=== PATIENT | male | born 1980 | race Caucasian/White ===

== ENCOUNTER 2019-04-30 11:10 | Inpatient (IN) ==
[2019-04-30] MEDS ORDERED: SODIUM CHLORIDE 0.9% 1000ML 2,000 ML IV ONE (11:41)
[2019-04-30 11:50] LABS: Basophils # (auto) 0.02 K/uL (0-0.2); Basophils % (auto) 0.2 %; Eosinophils # (auto) 0.89 K/uL (0-0.5); Eosinophils % (auto) 8.5 %; Hematocrit (blood only) 41.2 % (42-52); Hemoglobin 13.5 g/dL (14.0-18.0); Lymphocytes # (auto) 1.17 K/uL (1.2-3.4); Lymphocytes % (auto) 11.2 %; Mean Corpuscular Hemoglobin 25.4 pg (25-34); Mean Corpuscular Hgb Conc 32.8 g/dL (32-36); Mean Corpuscular Volume 77.6 fL (80-100); Mean Platelet Volume 9.4 fL (7.4-10.4); Monocytes # (auto) 0.81 K/uL (0.11-0.59); Monocytes % (auto) 7.8 %; Neutrophils # (auto) 7.43 K/uL (1.4-6.5); Neutrophils % (auto) 71.3 %; Platelet Count 256 K/uL (130-400); RDW Coefficient of Variation 13.6 % (11.5-14.5); RDW Standard Deviation 38.5 fL (36.4-46.3); Red Blood Count 5.31 M/uL (4.7-6.1); White Blood Count 10.42 K/uL (4.8-10.8)
--- NOTE | 2019-04-30 11:59 | XRay Report ---
XR chest 1V portable HISTORY: 38 years-old Male Chest Pain acute atypical chest pain COMPARISON: None available TECHNIQUE: Portable AP view of the chest FINDINGS: Cardiac silhouette is upper limits of normal in size. Mild right hemidiaphragmatic elevation with min imal patchy basilar opacities. Blunting of the costophrenic angles. No pneumothorax or overt pulmonar y edema. Ill-defined nodular 2.9 x 2.2 cm right suprahilar nodular lesion. There is no pneumothorax. Bones appear grossly intact. IMPRESSION: 1. Indeterminate 2.3 x 2.9 cm right suprahilar nodular opacity may reflect focal airspace disease megan michelle pulmonary nodule. Correlation with follow-up chest CT recommended to further evaluate. 2. Moderate hemidiaphragm elevation with bibasilar opacities suggestive of atelectasis or pneumonitis . 3. Probable trace pleural effusions. The above report was generated using voice recognition software. It may contain grammatical, syntax o r spelling errors. Electronically signed by: Kailash Kumari M.D. 04/30/2019 11:58 AM
[2019-04-30 12:00] LABS: Appearance Urine Clear (Clear); Bilirubin Urine Negative (Negative); Blood Urine Negative (Negative); Color Urine Yellow; Glucose Urine UA Negative (Negative); Ketones Urine Negative (Negative); Leukocyte Esterase Urine Negative (Negative); Nitrite Urine Negative (Negative); Protein Urine Negative (Negative); Specific Gravity Urine 1.013 (1.000-1.030); Urobilinogen Urine Negative (Negative); pH Urine 6.5 (4.5-7.5)
[2019-04-30 12:08] LABS: Alanine Aminotransferase 44 U/L (12-78); Albumin Level 3.4 gm/dl (3.4-5.0); Aspartate Aminotransferase 27 U/L (15-37); BUN Creatinine Ratio 13.4 (10-20); Bilirubin Direct 0.3 mg/dl (0-0.2); Blood Urea Nitrogen 14 mg/dl (7-18); Calcium 9.5 mg/dl (8.5-10.1); Carbon Dioxide 28 mmol/L (21-32); Chloride 95 mmol/L (98-107); Creatinine Clr Calc Pharmacy 118.5 ml/min; Est GFR (African American) 100.1; Est GFR (Non-African American) 86.4; Glucose 83 mg/dl (70-99); Lipase 82 U/L (73-393); Potassium 4.1 mmol/L (3.5-5.1); Sodium 130 mmol/L (136-145); Uric Acid 6.6 mg/dl (2.6-7.2)
[2019-04-30 12:17] LABS: Albumin Globulin Ratio 0.6 (0.9-2); Alkaline Phosphatase 250 U/L (45-117); Bilirubin,Total 0.6 mg/dl (0.2-1); Globulin 5.5 gm/dl (2.5-4.0); Phosphorus 3.7 mg/dl (2.5-4.9); Total Protein 8.9 gm/dl (6.4-8.2); Troponin I < 0.015 ng/ml (0-0.045)
[2019-04-30] MEDS ORDERED: IOVERSOL 100ml IV PRN (12:56)
--- NOTE | 2019-04-30 13:28 | CT Scan Report ---
CT abd pelvis IV con only CLINICAL HISTORY: lower abdominal pain COMPARISON STUDY: None. TECHNIQUE: The patient was scanned in a dynamic helical fashion during intravenous administration of 94 cc of Optiray 320. A dose lowering technique was utilized adhering to the principles of ALARA. CT DOSE: 1084.55 mGycm FINDINGS: Lower chest: There are equivocal lower lobe pulmonary artery filling defects. CT angiography the ches t is recommended in follow-up to evaluate for pulmonary embolism. There are small bilateral pleural e ffusions right greater than left. There are dependent airspace opacities, likely atelectatic. There a re enlarged lymph nodes at the level of the right cardiophrenic angle. There is a 24 mm left lower lo be interfissural nodule. There is a 15 mm right lower lobe pleural nodule. Pleural metastasis are michelle pected. Liver: There is a 13 cm left lobe hepatic mass with overlying capsular irregularity. There is thicken ing of the anterior diaphragm. Gallbladder: Unremarkable. Spleen: The spleen is mildly enlarged measuring 13.7 cm. Pancreas: Unremarkable. Adrenal glands: There is a 19 mm left adrenal nodule. Kidneys: There is symmetric renal cortical enhancement. The kidneys are normal in size without hydron ephrosis. Bowel: There are no transition zones to indicate bowel obstruction. There is no evidence of acute div erticulitis. There is no evidence of acute appendicitis. Peritoneum: There is no free air. There is trace free pelvic fluid. There is a 17 mm right perirectal soft tissue nodule consistent with a is no implant. There is ar 24 mm central mesenteric mass consis tent with a tumor implant. There are pericapsular hepatic nodules consistent with tumor implants. Vasculature: The abdominal aorta is normal in course and caliber. Adenopathy: There is an enlarged 39 mm seven hepatis lymph node. Pelvic viscera: The bladder, and pelvic viscera are unremarkable. Skeletal structures: No destructive osseous lesions are seen. IMPRESSION: 1. 13 cm left lobe hepatic mass with suspected transcapsular and transdiaphragmatic extension. There are suspected bilateral pleural masses with associated pleural effusions. There is pathologic adenopa thy including a 39 mm seven hepatis lymph node. 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 2. 19 mm left adrenal nodule 3. Possible pulmonary artery filling defects. A dedicated CT angiogram of the chest is recommended to confirm or exclude the presence of pulmonary embolism 4. No evidence of bowel obstruction. No evidence of free air Electronically signed by: Gregory Miramontes M.D. 04/30/2019 1:26 PM
[2019-04-30] MEDS ORDERED: OPTIRAY 320 125ml IV PRN (14:18)
--- NOTE | 2019-04-30 14:45 | CT Scan Report ---
CT ANGIOGRAPHY OF THE CHEST, PULMONARY EMBOLUS PROTOCOL CLINICAL HISTORY: Pulmonary emboli. COMPARISON STUDY: Chest radiograph and CT of the abdomen and pelvis performed earlier today. TECHNIQUE: Following IV administration of 120 mL of Optiray-320, helical axial images of the chest we re obtained utilizing the pulmonary embolus protocol. Maximal intensity projections and sagittal and coronal reformats were viewed on an independent 3D workstation. IV contrast was administered withou t complication. Automated exposure control was utilized for the study. A dose lowering technique wa s utilized adhering to the principles of ALARA. CT DOSE: 576.96 mGycm FINDINGS: Note is made of extensive pulmonary emboli, including emboli within the distal right pulmo nary artery extending into the lobar and segmental branches of the lobe within the right lung. There are several segmental left-sided pulmonary emboli as well. There is no CT evidence for right heart st rain. Size of the heart is at the upper limits of normal. There are small bilateral pleural effusions . The right pleural effusion is partially loculated. A 2.5 cm subpleural opacity within the superior segment of the right lower lobe on axial image 179 of 278 favors a pulmonary infarct. There are are i nnumerable small pulmonary and pleural nodules. These measure up to 8 mm in size. Central airways are patent. There is no pneumothorax. No suspicious osseous lesions are noted. A large left hepatic lobe mass is better depicted on the abdominal CT which was performed earlier today. Nodularity along the diaphragm as well as costophrenic angle is noted. There are several enlarged subcarinal lymph nodes. Prominent AP window lymph nodes are also noted. IMPRESSION: 1. Extensive right-sided pulmonary emboli, including emboli within the distal right pulmonary artery. Multiple segmental left pulmonary emboli. No CT evidence for right heart strain. Suspected 2.5 cm ri ght lower lobe pulmonary infarct. 2. Small bilateral pleural effusions. These are likely malignant. Innumerable small pulmonary and ple ural nodules suggestive of metastatic disease. 3. Left hepatic lobe mass, better depicted on CT performed earlier today. This favors a primary liver tumor. Adjacent nodularity reflects tumor extending along the diaphragm. 4. Enlarged thoracic lymph nodes suggestive of kya spread of disease. Electronically signed by: Pepito Lyn M.D. 04/30/2019 2:44 PM
[2019-04-30] MEDS ORDERED: HEPARIN SOD (PORCINE) 1000 UNIT/ML 10 ML VIAL ONE (15:27)
[2019-04-30] MEDS: HEPARIN SODIUM/DEXTROSE 25,000 UNITS/500 ML BAG IV SCH (15:33)
--- NOTE | 2019-04-30 15:54 | Emergency Department Note ---
Entered by Tanmay Yo acting as a scribe for Lex James MD History of Present Illness General Chief complaint: Abdominal Pain Stated complaint: ABDOMINAL PAIN, FATIGUE, SHORTNESS OF BREATH Time Seen by Provider: 04/30/19 11:25 Source: patient Mode of arrival: ambulatory Limitations: no limitations History of Present Illness Onset (ago): week(s) 2 Pain Consistency: + constant and + intermittent Maximum Pain Intensity: 1 Quality: + constant Associated symptoms: + denies other symptoms ( fever, cough, congestion, constipation, dysuria) The patient is a 38 year old male who presents to the Emergency Room with complaints of constant dull right lower abdominal that started two weeks prior to arrival. The patient states that he has intermittent nausea, decreased appetite, and light headedness. The patient reports that the abdominal pain started over the last several days. The patient denies any fever, cough, congestion, constipation, or dysuria. He patient reports that he has a history of gout that has affected his kidneys The patient notes that he has tried to cut back on the use of alcohol and consumption of red meat. 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 The patient reports that he smokes marijuana daily, but denies the use of any other drugs. Home Medications Home Medications Medication Instructions Recorded Confirmed Type No Known Home Medications 04/30/19 04/30/19 History Allergies Allergy/AdvReac Type Severity Reaction Status Date / Time No Known Allergies Allergy Unverified 04/30/19 12:44 Past Med/Surg History Medical History Abdominal pain Family History Other No significant active problems Social History Preferred Language: Micronesian Communication Ability: Effective Beliefs That Will Affect Care: None Current Living Situation: Other Current Living Situation Comment: lives with friend Other Information That Helps Us Care for You: No Feels Safe at Home: Yes Safety Concerns: Feels Safe At This Time Smoking Status: Current every day smoker Tobacco Type: cigarettes ; Cigarettes Per Day: 20 ; Tobacco Cessation Education Requested by Patient: No Hx Alcohol Use: No Hx Substance Use: No Review of Systems See HPI for pertinent positives & negatives. and A total of 10 systems reviewed and were otherwise negative Physical Exam Vital Signs Vital Signs - 24 hr 04/30/19 11:17 04/30/19 11:59 04/30/19 12:00 Temperature 36.5 C Temperature Source Oral Sepsis Recent Fever Within 48 Hours No Sepsis Action Taken by Nursing No Action Required Pulse Rate 96 H 96 H 83 Pulse Rate from SpO2 Sensor 82 Pulse Rhythm Regular Respiratory Rate 16 16 18 Blood Pressure 178/103 H 136/97 Blood Pressure Mean 128 110 Pulse Oximetry 96 96 99 Oxygen Delivery Method Room Air Room Air Room Air 04/30/19 12:30 04/30/19 13:30 04/30/19 15:39 Temperature Temperature Source Sepsis Recent Fever Within 48 Hours Sepsis Action Taken by Nursing Pulse Rate 81 81 98 H Pulse Rate from SpO2 Sensor 81 84 101 H Pulse Rhythm Respiratory Rate 30 H 23 27 H Blood Pressure 164/98 H 156/104 H 155/108 H Blood Pressure Mean 120 121 123 Pulse Oximetry 100 95 97 Oxygen Delivery Method Room Air Room Air 04/30/19 16:00 Temperature Temperature Source Sepsis Recent Fever Within 48 Hours Sepsis Action Taken by Nursing Pulse Rate 106 H Pulse Rate from SpO2 Sensor 106 H Pulse Rhythm Respiratory Rate 24 Blood Pressure 184/115 H Blood Pressure Mean 138 Pulse Oximetry 99 Oxygen Delivery Method GENERAL: Awake, alert, well-appearing, in no distress HENT: NC/AT, Oropharynx with dry mucous membranes and otherwise unremarkable. EYES: Normal conjunctiva. Sclera non-icteric. EOMI. No nystamgus. PEARRL. NECK: Supple. No nuchal rigidity. FROM. No JVD. RESPIRATORY: CTAB. CARDIAC: Regular rate, normal rhythm. Extremities warm and well perfused. Pulses equal. ABDOMEN: Soft, non-distended. Generalized abdominal discomfort without discrete tenderness to palpation. No rebound or guarding. No masses. RECTAL: Deferred. MUSCULOSKELETAL: Chest examination reveals no tenderness. The back is symmetrical on inspection without obvious abnormality. There is no CVA tenderness to palpation. No joint edema. LOWER EXTREMITIES: Calves are equal size bilaterally and non-tender. No edema. No discoloration. NEURO: Normal sensorium. No sensory or motor deficits noted. SKIN: No rash or jaundice noted. Course 1150: The patient was evaluated in room C07. A complete history and physical exam was performed. 1413. I dicussed the atient case with Malhatra, [facility] Hospitalist. The patient verbally expressed understanding and agreement of the treatment plan. The pa tient will be evaluated for further treatment. Administered Medications Hydralazine HCl (Hydralazine Hcl) 10 mg IV Q6H PRN PRN Reason: SBP > 180 or DBP > 100 Stop: 05/30/19 18:34 Last Admin: 04/30/19 20:50 Dose: 10 mg Documented by: [id number] Heparin Sodium/Dextrose (Heparin Sodium/Dextrose) 25,000 units in 500 mls @ 0.02 mls/hr IV .Q24H ERUM; Protocol Stop: 05/30/19 15:14 Last Titration: 04/30/19 19:15 Dose: 1,650 units/hr, 33 mls/hr Documented by: [id number] Cosigned by: [id number] Admin: 04/30/19 15:33 Dose: 1,650 units/hr, 33 mls/hr Documented by: [id number] Cosigned by: [id number] Lactated Ringer's (Lr) 1,000 mls @ 125 mls/hr IV .Q8H ERUM Stop: 05/30/19 18:34 Last Admin: 04/30/19 18:53 Dose: 125 mls/hr Documented by: [id number] Discontinued Medications Heparin Sodium (Porcine) (Heparin Iv Bolus) Confirm Administered Dose 10,000 units .ROUTE .STK-MED ONE Stop: 04/30/19 15:28 Last Admin: 04/30/19 15:33 Dose: 7,000 units Documented by: [id number] Cosigned by: [id number] Heparin Sodium/Dextrose () 1 ea IV NOW STA; Protocol Stop: 04/30/19 15:12 Last Admin: 04/30/19 15:33 Dose: Not Given Documented by: [id number] Sodium Chloride (Nss 1000ml) 2,000 mls @ 999 mls/hr IV .Q2H1M ONE Stop: 04/30/19 13:41 Last Infusion: 04/30/19 14:03 Dose: 0 mls/hr Documented by: [id number] Admin: 04/30/19 12:00 Dose: 999 mls/hr Documented by: [id number] Ioversol (Optiray 320 100ml) 94 ml IV ONCE PRN PRN Reason: Interaction Checking Stop: 05/04/19 12:55 Last Admin: 04/30/19 12:57 Dose: 94 ml Documented by: [id number] Ioversol (Optiray 320 125ml) 120 ml IV ONCE PRN PRN Reason: Interaction Checking Stop: 05/04/19 14:17 Last Admin: 04/30/19 14:19 Dose: 120 ml Documented by: [id number] Medical Decision Making Differential Diagnosis Differential diagnosis: Etiologies such as biliary colic, cholecystitis, hepatitis, pancreatitis, cardiac disease, pancreatitis, gastritis, peptic ulcer disease, appendicitis, cystitis, diverticulitis, mesenteric ischemia, inflammatory bowel disease, ileus, bowel obstruction, testicular torsion, aortic pathology, shingles, as well as others were considered. Medical Records Attestation: I reviewed the patient's medical records. Home Medications Current Medication List: was personally reviewed by me Laboratory Data Attestation: I reviewed the patient's lab results. Result diagrams: 04/30/19 11:38 04/30/19 11:38 Lab Results 04/30/19 04/30/19 04/30/19 Range/Units 11:38 11:38 11:38 WBC 10.42 (4.8-10.8) K/uL RBC 5.31 (4.7-6.1) M/uL Hgb 13.5 L (14.0-18.0) g/dL Hct 41.2 L (42-52) % MCV 77.6 L (80-100) fL MCH 25.4 (25-34) pg MCHC 32.8 (32-36) g/dL RDW Std Deviation 38.5 (36.4-46.3) fL RDW Coeff of Jaclyn 13.6 (11.5-14.5) % Plt Count 256 (130-400) K/uL MPV 9.4 (7.4-10.4) fL Immature Gran % (Auto) 1.0 % Neut % (Auto) 71.3 % Lymph % (Auto) 11.2 % [place] % (Auto) 7.8 % Eos % (Auto) 8.5 % Baso % (Auto) 0.2 % Immature Gran # (Auto) 0.10 H (0.00-0.02) K/uL Neut # (Auto) 7.43 H (1.4-6.5) K/uL Lymph # (Auto) 1.17 L (1.2-3.4) K/uL [place] # (Auto) 0.81 H (0.11-0.59) K/uL Eos # (Auto) 0.89 H (0-0.5) K/uL Baso # (Auto) 0.02 (0-0.2) K/uL APTT (21.0-31.0) Seconds PTT Ratio Sodium 130 L (136-145) mmol/L Potassium 4.1 (3.5-5.1) mmol/L Chloride 95 L (98-107) mmol/L Carbon Dioxide 28 (21-32) mmol/L Anion Gap 7.0 (3-11) BUN 14 (7-18) mg/dl Creatinine 1.07 (0.6-1.4) mg/dl Est Cr Clr Drug Dosing 118.5 ml/min Est GFR ( Amer) 100.1 Est GFR (Non-Af Amer) 86.4 BUN/Creatinine Ratio 13.4 (10-20) Glucose 83 (70-99) mg/dl Uric Acid 6.6 (2.6-7.2) mg/dl Calcium 9.5 (8.5-10.1) mg/dl Phosphorus 3.7 (2.5-4.9) mg/dl Magnesium 2.0 (1.8-2.4) mg/dl Total Bilirubin 0.6 (0.2-1) mg/dl Direct Bilirubin 0.3 H (0-0.2) mg/dl AST 27 (15-37) U/L ALT 44 (12-78) U/L Alkaline Phosphatase 250 H (45-117) U/L Troponin I < 0.015 (0-0.045) ng/ml Total Protein 8.9 H (6.4-8.2) gm/dl Albumin 3.4 (3.4-5.0) gm/dl Globulin 5.5 H (2.5-4.0) gm/dl Albumin/Globulin Ratio 0.6 L (0.9-2) Lipase 82 (73-393) U/L TSH 2.610 (0.300-4.500) uIu/ml Urine Color Yellow Urine Appearance Clear (Clear) Urine pH 6.5 (4.5-7.5) Ur Specific [place] 1.013 (1.000-1.030) Urine Protein Negative (Negative) Urine Glucose (UA) Negative (Negative) Urine Ketones Negative (Negative) Urine Blood Negative (Negative) Urine Nitrite Negative (Negative) Urine Bilirubin Negative (Negative) Urine Urobilinogen Negative (Negative) Ur Leukocyte Esterase Negative (Negative) Ethyl Alcohol mg/dL (0-3) mg/dl 04/30/19 04/30/19 Range/Units 11:38 12:02 WBC (4.8-10.8) K/uL RBC (4.7-6.1) M/uL Hgb (14.0-18.0) g/dL Hct (42-52) % MCV (80-100) fL MCH (25-34) pg MCHC (32-36) g/dL RDW Std Deviation (36.4-46.3) fL RDW Coeff of Jaclyn (11.5-14.5) % Plt Count (130-400) K/uL MPV (7.4-10.4) fL Immature Gran % (Auto) % Neut % (Auto) % Lymph % (Auto) % [place] % (Auto) % Eos % (Auto) % Baso % (Auto) % Immature Gran # (Auto) (0.00-0.02) K/uL Neut # (Auto) (1.4-6.5) K/uL Lymph # (Auto) (1.2-3.4) K/uL [place] # (Auto) (0.11-0.59) K/uL Eos # (Auto) (0-0.5) K/uL Baso # (Auto) (0-0.2) K/uL APTT 29.9 (21.0-31.0) Seconds PTT Ratio 1.1 Sodium (136-145) mmol/L Potassium (3.5-5.1) mmol/L Chloride (98-107) mmol/L Carbon Dioxide (21-32) mmol/L Anion Gap (3-11) BUN (7-18) mg/dl Creatinine (0.6-1.4) mg/dl Est Cr Clr Drug Dosing ml/min Est GFR ( Amer) Est GFR (Non-Af Amer) BUN/Creatinine Ratio (10-20) Glucose (70-99) mg/dl Uric Acid (2.6-7.2) mg/dl Calcium (8.5-10.1) mg/dl Phosphorus (2.5-4.9) mg/dl Magnesium (1.8-2.4) mg/dl Total Bilirubin (0.2-1) mg/dl Direct Bilirubin (0-0.2) mg/dl AST (15-37) U/L ALT (12-78) U/L Alkaline Phosphatase (45-117) U/L Troponin I (0-0.045) ng/ml Total Protein (6.4-8.2) gm/dl Albumin (3.4-5.0) gm/dl Globulin (2.5-4.0) gm/dl Albumin/Globulin Ratio (0.9-2) Lipase (73-393) U/L TSH (0.300-4.500) uIu/ml Urine Color Urine Appearance (Clear) Urine pH (4.5-7.5) Ur Specific [place] (1.000-1.030) Urine Protein (Negative) Urine Glucose (UA) (Negative) Urine Ketones (Negative) Urine Blood (Negative) Urine Nitrite (Negative) Urine Bilirubin (Negative) Urine Urobilinogen (Negative) Ur Leukocyte Esterase (Negative) Ethyl Alcohol mg/dL < 3.0 (0-3) mg/dl Imaging Data Radiologist's Impression: Radiology results as stated below per my review and the radiologist's interpretation: XR chest 1V portable HISTORY: 38 years-old Male Chest Pain acute atypical chest pain COMPARISON: None available TECHNIQUE: Portable AP view of the chest FINDINGS: Cardiac silhouette is upper limits of normal in size. Mild right hemidiaphragmatic elevation with minimal patchy basilar opacities. Blunting of the costophrenic angles. No pneumothorax or overt pulmonary edema. Ill-defined nodular 2.9 x 2.2 cm right suprahilar nodular lesion. There is no pneumothorax. Bones appear grossly intact. IMPRESSION: 1. Indeterminate 2.3 x 2.9 cm right suprahilar nodular opacity may reflect focal airspace disease versus pulmonary nodule. Correlation with follow-up chest CT recommended to further evaluate. 2. Moderate hemidiaphragm elevation with bibasilar opacities suggestive of atelectasis or pneumonitis. 3. Probable trace pleural effusions. The above report was generated using voice recognition software. It may contain grammatical, syntax or spelling errors. Electronically signed by: Kailash Kumari M.D. 04/30/2019 11:[address] abd pelvis IV con only CLINICAL HISTORY: lower abdominal pain COMPARISON STUDY: None. TECHNIQUE: The patient was scanned in a dynamic helical fashion during intravenous administration of 94 cc of Optiray 320. A dose lowering technique was utilized adhering to the principles of ALARA. CT DOSE: 1084.55 mGycm FINDINGS: Lower chest: There are equivocal lower lobe pulmonary artery filling defects. CT angiography the chest is recommended in follow-up to evaluate for pulmonary embolism. There are small bilateral pleural effusions right greater than left. There are dependent airspace opacities, likely atelectatic. There are enlarged lymph nodes at the level of the right cardiophrenic angle. There is a 24 mm left lower lobe interfissural nodule. There is a 15 mm right lower lobe pleural nodule. Pleural metastasis are suspected. Liver: There is a 13 cm left lobe hepatic mass with overlying capsular irr egularity. There is thickening of the anterior diaphragm. Gallbladder: Unremarkable. Spleen: The spleen is mildly enlarged measuring 13.7 cm. Pancreas: Unremarkable. Adrenal glands: There is a 19 mm left adrenal nodule. Kidneys: There is symmetric renal cortical enhancement. The kidneys are normal in size without hydronephrosis. Bowel: There are no transition zones to indicate bowel obstruction. There is no evidence of acute diverticulitis. There is no evidence of acute appendicitis. Peritoneum: There is no free air. There is trace free pelvic fluid. There is a 17 mm right perirectal soft tissue nodule consistent with a is no implant. There is ar 24 mm central mesenteric mass consistent with a tumor implant. There are pericapsular hepatic nodules consistent with tumor implants. Vasculature: The abdominal aorta is normal in course and caliber. Adenopathy: There is an enlarged 39 mm seven hepatis lymph node. Pelvic viscera: The bladder, and pelvic viscera are unremarkable. Skeletal structures: No destructive osseous lesions are seen. IMPRESSION: 1. 13 cm left lobe hepatic mass with suspected transcapsular and transdiaphragmatic extension. There are suspected bilateral pleural masses with associated pleural effusions. There is pathologic adenopathy including a 39 mm seven hepatis lymph node. 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 2. 19 mm left adrenal nodule 3. Possible pulmonary artery filling defects. A dedicated CT angiogram of the chest is recommended to confirm or exclude the presence of pulmonary embolism 4. No evidence of bowel obstruction. No evidence of free air Electronically signed by: Gregory Miramontes M.D. 04/30/2019 1:26 PM ECG Data Indication: abdominal pain Blood Pressure Blood Pressure Findings: Elevated blood pressure Blood Pressure Disposition: did not require urgent referral MDM Narrative The patient is a patient is a pleasant 38 y/o gentleman previously [facility] who presents to the emergency department for evaluation of constant lower abdominal pain/discomfort with persistent nausea and decreased appetitite for the past 2 weeks with the development of intermittent dizziness and sob over the past several days per HPI. On arrival the patient is in NAD, AF with HR in the 90s and otherwise VSS. The patient appears clinically dry. He is neurologically intact without focal deficits. He has generalized abdominal discomfort without discrete ttp. EKG without evidence of acute ischemia. CXR with nodule, basilar opacities and pleural effusion further characterized on CT. WBC and platelets wnl. H/H 13.5/41.2 without prior values for comparison. Chemistry without acidosis. Sodium 130. Alk phos 250 without prior value for comparison. Otherwise, LFTs and electrolytes unremarkable. Troponin negative. CT of the abd/pelvis performed given the patient's prolonged and now worsening sx and demonstrated extensive findings that are suspicious for metastatic disease including at 13 cm left lobe hepatic mass with suspected transcapsular and transdiaphragmatic extension. A 24mm central mesenteric mass, and a 17mm right perirectal mass. Possible filling defects seen on CT of abdomen led to CTA of the chest that demonstrates extensive right-sided pulmonary emboli, including distal right pulmonary artery. Multiple segmental left pulmonary emboli. Also seen is suspected 2.5 cm right lower lobe pulmonary infarct. No CT evidence of right heart strain. Likely malignant pleural effusions and pulmonary and pleural nodules. Enlarged thoracic lymph nodes suggestive of kya spread of disease. Upon review of initial CT of the abdomen I did sit down with the patient in his room with his friend at the bedside and reviewed the CT results. He again denied and medical history. He reports feeling as though "something was wrong" over the past 5 years but had unremarkable blood work per his underdstanding when he did have a doctor several years ago. I did review the plan for admission as well as for CT of his chest for further clarify pulmonary findings. CT chest results were discussed with the patient by the admitting team. Case was discussed with Dr. Banuelos, [facility] hospitalist, Dr. Frandy Quinones, [place] admitting resident who will evaluate the patient for admission. We agree to initiate treatment with Heparin at this time in the likelihood he will require procedure for biopsy/diagnosis. Impression & Plan Pulmonary emboli, Embolism, pulmonary with infarction, Liver mass, left lobe, Pleural effusion, bilateral, Metastatic disease Critical Care Time Critical Care Time: Yes Total Critical Care Time: 75 I have personally spent greater than 75 minutes of critical care time in the direct management of this patient. This includes bedside care, interpretation of diagnostic studies, and testing, discussion with consultants, patient, and family members, and other required patient management activities. This 75 minutes is in excess of all separately billable procedures. Discharge Plan Visit Data *Final* Discharge Date/Time: 04/30/19 17:56 Chief Complaint: Abdominal Pain Stated Complaint: ABDOMINAL PAIN, FATIGUE, SHORTNESS OF BREATH ED Provider: Lex James Discharge Problem: Pulmonary emboli, Embolism, pulmonary with infarction, Liver mass, left lobe, Pleural effusion, bilateral, Metastatic disease Patient Disposition: Admitted As Inpatient Discharge Instructions Interventions: ED Discharge Assessment Last Done: 04/30/19 17:56 Discharge Problem: Pulmonary emboli Qualifiers: Pulmonary embolism type: unspecified Chronicity: acute Acute cor pulmonale presence: without acute cor pulmonale Qualified Code(s): I26.99 - Other pulmonary embolism without acute cor pulmonale The scribe's documentation has been prepared under my direction and personally reviewed by me in its entirety. I confirm that the note above accurately reflects all work, treatment, procedures, and medical decision making performed by me.
[2019-04-30 16:01] LABS: Partial Thromboplastin Ratio 1.1; Partial Thromboplastin Time 29.9 Seconds (21.0-31.0)
--- NOTE | 2019-04-30 16:43 | History & Physical Report ---
Date of Service April 30, 2019 Assessment & Plan (1) Abdominal pain: 38-year-old male with history of hypertension and gout presents with 2 weeks of lower abdominal pain, and shortness of breath with minimal exertion. Abdominal Pain: Concern for metastatic rectal cancer vs. hepatic cancer CT abdomen: 13 cm left lobe hepatic mass with suspected transcapsular and transdiaphragmatic extension. Bilateral pleural masses with associated pleural effusions. Pathologic adenopathy including a 39 mm seven hepatis lymph node. Peritoneal metastasis including a 24 mm central mesenteric mass, and 17 mm right perirectal mass. 19 mm left adrenal nodule. CTA chest: Extensive right-sided pulmonary emboli, including emboli within the distal right pulmonary artery. Multiple segmental left pulmonary emboli. No CT evidence of right heart strain. Suspected 2.5 cm right lower lobe pulmonary infarct. Small bilateral pleural effusions.Likely malignant. Innumerable small pulmonary and pleural nodules suggestive of metastatic disease. Enlarged thoracic lymph nodes suggestive of kya spread of disease.Associated with abdomen Hemoglobin 13.5 Direct bili 0.3 and alk phos 250 otherwise LFT within normal limits; lipase normal Tylenol as needed for pain and Zofran as needed for nausea GI and oncology consulted Pulmonary embolism No concern for hypotension. CTA chest: Extensive right-sided pulmonary emboli, including emboli within the distal right pulmonary artery. Multiple segmental left pulmonary emboli. No CT evidence of right heart strain. Suspected 2.5 cm right lower lobe pulmonary infarct Started on heparin drip Monitor on telemetry Hyponatremia likely secondary to dehydration given poor p.o. intake Sodium 130 Received 2 L normal saline On LR 125 cc/h Hypertension Patient was previously on lisinopril and amlodipine Hydralazine as needed History of gout Was previously being treated with allopurinol Uric acid normal FEN/GI: Regular diet - Would need a bowel prep prior to any procedure, so will wait until seen by GI DVT prophylaxis: Heparin drip Code: Full Disposition: PCU telemetry (2) Pulmonary embolism: (3) Pulmonary nodules: (4) Hepatic lesion: (5) HTN (hypertension): (6) Gout: History of Present Illness Chief Complaint: Abdominal pain, decreased appetitie, sob Primary Care Provider: NO PCP 38-year-old male with history of hypertension and gout presents with 2 weeks of lower abdominal pain, and shortness of breath with minimal exertion. Reports shortness of breath with minimal exertion when working around the house or at work and even when talking sometimes. Associated with fatigue, decreased appetite, nausea, dry heaves, lightheadedness, fever, chills, sweats, palpitations occasionally, coughsomewhat productive at times. Patient reports history of blood in the toilet and on wiping for the past 2 years on and off which was previously associated with hemorrhoids. Abdominal pain worse when sitting or lying down, mild. Denies any hematemesis, chest pain, vomiting, diarrhea, constipation, dysuria. Patient has not had regular follow-up with physician for the past 2 years due to insurance issues. Denies any personal or family history of bleeding disorders. Past medical history of hypertension previously treated with lisinopril and amlodipine but not on any medication right now, gout previously treated with allopurinol Family history of cancer, breast and maternal great aunt, uncle unknown, grandmother paternal throat cancersmoker Allergies Allergy/AdvReac Type Severity Reaction Status Date / Time No Known Allergies Allergy Unverified 04/30/19 12:44 Home Medications Home Medications Medication Instructions Recorded Confirmed Type No Known Home Medications 04/30/19 04/30/19 History Past Med/Surg History Medical History Abdominal pain Family History Other No significant active problems Social History Preferred Language: Nigerien Communication Ability: Effective Beliefs That Will Affect Care: None Current Living Situation: Other Current Living Situation Comment: lives with friend Other Information That Helps Us Care for You: No Feels Safe at Home: Yes Safety Concerns: Feels Safe At This Time Smoking Status: Current every day smoker Tobacco Type: cigarettes ; Cigarettes Per Day: 20 ; Tobacco Cessation Education Requested by Patient: No Hx Alcohol Use: No Hx Substance Use: No Review of Systems Review of Systems: As per HPI Physical Exam Physical Exam: General: In NAD Neuro: A&O x 4 Pulm: CTAB, diminished but equal breath sounds bilaterally CV: RRR, no m/r/g, cap refill 3 secs Abdomen:+BS, diffuse mild TTP in all quadrants, non-distended, no palpable masses LE: trace bilateral LE edema, mild bilateral calf TTP Results & Data Vital Signs (Past 12 Hours) Vital Signs Temp Pulse Resp BP Pulse Ox 04/30/19 13:30 81 23 156/104 H 95 04/30/19 12:30 81 30 H 164/98 H 100 04/30/19 12:00 83 18 136/97 99 04/30/19 11:59 96 H 16 96 04/30/19 11:17 36.5 C 96 H 16 178/103 H 96 Laboratory Results Abnormal lab results 04/30/19 04/30/19 Range/Units 11:38 11:38 Hgb 13.5 L (14.0-18.0) g/dL Hct 41.2 L (42-52) % MCV 77.6 L (80-100) fL Immature Gran # (Auto) 0.10 H (0.00-0.02) K/uL Neut # (Auto) 7.43 H (1.4-6.5) K/uL Lymph # (Auto) 1.17 L (1.2-3.4) K/uL Mower # (Auto) 0.81 H (0.11-0.59) K/uL Eos # (Auto) 0.89 H (0-0.5) K/uL Sodium 130 L (136-145) mmol/L Chloride 95 L (98-107) mmol/L Direct Bilirubin 0.3 H (0-0.2) mg/dl Alkaline Phosphatase 250 H (45-117) U/L Total Protein 8.9 H (6.4-8.2) gm/dl Globulin 5.5 H (2.5-4.0) gm/dl Albumin/Globulin Ratio 0.6 L (0.9-2) Diagnostic Findings CT ANGIOGRAPHY OF THE CHEST, PULMONARY EMBOLUS PROTOCOL CLINICAL HISTORY: Pulmonary emboli. COMPARISON STUDY: Chest radiograph and CT of the abdomen and pelvis performed earlier today. TECHNIQUE: Following IV administration of 120 mL of Optiray-320, helical axial images of the chest were obtained utilizing the pulmonary embolus protocol. Maximal intensity projections and sagittal and coronal reformats were viewed on an independent 3D workstation. IV contrast was administered without complication. Automated exposure control was utilized for the study. A dose lowering technique was utilized adhering to the principles of ALARA. CT DOSE: 576.96 mGycm FINDINGS: Note is made of extensive pulmonary emboli, including emboli within the distal right pulmonary artery extending into the lobar and segmental branches of the lobe within the right lung. There are several segmental left- sided pulmonary emboli as well. There is no CT evidence for right heart strain. Size of the heart is at the upper limits of normal. There are small bilateral pleural effusions. The right pleural effusion is partially loculated. A 2.5 cm subpleural opacity within the superior segment of the right lower lobe on axial image 179 of 278 favors a pulmonary infarct. There are are innumerable small pulmonary and pleural nodules. These measure up to 8 mm in size. Central airways are patent. There is no pneumothorax. No suspicious osseous lesions are noted. A large left hepatic lobe mass is better depicted on the abdominal CT which was performed earlier today. Nodularity along the diaphragm as well as costophrenic angle is noted. There are several enlarged subcarinal lymph nodes. Prominent AP window lymph nodes are also noted. IMPRESSION: 1. Extensive right-sided pulmonary emboli, including emboli within the distal right pulmonary artery. Multiple segmental left pulmonary emboli. No CT evidence for right heart strain. Suspected 2.5 cm right lower lobe pulmonary infarct. 2. Small bilateral pleural effusions. These are likely malignant. Innumerable small pulmonary and pleural nodules suggestive of metastatic disease. 3. Left hepatic lobe mass, better depicted on CT performed earlier today. This favors a primary liver tumor. Adjacent nodularity reflects tumor extending along the diaphragm. 4. Enlarged thoracic lymph nodes suggestive of kya spread of disease. CT abd pelvis IV con only CLINICAL HISTORY: lower abdominal pain COMPARISON STUDY: None. TECHNIQUE: The patient was scanned in a dynamic helical fashion during intra venous administration of 94 cc of Optiray 320. A dose lowering technique was utilized adhering to the principles of ALARA. CT DOSE: 1084.55 mGycm FINDINGS: Lower chest: There are equivocal lower lobe pulmonary artery filling defects. CT angiography the chest is recommended in follow-up to evaluate for pulmonary embolism. There are small bilateral pleural effusions right greater than left. There are dependent airspace opacities, likely atelectatic. There are enlarged lymph nodes at the level of the right cardiophrenic angle. There is a 24 mm left lower lobe interfissural nodule. There is a 15 mm right lower lobe pleural nodule. Pleural metastasis are suspected. Liver: There is a 13 cm left lobe hepatic mass with overlying capsular irregularity. There is thickening of the anterior diaphragm. Gallbladder: Unremarkable. Spleen: The spleen is mildly enlarged measuring 13.7 cm. Pancreas: Unremarkable. Adrenal glands: There is a 19 mm left adrenal nodule. Kidneys: There is symmetric renal cortical enhancement. The kidneys are normal in size without hydronephrosis. Bowel: There are no transition zones to indicate bowel obstruction. There is no evidence of acute diverticulitis. There is no evidence of acute appendicitis. Peritoneum: There is no free air. There is trace free pelvic fluid. There is a 17 mm right perirectal soft tissue nodule consistent with a is no implant. There is ar 24 mm central mesenteric mass consistent with a tumor implant. There are pericapsular hepatic nodules consistent with tumor implants. Vasculature: The abdominal aorta is normal in course and caliber. Adenopathy: There is an enlarged 39 mm seven hepatis lymph node. Pelvic viscera: The bladder, and pelvic viscera are unremarkable. Skeletal structures: No destructive osseous lesions are seen. IMPRESSION: 1. 13 cm left lobe hepatic mass with suspected transcapsular and transdiaphragmatic extension. There are suspected bilateral pleural masses with associated pleural effusions. There is pathologic adenopathy including a 39 mm seevn hepatis lymph node. 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 2. 19 mm left adrenal nodule 3. Possible pulmonary artery filling defects. A dedicated CT angiogram of the chest is recommended to confirm or exclude the presence of pulmonary embolism 4. No evidence of bowel obstruction. No evidence of free air Medications Administered Current Inpatient Medications Heparin Sodium/Dextrose (Heparin Sodium/Dextrose) 25,000 units in 500 mls @ 0.02 mls/hr IV .Q24H ERUM; Protocol Stop: 05/30/19 15:14 Last Admin: 04/30/19 15:33 Dose: 1,650 units/hr, 33 mls/hr Documented by: Ioversol (Optiray 320 100ml) 94 ml IV ONCE PRN PRN Reason: Interaction Checking Stop: 05/04/19 12:55 Last Admin: 04/30/19 12:57 Dose: 94 ml Documented by: Ioversol (Optiray 320 125ml) 120 ml IV ONCE PRN PRN Reason: Interaction Checking Stop: 05/04/19 14:17 Last Admin: 04/30/19 14:19 Dose: 120 ml Documented by: Code Status & VTE Plan Code Status Full Code VTE Prophylaxis Plan VTE Prophylaxis will be ordered: Yes Supervising Physician Co-Signing Physician Notes I supervised Dr. Frandy Quinones on this patient's care. I examined the patient today independently of her. I discussed the plan of care with her with the plan being as written in her note except for any following changes/exceptions: None. 38yo M w/ hx of presumed hemorrhoids who presents with widespread masses, presumed to be cancer. The patient reports a years-long history of hemorrhoids with very mild amounts of BRBPR with most BMs. Usually only a few drops, but sometimes enough to soak through toilet paper. For the last 3 weeks, he has been having increasing shortness of breath, fatigue, some tunnel vision, and lower abdominal pain. Came to the ED and was found to have a large mass in his liver along with many other masses. CT a/p caught a number of small PEs, and he was sent for CTA which shows a large, predominantly right-sided PE. - Starting anticoagulation with heparin gtt given the mild GI bleeding - GI & oncology consults - Trend hgb PG Care Time/CCT Total # of Minutes Spent Total Time Spent with Patient: Total time spent is greater than 50% in coordination of care (as documented) at patient's floor/unit and/or counseling patient: Resident Activity Tracking Resident Involvement: Resident Care Provided Care Provided: Adult Hospital Medicine
[2019-04-30] MEDS ORDERED: POLYETHYLENE (MIRALAX) 17 GM PACK PO PRN (18:35)
[2019-04-30] MEDS ORDERED: HydrALAZINE HCL 20 MG/ML VIAL IV PRN (18:35)
[2019-04-30] MEDS: LACTATED RINGER'S 1,000 ML IV SCH (18:53)
[2019-04-30 21:57] LABS: Partial Thromboplastin Ratio 1.3; Partial Thromboplastin Time 34.8 Seconds (21.0-31.0)
[2019-04-30] MEDS ORDERED: HEPARIN IV BOLUS 7,000 UNITS in SYRINGE 0 ML IV ONE (21:59)
[2019-04-30] MEDS ORDERED: DiphenhydrAMINE HCL 50 MG/ML VIAL IV ONE (22:25)
[2019-04-30] MEDS: ACETAMINOPHEN SOL 650 MG/20.3 ML UDC PO PRN (22:50)
[2019-05-01] MEDS ORDERED: OXYMETAZOLINE 0.05% 30 ML BTL NAE PRN (00:18)
[2019-05-01] MEDS: LACTATED RINGER'S 1,000 ML IV SCH (03:15)
[2019-05-01 04:50] LABS: Basophils # (auto) 0.02 K/uL (0-0.2); Basophils % (auto) 0.2 %; Eosinophils # (auto) 0.97 K/uL (0-0.5); Hematocrit (blood only) 33.8 % (42-52); Immature Granulocytes # (auto) 0.07 K/uL (0.00-0.02); Immature Granulocytes % (auto) 0.7 %; Lymphocytes % (auto) 17.5 %; Mean Corpuscular Hemoglobin 24.9 pg (25-34); Mean Corpuscular Hgb Conc 32.5 g/dL (32-36); Mean Corpuscular Volume 76.6 fL (80-100); Mean Platelet Volume 9.2 fL (7.4-10.4); Monocytes # (auto) 0.71 K/uL (0.11-0.59); Monocytes % (auto) 7.3 %; Neutrophils # (auto) 6.24 K/uL (1.4-6.5); Neutrophils % (auto) 64.3 %; Platelet Count 248 K/uL (130-400); RDW Coefficient of Variation 13.6 % (11.5-14.5); RDW Standard Deviation 38.4 fL (36.4-46.3); Red Blood Count 4.41 M/uL (4.7-6.1); White Blood Count 9.71 K/uL (4.8-10.8)
[2019-05-01] MEDS: HEPARIN SODIUM/DEXTROSE 25,000 UNITS/500 ML BAG IV SCH ×2 (05:08→17:27)
[2019-05-01 05:10] LABS: Partial Thromboplastin Ratio 2.2
[2019-05-01 05:25] LABS: Partial Thromboplastin Time 60.8 Seconds (21.0-31.0)
--- NOTE | 2019-05-01 11:46 | Ultrasound Report ---
US venous doppler LE BI HISTORY: Pain. Edema. Concern for DVT COMPARISON STUDY: None. FINDINGS: Findings of acute deep venous embolus is bilaterally. Right leg shows evidence for thrombus within the femoral vein distally, popliteal vein, posterior tib ial as well as peroneal vein. The left leg demonstrates partial nonocclusive thrombus within the left popliteal vein. All remaining left sided venous structures are unremarkable. IMPRESSION: Bilateral acute deep venous thrombosis. The above report was generated using voice recognition software. It may contain grammatical, syntax or spelling errors. Electronically signed by: Francisco Martinez M.D. 05/01/2019 11:45 AM
[2019-05-01] MEDS: LORazepam 1 MG TAB PO PRN ×2 (12:18→22:39)
--- NOTE | 2019-05-01 13:31 | Hospitalist Progress Note ---
Date of Service May 01, 2019 Assessment & Plan (1) Cancer of unknown origin: CT a/p shows 13cm left lobe hepatic mass. Innumerable other nodules and lymphadenopathy. He has been having low-level rectal bleeding for "years" that was chalked up to hemorrhoids. - Discussed with oncology & GI - Plan for colonoscopy and liver biopsy on Friday. - Anesthesiology consult as GI has concern about hemodynamic stability during colonoscopy - Monitoring for any GI bleeding - Re-consult oncology with path results (2) Pulmonary embolism: CTA chest on 04/30 showed "extensive right-sided pulmonary emboli, including emboli within the distal right pulmonary artery. Multiple segmental left pulmonary emboli. No CT evidence of right heart strain. Suspected 2.5 cm right lower lobe pulmonary infarct." Also with bilateral DVTs on ultrasound on 05/01. - Heparin gtt - Monitoring for any cardiovascular compromise - None at present. - Hemoglobin lower, but stable enough to continue heparin gtt (3) Hyponatremia: Na 130 on admission. Likely secondary to dehydration given poor p.o. intake vs. SIADH from pulmonary involvement. - Received 2 L normal saline - Will get urine sodium, osms. (4) HTN (hypertension): Patient was previously on lisinopril and amlodipine. - On 05/01, BP is stable at 140/100. - Hydralazine PRN (5) Gout: Was previously being treated with allopurinol. Uric acid normal. - Monitor Subjective Feels stable today. Still with shortness of breath. Some mild abdominal pain. No tunnel vision. Physical Exam Constitutional: WD/WN, vitals as above Eyes: EOM intact bilaterally; no conjunctival abnormality ENMT: external ear and nose normal, oropharynx normal Neck: trachea midline, no thyromegaly normal visual inspection Respiratory: normal respiratory effort, lungs clear to auscultation no respiratory distress Cardiovascular: RRR, no murmur, no edema Gastrointestinal (Abdomen): Inspection/Auscultation: abdomen normal to inspection; abdomen not distended Musculoskeletal: no cyanosis or clubbing, extremities motor strength 5/5 Skin: no rashes, warm and dry Neurologic: moves all extremities and awake Psychiatric: Orientation: alert, oriented to person and cooperative Results & Data Vital Signs (Past 12 Hours) Vital Signs Temp Pulse Pulse Resp BP Pulse Ox 05/01/19 11:02 37.1 C 87 16 141/99 H 96 05/01/19 10:00 69 05/01/19 07:27 36.9 C 82 18 152/105 H 98 05/01/19 03:41 37.1 C 78 18 146/96 H 94 PG Care Time/CCT Total # of Minutes Spent Total Time Spent with Patient: Total time spent is greater than 50% in coordination of care (as documented) at patient's floor/unit and/or counseling patient:
[2019-05-01 14:24] LABS: BUN Creatinine Ratio 11.3 (10-20); Calcium 8.5 mg/dl (8.5-10.1); Creatinine Clr Calc Pharmacy 133.7 ml/min; Est GFR (African American) 115.6; Est GFR (Non-African American) 99.7; Potassium 4.3 mmol/L (3.5-5.1)
--- NOTE | 2019-05-01 14:45 | Gastrointestinal Consultation ---
Date of Consultation May 01, 2019 Assessment & Plan (1) Cancer of unknown origin: Rectum suggested as source so plan colonsocopy but would also do EGD to rule out UGI source. Timing dependent on pulmonary issue of pulmonary embolism. Discussed with DR Villarreal regarding getting anesthesia consult to help decide on timing. Will place on clear liquid diet in am in case they can be done friday. Procs and risks explained to patient which include but not limted to med reaction, bleeding, perforation, aspiration, and missed lesions rectal bleeding--colo to ruloe out mass microcytic anemia--can be from chronic GI blood loss elevated alk phos--could be from liver lesions pulmonary embolus/DVT---management per hospitalist. History of Present Illness Reason for Consultation: rectal mass, liver mass Requesting Physician: DR Frandy Quinones Attending Physician: Erik Villarreal MD History of Present Illness CC rectal bleeding HPI Pt states bright red blood per rectum on paper and in toilet for a few years. Some dull aching in RLQ recently. Subtle constipation over unknown time frame. Recent shortness of breath, nausea, decreased appetite and lightheadedness. No EGD or colo in the past. This admit noted to have on CTA c/w pulmonary embolus. CT a/p ? mass in rectum, liver mass and lung nodule. Doppler LE c/w DVT. He also has microcytic anemia. LFTS alk phos elevated at 150. Only medical problems HTN. Fhx Noncontributory Allergies Allergy/AdvReac Type Severity Reaction Status Date / Time No Known Allergies Allergy Unverified 04/30/19 12:44 Home Medications Home Medications Medication Instructions Recorded Confirmed Type No Known Home Medications 04/30/19 04/30/19 History Patient History Medical History Abdominal pain Family History Other No significant active problems Social History Preferred Language: Macedonian Communication Ability: Effective Beliefs That Will Affect Care: None Current Living Situation: Other Current Living Situation Comment: lives with friend Other Information That Helps Us Care for You: No Feels Safe at Home: Yes Safety Concerns: Feels Safe At This Time Smoking Status: Current every day smoker Tobacco Type: cigarettes ; Cigarettes Per Day: 20 ; Tobacco Cessation Education Requested by Patient: No Hx Alcohol Use: No Hx Substance Use: No Review of Systems Review of Systems: All systems reviewed & are unremarkable except as noted in HPI & below Physical Exam Constitutional: WD/WN, vitals as above Eyes: PERRL, conjunctivae normal, anicteric sclerae ENMT: external ear and nose normal, oropharynx normal Neck: normal visual inspection and trachea midline Respiratory: normal respiratory effort, lungs clear to auscultation Cardiovascular: RRR, no murmur, no edema Gastrointestinal (Abdomen): normal bowel sounds, soft, nontender, no hepatosplenomegaly Musculoskeletal: no cyanosis or clubbing, extremities motor strength 5/5 Skin: normal turgor Neurologic: PERRL, EOMI, accommodation nl, no face palsy, no dysarthria Psychiatric: A+Ox3, euthymic affect Results & Data Vital Signs (Past 12 Hours) Vital Signs Temp Pulse Pulse Resp BP Pulse Ox 05/01/19 11:02 37.1 C 87 16 141/99 H 96 05/01/19 10:00 69 05/01/19 07:27 36.9 C 82 18 152/105 H 98 05/01/19 03:41 37.1 C 78 18 146/96 H 94
[2019-05-01 17:41] LABS: Hematocrit (blood only) 37.3 % (42-52); Hemoglobin 12.5 g/dL (14.0-18.0)
--- NOTE | 2019-05-01 18:07 | Anesthesiology Consultation ---
Date of Service May 01, 2019 Assessment & Plan Chart Review Chart Review: Acceptable Risk for Surgery and Patient NOT seen in Pre Admission Testing For patient to have procedure: The prescence of a GI bleed makes this a non elective procedure. I deally Na >1 30. Stable from a cardiac and pulmonary standpoint. Currently, 98% on RA Consults Requested none History Height/Weight Height: 6 ft 2 in Weight: 105.3 kg Allergies Allergy/AdvReac Type Severity Reaction Status Date / Time No Known Allergies Allergy Unverified 04/30/19 12:44 Medications Home Medications Medication Instructions Recorded Confirmed Last Taken No Known Home Medications 04/30/19 04/30/19 Unknown Active Medications Generic Name Dose Route Start Last Admin Trade Name Freq PRN Reason Stop Dose Admin Acetaminophen 650 mg 04/30/19 18:35 04/30/19 22:50 Tylenol PO 05/30/19 18:34 650 mg Q6 PRN Administration Pain Hydralazine HCl 10 mg 04/30/19 18:35 04/30/19 20:50 Hydralazine Hcl IV 05/30/19 18:34 10 mg Q6H PRN Administration SBP > 180 or DBP > 100 Heparin Sodium/Dextrose 25,000 units in 500 mls @ 40 mls/hr 04/30/19 15:15 05/01/19 17:27 Heparin Sodium/Dextrose IV 05/30/19 15:14 2,000 units/hr .[id number] ERUM 40 mls/hr Administration Protocol 2,000 UNITS/HR Lorazepam 1 mg 05/01/19 08:54 05/01/19 12:18 Ativan PO 05/31/19 08:53 1 mg BID PRN Administration Anxiety/Agitation Past Medical History Problems will not import. Cancer of unknown origin, Hyponatremia (Na 130), Pulmonay Embolism with lung infarction, Liver mass, Metastatic disease, Gout, HTN, Pleural effusion Past Family History Family History Other No significant active problems Social History Smoking Status: Current every day smoker tobacco type: cigarettes Smoking cigarettes per day: 20 Hx Alcohol Use: No Hx Substance Use: No Physical Exam Vital Signs Last Vital Signs Temp 37.1 C 05/01/19 15:41 Pulse 74 05/01/19 16:00 Resp 18 05/01/19 15:41 BP 153/99 H 05/01/19 15:41 Pulse Ox 98 05/01/19 15:41 Testing Laboratory Results 05/01/19 17:31 05/01/19 13:59 APTT 60.8 Seconds (21.0-31.0) H* 05/01/19 04:43 Urine Color Yellow 04/30/19 11:38 Urine Appearance Clear (Clear) 04/30/19 11:38 Urine pH 6.5 (4.5-7.5) 04/30/19 11:38 Ur Specific Dante 1.013 (1.000-1.030) 04/30/19 11:38 Urine Protein Negative (Negative) 04/30/19 11:38 Urine Glucose (UA) Negative (Negative) 04/30/19 11:38 Urine Ketones Negative (Negative) 04/30/19 11:38 Urine Nitrite Negative (Negative) 04/30/19 11:38 Ur Leukocyte Esterase Negative (Negative) 04/30/19 11:38 Electrocardiogram Date: 04/30/19 Findings: + NSR @ (84) Chest X-Ray Date: 04/30/19 1. Indeterminate 2.3 x 2.9 cm right suprahilar nodular opacity may reflect focal airspace disease versus pulmonary nodule. Correlation with follow-up chest CT recommended to further evaluate. 2. Moderate hemidiaphragm elevation with bibasilar opacities suggestive of atelectasis or pneumonitis. 3. Probable trace pleural effusions.
[2019-05-01 18:21] LABS: Partial Thromboplastin Ratio 1.4; Partial Thromboplastin Time 36.7 Seconds (21.0-31.0)
[2019-05-01] MEDS: ACETAMINOPHEN SOL 650 MG/20.3 ML UDC PO PRN (20:53)
[2019-05-02] MEDS: HEPARIN SODIUM/DEXTROSE 25,000 UNITS/500 ML BAG IV SCH ×2 (04:49→16:57)
[2019-05-02] MEDS: ONDANSETRON INJ 2 MG/ML 2 ML VIAL IV PRN ×2 (04:57→20:15)
[2019-05-02] MEDS ORDERED: ACETAMINOPHEN 65 ML IV PRN (05:15)
[2019-05-02] MEDS: MoRPHine SULFATE 2 MG/ML CARP IV PRN ×6 (05:15→23:16)
[2019-05-02 06:11] LABS: Basophils # (auto) 0.02 K/uL (0-0.2); Basophils % (auto) 0.2 %; Eosinophils # (auto) 0.83 K/uL (0-0.5); Eosinophils % (auto) 8.9 %; Hematocrit (blood only) 34.2 % (42-52); Hemoglobin 11.1 g/dL (14.0-18.0); Immature Granulocytes # (auto) 0.05 K/uL (0.00-0.02); Immature Granulocytes % (auto) 0.5 %; Lymphocytes # (auto) 1.28 K/uL (1.2-3.4); Lymphocytes % (auto) 13.7 %; Mean Corpuscular Hemoglobin 24.9 pg (25-34); Mean Corpuscular Hgb Conc 32.5 g/dL (32-36); Mean Corpuscular Volume 76.9 fL (80-100); Monocytes # (auto) 0.58 K/uL (0.11-0.59); Monocytes % (auto) 6.2 %; Neutrophils # (auto) 6.55 K/uL (1.4-6.5); Neutrophils % (auto) 70.5 %; Platelet Count 251 K/uL (130-400); RDW Coefficient of Variation 13.6 % (11.5-14.5); RDW Standard Deviation 38.9 fL (36.4-46.3); Red Blood Count 4.45 M/uL (4.7-6.1); White Blood Count 9.31 K/uL (4.8-10.8)
[2019-05-02 06:36] LABS: INR 1.2 (0.9-1.1); Partial Thromboplastin Ratio 1.6; Partial Thromboplastin Time 44.3 Seconds (21.0-31.0); Prothrombin Time 11.9 Seconds (9.0-12.0)
[2019-05-02] MEDS ORDERED: HEPARIN IV BOLUS 4,000 UNITS in SYRINGE 0 ML IV ONE (06:51)
[2019-05-02 06:52] LABS: Albumin Level 2.6 gm/dl (3.4-5.0); BUN Creatinine Ratio 12.4 (10-20); Calcium 8.6 mg/dl (8.5-10.1); Creatinine Clr Calc Pharmacy 138.5 ml/min; Est GFR (African American) 121.8; Potassium 4.1 mmol/L (3.5-5.1)
[2019-05-02 06:58] LABS: Albumin Globulin Ratio 0.6 (0.9-2); Bilirubin,Total 0.4 mg/dl (0.2-1); Globulin 4.4 gm/dl (2.5-4.0); Phosphorus 3.9 mg/dl (2.5-4.9)
[2019-05-02 08:42] LABS: Ferritin 689.4 ng/ml (8-388)
[2019-05-02] MEDS ORDERED: IRON SUCROSE 100 MG in 0.9 % SODIUM CHLORIDE 100 ML IV SCH (10:30)
[2019-05-02] MEDS: LORazepam 1 MG TAB PO PRN ×2 (12:13→23:16)
[2019-05-02 12:29] LABS: Partial Thromboplastin Ratio 2.6
[2019-05-02 12:31] LABS: Partial Thromboplastin Time 69.8 Seconds (21.0-31.0)
[2019-05-02] MEDS ORDERED: POLYETHYLENE GLYCOL 3350 238 GM BTL PO SCH (14:30)
--- NOTE | 2019-05-02 15:27 | Hospitalist Progress Note ---
Date of Service May 02, 2019 Assessment & Plan (1) Cancer of unknown origin: CT a/p shows 13cm left lobe hepatic mass. Innumerable other nodules and lymphadenopathy. He has been having low-level rectal bleeding for "years" that was chalked up to hemorrhoids. - Anesthesiology consult as GI has concern about hemodynamic stability during colonoscopy - No concerns; cleared for procedures - Monitoring for any GI bleeding - Re-consult oncology with path results - Discussed with oncology & GI - Plan for colonoscopy and liver biopsy on Friday. EGD/colo likely in the afternoon per GI today. Radiology doesn't have their procedure list available, so I am not sure when the liver biopsy would happen, but push to have it done king in the morning to make room for the EGD/colo. (2) Pulmonary embolism: CTA chest on 04/30 showed "extensive right-sided pulmonary emboli, including emboli within the distal right pulmonary artery. Multiple segmental left pulmonary emboli. No CT evidence of right heart strain. Suspected 2.5 cm right lower lobe pulmonary infarct." Also with bilateral DVTs on ultrasound on 05/01. - Monitoring for any cardiovascular compromise - None at present. - Hemoglobin lower on 05/02, but stable enough to continue heparin gtt - Holding heparin gtt at 05/03 2am for possible 8am procedure. (3) Microcytic anemia: Anemia with hgb down to 11.1 with MCV of 77. Iron labs indicate chronic disease with elevated ferritin. - Given 1 dose of IV iron on 05/02. - Monitor (4) Hyponatremia: Na 130 on admission. Likely secondary to dehydration given poor p.o. intake vs. SIADH from pulmonary involvement. - Received 2 L normal saline - Will get urine sodium, osms. (5) HTN (hypertension): Patient was previously on lisinopril and amlodipine. - Holding HTN meds - Hydralazine PRN - On 05/02, BP is stable at 150/95. (6) Gout: Was previously being treated with allopurinol. Uric acid normal. - Holding allopurinol - Monitor Subjective Feeling well today. Had a BM that had just a few drops of blood on it. Normal for him. Having some abdominal pain and nausea which is improved by the pain medication and Zofran. Reports no fevers/chills, chest pain, shortness of breath, or vomiting. Physical Exam Constitutional: WD/WN, vitals as above Eyes: EOM intact bilaterally; no conjunctival abnormality ENMT: external ear and nose normal, oropharynx normal Neck: trachea midline, no thyromegaly normal visual inspection Respiratory: normal respiratory effort, lungs clear to auscultation no respiratory distress Cardiovascular: RRR, no murmur, no edema Gastrointestinal (Abdomen): Inspection/Auscultation: abdomen normal to inspection; abdomen not distended Musculoskeletal: no cyanosis or clubbing, extremities motor strength 5/5 Skin: no rashes, warm and dry Neurologic: moves all extremities and awake Psychiatric: Orientation: alert, oriented to person and cooperative Results & Data Vital Signs (Past 12 Hours) Vital Signs Temp Pulse Resp BP Pulse Ox 05/02/19 12:16 37.1 C 85 16 153/95 H 97 05/02/19 07:15 37.3 C 72 18 149/95 H 96 PG Care Time/CCT Total # of Minutes Spent Total Time Spent with Patient: Total time spent is greater than 50% in coord ination of care (as documented) at patient's floor/unit and/or counseling patient:
--- NOTE | 2019-05-02 16:31 | Gastroenterology Progress Note ---
Date of Service May 02, 2019 Assessment & Plan (1) Cancer of unknown origin: Rectum suggested as source so plan colonsocopy but would also do EGD to rule out UGI source. Per anesthesia note oxygenation stable so ok to proceed. Plan EGD/colo tomorrow afternoon to be done by DR Corral. rectal bleeding--colo to ruloe out mass microcytic anemia--can be from chronic GI blood loss elevated alk phos--could be from liver lesions pulmonary embolus/DVT---management per hospitalist. I am going off service tomorrow at [address] Corral is assuming GI care then. Subjective cc abd pain HPI Pt on clears today. Complaining of some lower abd pain 5/10. No stools today. Review of Systems Respiratory: + dyspnea mild on exertion Cardiovascular: no chest pain Physical Exam Constitutional: WD/WN, vitals as above Respiratory: normal respiratory effort, lungs clear to auscultation Cardiovascular: RRR, no murmur, no edema Gastrointestinal (Abdomen): normal bowel sounds, soft, nontender, no hepatosplenomegaly Psychiatric: A+Ox3, euthymic affect Results & Data Vital Signs (Past 12 Hours) Vital Signs Temp Pulse Resp BP Pulse Ox 05/02/19 15:50 36.8 C 86 18 146/91 H 94 05/02/19 12:16 37.1 C 85 16 153/95 H 97 05/02/19 07:15 37.3 C 72 18 149/95 H 96
[2019-05-02 19:27] LABS: Partial Thromboplastin Ratio 1.9
[2019-05-02 19:32] LABS: Partial Thromboplastin Time 51.6 Seconds (21.0-31.0)
[2019-05-03] MEDS: MoRPHine SULFATE 2 MG/ML CARP IV PRN ×6 (02:20→22:31)
[2019-05-03] MEDS: ONDANSETRON INJ 2 MG/ML 2 ML VIAL IV PRN ×3 (02:20→18:10)
[2019-05-03 06:19] LABS: Hematocrit (blood only) 35.1 % (42-52); Hemoglobin 11.4 g/dL (14.0-18.0); Mean Corpuscular Hemoglobin 25.1 pg (25-34); Mean Corpuscular Hgb Conc 32.5 g/dL (32-36); Mean Corpuscular Volume 77.1 fL (80-100); Mean Platelet Volume 9.2 fL (7.4-10.4); Platelet Count 285 K/uL (130-400); RDW Coefficient of Variation 13.7 % (11.5-14.5); RDW Standard Deviation 38.5 fL (36.4-46.3); Red Blood Count 4.55 M/uL (4.7-6.1)
[2019-05-03 07:00] LABS: BUN Creatinine Ratio 8.4 (10-20); Calcium 8.6 mg/dl (8.5-10.1); Creatinine Clr Calc Pharmacy 124.8 ml/min; Est GFR (African American) 107.3; Est GFR (Non-African American) 92.6; Potassium 4.3 mmol/L (3.5-5.1)
--- NOTE | 2019-05-03 10:20 | Ultrasound Report ---
ULTRASOUND GUIDED FINE-NEEDLE ASPIRATION AND CORE BIOPSY OF PERIHEPATIC NODULE CLINICAL HISTORY: liver mass COMPARISON STUDY: CT of the abdomen and pelvis April 30, 2019. PROCEDURE: Sonography of the upper abdomen demonstrated several perihepatic/peritoneal nodules locate d anterior to the liver. The liver mass shown on CT was visualized but difficult to delineate by sono graphy. The perihepatic nodules were targeted for biopsy. The procedure, risks and benefits were disc ussed with the patient including the risk of bleeding, infection and injury to adjacent structures. T he patient agreed to the procedure and informed written consent was obtained. The procedure was perfo rmed by Dr. Lyn following a timeout. Skin was prepped and draped in sterile fashion and local a nesthesia was achieved with 1% lidocaine. Under direct ultrasound guidance, 2 22-gauge fine-needle as pirations were performed utilizing Ernesto needles. A third sample was obtained utilizing a 20-gauge Ernesto needle. The samples were of questionable adequacy. Therefore, an 18-gauge 2 cm core sample was then obtained. IMPRESSION: Successful ultrasound guided 18-gauge core biopsy and fine needle aspiration of a perihe patic/peritoneal nodule. Electronically signed by: Pepito Lyn M.D. 05/03/2019 10:18 AM
[2019-05-03] MEDS ORDERED: MoRPHine SULFATE 4 MG/ML 1 ML CARP\\VIAL ONE (13:12)
--- NOTE | 2019-05-03 13:38 | Medical Student H&P ---
Date of Service May 03, 2019 Assessment & Plan Treatment Plan (1) Liver Mass CT shows 13 cm left lobe hepatic mass with many additional nodules and lymphadenopathy. Patient endorses bright red stool per rectum for 'years' but has recently begun passing dark red clots per rectum as well. Monitor for GI bleeding Patient underwent core biopsy of nodules adjacent to liver this morning. EGD/colonoscopy is scheduled for this afternoon, 05/03. Consult heme/onc pending results. (2) Pulmonary embolism: CTA chest on 04/30 showed "extensive right-sided pulmonary emboli, including emboli within the distal right pulmonary artery. Multiple segmental left pulmonary emboli. No CT evidence of right heart strain. Suspected 2.5 cm right lower lobe pulmonary infarct." Also with bilateral DVTs on ultrasound on 05/01. Monitoring for any CV compromise. Hemoglobin remains low but stable. Continue heparin gtt. Resume heparin following EGD/colonoscopy this afternoon. (3) Microcytic anemia: Patient received IV iron yesterday, 05/02. Hgb up to 11.4 from 11.1 yesterday with MCV of 77. Iron labs indicate chronic disease with elevated ferritin. Continue to monitor Hgb/Hct (4) Hyponatremia: Na 130 on admission. Likely secondary to dehydration given poor p.o. intake vs. SIADH from pulmonary involvement. Order urine sodium, osms. (5) HTN (hypertension): Patient was previously on lisinopril and amlodipine. Continue holding HTN meds; give Hydralazine as needed On 05/03, BP continues to be stable at 135/85. History of Present Illness Chief Complaint: Right lower quadrant pain Primary Care Provider: NO PCP Mr. Quesada is a 38-year-old male with a history of hypertension and gout. He came to the ED on Friday after approximately 2 weeks of lower right quadrant pain upon sitting and laying down. He has has general malaise and pain for 'years.' He states he came to the ED because he was getting 'winded' with walking even short distances and describes this as shortness of breath as well as a narrowing of his visual field. He also has had bright red blood per rectum approximately 3 times per week for the last 2-3 years which was believed to be hemorrhoids. While he describes this as generally some red blood on the toilet paper or in the bowl after passing stool, he noticed in the past 3-4 weeks that there were d ark red clots in the toilet up to the size of a quarter. He endorses chills, nights sweats, insomnia, and fatigue. He does not endorse nausea, vomiting, fevers, or loss of weight. He takes 'at least' 800 mg of ibuprofen or 600 mg of naproxen every day to help with these symptoms as well as 400 mg of Advil PM before bed approximately 4 times per week. Abdominal CT in the ED revealed a 13 cm left lobe hepatic mass, bilateral pleural masses with associated pleural effusions, pathologic adenopathy including a 39 mm seven hepatis lymph node, peritoneal metastasis including a 24 mm central mesenteric mass, and 17 mm right perirectal mass, and 19 mm left adrenal nodule. The CTA chest showed extensive right-sided pulmonary emboli and multiple segmental left pulmonary emboli.Suspected 2.5 cm right lower lobe pulmonary infarct. Small bilateral pleural effusions and innumerable small pulmonary and pleural nodules as well as enlarged thoracic lymph nodes. He was evaluated by GI yesterday, 05/02, who determined that he was stable enough to undergo a colonoscopy today to check for the source of blood per rectum. He underwent a U/S-guided biopsy of nodules surrounding the liver in the peritoneum this morning, 05/03. The patient continues to endorse lower right quadrant pain today. He states he has not passed any bright red stool this morning. He states that he is very anxious to obtain the results of the testing but feels 'validated' that something has been found that explains his symptoms. He is currently remains NPO awaiting colonoscopy later today, 05/03, but states that he is hungry. 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 Other Information That Helps Us Care for You: No Feels Safe at Home: Yes Safety Concerns: Feels Safe At This Time Smoking Status: Current every day smoker Tobacco Type: cigarettes ; Cigarettes Per Day: 20 ; Tobacco Cessation Education Requested by Patient: No Hx Alcohol Use: Yes Hx Substance Use: Yes Do you think of yourself as: lesbian/todd/homosexual Sexual Activity: has been sexually active, but not for at least 12 months Review of Systems + chills, + sweats, + body aches, + fatigue, + malaise and + insomnia; no fever, no anorexia and no weight loss + tunnel vision no problem reported + dyspnea on exertion + abdominal pain and + blood in stools + body aches Physical Exam Physical Exam: General Appearance: Patient is in no acute distress. He is largely resting comfortably but does grimace and reposition due to right lower quadrant pain. Cardiac: Regular rate and rhythm. No rubs, murmurs, or gallops. Pulmonary: Crackles heard in the left lung base. Lymphatic: Cervical lymphadenopathy appreciated on the right. Neurologic: Alert and oriented x 3. No focal neurologic deficits appreciated. Results & Data Vital Signs (Past 12 Hours) Vital Signs Temp Pulse Resp BP Pulse Ox 05/03/19 11:34 83 135/85 05/03/19 10:59 83 130/86 05/03/19 10:37 84 137/88 05/03/19 10:05 87 148/89 H 05/03/19 07:34 36.9 C 81 18 135/84 92 05/03/19 04:45 36.9 C 91 H 18 147/81 H 98 Laboratory Results Hgb 11.4 Hct 35.1 MCV 77.1 APTT 51.6 Code Status & VTE Plan VTE Prophylaxis Plan VTE Prophylaxis will be ordered: Yes
--- NOTE | 2019-05-03 15:44 | History & Physical Report ---
Date of Service May 03, 2019 History of Present Illness Chief Complaint: rectal bleeding Primary Care Provider: NO PCP For EGD and colonoscopy Allergies Allergy/AdvReac Type Severity Reaction Status Date / Time No Known Allergies Allergy Unverified 04/30/19 12:44 Home Medications Home Medications Medication Instructions Recorded Confirmed Type No Known Home Medications 04/30/19 04/30/19 History Past Med/Surg History Family History Other No significant active problems Social History Preferred Language: Armenian Communication Ability: Effective Beliefs That Will Affect Care: None marital status: Single Current Living Situation: Other Current Living Situation Comment: lives with friends current occupational status: employed current occupation: [employer] Other Information That Helps Us Care for You: No Feels Safe at Home: Yes Safety Concerns: Feels Safe At This Time Smoking Status: Current every day smoker Tobacco Type: cigarettes ; Cigarettes Per Day: 20 ; Tobacco Cessation Education Requested by Patient: No Hx Alcohol Use: Yes Hx Substance Use: Yes Do you think of yourself as: lesbian/todd/homosexual Sexual Activity: has been sexually active, but not for at least 12 months Physical Exam Constitutional: well developed and well nourished Respiratory: normal respiratory effort Cardiovascular: Rate/Rhythm: regular rate and regular rhythm Gastrointestinal (Abdomen): Percussion/Palpation: + abdomen tender Results & Data Vital Signs (Past 12 Hours) Vital Signs Temp Pulse Resp BP BP Pulse Ox 05/03/19 14:52 37.8 C H 96 H 16 157/100 H 93 05/03/19 14:38 36.9 C 103 H 18 128/89 93 05/03/19 11:34 83 135/85 05/03/19 10:59 83 130/86 05/03/19 10:37 84 137/88 05/03/19 10:05 87 148/89 H 05/03/19 07:34 36.9 C 81 18 135/84 92 05/03/19 04:45 36.9 C 91 H 18 147/81 H 98 Code Status & VTE Plan VTE Prophylaxis Plan VTE Prophylaxis will be ordered: Yes
[2019-05-03] MEDS ORDERED: SODIUM CHLORIDE 0.9% 1000ML 1,000 ML IV SCH (15:45)
[2019-05-03] MEDS ORDERED: fentaNYL citrate 100 MCG/2 ML VIAL ONE (15:49)
[2019-05-03] MEDS ORDERED: PROPOFOL IV EMULSION 10 MG/ML 20 ML VIAL IV ONE (16:26)
[2019-05-03] MEDS ORDERED: LIDOCAINE HCL 2% 2 ML VIAL/AMP(20MG/ML) INFIL ONE (16:26)
--- NOTE | 2019-05-03 16:27 | GI REPORT ---
Patient Name: Tuan Quesada Procedure Date: 05/03/2019 3:40 PM Date of : 1980 Admit Type: Inpatient Age: 38 Gender: Male Attending MD: Godwin Croral MD Procedure: Upper GI endoscopy Providers: Godwin Corral MD Referring MD: Brynn Black Md Indications: Abnormal CT of the GI tract Medicines: Fentanyl 100 micrograms IV, Propofol total dose 510 mg IV, Lidocaine 100 mg IV Complications: No immediate complications. Estimated Blood Loss: Estimated blood loss: none. Procedure: Pre-Anesthesia Assessment: - Prior to the procedure, a History and Physical was performed, and patient medications, allergies and sensitivities were reviewed. The patient's tolerance of previous anesthesia was reviewed. - The risks and benefits of the procedure and the sedation options and risks were discussed with the patient. All questions were answered and informed consent was obtained. After obtaining informed consent, the endoscope was passed under direct vision. Throughout the procedure, the patient's blood pressure, pulse, and oxygen saturations were monitored continuously. The Endoscope was introduced through the mouth, and advanced to the second part of duodenum. The upper GI endoscopy was accomplished without difficulty. The patient tolerated the procedure well. Findings: The Z-line was regular and was found 40 cm from the incisors. The examined esophagus was normal. The entire examined stomach was normal. The examined duodenum was normal. Impression: - Z-line regular, 40 cm from the incisors. - Normal esophagus. - Normal stomach. - Normal examined duodenum. - No specimens collected. Recommendation: - Return patient to hospital august for ongoing care. Godwin Corral M.D. Godwin Corral MD 05/03/2019 4:27:00 PM This report has been signed electronically. Note Initiated On: 05/03/2019 3:40 PM Number of Addenda: 0 I attest to the content of the Intraoperative Record and orders documented therein, exceptions below {[id number]}
--- NOTE | 2019-05-03 16:33 | GI REPORT ---
Patient Name: Tuan Quesada Procedure Date: 05/03/2019 3:39 PM Date of : 1980 Admit Type: Inpatient Age: 38 Gender: Male Attending MD: Godwin Corral MD Procedure: Colonoscopy Providers: Godwin Corral MD Referring MD: Brynn Black Md Indications: Abnormal CT of the GI tract Medicines: Fentanyl 100 micrograms IV, Propofol total dose 510 mg IV, Lidocaine 80 mg IV Complications: No immediate complications. Estimated Blood Loss: Estimated blood loss: none. Procedure: Pre-Anesthesia Assessment: - Prior to the procedure, a History and Physical was performed, and patient medications, allergies and sensitivities were reviewed. The patient's tolerance of previous anesthesia was reviewed. - The risks and benefits of the procedure and the sedation options and risks were discussed with the patient. All questions were answered and informed consent was obtained. After I obtained informed consent, the scope was passed under direct vision. Throughout the procedure, the patient's blood pressure, pulse, and oxygen saturations were monitored continuously. The Colonoscope was introduced through the anus and advanced to the cecum, identified by appendiceal orifice and ileocecal valve. The colonoscopy was technically difficult and complex due to poor bowel prep with stool present. The patient tolerated the procedure well. The quality of the bowel preparation was poor. Findings: Non-bleeding internal hemorrhoids were found during endoscopy. The hemorrhoids were mild. No tumor seen. Impression: - Preparation of the colon was poor. - Non-bleeding internal hemorrhoids. - No specimens collected. Recommendation: - Return patient to hospital august for ongoing care. Godwin Corral M.D. Godwin Corral MD 05/03/2019 4:33:17 PM This report has been signed electronically. Note Initiated On: 05/03/2019 3:39 PM Number of Addenda: 0 I attest to the content of the Intraoperative Record and orders documented therein, exceptions below {[id number]}
--- NOTE | 2019-05-03 16:35 | Hospitalist Progress Note ---
Date of Service May 03, 2019 Assessment & Plan (1) Liver mass, left lobe: CT a/p shows 13cm left lobe hepatic mass. Innumerable other nodules and lymphadenopathy in lungs, peritoneal nodules, adrenal, pleural effusions, thoracic and perirectal MARIPOSA. He has been having low-level rectal bleeding for several years--> colonoscopy without tumor, and with hemorrhoids S/p core biopsy of a peritoneal nodule on 05/03 Await path results Oncology consulted Hopeful to have some prelim path results in the next day or so Likely liver mass is a met but could be a primary -will check Hep C given h/o multi-substance abuse (2) Pulmonary embolism: CTA chest on 04/30 showed "extensive right-sided pulmonary emboli, including emboli within the distal right pulmonary artery. Multiple segmental left pulmonary emboli. No CT evidence of right heart strain. Suspected 2.5 cm right lower lobe pulmonary infarct." Also with bilateral DVTs on ultrasound on 05/01. - Monitoring for any cardiovascular compromise - None at present. -continnue heparin gtt--> nursing home AC depends on if has malignancy or not--> if so, then best options would be Lovenox or Xarelto -check ECHO to look for right heart strain -follow CBC, PTT (3) Microcytic anemia: Anemia with hgb down to 11 with MCV of 77. Iron labs indicate chronic disease but also could be mixed with Fe deficiency given microcytosis and known chronic blood loss from hemorrhoids - with elevated ferritin which could be from acute phase reactant/inflammation - Given 1 dose of IV iron on 05/02, will give another dose 05/03 - Monitor CBC (4) Hyponatremia: Na 130 on admission. Likely secondary to dehydration given poor p.o. intake vs. SIADH from pulmonary involvement. - Received 2 L normal saline and improved to 134 No urine studies were done and no need to do currently as is improved (5) HTN (hypertension): Patient was previously on lisinopril and amlodipine, but lopez snot seen a doctor in 2 years BPs elevated could be secondary to pain - Hydralazine PRN (6) Gout: Was previously being treated with allopurinol. Uric acid normal. - Holding allopurinol - Monitor (7) Acute DVT (deep venous thrombosis): as above (8) Pleural effusion, bilateral: likely malignant effusions but could be secondary to PEs, pulm infarction? -not hypoxic -follow clinically (9) Pulmonary nodules: as above, awaiting path but may need Pulm eval (10) Adrenal nodule: seen on CT on left adrenal gland, 1.9 cm could be a met (11) Rectal bleeding: secondary to hemorrhoids EGD and colonoscopy otherwise normal (12) DVT prophylaxis: Heprain gtt as above Dispo-remain hospitalized for pain control, await path results, treating with heparin gtt Subjective Having abd pain still all across his mid abdomen and on the right side. Increased dose of morphine does seem to help. He also c/o joint pains all over for years. The rectal bleeding has also been going off/on fo ryears. Denies CP or SOB except with walking Had biopsy today of a peritoneal nodule and then EGD/Colonoscopy I discussed his case with Radiology and with GI Review of Systems Review of Systems: All systems reviewed & are unremarkable except as noted in HPI & below Physical Exam Constitutional: WD/WN, vitals as above Eyes: PERRL, conjunctivae normal, anicteric sclerae ENMT: external ear and nose normal, oropharynx normal Neck: trachea midline, no thyromegaly Respiratory: normal respiratory effort, lungs clear to auscultation Cardiovascular: RRR, no murmur, no edema Gastrointestinal (Abdomen): Inspection/Auscultation: abdomen normal to inspection Percussion/Palpation: + abdomen tender (across mid abdomen and RUQ witout guarding or rebound) and abdomen soft; no guarding, abdomen not rigid and no hernia Rectal Exam: + hemorrhoids (visualized on colonoscopy for which I was present) Musculoskeletal: Extremities: extremities normal to inspection; no cyanosis and no clubbing Skin: no rashes, warm and dry Neurologic: moves all extremities and awake; no focal motor deficits Psychiatric: A+Ox3, euthymic affect Results & Data Vital Signs (Past 12 Hours) Vital Signs Temp Pulse Resp BP BP Pulse Ox 05/03/19 14:52 37.8 C H 96 H 16 157/100 H 93 05/03/19 14:38 36.9 C 103 H 18 128/89 93 05/03/19 11:34 83 135/85 05/03/19 10:59 83 130/86 05/03/19 10:37 84 137/88 05/03/19 10:05 87 148/89 H 05/03/19 07:34 36.9 C 81 18 135/84 92 05/03/19 04:45 36.9 C 91 H 18 147/81 H 98 Laboratory Results Labs reviewed PG Care Time/CCT Total # of Minutes Spent Total Time Spent with Patient: Total time spent is greater than 50% in coordination of care (as documented) at patient's floor/unit and/or counseling patient:
--- NOTE | 2019-05-03 16:40 | Anesthesiology Progress Note ---
Date of Service May 03, 2019 Anesthesia Post Procedure Vital Signs Vital Signs: Temp Pulse Resp BP BP Pulse Ox 05/03/19 16:28 95 H 18 164/105 H 97 05/03/19 14:52 37.8 C H 96 H 16 157/100 H 93 05/03/19 14:38 36.9 C 103 H 18 128/89 93 05/03/19 11:34 83 135/85 05/03/19 10:59 83 130/86 05/03/19 10:37 84 137/88 05/03/19 10:05 87 148/89 H 05/03/19 07:34 36.9 C 81 18 135/84 92 05/03/19 04:45 36.9 C 91 H 18 147/81 H 98 05/02/19 22:45 37.0 C 99 H 20 150/94 H 97 05/02/19 19:32 36.6 C 77 19 179/117 H 97 Pain Intensity Abdomen: Pain Intensity: 4 Transfer of Care Handoff Completed per policy Notes Mental Status: alert / awake / arousable Patient Amnestic to Procedure: Yes Nausea / Vomiting: adequately controlled Pain: adequately controlled Airway Patency, RR, SpO2: stable & adequate BP & HR: stable & adequate Hydration State: stable & adequate Anesthetic Complications: no major complications apparent
[2019-05-03] MEDS ORDERED: IRON SUCROSE 100 MG in 0.9 % SODIUM CHLORIDE 100 ML IV ONE (17:30)
[2019-05-03] MEDS ORDERED: Nursing to Pharmacy Communication ONE (18:32)
--- NOTE | 2019-05-03 18:45 | Progress Note ---
DATE: 05/03/2019 The patient presented to the endoscopy unit today following a peritoneal biopsy for both an EGD and colonoscopy. He has what appeared to be metastatic disease to the liver, lungs, and the peritoneal cavity. There is a possibility it could be of GI origin. He underwent an EGD and colonoscopies. His EGD was totally normal into the second portion of the duodenum. The colonoscopy was performed to the cecum. There was a poor prep; however, small lesions could have been missed, but there was no obvious tumor present throughout the colon. He does have internal hemorrhoids which could be responsible for the rectal bleeding that he was experiencing. There was no evidence of any upper or lower GI malignancy found on either exam. IMPRESSION: The patient's endoscopies were negative for malignant primary. Please contact us for any other GI input as needed.
[2019-05-03] MEDS: LORazepam 1 MG TAB PO PRN (20:16)
[2019-05-03] MEDS: HEPARIN SODIUM/DEXTROSE 25,000 UNITS/500 ML BAG IV SCH (23:17)
[2019-05-04] MEDS: MoRPHine SULFATE 2 MG/ML CARP IV PRN ×5 (04:01→23:09)
[2019-05-04] MEDS: ACETAMINOPHEN SOL 650 MG/20.3 ML UDC PO PRN ×2 (05:03→14:46)
[2019-05-04] MEDS: LORazepam 1 MG TAB PO PRN ×2 (05:04→18:18)
[2019-05-04 05:42] LABS: Basophils # (auto) 0.02 K/uL (0-0.2); Basophils % (auto) 0.2 %; Eosinophils # (auto) 0.94 K/uL (0-0.5); Eosinophils % (auto) 8.9 %; Hematocrit (blood only) 35.2 % (42-52); Hemoglobin 11.3 g/dL (14.0-18.0); Immature Granulocytes % (auto) 0.9 %; Lymphocytes % (auto) 14.2 %; Mean Corpuscular Hemoglobin 24.8 pg (25-34); Mean Corpuscular Hgb Conc 32.1 g/dL (32-36); Mean Corpuscular Volume 77.2 fL (80-100); Mean Platelet Volume 9.6 fL (7.4-10.4); Monocytes # (auto) 0.63 K/uL (0.11-0.59); Neutrophils # (auto) 7.36 K/uL (1.4-6.5); Neutrophils % (auto) 69.8 %; Platelet Count 259 K/uL (130-400); RDW Coefficient of Variation 13.9 % (11.5-14.5); RDW Standard Deviation 39.3 fL (36.4-46.3); Red Blood Count 4.56 M/uL (4.7-6.1); White Blood Count 10.55 K/uL (4.8-10.8)
[2019-05-04 06:10] LABS: Albumin Level 2.7 gm/dl (3.4-5.0); BUN Creatinine Ratio 11.1 (10-20); Bilirubin Direct 0.2 mg/dl (0-0.2); Calcium 8.3 mg/dl (8.5-10.1); Creatinine Clr Calc Pharmacy 124.8 ml/min; Est GFR (African American) 107.3; Est GFR (Non-African American) 92.6; Potassium 3.8 mmol/L (3.5-5.1)
[2019-05-04 06:13] LABS: Bilirubin,Total 0.5 mg/dl (0.2-1)
[2019-05-04 06:17] LABS: Partial Thromboplastin Ratio 1.8
[2019-05-04 06:26] LABS: Partial Thromboplastin Time 48.4 Seconds (21.0-31.0)
[2019-05-04 06:56] LABS: Lyme Ab IgG w/WB Rflx Negative (Negative); Lyme Ab IgM w/WB Rflx Negative (Negative)
[2019-05-04 07:59] LABS: Hepatitis B Surface Antigen Neg (Neg)
[2019-05-04 08:27] LABS: Hepatitis C IgG 13Yrs+Old_Rflx Neg (Neg)
--- NOTE | 2019-05-04 09:09 | Consultation Report ---
DATE OF CONSULTATION: 05/04/2019 REASON FOR CONSULTATION: Metastatic carcinoma, primary unknown (large hepatic met). HISTORY OF PRESENT ILLNESS: Mr. Quesada is a pleasant 38-year-old gentleman from the [place] area admitted to [facility] on 05/03/2019 with generalized weakness and rectal bleeding. This gentleman describes symptoms that emerged about 3 weeks ago where he noticed some migratory abdominal discomfort. On questioning, he identified the epigastrium, but also the bilateral upper quadrants of his abdomen. He reports normal stool and urine excretion. However, he has had intermittent bright red rectal bleeding, he estimates for about 3-4 years. He suffers from gout, but otherwise has an unremarkable past medical history. Imaging done on admission includes CT scan of the abdomen and pelvis as well as CTA of the chest. Abdomen and pelvis was remarkable for a 13 cm left lobe hepatic mass with transcapsular and transdiaphragmatic extension suspected bilateral pleural masses with associated pleural effusions are also seen. Pathologic adenopathy including a 39 mm seven hepatitis lymph node. There is also evidence for peritoneal metastasis including a 24 millimeter central mesenteric mass and a 17 mm right perirectal mass. Lastly, a 19 mm left adrenal nodule was also noted. CTA of the chest confirms extensive right-sided pulmonary emboli. A suspected 2.5 cm right lower lobe pulmonary infarct, small bilateral pleural effusions are likely malignant, innumerable small pulmonary and pleural nodules suggestive of metastatic disease. The patient underwent ultrasound guided liver biopsy yesterday. Informally spoke to Dr. Honeycutt, pathologist, who has yet to complete staining on tissue in question. Clinically, the patient admits to anorexia, but denies any weight loss. He is also a [id number] cigarette smoker. PAST MEDICAL HISTORY: Again, significant for gout. Denies coronary artery disease, COPD or diabetes mellitus. MEDICATIONS ON ADMISSION: None. ALLERGIES: None. 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 He is single. Sexual orientation is homosexuality. He is a pack-year cigarette smoker and drinks as well as various illicit substances. FAMILY HISTORY: Negative for colorectal cancer or hematologic malignancies. REVIEW OF SYSTEMS: As per HPI, most notably for generalized weakness, fatigue, asthenia. Positive for anorexia. GENERAL: Negative for fevers, chills or sweats. SKIN: No rashes or lesions. No history of dermatoses. HEENT: Negative for headaches, lightheadedness or dizziness. No acute visual or hearing deficits. No sinus symptoms, sore throat or dysphagia. LYMPH: No history of lymphoproliferative disease. CARDIAC: No history of coronary artery disease. No current angina or palpitations. PULMONARY: Negative for COPD. No shortness of breath, dyspnea or orthopnea. No cough or hemoptysis. GASTROINTESTINAL: Again, migratory abdominal discomfort, mainly centered in the epigastrium with radiation bilateral upper quadrants. Denies diarrhea or constipation. Positive for bright red rectal bleeding. GENITOURINARY: No hematuria, dysuria, or urinary incontinence. PSYCHIATRIC: Negative for anxiety, depression or psychoses. MUSCULOSKELETAL: Positive for gout by history. No muscle weakness. ENDOCRINE: Negative for diabetes or thyroid disease. NEUROLOGIC: Negative for seizure, stroke, or migraine headache. HEMATOLOGIC: Positive for microcytic anemia. PHYSICAL EXAMINATION: GENERAL: Very pleasant 38-year-old gentleman, awake, alert and appropriate, in no acute distress. VITAL SIGNS: Temperature 36.6, pulse 70, respiratory rate 18, blood pressure 136/84. SKIN: Warm, dry, noncyanotic without petechia, rash or ecchymosis. HEENT: Head is atraumatic, normocephalic. Eyes: PERRLA, EOMI. Sclerae nonicteric. No conjunctival injection. Nares are patent without rhinorrhea or discharge. Throat is clear. Tongue is midline. Mucous membranes are moist. NECK: Supple without JVD or thyromegaly. LYMPHATICS: No cervical or supraclavicular palpable nodes. HEART: Regular rate and rhythm. No clicks, rubs, murmurs or gallops. LUNGS: Clear to auscultation bilaterally. ABDOMEN: Soft, nontender, nondistended, without palpable hepatosplenomegaly. EXTREMITIES: No calf tenderness or swelling. No clubbing, cyanosis or edema. NEUROLOGICAL: He is awake, alert and oriented x3. Cranial nerves II through XII are grossly intact. No gross motor or sensory deficits are noted. LABORATORY DATA: WBC count 10,550, hemoglobin 11.3, MCV 77.2, platelet count 259,000. Sodium 133, potassium 3.8, chloride 101, carbon dioxide 26, creatinine 1.01, BUN 11, AST 75, ALT 98, alkaline phosphatase 230. Albumin 2.7. IMPRESSION: 1. Metastatic carcinoma, primary unknown. 2. Pulmonary embolism. 3. Hypoalbuminemia. 4. Hyponatremia. 5. Microcytic anemia. PLAN: I have been asked by the primary service to visit with Tuan. Radiographic data was described in the HPI. Clearly, this gentleman appears to be suffering from metastatic carcinoma, primary unknown. This distribution could represent primary biliary tract, GI, or lung cancer. Liver biopsy was carried out and should have confirmation within the next 24 hours or so. Obviously, this gentleman suffers from terminal disease and the goal of any therapy moving forward would be to prolong his life while maintaining quality. Unfortunately, cannot be specific until pathology is confirmed. We will continue to follow periodically until diagnosis is confirmed. The patient is currently receiving anticoagulation and trust he will be converted to oral anticoagulant in short order. The microcytic anemia can be worked up upon outpatient followup. Thank you very much for allowing me to participate in his care.
--- NOTE | 2019-05-04 11:00 | Medical Student H&P ---
Date of Service May 04, 2019 Assessment & Plan Treatment Plan (1) Liver Mass CT shows 13 cm left lobe hepatic mass with many additional nodules and lymphadenopathy. Patient endorses bright red stool per rectum for 'years' but has recently begun passing dark red clots per rectum as well. Monitor for GI bleeding Patient underwent core biopsy of peritoneal nodules adjacent to liver yesterday morning - awaiting pathology. EGD/colonoscopy showed no masses and showed internal hemorrhoids to be the source of rectal bleeding. Heme/onc saw the patient this morning and is awaiting pathology results to formulate treatment plan. Patient's pain is ameliorated by morphine but not fully controlled. Add hydrocodone as needed to control pain. (2) Pulmonary embolism: CTA chest on 04/30 showed "extensive right-sided pulmonary emboli, including emboli within the distal right pulmonary artery. Multiple segmental left pulmonary emboli. No CT evidence of right heart strain. Suspected 2.5 cm right lower lobe pulmonary infarct." Also with bilateral DVTs on ultrasound on 05/01. Monitoring for any CV compromise. Hemoglobin remains low but stable. Continue heparin gtt. Consider transition to Lovenox to continue anticoagulation in the outpatient setting. (3) Microcytic anemia: Patient received IV iron for the past two days. Hgb remains stable at 11.3 with MCV of 77. Iron labs indicate inflammation with elevated ferritin. Continue to monitor Hgb/Hct. Consider IV iron transfusions as an outpatient. (4) Hyponatremia: Na 130 on admission - stable at 133 today. Likely secondary to dehydration given poor p.o. intake vs. SIADH from pulmonary involvement. Continue monitoring. (5) HTN (hypertension): Patient was previously on lisinopril and amlodipine but was not taking these medication at the time of his admission. Continue holding HTN meds; give Hydralazine as needed On 05/04, BP continues to be stable at 136/84. History of Present Illness Primary Care Provider: NO PCP Mr. Quesada is a 38-year-old male with a history of hypertension and gout. He came to the ED on Friday after approximately 2 weeks of lower right quadrant pain upon sitting and laying down but has a 2-3 year history of general malaise, pain, and bright red blood per rectum. Abdominal CT in the ED revealed a 13 cm left lobe hepatic mass, bilateral pleural masses with associated pleural effusions, as well as pathologic adenopathy and metastases to the peritoneum and left adrenal gland. The CTA chest showed extensive right-sided pulmonary emboli and multiple segmental left pulmonary emboli, a suspected 2.5 cm right lower lobe pulmonary infarct and innumerable small pulmonary and pleural nodules as well as enlarged thoracic lymph nodes. He underwent a U/S-guided biopsy of the peritoneal nodules surrounding the liver as well as an EGD and colonoscopy to rule out a GI primary yesterday. Biopsy results are pending. There were no signs of a mass on EGD/colonoscopy and the source for the rectal bleeding was determined to be internal hemorrhoids. He was seen by Dr. He from heme/onc this morning who spoke to him about his prognosis and the patient felt that 'things were settling in a bit more.' The patient continues to endorse lower right quadrant pain today. He is taking morphine and he states that this 'takes the edge off of his pain' bringing it down from a 6 to a 4 out of 10. He states he has not passed any stool since finishing his colonoscopy prep yesterday but states that he feels that this is because he hasn't eaten and he would like to return to a full diet. He does not endorse nausea, vomiting, diarrhea, shortness of breath, fever, or chills. He states that he continued to have insomnia last night but thought this was largely due to the hospital environment. Allergies Allergy/AdvReac Type Severity Reaction Status Date / Time No Known Allergies Allergy Unverified 04/30/19 12:44 Home Medications Home Medications Medication Instructions Recorded Confirmed Type No Known Home Medications 04/30/19 04/30/19 History Past Med/Surg History Family History Other No significant active problems Social History Preferred Language: Puerto Rican Communication Ability: Effective Beliefs That Will Affect Care: None marital status: Single Current Living Situation: Other Current Living Situation Comment: lives with friends current occupational status: employed current occupation: [employer] Other Information That Helps Us Care for You: No Feels Safe at Home: Yes Safety Concerns: Feels Safe At This Time Smoking Status: Current every day smoker Tobacco Type: cigarettes ; Cigarettes Per Day: 20 ; Tobacco Cessation Education Requested by Patient: No Hx Alcohol Use: Yes Hx Substance Use: Yes Do you think of yourself as: lesbian/todd/homosexual Sexual Activity: has been sexually active, but not for at least 12 months Review of Systems + insomnia + cough; no dyspnea no chest pain, no edema and no calf pain no abdominal pain, no nausea, no vomiting, no cramping and no blood in stools No neurological problems reported. + anxiety (Patient endorses some worry about his prognosis. ) Physical Exam Physical Exam: General Appearance: Patient is no acute distress. He is largely resting comfortably with some intermittent repositioning. He is friendly and optimistic. Respiratory: Lungs clear bilaterally to auscultation. No wheezes, rhonci, or rales. Patient is not short of breath at rest and does not seem to have increased work of breathing. Cardiovascular: Regular rate and rhythm. No rubs, murmurs, or gallops. No lower extremity edema. Pedal pulses appreciated. Gastrointestinal: Abdomen non-tender to palpation. Some slight tenderness over area of peritoneal nodular biopsy but no bleeding, edema, erythema, or calor in this area. No organomegaly appreciated. Bowel sounds were hypoactive. Neurological: Patient awake and oriented x 3. No focal neurologic deficits appreciated. Psychiatric: Thought pattern was logical and organized. States his mood to be good in spite of challenges of his illness. Affect was consistent with stated mood. Lymphatic: Right-sided cervical lymphadenopathy appreciated. Results & Data Vital Signs (Past 12 Hours) Vital Signs Temp Pulse Resp BP BP Pulse Ox 05/04/19 07:03 36.6 C 70 18 136/84 94 05/04/19 04:17 37.4 C 87 18 132/85 94 05/03/19 23:30 37.1 C 87 20 141/89 H 94 Laboratory Results Hgb 11.3 Hct 35.2 MCV 77.2 APTT 48.4 AST 75 ALT 98 Alk Phos 230 Diagnostic Findings Lyme Disease IgG Neg Lyme Disease IgM Neg Hep Bs Antigen Neg Hep C Antibody Neg HIV 1&2 AB/P24 Antigen Neg Code Status & VTE Plan VTE Prophylaxis Plan VTE Prophylaxis will be ordered: Yes
[2019-05-04] MEDS: HEPARIN SODIUM/DEXTROSE 25,000 UNITS/500 ML BAG IV SCH (11:15)
[2019-05-04] MEDS: OXYCODONE HCL IR 5 MG TAB (IMMEDIATE RELEASE) PO PRN ×3 (11:39→21:16)
[2019-05-04] MEDS ORDERED: OXYCODONE HCL IR 5 MG TAB (IMMEDIATE RELEASE) PO STA (17:10)
--- NOTE | 2019-05-04 17:18 | Hospitalist Progress Note ---
Date of Service May 04, 2019 Assessment & Plan (1) Liver mass, left lobe: CT a/p shows 13 cm left lobe hepatic mass. Innumerable other nodules and lymphadenopathy in lungs, peritoneal nodules, adrenal, pleural effusions, thoracic and perirectal MARIPOSA. He has been having low-level rectal bleeding for several years--> colonoscopy without tumor, and with hemorrhoids S/p core biopsy of a peritoneal nodule on 05/03 Await path results Oncology consulted Hopeful to have some prelim path results in the next day or so Likely liver mass is a met but could be a primary - Hep C negative -increase oxycodone to 10mg q4, continue morphine for breakthrough pain (2) Pulmonary embolism: CTA chest on 04/30 showed "extensive right-sided pulmonary emboli, including emboli within the distal right pulmonary artery. Multiple segmental left pulmonary emboli. No CT evidence of right heart strain. Suspected 2.5 cm right lower lobe pulmonary infarct." Also with bilateral DVTs on ultrasound on 05/01. - Monitoring for any cardiovascular compromise - None at present. -transition heparin gtt to Xarelto 15mg bid x 21 days then 20mg daily in setting of malignancy ECHO negative for right heart strain (3) Microcytic anemia: Anemia with hgb down to 11 with MCV of 77. Iron labs indicate chronic disease but also could be mixed with Fe deficiency given microcytosis and known chronic blood loss from hemorrhoids - with elevated ferritin which could be from acute phase reactant/inflammation - Given 2 doses of IV iron this admission - Monitor CBC (4) Hyponatremia: Na 130 on admission. Likely secondary to dehydration given poor p.o. intake vs. SIADH from pulmonary involvement. - Received 2 L normal saline and improved to 134 No urine studies were done and no need to do currently as is improved (5) HTN (hypertension): Patient was previously on lisinopril and amlodipine, but had not seen a doctor in 2 years BPs elevated could be secondary to pain, anxiety but now improved - Hydralazine PRN (6) Gout: Was previously being treated with allopurinol. Uric acid normal. - Holding allopurinol - Monitor (7) Acute DVT (deep venous thrombosis): as above (8) Pleural effusion, bilateral: likely malignant effusions but could be secondary to PEs, pulm infarction? -not hypoxic -follow clinically (9) Pulmonary nodules: as above, awaiting path but may need Pulm eval (10) Adrenal nodule: seen on CT on left adrenal gland, 1.9 cm could be a met (11) Rectal bleeding: secondary to hemorrhoids EGD and colonoscopy otherwise normal -start docusate, can also use Miralax prn (12) Situational anxiety: increase ativan to 1mg tid prn (13) DVT prophylaxis: heparin gtt transitioning to Xarelto Dispo-remain hospitalized for pain control, await path results Subjective still having a lot of pain in abdomen, one tab of oxycodone not helping much. No BM since colonoscopy prep yesterday AM Having a lot of anxiety and requesting increased frequency of ativan Still achy all over and pain in shoulders BPs improved Review of Systems Review of Systems: All systems reviewed & are unremarkable except as noted in HPI & below Physical Exam Constitutional: WD/WN, vitals as above Eyes: + anicteric sclerae ENMT: external ear and nose normal, oropharynx normal Neck: trachea midline, no thyromegaly Respiratory: normal respiratory effort, lungs clear to auscultation Cardiovascular: RRR, no murmur, no edema Gastrointestinal (Abdomen): Inspection/Auscultation: abdomen normal to inspection Percussion/Palpation: + abdomen tender (across mid abdomen and RUQ witout guarding or rebound) and abdomen soft; no guarding, abdomen not rigid and no hernia Musculoskeletal: Extremities: extremities normal to inspection; no cyanosis and no clubbing Skin: no rashes, warm and dry Neurologic: moves all extremities and awake; no focal motor deficits Psychiatric: Orientation: alert and oriented x 3 Affect: + anxious affect Mood: + anxious mood Lymphatic: + cervical lymphadenopathy (right posterior cervical lymphadenopathy) Results & Data Vital Signs (Past 12 Hours) Vital Signs Temp Pulse Resp BP Pulse Ox 05/04/19 15:36 36.8 C 79 151/95 H 95 05/04/19 07:03 36.6 C 70 18 136/84 94 Laboratory Results labs reviewed Pathology pending PG Care Time/CCT Total # of Minutes Spent Total Time Spent with Patient: Total time spent is greater than 50% in coordination of care (as documented) at patient's floor/unit and/or counseling patient:
[2019-05-04] MEDS: DOCUSATE SODIUM 100 MG CAP PO SCH (21:04)
[2019-05-04] MEDS: RIVAROXABAN 15 MG TAB PO SCH (21:05)
[2019-05-05] MEDS: LORazepam 1 MG TAB PO PRN ×4 (02:27→16:59)
[2019-05-05] MEDS: MoRPHine SULFATE 2 MG/ML CARP IV PRN ×3 (02:28→10:51)
[2019-05-05 03:01] LABS: Hepatitis A Antibody IgM NON-REACTIVE (NON-REACTIVE); Hepatitis B Core Antibody IgM NON-REACTIVE (NON-REACTIVE)
[2019-05-05] MEDS: OXYCODONE HCL IR 5 MG TAB (IMMEDIATE RELEASE) PO PRN ×2 (04:32→08:24)
[2019-05-05 07:12] LABS: Albumin Level 2.8 gm/dl (3.4-5.0); BUN Creatinine Ratio 9.6 (10-20); Bilirubin Direct 0.2 mg/dl (0-0.2); Bilirubin,Total 0.4 mg/dl (0.2-1); Calcium 8.6 mg/dl (8.5-10.1); Creatinine Clr Calc Pharmacy 126.3 ml/min; Est GFR (Non-African American) 94.9; Potassium 4.3 mmol/L (3.5-5.1); Total Protein 7.1 gm/dl (6.4-8.2)
[2019-05-05] MEDS: DOCUSATE SODIUM 100 MG CAP PO SCH ×2 (08:21→20:14)
[2019-05-05] MEDS: RIVAROXABAN 15 MG TAB PO SCH (08:22)
--- NOTE | 2019-05-05 09:53 | Medical Student Progress Note ---
Date of Service May 05, 2019 Assessment & Plan Treatment Plan (1) Liver Mass CT shows 13 cm left lobe hepatic mass with many additional nodules and lymphadenopathy. Patient endorses bright red stool per rectum for 'years' but has recently begun passing dark red clots per rectum as well. Monitor for GI bleeding. Patient underwent core biopsy of peritoneal nodules adjacent to liver yesterday morning - awaiting pathology. EGD/colonoscopy showed no masses and showed internal hemorrhoids to be the source of rectal bleeding. Heme/onc saw the patient yesterday, 05/04, and is awaiting pathology results to formulate treatment plan. Patient's pain is ameliorated by morphine but not fully controlled. Oxycodone was added but patient still reports that he is having severe pain in his lower right quadrant referred to the shoulder. Palliative care has been consulted to help with pain management. (2) Pulmonary embolism: CTA chest on 04/30 showed "extensive right-sided pulmonary emboli, including emboli within the distal right pulmonary artery. Multiple segmental left pulmonary emboli. No CT evidence of right heart strain. Suspected 2.5 cm right lower lobe pulmonary infarct." Also with bilateral DVTs on ultrasound on 05/01. Monitoring for any CV compromise. Hemoglobin remains low but stable. Transitioned from heparin to rivaroxaban last night, 05/04, to prepare for discharge. (3) Microcytic anemia: Patient received IV iron for the past two days. Hgb remains stable at 11.3 with MCV of 77 on 05/04, was not re-drawn on 05/05. Iron labs indicate inflammation with elevated ferritin. Continue to monitor Hgb/Hct. Consider IV iron transfusions as an outpatient. (4) Hyponatremia: Na 130 on admission - down again to 131 today. Likely secondary to dehydration given poor p.o. intake vs. SIADH from pulmonary involvement. Sodium has been trending down; however, should check labs again tomorrow to determine if this is lab aberration or a real decrease. (5) HTN (hypertension): Patient was previously on lisinopril and amlodipine but was not taking these medication at the time of his admission. Continue holding HTN meds; give Hydralazine as needed This morning, 05/05, BP continues to be stable at 139/95. Subjective Mr. Quesada is a 38-year-old male with a history of hypertension and gout. He came to the ED on Friday after approximately 2 weeks of lower right quadrant pain upon sitting and laying down but has a 2-3 year history of general malaise, pain, and bright red blood per rectum. Abdominal CT in the ED revealed a 13 cm left lobe hepatic mass, as well as nodules in the lungs, and adrenal gland. The CTA chest showed pulmonary emboli bilaterally, a suspected 2.5 cm right lower lobe pulmonary infarct and innumerable small pulmonary and pleural nodules as well as enlarged thoracic lymph nodes. Today he states that the pain kept him up all night last night and felt that he could not 'get comfortable.' His pain is currently at a 5 out of 10 and reaches a max of 6-7 out of 10 right before taking morphine sulfate and oxycodone. He is taking morphine sulfate every 3 hours and oxycodone every 4 hours and asking for it as soon as possible which he said makes him feel like he is 'begging for drugs.' He took lorazepam at 2AM and felt like this helped relieve his anxiety for about an hour but otherwise feels 'hopeless' as he states he 'is not getting any better - just getting worse.' This morning he ate approximately 50% of his breakfast and endorsed some nausea. He moved his bowels last night and endorsed some bright red blood on the toilet paper. He does not endorse vomiting, diarrhea, or abdominal discomfort. Review of Systems Constitutional: + chills, + sweats, + fatigue, + malaise, + anorexia and + insomnia Respiratory: + cough, + chest congestion and + pain with cough (Pain exacerbated lower right quadrant pain) Psychiatric: + depression, + hopelessness, + anhedonia, + abnormal sleep pattern, + change in appetite and + anxiety Hematologic / Lymphatic: + night sweats Physical Exam Physical Exam: General Appearance: Patient is in no acute distress. He has a diminished affect and seems to be less talkative and optimistic. Respiratory: Lungs clear bilaterally to auscultation. No wheezes, rhonci, or rales. Patient is not short of breath at rest and does not seem to have increased work of breathing. Intermittent cough. Cardiovascular: Regular rate and rhythm. No rubs, murmurs, or gallops. No lower extremity edema. Pedal pulses appreciated. Gastrointestinal: Abdomen non-tender to palpation. Some slight tenderness over area of peritoneal nodular biopsy but no bleeding, edema, erythema, or calor in this area. No organomegaly appreciated. Bowel sounds were normoactive. Neurological: Patient awake and oriented x 3. No focal neurologic deficits appreciated. Psychiatric: Thought pattern was logical and organized. States his mood to be low due to the challenges of his illness. Affect was consistent with stated mood. Lymphatic: Right-sided anterior cervical lymphadenopathy appreciated. Results & Data Vital Signs (Past 12 Hours) Vital Signs Temp Pulse Resp BP BP Pulse Ox 05/05/19 07:13 37.2 C 94 H 18 139/95 95 05/05/19 04:00 36.7 C 99 H 18 137/90 93 05/04/19 23:00 36.7 C 94 H 18 135/80 93 Laboratory Results APTT 29.8 Na 131 AST 51 ALT 100 Alk Phos 252 Albumin 2.8
--- NOTE | 2019-05-05 11:15 | Hospitalist Progress Note ---
Date of Service May 05, 2019 Assessment & Plan (1) Liver mass, left lobe: CT a/p shows 13 cm left lobe hepatic mass. Innumerable other nodules and lymphadenopathy in lungs, peritoneal nodules, adrenal, pleural effusions, thoracic and perirectal MARIPOSA. He has been having low-level rectal bleeding for several years--> colonoscopy without tumor, and with hemorrhoids as cause of that S/p core biopsy of a peritoneal nodule on 05/03 Prelim path results pointing towards cholangiocarcinoma but not finalized Oncology consulted-recommends port placement while here and will offer Palliative Chemotherapy Palliative Care consulted for pain management and will also be helpful given poor prognosis in assisting with goals of care discussions -change to MS Contin 30mg po bid, continue IV morphine 4mg and change to q2 hours for breakthrough Consult Gen Surgery for port placement-will HOLD Xarelto and restart heparin gtt for Surgery -make NPO after midnight in case can do procedure tomorrow (2) Pulmonary embolism: CTA chest on 04/30 showed "extensive right-sided pulmonary emboli, including emboli within the distal right pulmonary artery. Multiple segmental left pulmonary emboli. No CT evidence of right heart strain. Suspected 2.5 cm right lower lobe pulmonary infarct." Also with bilateral DVTs on ultrasound on 05/01. - Monitoring for any cardiovascular compromise - None at present. -will now transition back to heparin gtt and HOLD the Xarelto for port placement -after port placed, can restart Xarelto at 15mg po bid x 21 days and then 20mg daily ECHO negative for right heart strain (3) Microcytic anemia: Anemia with hgb down to 11 with MCV of 77. Iron labs indicate chronic disease but also could be mixed with Fe deficiency given microcytosis and known chronic blood loss from hemorrhoids - with elevated ferritin which could be from acute phase reactant/inflammation - Given 2 doses of IV iron this admission - Monitor CBC (4) Hyponatremia: Na 130 on admission. Likely secondary to dehydration given poor p.o. intake vs. SIADH from pulmonary involvement. - Received 2 L normal saline and improved to 134 but now down again to 131 likely due to poor po intake No urine studies were done and no need to do currently as is improved -follow BMP, encourage po hydration (5) HTN (hypertension): Patient was previously on lisinopril and amlodipine, but had not seen a doctor in 2 years BPs elevated could be secondary to pain, anxiety but now improved - Hydralazine PRN (6) Gout: Was previously being treated with allopurinol. Uric acid normal. - Holding allopurinol - Monitor (7) Acute DVT (deep venous thrombosis): as above (8) Pleural effusion, bilateral: likely malignant effusions but could be secondary to PEs, pulm infarction? -not hypoxic -follow clinically (9) Pulmonary nodules: as above, awaiting path but may need Pulm eval (10) Adrenal nodule: seen on CT on left adrenal gland, 1.9 cm could be a met (11) Rectal bleeding: secondary to hemorrhoids EGD and colonoscopy otherwise normal -started docusate, can also use Miralax prn (12) Situational anxiety: increased ativan to 1mg tid prn (13) DVT prophylaxis: heparin gtt Dispo-remain hospitalized for pain control improvement and port placement Subjective Today he states that the right sided abdominal pain kept him up all night last night and felt that he could not 'get comfortable.' His pain is currently at a 5 out of 10 and reaches a max of 6-7 out of 10 right before taking morphine sulfate and oxycodone.Pain also in his right shoulder He is taking morphine sulfate every 3 hours and oxycodone every 4 hours and asking for it as soon as possible which he said makes him feel like he is 'begging for drugs.' He took lorazepam at 2AM and felt like this helped relieve his anxiety for about an hour but otherwise feels 'hopeless' as he states he 'is not getting any better - just getting worse.' But does deny SI. This morning he ate approximately 50% of his breakfast and endorsed some nausea. He moved his bowels last night and endorsed some bright red blood on the toilet paper. We discussed his pathology prelim results of being cancerous in nature, possibly cholangiocarcinoma vs hepatocellular. I came back again to discuss with him about placing a port-a-cath while here and he is agreeable. Discussed his case with Palliative Care and with Oncology today Review of Systems Review of Systems: All systems reviewed & are unremarkable except as noted in HPI & below Physical Exam Constitutional: WD/WN, vitals as above Eyes: + anicteric sclerae ENMT: external ear and nose normal, oropharynx normal Neck: trachea midline, no thyromegaly Respiratory: normal respiratory effort, lungs clear to auscultation Cardiovascular: RRR, no murmur, no edema Gastrointestinal (Abdomen): Inspection/Auscultation: abdomen normal to inspection Percussion/Palpation: + abdomen tender (across mid abdomen and RUQ witout guarding or rebound) and abdomen soft; no guarding, abdomen not rigid and no hernia Musculoskeletal: Extremities: extremities normal to inspection; no cyanosis and no clubbing Skin: no rashes, warm and dry Neurologic: moves all extremities and awake; no focal motor deficits Psychiatric: Orientation: alert and oriented x 3 Affect: + anxious affect Mood: + anxious mood Lymphatic: + cervical lymphadenopathy (right posterior cervical lymphadenopathy) Results & Data Vital Signs (Past 12 Hours) Vital Signs Temp Pulse Resp BP BP Pulse Ox 05/05/19 07:13 37.2 C 94 H 18 139/95 95 05/05/19 04:00 36.7 C 99 H 18 137/90 93 Laboratory Results 05/05/19 05/05/19 05/04/19 Range/Units 19:42 05:45 05:19 APTT 29.8 (21.0-31.0) Seconds PTT Ratio 1.1 Sodium 131 L (136-145) mmol/L Potassium 4.3 (3.5-5.1) mmol/L Chloride 99 (98-107) mmol/L Carbon Dioxide 25 (21-32) mmol/L Anion Gap 7.0 (3-11) BUN 10 (7-18) mg/dl Creatinine 0.99 (0.6-1.4) mg/dl Est Cr Clr Drug Dosing 126.3 ml/min Est GFR ( Amer) 110.0 Est GFR (Non-Af Amer) 94.9 BUN/Creatinine Ratio 9.6 L (10-20) Glucose 91 (70-99) mg/dl Calcium 8.6 (8.5-10.1) mg/dl Total Bilirubin 0.4 (0.2-1) mg/dl Direct Bilirubin 0.2 (0-0.2) mg/dl AST 51 H (15-37) U/L ALT 100 H (12-78) U/L Alkaline Phosphatase 252 H (45-117) U/L Total Protein 7.1 (6.4-8.2) gm/dl Albumin 2.8 L (3.4-5.0) gm/dl Hepatitis A IgM Ab NON-REACTIVE (NON-REACTIVE) Hep B Core IgM Ab NON-REACTIVE (NON-REACTIVE) Diagnostic Findings KUB images personally reviewed by me and agree with the following report: KUB CLINICAL HISTORY: Generalized abdominal pain. FINDINGS: 2 AP, portable, supine abdominal radiographs are correlated with abdominal CT dated 04/30/2019. There is a nonobstructed abdominal bowel gas pattern noting mild colonic fecal retention. No evidence of intraperitoneal free air is seen on these supine images. There are no abnormal abdominal calcifications. The bony structures appear intact. The lung bases are clear as imaged. IMPRESSION: Nonobstructed abdominal bowel gas pattern. PG Care Time/CCT Total # of Minutes Spent Total Time Spent with Patient: Total time spent is greater than 50% in coordination of care (as documented) at patient's floor/unit and/or counseling patient:60
--- NOTE | 2019-05-05 11:19 | Palliative Care Consultation ---
Date of Consultation May 05, 2019 Assessment & Plan (1) Palliative care encounter: This is a 38 year old male who presented to the [facility] with RLQ pain that has occurred over the past two weeks. Additional PMH include HTN and gout. Overall, he has stated that he has experienced general malaise, discomfort and intermittent BRBPR over the past 3 years. In the ED, an abdominal CT was performed revealing at 13 cm left lobe hepatic mass, bilateral pleural masses with pleural effusions and peritoneum and left adrenal gland adenopathy. Furthermore, a CTA of his chest revealed right-sided PE and small pulmonary and pleural nodules with enlarged thoracic lymph nodes. An US guided biopsy, EGD and colonoscopy were performed with final pathology results pending. Dr. He from oncology has seen this patient and spoke with him regarding prognosis. The patient has been experiencing significant pain and has been receiving IV Morphine and Oxycodone IR with some relief. Palliative Care was consulted for pain management. -I met with patient in room 451-1. He was alone with no visitors, apparently he has had a lot of family and friends visiting. -He was sitting in his bed, AAOx4. -Patient reports RLQ and mid abdominal pain, additionally reports pain in the anterior portion of his neck, right shoulder and at the base of his skull. He describes it as sharp and constant with a pain range of 5/10 in his abdomen and 2/10 in his shoulder/neck. -He has the following orders for pain control: Morphine 4 mg IV Q3 PRN which he has taken 7 doses equaling 28 mg over the past 24 hours, Oxycodone 5 mg and 10 mg po Q4 which he has taken a total of 40 mg over the past 24 hours. -The patent described his pain as a constant stabbing pain. He stated that a 2/10 is a tolerable pain number for him. -The patient stated that he has not taken opioids either medically indicated nor recreationally, making him opioid-naive. -He denies any hallucinations, lethargy, clouded vision etc with his current pain regimen. -Additionally, he takes Ativan 1mg po Q6 PRN for situational anxiety. he has utilized 2 doses over the past 24 hours. -I think it would be beneficial to begin a long-acting medication for him to then assess his need for breakthrough. -Opiod conversion calculation indicate that he was taking about 100 mg of Morphine in a 24 hour period. -Since he is Opioid-naive, I ordered MS Contin 30 mg po Q12, and will keep Morphine IV 4 mg Q4 PRN for breakthrough. -Ideally, I would like to have him take Morphine IR 10 mg po Q 4 PRN, but will reassess how much he utilizes for breakthrough over the next 24, before transitioning him to PO. -Next dose for MS Contin will be increased to 45 mg tomorrow if he utilizes consistent breakthrough pain. -I discussed the above and confirmed with Pharmacy as well. -Palliative care will follow up tomorrow with focus on his pain management for now. (2) Metastatic disease: (3) Pleural effusion, bilateral: (4) Liver mass, left lobe: (5) Adrenal nodule: History of Present Illness Reason for Consultation: pain management Requesting Physician: Dr. Black Attending Physician: Brynn Black MD History of Present Illness This is a 38 year old male who presented to the [facility] with RLQ pain that has occurred over the past two weeks. Additional PMH include HTN and gout. Overall, he has stated that he has experienced general malaise, discomfort and intermittent BRBPR over the past 3 years. In the ED, an abdominal CT was performed revealing at 13 cm left lobe hepatic mass, bilateral pleural masses with pleural effusions and peritoneum and left adrenal gland adenopathy. Furthermore, a CTA of his chest revealed right-sided PE and small pulmonary and pleural nodules with enlarged thoracic lymph nodes. An US guided biopsy, EGD and colonoscopy were performed with final pathology results pending. Dr. He from oncology has seen this patient and spoke with him regarding prognosis. The patient has been experiencing significant pain and has been receiving IV Morphine and Oxycodone IR with some relief. Palliative Care was consulted for pain management. Please see A/P for further details. Thank you kindly for involving us with this patient. We will continue to follow and assist with managing his pain throughout his hospitalization. Allergies Allergy/AdvReac Type Severity Reaction Status Date / Time No Known Allergies Allergy Unverified 04/30/19 12:44 Home Medications Home Medications Medication Instructions Recorded Confirmed Type No Known Home Medications 04/30/19 04/30/19 History morphine 30 mg PO BID #60 cap 05/05/19 Rx Patient History Family History Other No significant active problems Social History Preferred Language: Ghanaian Communication Ability: Effective Beliefs That Will Affect Care: None marital status: Single Current Living Situation: Other Current Living Situation Comment: lives with friends current occupational status: employed 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 He describes it as sharp and constant with a pain range of 5/10 in his abdomen and 2/10 in his shoulder/neck. HEENT: Pt denies FIGUEROA, dizziness, visual changes CV: Pt denies chest pain, palpitations Resp: Pt denies SOB GI: (+) abdominal pain (-) N/V/D : (-) dysuria Psych: (+) anxiety related to situation Physical Exam Constitutional: healthy appearing and well groomed Eyes: PERRL, conjunctivae normal, anicteric sclerae ENMT: external ear and nose normal, oropharynx normal Neck: trachea midline, no thyromegaly Respiratory: normal respiratory effort, lungs clear to auscultation Cardiovascular: RRR, no murmur, no edema Gastrointestinal (Abdomen): normal bowel sounds, soft, nontender, no hepatosplenomegaly Percussion/Palpation: + abdomen tender and + guarding (RLQ and mid abdominal pain) Skin: no rashes, warm and dry Psychiatric: A+Ox3, euthymic affect Insight: good insight Judgement: good judgement Lymphatic: + cervical lymphadenopathy Results & Data Vital Signs (Past 12 Hours) Vital Signs Temp Pulse Resp BP BP Pulse Ox 05/05/19 07:13 37.2 C 94 H 18 139/95 95 05/05/19 04:00 36.7 C 99 H 18 137/90 93 PG Care Time/CCT Total # of Minutes Spent Total Time Spent with Patient: Total time spent is greater than 50% in coordination of care (as documented) at patient's floor/unit and/or counseling patient: 70 Time Spent Midlevel Total time spent 70 minutes with > 50% of that time spent assessing the patient and providing pain management
[2019-05-05] MEDS ORDERED: OXYCODONE HCL IR 5 MG TAB (IMMEDIATE RELEASE) PO PRN (12:00)
[2019-05-05] MEDS: MoRPHine SULFATE CR 15 MG TABCR PO SCH (12:41)
--- NOTE | 2019-05-05 12:46 | XRay Report ---
KUB CLINICAL HISTORY: Generalized abdominal pain. FINDINGS: 2 AP, portable, supine abdominal radiographs are correlated with abdominal CT dated 019. There is a nonobstructed abdominal bowel gas pattern noting mild colonic fecal retention. No jim dence of intraperitoneal free air is seen on these supine images. There are no abnormal abdominal juliana cifications. The bony structures appear intact. The lung bases are clear as imaged. IMPRESSION: Nonobstructed abdominal bowel gas pattern. Electronically signed by: Thomas Melo M.D. 05/05/2019 12:44 PM
[2019-05-05] MEDS ORDERED: MoRPHine SULFATE 2 MG/ML CARP IV PRN (15:00)
[2019-05-05] MEDS: MoRPHine SULFATE 4 MG/ML 1 ML CARP\\VIAL IV PRN ×3 (17:25→21:37)
[2019-05-05] MEDS ORDERED: Heparin IV Standard *NO* Bolus IV SCH (20:00)
[2019-05-05 20:06] LABS: Partial Thromboplastin Ratio 1.1; Partial Thromboplastin Time 29.8 Seconds (21.0-31.0)
[2019-05-05] MEDS: HEPARIN SODIUM/DEXTROSE 25,000 UNITS/500 ML BAG IV SCH (20:15)
[2019-05-05] MEDS ORDERED: HEPARIN IV BOLUS 7,000 UNITS in SYRINGE 0 ML IV ONE (21:10)
[2019-05-06] MEDS: MoRPHine SULFATE CR 15 MG TABCR PO SCH (00:25)
[2019-05-06] MEDS: LORazepam 1 MG TAB PO PRN ×4 (00:25→20:42)
[2019-05-06] MEDS: MoRPHine SULFATE 4 MG/ML 1 ML CARP\\VIAL IV PRN ×5 (00:26→13:13)
[2019-05-06 03:40] LABS: Basophils # (auto) 0.03 K/uL (0-0.2); Basophils % (auto) 0.2 %; Eosinophils % (auto) 8.9 %; Hematocrit (blood only) 36.1 % (42-52); Immature Granulocytes # (auto) 0.11 K/uL (0.00-0.02); Immature Granulocytes % (auto) 0.9 %; Lymphocytes # (auto) 1.84 K/uL (1.2-3.4); Mean Corpuscular Hemoglobin 25.3 pg (25-34); Mean Corpuscular Hgb Conc 33.2 g/dL (32-36); Mean Corpuscular Volume 76.2 fL (80-100); Mean Platelet Volume 9.3 fL (7.4-10.4); Monocytes % (auto) 6.5 %; Neutrophils # (auto) 8.42 K/uL (1.4-6.5); Neutrophils % (auto) 68.5 %; Platelet Count 254 K/uL (130-400); RDW Coefficient of Variation 14.1 % (11.5-14.5); RDW Standard Deviation 39.3 fL (36.4-46.3); Red Blood Count 4.74 M/uL (4.7-6.1)
[2019-05-06 03:57] LABS: Albumin Level 2.7 gm/dl (3.4-5.0); BUN Creatinine Ratio 10.7 (10-20); Bilirubin Direct 0.2 mg/dl (0-0.2); Calcium 8.6 mg/dl (8.5-10.1); Creatinine Clr Calc Pharmacy 119.1 ml/min; Est GFR (African American) 102.4; Est GFR (Non-African American) 88.4; Potassium 4.1 mmol/L (3.5-5.1)
[2019-05-06 03:59] LABS: Bilirubin,Total 0.5 mg/dl (0.2-1); Partial Thromboplastin Ratio 1.8; Total Protein 7.3 gm/dl (6.4-8.2)
[2019-05-06 04:00] LABS: Partial Thromboplastin Time 49.8 Seconds (21.0-31.0)
[2019-05-06] MEDS: DOCUSATE SODIUM 100 MG CAP PO SCH ×2 (08:06→20:42)
--- NOTE | 2019-05-06 08:57 | Progress Note ---
DATE: 05/06/2019 MEDICAL ONCOLOGY PROGRESS NOTE DIAGNOSES: 1. Metastatic carcinoma, primary unknown. 2. Pulmonary embolism. 3. Hypoalbuminemia. 4. Hyponatremia. 5. Microcytic anemia. SUBJECTIVE: Tuan was seen and examined at bedside. Palliative service visited with Tuan and is adjusting opioids for pain management. They have placed him on long-acting morphine with breakthrough morphine, seems to be working reasonably well. I spoke to Dr. Joseph Simms, pathologist, who believes preliminary diagnosis of cholangiocarcinoma; however, sent specimen out for more exact staining. I imparted this information to Mr. Quesada today. I have also asked the hospitalist service to arrange for MediPort placement. Engaged in discussion with Mr. Quesada regarding his diagnosis, prognosis and treatment options. He offers no complaints otherwise and nursing reports no overnight difficulties. OBJECTIVE: GENERAL: A very pleasant 38-year-old unfortunate gentleman in no acute distress. VITAL SIGNS: Temperature 36.7, pulse 72, respiratory rate 20, blood pressure 138/90. SKIN: Without rash or lesion. HEENT: Oral mucosa without erythema or ulceration. HEART: Regular rate and rhythm. LUNGS: Clear to auscultation bilaterally. ABDOMEN: Soft, nontender, nondistended. EXTREMITIES: No clubbing, cyanosis or edema. NEUROLOGIC: He is grossly intact. LABORATORY DATA: WBC count 12,300, hemoglobin 12, platelet count 254,000. PTT 49.8 seconds, on heparin. Sodium 132, potassium 4.1, chloride 100, carbon dioxide 25, creatinine 1.05, BUN 11, albumin 2.7. PLAN: 1. Metastatic extrahepatic cholangiocarcinoma. 2. Hypoalbuminemia. 3. Pulmonary embolism. 4. Microcytic anemia. PLAN: I engaged in discussion regarding his diagnosis and prognosis and treatment options. Preliminarily, the tumor seems to be consistent with cholangiocarcinoma. Dr. Simms sent the specimen for further study to be sure. Nonetheless, I discussed the need for chemotherapy and that he indeed suffers from terminal disease. The goal of therapy moving forward is to extend his life while maintaining quality. Without further treatment, he would succumb within 3-6 months. Agree with palliative consultation and pain management. For all intents and purposes, Mr. Quesada wants to fight on and receive salvage treatment. We will need to work on insurance issues for Mr. Quesada and start the process with case management in house. Advised Mr. Quesada that we would have further discussions, particularly meeting with chemotherapy nurses to discuss side effect profile of the drugs prescribed. Hopefully, this will take place in the next couple of days. Make arrangements for MediPort placement to facilitate frequent laboratory draws and chemotherapy administration. MTDD
[2019-05-06] MEDS ORDERED: MoRPHine SULFATE CR 15 MG TABCR PO SCH (09:00)
--- NOTE | 2019-05-06 09:43 | Medical Student Progress Note ---
Date of Service May 06, 2019 Assessment & Plan Treatment Plan (1) Liver Mass CT shows 13 cm left lobe hepatic mass with many additional nodules and lymphadenopathy. Patient endorses bright red stool per rectum for 'years' but has recently begun passing dark red clots per rectum as well. Monitor for GI bleeding. Patient underwent core biopsy of peritoneal nodules adjacent to liver on 05/03 - preliminary pathology suggests cholangiocarcinoma but samples have been sent out for confirmatory testing. EGD/colonoscopy showed no masses and showed internal hemorrhoids to be the source of rectal bleeding. Heme/onc saw the patient this morning and discussed pathology findings, plan, and prognosis. Patient would like to undergo chemotherapy. General surgery has been consulted to place a port and patient is NPO and rivoraxiban was held last night and heparin restarted this morning in case this procedure can be performed today. Patient was seen by palliative care yesterday. He has been started on MS contin 30 mg BID and morphine sulfate IV 4 mg q2 for pain management. Patient states that his pain is less today but still not at an optimal level. He will continue to be followed by palliative care. (2) Pulmonary embolism: CTA chest on 04/30 showed "extensive right-sided pulmonary emboli, including emboli within the distal right pulmonary artery. Multiple segmental left pulmonary emboli. No CT evidence of right heart strain. Suspected 2.5 cm right lower lobe pulmonary infarct." Also with bilateral DVTs on ultrasound on 05/01. Monitoring for any CV compromise. Hemoglobin is stable and improving. Transitioned from heparin to rivaroxaban on 05/04 to prepare for discharge; however, rivoraxaban was held last night and patient was restarted on heparin pending port placement. (3) Microcytic anemia: Patient received two transfusion of IV iron during this admission. Hgb is up to 12.0 today, 05/06. Iron labs indicate inflammation with elevated ferritin. Continue to monitor Hgb/Hct. Consider IV iron transfusions as an outpatient. (4) Hyponatremia: Na 130 on admission - stable at 132 today. Likely secondary to dehydration given poor p.o. intake vs. SIADH from pulmonary involvement. Continue to monitor. (5) HTN (hypertension): Patient was previously on lisinopril and amlodipine but was not taking these medication at the time of his admission. Continue holding HTN meds; give Hydralazine as needed This morning, 10/24, BP continues to be stable at 138/90. Subjective Mr. Quesada is a 38-year-old male with a history of hypertension and gout. He came to the ED on Friday after approximately 2 weeks of lower right quadrant pain upon sitting and laying down but has a 2-3 year history of general malaise, pain, and bright red blood per rectum. Abdominal CT in the ED revealed a 13 cm left lobe hepatic mass, as well as nodules in the lungs, and adrenal gland. The CTA chest showed pulmonary emboli bilaterally, a suspected 2.5 cm right lower lobe pulmonary infarct and innumerable small pulmonary and pleural nodules as well as enlarged thoracic lymph nodes. Today, he states that he continues to have pain in his lower and upper right quadrants that radiates to the right shoulder. He says this pain is a 4 out of 1 0 and that it is constant and achy. He states that he feels that the MS contin is an improvement though it hasn't lowered his pain as much as he would ultimately like. He has not had a bowel movement since Friday, 05/04. He endorses some anorexia stating he 'just didn't feel like eating' and thus ate only 50% of his dinner last night. He does not endorse nausea of vomiting. He is NPO this morning pending port placement. He also states that he has had some blood in his phlegm but that he has not been coughing as much as yesterday. He states that he is letting everything settle in and that he does not plan to tell his family and friends about his condition or prognosis at this time. He endorses low mood and says that his anxiety is 'through the roof' and that the lorazepam is not helping despite taking 1 mg every 6 hours. Review of Systems Constitutional: + anorexia Respiratory: + hemoptysis and + pain on inspiration Cardiovascular: + dyspnea on exertion Psychiatric: + hopelessness, + anhedonia, + change in appetite and + anxiety Physical Exam Physical Exam: General Appearance: Patient is in no acute distress and is resting comfortably in bed upon exam. He has a depressed affect and seems to be less talkative and optimistic. Respiratory: Lungs clear bilaterally to auscultation. No wheezes, rhonci, or rales. Patient is not short of breath at rest and does not seem to have increased work of breathing. Cardiovascular: Regular rate and rhythm. No rubs, murmurs, or gallops. No lower extremity edema. Pedal pulses appreciated. Gastrointestinal: Some slight tenderness over area of peritoneal nodular biopsy but no bleeding, edema, erythema, or calor in this area. Tender to palpation in the upper and lower right quadrants. No organomegaly appreciated. Bowel sounds were hypoactive. Neurological: Patient awake and oriented x 3. No focal neurologic deficits appreciated. Psychiatric: Thought pattern was logical and organized. States his mood to be low due to his prognosis. Affect was consistent with stated mood. Lymphatic: Right-sided anterior cervical lymphadenopathy appreciated. Results & Data Vital Signs (Past 12 Hours) Vital Signs Temp Pulse Resp BP Pulse Ox 05/06/19 07:04 36.7 C 72 138/90 95 05/06/19 00:58 36.7 C 87 20 149/94 H 95 Laboratory Results WBC 12.30 Hgb 12.0 Hct 36.1 APTT 49.8 Sodium 132 AST 23 ALT 72 Alk Phos 227 Diagnostic Findings Abdominal x-ray showed a 'non-obstructed abdominal bowel gas pattern.'
[2019-05-06] MEDS: HEPARIN SODIUM/DEXTROSE 25,000 UNITS/500 ML BAG IV SCH (10:31)
--- NOTE | 2019-05-06 10:36 | Surgery Consultation ---
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 We have been asked to place an Aport tunneled central venous access catheter. I have explained to him the procedure and the possible complications. I answered his questions. He signed a consent form. He will need to be off his heparin for 6 hours prior to the procedure. We are planning for tomorrow morning at 7 AM. History of Present Illness Reason for Consultation: Placement of Aport tunneled central venous access catheter Requesting Physician: Brynn Black MD Attending Physician: Brynn Black MD History of Present Illness Dr. Black has asked us to see this 38-year-old male who presented to the emergency room with a complaint of abdominal pain centered mostly in the right lower quadrant. He also reported a 2 to 3-year history of general malaise. CT scan of the abdomen and pelvis showed a large mass in the liver with extracapsular extension to the diaphragm. There was also evidence of intra- abdominal carcinomatosis as well as multiple metastatic lesions in the long. Biopsy of the liver lesion was performed. Preliminarily this appears to possibly be a cholangiocarcinoma. We have been asked to place an Aort tunneled central venous access catheter with port. He has no previous thoracic surgery. He has never had cannulation of either the subclavian veins. Allergies Allergy/AdvReac Type Severity Reaction Status Date / Time No Known Allergies Allergy Unverified 04/30/19 12:44 Home Medications Home Medications Medication Instructions Recorded Confirmed Type No Known Home Medications 04/30/19 04/30/19 History morphine 30 mg PO BID #60 cap 05/05/19 Rx Patient History Family History Other No significant active problems Social History Preferred Language: Spanish Communication Ability: Effective Beliefs That Will Affect Care: None marital status: Single Current Living Situation: Other Current Living Situation Comment: lives with friends current occupational status: employed 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 Feels Safe at Home: Yes Smoking Status: Current every day smoker Tobacco Type: cigarettes ; Cigarettes Per Day: 20 ; Hx Alcohol Use: Yes Hx Substance Use: Yes Do you think of yourself as: lesbian/todd/homosexual Sexual Activity: has been sexually active, but not for at least 12 months Physical Exam Constitutional: no acute distress Neck: trachea midline Respiratory: normal respiratory effort, lungs clear to auscultation Cardiovascular: Rate/Rhythm: regular rate and regular rhythm Chest (Breasts): Chest: normal inspection of chest Skin: no rashes, warm and dry Lymphatic: no cervical lymphadenopathy and no subclavicular lymphadenopathy Results & Data Vital Signs (Past 12 Hours) Vital Signs Temp Pulse Resp BP Pulse Ox 05/06/19 07:04 36.7 C 72 138/90 95 05/06/19 00:58 36.7 C 87 20 149/94 H 95 Laboratory Results 05/06/19 05/06/19 05/06/19 Range/Units 03:01 03:01 03:01 WBC 12.30 H (4.8-10.8) K/uL RBC 4.74 (4.7-6.1) M/uL Hgb 12.0 L (14.0-18.0) g/dL Hct 36.1 L (42-52) % MCV 76.2 L (80-100) fL MCH 25.3 (25-34) pg MCHC 33.2 (32-36) g/dL RDW Std Deviation 39.3 (36.4-46.3) fL RDW Coeff of Jaclyn 14.1 (11.5-14.5) % Plt Count 254 (130-400) K/uL MPV 9.3 (7.4-10.4) fL Immature Gran % (Auto) 0.9 % Neut % (Auto) 68.5 % Lymph % (Auto) 15.0 % Harper % (Auto) 6.5 % Eos % (Auto) 8.9 % Baso % (Auto) 0.2 % Immature Gran # (Auto) 0.11 H (0.00-0.02) K/uL Neut # (Auto) 8.42 H (1.4-6.5) K/uL Lymph # (Auto) 1.84 (1.2-3.4) K/uL Harper # (Auto) 0.80 H (0.11-0.59) K/uL Eos # (Auto) 1.10 H (0-0.5) K/uL Baso # (Auto) 0.03 (0-0.2) K/uL APTT 49.8 H* (21.0-31.0) Seconds PTT Ratio 1.8 Sodium 132 L (136-145) mmol/L Potassium 4.1 (3.5-5.1) mmol/L Chloride 100 (98-107) mmol/L Carbon Dioxide 25 (21-32) mmol/L Anion Gap 7.0 (3-11) BUN 11 (7-18) mg/dl Creatinine 1.05 (0.6-1.4) mg/dl Est Cr Clr Drug Dosing 119.1 ml/min Est GFR ( Amer) 102.4 Est GFR (Non-Af Amer) 88.4 BUN/Creatinine Ratio 10.7 (10-20) Glucose 104 H (70-99) mg/dl Calcium 8.6 (8.5-10.1) mg/dl Total Bilirubin 0.5 (0.2-1) mg/dl Direct Bilirubin 0.2 (0-0.2) mg/dl AST 23 (15-37) U/L ALT 72 (12-78) U/L Alkaline Phosphatase 227 H (45-117) U/L Total Protein 7.3 (6.4-8.2) gm/dl Albumin 2.7 L (3.4-5.0) gm/dl 05/05/19 Range/Units 19:42 WBC (4.8-10.8) K/uL RBC (4.7-6.1) M/uL Hgb (14.0-18.0) g/dL Hct (42-52) % MCV (80-100) fL MCH (25-34) pg MCHC (32-36) g/dL RDW Std Deviation (36.4-46.3) fL RDW Coeff of Jaclyn (11.5-14.5) % Plt Count (130-400) K/uL MPV (7.4-10.4) fL Immature Gran % (Auto) % Neut % (Auto) % Lymph % (Auto) % Harper % (Auto) % Eos % (Auto) % Baso % (Auto) % Immature Gran # (Auto) (0.00-0.02) K/uL Neut # (Auto) (1.4-6.5) K/uL Lymph # (Auto) (1.2-3.4) K/uL Harper # (Auto) (0.11-0.59) K/uL Eos # (Auto) (0-0.5) K/uL Baso # (Auto) (0-0.2) K/uL APTT 29.8 (21.0-31.0) Seconds PTT Ratio 1.1 Sodium (136-145) mmol/L Potassium (3.5-5.1) mmol/L Chloride (98-107) mmol/L Carbon Dioxide (21-32) mmol/L Anion Gap (3-11) BUN (7-18) mg/dl Creatinine (0.6-1.4) mg/dl Est Cr Clr Drug Dosing ml/min Est GFR ( Amer) Est GFR (Non-Af Amer) BUN/Creatinine Ratio (10-20) Glucose (70-99) mg/dl Calcium (8.5-10.1) mg/dl Total Bilirubin (0.2-1) mg/dl Direct Bilirubin (0-0.2) mg/dl AST (15-37) U/L ALT (12-78) U/L Alkaline Phosphatase (45-117) U/L Total Protein (6.4-8.2) gm/dl Albumin (3.4-5.0) gm/dl
--- NOTE | 2019-05-06 14:42 | Palliative Care Progress Note ---
Date of Service May 06, 2019 Assessment & Plan (1) Cancer related pain: -Patient is still having abdominal pain 4/10 in right upper quadrant. It is constant and aching. The IV morphine "takes the edge off," but patient is uncomfortable. He is experiencing drowsiness from the morphine. -Calculated this morning that patient used 168 oral morphine equivalents in 24 hours-- between the MS Continue and IV morphine doses. -Given patient's drowsiness with narcotics, continued uncontrolled pain despite use of significant amounts of morphine, will start methadone. -Methadone 5mg PO TID. Patient counseled at length about the risks of methadone including constipation, potentiation of narcotic effects, and QTc prolongation. Patient verbalizes understanding. -Stop IV morphine. Planning to go home hopefully after port placement tomorrow, so need to trial patient on oral medications that can be continued at home. Ordered morphine IR 15mg PO Q3h PRN breakthrough pain. -Follow up with Dr. Cotto in two weeks from start of Methadone (today). Gave patient information to call Dr. Cotto's nurse [phone]. -Instructed patient not to drive upon release of the hospital. He states he is going to stay with his parents for a while. -Handouts on methadone given to patient for his information. -We will follow. (2) Metastatic disease: (3) Pleural effusion, bilateral: (4) Liver mass, left lobe: (5) Adrenal nodule: Subjective -Patient is still having abdominal pain 4/10 in right upper quadrant. It is constant and aching. The IV morphine "takes the edge off," but patient is uncomfortable. He is experiencing drowsiness from the morphine. Review of Systems Constitutional: no weakness Respiratory: no cough and no dyspnea Cardiovascular: no chest pain and no edema Gastrointestinal: + abdominal pain (RUQ, 4/10) Musculoskeletal: right shoulder pain Neurologic: no confusion mild drowsiness Psychiatric: + anxiety Physical Exam Constitutional: well developed and well nourished; no acute distress ENMT: external ear and nose normal, oropharynx normal Mouth: + poor dentition Respiratory: normal respiratory effort, lungs clear to auscultation Cardiovascular: RRR, no murmur, no edema Gastrointestinal (Abdomen): Percussion/Palpation: + abdomen tender and + abdominal mass Neurologic: moves all extremities and awake Psychiatric: A+Ox3, euthymic affect Results & Data Vital Signs (Past 12 Hours) Vital Signs Temp Pulse Resp BP Pulse Ox 05/06/19 07:04 36.7 C 72 138/90 95 05/06/19 00:58 36.7 C 87 20 149/94 H 95 Supervising Physician Co-Signing Physician Notes Chart reviewed , patient seen and and examined along with BASIA Sy Collaborated with BASIA Sy regarding plan for pain management. PE: Patient awake and alert, mild discomfort due to abdominal pain. Patient slightly drowsy but able to follow a long conversation and understand full discussion. HEENT: EOMI, hearing within normal limits Respirations: Unlabored CV: Regular rate Abdomen: Soft, right-sided tenderness, distended Extremities: No pitting edema Neuro: Alert and oriented Psych: Appropriate mood and affect Agree with above note, assessment and plan as per BASIA Sy-will continue to follow and assist with transition to methadone for cancer related pain. Time Spent Midlevel 65 minutes with >50% of time spent at bedside with patient discussing pain management.
[2019-05-06] MEDS: MoRPHine SULFATE IR 15 MG TAB (IMMEDIATE RELEASE) PO PRN ×3 (16:13→23:37)
--- NOTE | 2019-05-06 16:17 | Anesthesiology Consultation ---
Date of Service May 06, 2019 Assessment & Plan (1) Encounter for pre-operative examination: Chart Review Chart Review: Acceptable Risk for Surgery and Patient NOT seen in Pre Admission Testing Consults Requested none History Surgery Operation Date: 05/03/19 08:55 Proposed Procedures p Colonoscopy EGD Dr Shayna Corral Operation Date: 05/07/19 07:00 Proposed Procedures p Infusaport Insertion - Francisco Huerta MD Height/Weight Height: 6 ft 2 in Weight: 101.1 kg Allergies Allergy/AdvReac Type Severity Reaction Status Date / Time No Known Allergies Allergy Unverified 04/30/19 12:44 Medications Home Medications Medication Instructions Recorded Confirmed Last Taken No Known Home Medications 04/30/19 04/30/19 Unknown morphine 30 mg PO BID #60 cap 05/05/19 Unknown Active Medications Generic Name Dose Route Start Last Admin Trade Name Freq PRN Reason Stop Dose Admin Acetaminophen 650 mg 04/30/19 18:35 05/04/19 14:46 Tylenol PO 05/30/19 18:34 650 mg Q6 PRN Administration Pain Docusate Sodium 100 mg 05/04/19 21:00 05/06/19 08:06 Colace PO 06/03/19 20:59 100 mg BID ERUM Administration Hydralazine HCl 10 mg 04/30/19 18:35 04/30/19 20:50 Hydralazine Hcl IV 05/30/19 18:34 10 mg Q6H PRN Administration SBP > 180 or DBP > 100 Heparin Sodium/Dextrose 25,000 units in 500 mls @ 39 mls/hr 05/05/19 17:15 05/06/19 15:21 Heparin Sodium/Dextrose IV 06/04/19 17:14 1,950 units/hr .[id number] ERUM 39 mls/hr Titration Protocol 1,950 UNITS/HR Lorazepam 1 mg 05/05/19 11:07 05/06/19 14:22 Ativan PO 06/03/19 17:15 1 mg Q6H PRN Administration Anxiety/Agitation Morphine Sulfate 15 mg 05/06/19 14:45 05/06/19 16:13 Morphine Sulfate Ir PO 05/20/19 14:44 15 mg Q3H PRN Administration Pain Ondansetron HCl 4 mg 04/30/19 18:35 05/03/19 18:10 Zofran IV 05/30/19 18:34 4 mg Q6H PRN Administration Nausea Rivaroxaban 15 mg 05/04/19 21:00 05/05/19 08:22 Xarelto PO 15 mg BID ERUM Administration NPO Date Last Intake of Fluids: 05/02/19 Time Last Intake of Fluids: 23:30 Date Last Intake of Solids: 05/01/19 Time Last Intake of Solids: 18:00 Past Medical History Medical History Cancer related pain Adrenal nodule Pulmonary nodules Acute DVT (deep venous thrombosis) Microcytic anemia Hyponatremia Pulmonary emboli (Acute) Liver mass, left lobe (Acute) Pleural effusion, bilateral (Acute) Metastatic disease (Acute) HTN (hypertension) Past Family History Family History Other No significant active problems Past Surgical History Surgical History H/O colonoscopy egd/colonoscopy 05/03/2019. no issues with MAC. History of esophagogastroduodenoscopy (EGD) Social History Smoking Status: Current every day smoker tobacco type: cigarettes Smoking cigarettes per day: 20 Hx Alcohol Use: Yes Hx Substance Use: Yes Physical Exam Vital Signs Last Vital Signs Temp 37.0 C 05/06/19 15:45 Pulse 83 05/06/19 15:45 Resp 20 05/06/19 15:45 BP 130/80 05/06/19 15:45 Pulse Ox 95 05/06/19 15:45 Testing Laboratory Results 05/06/19 03:01 05/06/19 03:01 PT 11.9 Seconds (9.0-12.0) 05/02/19 06:01 INR 1.2 (0.9-1.1) H 05/02/19 06:01 APTT 49.8 Seconds (21.0-31.0) H* 05/06/19 03:01 Urine Color Yellow 04/30/19 11:38 Urine Appearance Clear (Clear) 04/30/19 11:38 Urine pH 6.5 (4.5-7.5) 04/30/19 11:38 Ur Specific [place] 1.013 (1.000-1.030) 04/30/19 11:38 Urine Protein Negative (Negative) 04/30/19 11:38 Urine Glucose (UA) Negative (Negative) 04/30/19 11:38 Urine Ketones Negative (Negative) 04/30/19 11:38 Urine Nitrite Negative (Negative) 04/30/19 11:38 Ur Leukocyte Esterase Negative (Negative) 04/30/19 11:38 Electrocardiogram Date: 04/30/19 Findings: + NSR @ (84) Chest X-Ray Date: 04/30/19 1. Indeterminate 2.3 x 2.9 cm right suprahilar nodular opacity may reflect focal airspace disease versus pulmonary nodule. Correlation with follow-up chest CT recommended to further evaluate. 2. Moderate hemidiaphragm elevation with bibasilar opacities suggestive of atelectasis or pneumonitis. 3. Probable trace pleural effusions. Other Testing CTA 04/30/2019: IMPRESSION: 1. Extensive right-sided pulmonary emboli, including emboli within the distal right pulmonary artery. Multiple segmental left pulmonary emboli. No CT evidence for right heart strain. Suspected 2.5 cm right lower lobe pulmonary infarct. 2. Small bilateral pleural effusions. These are likely malignant. Innumerable small pulmonary and pleural nodules suggestive of metastatic disease. 3. Left hepatic lobe mass, better depicted on CT performed earlier today. This favors a primary liver tumor. Adjacent nodularity reflects tumor extending along the diaphragm. 4. Enlarged thoracic lymph nodes suggestive of kya spread of disease.
--- NOTE | 2019-05-06 17:36 | Hospitalist Progress Note ---
Date of Service May 06, 2019 Assessment & Plan (1) Liver mass, left lobe: CT a/p shows 13 cm left lobe hepatic mass. Innumerable other nodules and lymphadenopathy in lungs, peritoneal nodules, adrenal, pleural effusions, thoracic and perirectal MARIPOSA. He has been having low-level rectal bleeding for several years--> colonoscopy without tumor, and with hemorrhoids as cause of that S/p core biopsy of a peritoneal nodule on 05/03 Prelim path results pointing towards cholangiocarcinoma but not finalized Oncology consulted-recommends port placement while here and will offer Palliative Chemotherapy -NPO after midnight and hold heparin gtt at midnight for port placement tomorrow-appreciate Gen Surgery management Palliative Care consulted for pain management and will also be helpful given poor prognosis in assisting with goals of care discussions -change to Methadone 5mg po tid and use Morphine IR po for breakthrough -supportive care given -will need close outpt Oncology follow up (2) Pulmonary embolism: CTA chest on 04/30 showed "extensive right-sided pulmonary emboli, including emboli within the distal right pulmonary artery. Multiple segmental left pulmonary emboli. No CT evidence of right heart strain. Suspected 2.5 cm right lower lobe pulmonary infarct." Also with bilateral DVTs on ultrasound on 05/01. - Monitoring for any cardiovascular compromise - None at present. -now back to heparin gtt and HOLDING the Xarelto for port placement -after port placed, can restart Xarelto at 15mg po bid x 21 days likely 1 day after surgery or whenever ok with Surgery; Xarelto will then go to 20mg daily ECHO negative for right heart strain (3) Microcytic anemia: Anemia with hgb down to 11 with MCV of 77. Iron labs indicate chronic disease but also could be mixed with Fe deficiency given microcytosis and known chronic blood loss from hemorrhoids - with elevated ferritin which could be from acute phase reactant/inflammation - Given 2 doses of IV iron this admission - Monitor CBC (4) Hyponatremia: Na 130 on admission. Likely secondary to dehydration given poor p.o. intake vs. SIADH from pulmonary involvement. - Received 2 L normal saline and improved to 134 but now down again to 132 likely due to poor po intake No urine studies were done and no need to do currently as is improved -follow BMP, encourage po hydration (5) HTN (hypertension): Patient was previously on lisinopril and amlodipine, but had not seen a doctor in 2 years BPs elevated could be secondary to pain, anxiety but now improved - Hydralazine PRN (6) Gout: Was previously being treated with allopurinol. Uric acid normal. - Holding allopurinol - Monitor (7) Acute DVT (deep venous thrombosis): as above (8) Pleural effusion, bilateral: likely malignant effusions but could be secondary to PEs, pulm infarction? -not hypoxic -follow clinically (9) Pulmonary nodules: as above, awaiting path but may need Pulm eval (10) Adrenal nodule: seen on CT on left adrenal gland, 1.9 cm could be a met (11) Rectal bleeding: secondary to hemorrhoids EGD and colonoscopy otherwise normal -started docusate, can also use Miralax --> change to daily (12) Situational anxiety: -start clonazepam 0.5mg po qday and continue ativan to 1mg q6h prn breakthrough -may eventually need SSRI (13) Cancer related pain: starting methadone as above (14) Transaminitis: secondary to liver cancer -follow periodically (15) DVT prophylaxis: heparin gtt Dispo-remain hospitalized for pain control improvement and port placement Subjective Still with pain but seems improved slightly today with converting to methadone. Biggest complaint is anxiety despite the qid ativan. He walked outside today to the healing garden. Pain worse with sitting up or moving around. Some mild nausea. No BM in 2 days. Review of Systems Review of Systems: All systems reviewed & are unremarkable except as noted in HPI & below Physical Exam Constitutional: WD/WN, vitals as above Eyes: + anicteric sclerae ENMT: external ear and nose normal, oropharynx normal Neck: trachea midline, no thyromegaly Respiratory: normal respiratory effort, lungs clear to auscultation Cardiovascular: RRR, no murmur, no edema Gastrointestinal (Abdomen): Inspection/Auscultation: abdomen normal to inspection Percussion/Palpation: + abdomen tender (across mid abdomen and RUQ witout guarding or rebound) and abdomen soft; no guarding, abdomen not rigid and no hernia Musculoskeletal: Extremities: extremities normal to inspection; no cyanosis and no clubbing Skin: no rashes, warm and dry Neurologic: moves all extremities and awake; no focal motor deficits Psychiatric: Orientation: alert and oriented x 3 Affect: + anxious affect Mood: + anxious mood Results & Data Vital Signs (Past 12 Hours) Vital Signs Temp Pulse Resp BP Pulse Ox 05/06/19 15:45 37.0 C 83 20 130/80 95 05/06/19 13:12 90 142/86 H 96 05/06/19 07:04 36.7 C 72 138/90 95 Laboratory Results labs reviewed PG Care Time/CCT Total # of Minutes Spent Total Time Spent with Patient: Total time spent is greater than 50% in coordination of care (as documented) at patient's floor/unit and/or counseling patient:
[2019-05-06] MEDS: clonazePAM 0.5 MG TAB PO SCH (17:44)
[2019-05-06] MEDS: METHADONE HCL 5 MG TAB PO SCH (20:41)
[2019-05-07] MEDS: ONDANSETRON INJ 2 MG/ML 2 ML VIAL IV PRN (00:50)
[2019-05-07] MEDS: HEPARIN SODIUM/DEXTROSE 25,000 UNITS/500 ML BAG IV SCH (00:55)
[2019-05-07] MEDS ORDERED: ONDANSETRON INJ 2 MG/ML 2 ML VIAL IV STA ×2 (02:12→02:15)
[2019-05-07] MEDS: LORazepam 1 MG TAB PO PRN ×2 (02:55→12:58)
[2019-05-07] MEDS: MoRPHine SULFATE IR 15 MG TAB (IMMEDIATE RELEASE) PO PRN ×2 (02:56→10:50)
[2019-05-07 06:03] LABS: Partial Thromboplastin Time 26.3 Seconds (21.0-31.0)
[2019-05-07 06:31] LABS: Creatinine Clr Calc Pharmacy 121.7 ml/min; Est GFR (African American) 106.1; Est GFR (Non-African American) 91.5
[2019-05-07] MEDS ORDERED: LIDOCAINE HCL 1% 20 ML VIAL ONE (06:40)
[2019-05-07] MEDS ORDERED: HEPARIN 100 UNIT/ML 5ML FLUSH ONE (06:40)
--- NOTE | 2019-05-07 06:41 | History & Physical Bridge Note ---
Date of Service May 07, 2019 History & Physical Bridge Note I have examined the patient, reviewed the History & Physical and in the interval since the performance of the History & Physical I have noted the following changes of clinical significance: no changes noted
[2019-05-07] MEDS ORDERED: ONDANSETRON INJ 2 MG/ML 2 ML VIAL ONE (06:48)
[2019-05-07] MEDS ORDERED: PROPOFOL IV EMULSION 10 MG/ML 20 ML VIAL IV ONE (06:48)
[2019-05-07] MEDS ORDERED: DEXAMETHASONE SOD INJ 4 MG/ML VIAL ONE (06:48)
[2019-05-07] MEDS ORDERED: LIDOCAINE HCL 2% 2 ML VIAL/AMP(20MG/ML) INFIL ONE (06:48)
[2019-05-07] MEDS ORDERED: fentaNYL citrate 100 MCG/2 ML VIAL ONE (06:48)
[2019-05-07] MEDS ORDERED: MIDAZOLAM HCL 1 MG/ML 2ML VIAL ONE (06:48)
[2019-05-07] MEDS ORDERED: ePHEDrine sulfate 50 MG/ML AMP IV PRN (06:53)
[2019-05-07] MEDS ORDERED: fentaNYL citrate 100 MCG/2 ML VIAL IV PRN (06:53)
[2019-05-07] MEDS ORDERED: ATROPINE SULFATE 0.1 MG/ML 10ML SYR IV PRN (06:53)
[2019-05-07] MEDS ORDERED: HYDROmorphone INJ 1 MG/ML SYRINGE IV PRN (06:53)
[2019-05-07] MEDS ORDERED: PROMETHAZINE HCL 12.5 MG in SODIUM CHLORIDE 0.9% 50 ML IV PRN (06:53)
[2019-05-07] MEDS ORDERED: ONDANSETRON INJ 2 MG/ML 2 ML VIAL IV PRN (06:53)
[2019-05-07] MEDS ORDERED: KETAMINE HCL INJ 50 MG/ML 10 ML VIAL ONE (07:10)
[2019-05-07] MEDS ORDERED: CEFAZOLIN 2000MG 2,000 MG/15 ML SYR IV STA (07:32)
--- NOTE | 2019-05-07 07:53 | Post Operative Brief Note ---
Immediate Post Op Note v1 Date of Surgery May 07, 2019 Pre & Post Diagnosis Operation Date: 05/03/19 08:55 Pre-Op Diagnosis: PE,HEPATIC AND RECTAL MASS,PULMONARY NODULES Post-Op Diagnosis: EGD: Normal exam Colonoscopy: Hemorrhoids Operation Date: 05/07/19 07:00 Pre-Op Diagnosis: needed for prison central venous access Post-Op Diagnosis: needed for prison central venous access I identified the patient and participated in the time-out.: Yes Procedure Operation Date: 05/03/19 08:55 Actual Procedures p Esophagogastroduodenoscopy - Godwin flores Colonoscopy - Godwin Corral Operation Date: 05/07/19 07:00 Actual Procedures p Infusaport Insertion Left Subclavian Vein(Left) - Francisco Huerta MD Surgeon Francisco Huerta MD Otolaryngology Physician None Estimated Blood Loss 5 Findings Consistent with Post-Op Diagnosis Anesthesia Type MAC Complications none
--- NOTE | 2019-05-07 08:18 | XRay Report ---
XR chest 1V portable CLINICAL HISTORY: 38 years-old Male presenting with S/P placement of Aport. TECHNIQUE: Portable upright AP view of the chest was obtained. COMPARISON: 04/30/2019. FINDINGS: There has been interval placement of a left subclavian Mediport terminates at the lower SVC. Cardiac silhouette mildly enlarged as on prior. Minimal basilar opacities and scattered irregular opacities b ilaterally. Trace bilateral pleural effusions. No pneumothorax. Osseous structures normal. Upper abdo men normal. IMPRESSION: 1. No pneumothorax status post placement of the left subclavian Mediport. 2. Bibasilar atelectasis and trace bilateral pleural effusion suspected. 3. Mild cardiomegaly. Electronically signed by: Joseph Davis M.D. 05/07/2019 8:17 AM
--- NOTE | 2019-05-07 08:28 | Anesthesiology Progress Note ---
Date of Service May 07, 2019 Anesthesia Post Procedure Vital Signs Vital Signs: Temp Pulse Pulse Resp BP BP Pulse Ox 05/07/19 08:25 93 H 15 127/95 95 05/07/19 08:15 36.7 C 89 19 132/96 93 05/07/19 08:05 85 18 129/89 94 05/07/19 07:57 36.6 C 97 H 21 129/97 93 05/07/19 06:13 37.3 C 93 H 18 140/93 92 05/07/19 04:33 37.4 C 104 H 16 129/82 92 05/07/19 02:16 36.7 C 114 H 20 113/84 92 05/06/19 23:17 37 C 86 16 145/91 H 94 05/06/19 20:49 37.2 C 95 H 18 131/85 95 05/06/19 15:45 37.0 C 83 20 130/80 95 05/06/19 13:12 90 142/86 H 96 Pain Intensity Abdomen: Pain Intensity: 8 Transfer of Care Handoff Completed per policy Notes Mental Status: alert / awake / arousable and participated in evaluation Nausea / Vomiting: adequately controlled Pain: adequately controlled Airway Patency, RR, SpO2: stable & adequate BP & HR: stable & adequate Hydration State: stable & adequate Anesthetic Complications: no major complications apparent and Pt Satisfied with anesthetic care
--- NOTE | 2019-05-07 08:47 | Operative Report ---
DATE OF OPERATION: 05/07/2019 PREOPERATIVE DIAGNOSIS: Need for long-term central venous access. POSTOPERATIVE DIAGNOSIS: Need for long-term central venous access. PROCEDURE: Placement of A-port tunneled central venous access catheter via left subclavian approach. SURGEON: Francisco Huerta MD FINDINGS: The vein was entered on the third attempt. The tip of the catheter was placed near the junction of the superior vena cava and right atrium. There was good blood return. It was easily flushed. TECHNIQUE: The patient was given intravenous sedation and the area was prepped and draped in the usual sterile fashion. The skin and subcutaneous tissue in the left infraclavicular area were anesthetized with 1% Xylocaine without epinephrine. The left subclavian vein was entered on the third attempt. The wire passed with ease and the tip of the wire was confirmed in the right atrium by fluoroscopy. A small incision was made at the exit site of the wire and a small pocket was created in the subcutaneous tissue inferior to that to assure a soft turn in the catheter. The site for the port was chosen and the skin and subcutaneous tissue superior to that were anesthetized with 1% Xylocaine without epinephrine. A skin incision was made and was carried down through the subcutaneous tissue to the prepectoral fascia and a prepectoral pocket was created inferior to the incision. Hemostasis was obtained at all times using electrocautery. The introducer sheath device was passed over the wire under fluoroscopic guidance. The introducer and wire were removed and the catheter was passed through the sheath under fluoroscopic guidance. The tip of the catheter was seen to enter the right atrium. The sheath was peeled. A tunneling device was used to pass the catheter from the infraclavicular incision to the port incision. Fluoroscopy was then used to size the catheter. The catheter was cut and attached to the port with ease. The port was accessed. There was good blood return with aspiration and it was easily flushed without leaking. The port was secured to the prepectoral fascia with 2-0 Prolene suture. The port incision was closed with a running 2-0 Vicryl in the deep subcutaneous tissue, running 3-0 Vicryl in the superficial subcutaneous tissue, and a running 4-0 Monocryl in a subcuticular fashion for the skin. The infraclavicular incision was closed with an interrupted subcuticular suture of 4-0 Monocryl. The skin was cleansed, dried, and a dressing placed. The estimated blood loss was 5 mL. Sponge, needle, and instrument counts were correct prior to closure. The patient tolerated the surgical procedure without complication and was transferred to recovery. I attest to the content of the Intraoperative Record and any orders documented therein. Any exception s are noted below.
[2019-05-07] MEDS ORDERED: POLYETHYLENE (MIRALAX) 17 GM PACK PO SCH (09:00)
[2019-05-07] MEDS: RIVAROXABAN 15 MG TAB PO SCH (09:52)
[2019-05-07] MEDS: DOCUSATE SODIUM 100 MG CAP PO SCH (09:52)
[2019-05-07] MEDS: METHADONE HCL 5 MG TAB PO SCH ×2 (09:55→13:41)
[2019-05-07] MEDS: clonazePAM 0.5 MG TAB PO SCH (09:55)
[2019-05-07 10:48] VITALS: O2SAT 95
--- NOTE | 2019-05-07 11:10 | Medical Student Progress Note ---
Date of Service May 07, 2019 Assessment & Plan Treatment Plan (1) Liver Mass CT shows 13 cm left lobe hepatic mass with many additional nodules and lymphadenopathy. Patient endorses bright red stool per rectum for 'years' but has recently begun passing dark red clots per rectum as well. Monitor for GI bleeding. Heme/onc saw the patient yesterday and discussed pathology findings, plan, and prognosis. Patient would like to undergo chemotherapy. General surgery placed a port this morning and there were no complications. Patient was restarted on rivaroxaban this morning after the procedure. Patient underwent core biopsy of peritoneal nodules adjacent to liver on 05/03 - preliminary pathology suggests cholangiocarcinoma but samples have been sent out for confirmatory testing. EGD/colonoscopy showed no masses and showed internal hemorrhoids to be the source of rectal bleeding. He will continue to be followed by heme/onc. Patient was seen by palliative care yesterday. He has been started on methadone TID and morphine sulfate IV 4 mg q3 for pain management. Patient states that his pain is much less today even stating that yesterday was 'wonderful.' He will continue to be followed by palliative care. (2) Pulmonary embolism: CTA chest on 04/30 showed "extensive right-sided pulmonary emboli, including emboli within the distal right pulmonary artery. Multiple segmental left pulmonary emboli. No CT evidence of right heart strain. Suspected 2.5 cm right lower lobe pulmonary infarct." Also with bilateral DVTs on ultrasound on 05/01. Monitoring for any CV compromise. Hemoglobin is stable and improving. Patient was restarted on rivaroxaban this morning to prepare for discharge. (3) Microcytic anemia: Patient received two transfusion of IV iron during this admission. Hgb is up to 12.0 as of yesterday, 05/06. Iron labs indicate inflammation with elevated isra ritin. Continue to monitor Hgb/Hct. Consider IV iron transfusions as an outpatient if necessary. (4) Hyponatremia: Na 130 on admission - stable at 132 as of yesterday, 05/06. Likely secondary to dehydration given poor p.o. intake vs. SIADH from pulmonary involvement. Continue to monitor. (5) HTN (hypertension): Patient was previously on lisinopril and amlodipine but was not taking these medication at the time of his admission. Continue holding HTN meds; monitor and give Hydralazine as needed This morning, 10/25, BP continues to be stable at 130/87. Subjective Mr. Quesada is a 38-year-old male with a history of hypertension and gout. He came to the ED on Friday after approximately 2 weeks of lower right quadrant pain upon sitting and laying down but has a 2-3 year history of general malaise, pain, and bright red blood per rectum. Abdominal CT in the ED revealed a 13 cm left lobe hepatic mass, as well as nodules in the lungs, and adrenal gland. The CTA chest showed pulmonary emboli bilaterally, a suspected 2.5 cm right lower lobe pulmonary infarct and innumerable small pulmonary and pleural nodules as well as enlarged thoracic lymph nodes. Today, he is s/p port placement. He was NPO and heparin was held from 00:00 last night. Patient states his pain is in his lower right quadrant, right shoulder, and left thorax/neck in the distribution of the port. He states the pain overall is currently a 4 out of 10 and feels 'manageable.' He feels that this is largely due to the addition of the methadone and states that he was not needing to take the breakthrough morphine sulfate as regularly, often waiting 4-5 hours between doses. In addition, his anxiety has decreased significantly with the addition of clonazepam. He states that he still needs the lorazepam every 6 hours but the anxiety is much more manageable given the combination of these two medication. He states that he was somnolent last night, sleeping for 6-7 hours even while he had company in his room but that he feels this sleep was restorative and feeling as drowsy today. He ate 100% of his dinner last night and his breakfast this morning after the procedure and is no longer endorsing anorexia. He states that he had one incident of nausea last night when he was in the shower. He states that he felt lightheaded and was dry heaving at this time. He took ondansetron at this time and has not had any incidence of nausea or vomiting outside of this. He has not moved his bowels since Friday evening but does not endorse any bloating or abdominal discomfort. Review of Systems Constitutional: no anorexia, no insomnia and no daytime sleepiness Respiratory: + cough (no blood in sputum since yesterday morning) Cardiovascular: no dyspnea Gastrointestinal: + constipation; no abdominal pain, no bloating, no nausea and no vomiting Psychiatric: + anxiety Physical Exam Physical Exam: General Appearance: Patient is in no acute distress and is resting comfortably in bed upon exam. He is friendly, cooperative, and optimis tic. Respiratory: Lungs clear bilaterally to auscultation. No wheezes, rhonci, or rales. Patient is not short of breath at rest and does not seem to have increased work of breathing. Cardiovascular: Regular rate and rhythm. No rubs, murmurs, or gallops. No lower extremity edema. Pedal pulses appreciated. Gastrointestinal: Tender to palpation in the upper and lower right quadrants. No organomegaly appreciated. Bowel sounds were normoactive. Neurological: Patient awake and oriented x 3. No focal neurologic deficits appreciated. Psychiatric: Thought pattern was logical and organized. States his mood to be improved today given pain and anxiety control. Affect was consistent with stated mood. Lymphatic: Right-sided anterior cervical lymphadenopathy appreciated. Results & Data Vital Signs (Past 12 Hours) Vital Signs Temp Pulse Pulse Pulse Resp BP BP 05/07/19 10:47 36.7 C 93 H 16 141/96 H 05/07/19 09:56 37 C 94 H 16 140/88 05/07/19 09:02 37.1 C 89 16 149/90 H 05/07/19 08:54 37 C 82 18 144/92 H 05/07/19 08:25 93 H 15 127/95 05/07/19 08:15 36.7 C 89 19 132/96 05/07/19 08:05 85 18 129/89 05/07/19 07:57 36.6 C 97 H 21 129/97 05/07/19 06:13 37.3 C 93 H 18 140/93 05/07/19 04:33 37.4 C 104 H 16 129/82 05/07/19 02:16 36.7 C 114 H 20 113/84 05/06/19 23:17 37 C 86 16 145/91 H Pulse Ox 05/07/19 10:47 95 05/07/19 09:56 94 05/07/19 09:02 97 05/07/19 08:54 92 05/07/19 08:25 95 05/07/19 08:15 93 05/07/19 08:05 94 05/07/19 07:57 93 05/07/19 06:13 92 05/07/19 04:33 92 05/07/19 02:16 92 05/06/19 23:17 94 Laboratory Results APTT 26.3 Diagnostic Findings Chest X-Ray showed: No pneumothorax status post placement of the left subclavian mediport, bibasilar atelectasis and trace bilateral pleural effusion suspected, and mild cardiomegaly.
--- NOTE | 2019-05-07 11:18 | Palliative Care Progress Note ---
Date of Service May 07, 2019 Assessment & Plan (1) Cancer related pain: -Patient still experiencing pain 4/10, but is now on oral medications. He states his pain is at an acceptable level until the Methadone takes full effect. -Had port placed this morning-- patient tolerated procedure well and dressing is C/D/I. -Patient used 4 doses of the morphine IR 15mg, tolerating well. Started the methadone at 5mg TID. -No changes to pain medication at this time. -Follow up with Dr. Cotto in two weeks from start of Methadone. Gave patient information to call Dr. Cotto's nurse [phone]. -Patient denies questions/concerns at this time. He states he is going to stay with his parents after hospitalization. -Palliative care will continue to follow. (2) Metastatic disease: (3) Pleural effusion, bilateral: (4) Liver mass, left lobe: (5) Adrenal nodule: Subjective Patient still experiencing pain 4/10, but is now on oral medications. He states his pain is at an acceptable level until the Methadone takes full effect. Review of Systems Review of Systems: no weakness no cough and no dyspnea no chest pain and no edema + abdominal pain (RUQ and generalized, 4/10) right shoulder pain no confusion mild drowsiness + anxiety Physical Exam Constitutional: well developed and well nourished; no acute distress ENMT: external ear and nose normal, oropharynx normal Mouth: + poor dentition Respiratory: normal respiratory effort, lungs clear to auscultation Cardiovascular: RRR, no murmur, no edema Gastrointestinal (Abdomen): Percussion/Palpation: + abdomen tender and + abdominal mass Neurologic: moves all extremities and awake Psychiatric: A+Ox3, euthymic affect Results & Data Vital Signs (Past 12 Hours) Vital Signs Temp Pulse Pulse Pulse Resp BP BP 05/07/19 10:47 36.7 C 93 H 16 141/96 H 05/07/19 09:56 37 C 94 H 16 140/88 05/07/19 09:02 37.1 C 89 16 149/90 H 05/07/19 08:54 37 C 82 18 144/92 H 05/07/19 08:25 93 H 15 127/95 05/07/19 08:15 36.7 C 89 19 132/96 10/25/19 08:05 85 18 129/89 10/25/19 07:57 36.6 C 97 H 21 129/97 05/07/19 06:13 37.3 C 93 H 18 140/93 05/07/19 04:33 37.4 C 104 H 16 129/82 05/07/19 02:16 36.7 C 114 H 20 113/84 05/06/19 23:17 37 C 86 16 145/91 H Pulse Ox 05/07/19 10:47 95 05/07/19 09:56 94 05/07/19 09:02 97 05/07/19 08:54 92 05/07/19 08:25 95 05/07/19 08:15 93 05/07/19 08:05 94 05/07/19 07:57 93 05/07/19 06:13 92 05/07/19 04:33 92 05/07/19 02:16 92 05/06/19 23:17 94 PG Care Time/CCT Total # of Minutes Spent Total Time Spent with Patient: Total time spent is greater than 50% in coordination of care (as documented) at patient's floor/unit and/or counseling patient: Time Spent Midlevel 35 minutes with >50% of time spent at bedside with patient discussing pain management.
[2019-05-07 11:41] VITALS: TEMP 98.4
--- NOTE | 2019-05-07 12:03 | Discharge Summary ---
Date of Service May 07, 2019 Admission HPI Per Admitting Provider Mr. Quesada is a 38-year-old male with a history of hypertension and gout. He came to the ED on Friday after approximately 2 weeks of lower right quadrant pain upon sitting and laying down but has a 2-3 year history of general malaise, pain, and bright red blood per rectum. Abdominal CT in the ED revealed a 13 cm left lobe hepatic mass, bilateral pleural masses with associated pleural effusions, as well as pathologic adenopathy and metastases to the peritoneum and left adrenal gland. The CTA chest showed extensive right-sided pulmonary emboli and multiple segmental left pulmonary emboli, a suspected 2.5 cm right lower lobe pulmonary infarct and innumerable small pulmonary and pleural nodules as well as enlarged thoracic lymph nodes. He underwent a U/S-guided biopsy of the peritoneal nodules surrounding the liver as well as an EGD and colonoscopy to rule out a GI primary yesterday. Biopsy results are pending. There were no signs of a mass on EGD/colonoscopy and the source for the rectal bleeding was determined to be internal hemorrhoids. He was seen by Dr. He from heme/onc this morning who spoke to him about his prognosis and the patient felt that 'things were settling in a bit more.' The patient continues to endorse lower right quadrant pain today. He is taking morphine and he states that this 'takes the edge off of his pain' bringing it down from a 6 to a 4 out of 10. He states he has not passed any stool since finishing his colonoscopy prep yesterday but states that he feels that this is because he hasn't eaten and he would like to return to a full diet. He does not endorse nausea, vomiting, diarrhea, shortness of breath, fever, or chills. He states that he continued to have insomnia last night but thought this was largely due to the hospital environment. 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 Bilateral acute DVT/PE Discharge Exam Constitutional WD/WN, vitals as above Eyes + anicteric sclerae ENMT external ear and nose normal, oropharynx normal Neck trachea midline, no thyromegaly Respiratory normal respiratory effort, lungs clear to auscultation Cardiovascular RRR, no murmur, no edema Gastrointestinal (Abdomen) Inspection/Auscultation: abdomen normal to inspection Percussion/Palpation: + abdomen tender (very minimal now RUQ and epigastric region without guarding or rebound) and abdomen soft; no guarding, abdomen not rigid and no hernia Musculoskeletal Extremities: extremities normal to inspection; no cyanosis and no clubbing Skin no rashes, warm and dry Neurologic moves all extremities and awake; no focal motor deficits Psychiatric A+Ox3, euthymic affect Lymphatic + cervical lymphadenopathy (right posterior cervical lymphadenopathy) Discharge Data Allergies Allergy/AdvReac Type Severity Reaction Status Date / Time No Known Allergies Allergy Unverified 04/30/19 12:44 Consultations 04/30/19 15:12 ED Decision to Admit Stat 04/30/19 18:35 Consult Gastroenterology Routine 05/01/19 11:58 Consult Anesthesiology Routine 05/03/19 15:52 Consult Oncology Routine 05/05/19 11:07 Consult Palliative Care Routine 05/05/19 16:03 Consult General Surgery Routine Procedures Performed Operation Date: 05/03/19 08:55 Actual Procedures p Esophagogastroduodenoscopy - Godwin Corral s Colonoscopy - Godwin Corral Operation Date: 05/07/19 07:00 Actual Procedures p Infusaport Insertion Left Subclavian Vein(Left) - Francisco Huerta MD Ordered Studies 04/30/19 12:25 CT abd pelvis IV con only Stat 04/30/19 13:34 CT angio chest PE protocol Stat 05/01/19 07:57 US venous doppler LE BI Urgent 05/03/19 07:50 US biopsy liver Routine 05/03/19 10:02 US FNA w/img 1st lesion Routine US guide needle placement Routine 05/07/19 07:00 FL fluoro (infusaport) to 1 hr Routine CXR KUB Hospital Course (1) Liver mass, left lobe: CT a/p shows 13 cm left lobe hepatic mass. Innumerable other nodules and lymphadenopathy in lungs, peritoneal nodules, adrenal, pleural effusions, thoracic and perirectal MARIPOSA. He has been having low-level rectal bleeding for several years--> colonoscopy without tumor, and with hemorrhoids as cause of that S/p core biopsy of a peritoneal nodule on 05/03 Prelim path results pointing towards cholangiocarcinoma but not finalized at the time of discahrge Oncology consulted-recommends port placement while here and will offer Palliative Chemotherapy -had port placed 05/07, did well afterwards Palliative Care consulted for pain management and will also be helpful given poor prognosis in assisting with goals of care discussions -changed to Methadone 5mg po tid and use Morphine IR po for breakthrough--> pain control is much improved on the day of discharge--> he will continue these medications and follow up with Dr. Cotto of Palliative Care in 2 weeks -supportive care given -will need close outpt Oncology follow up-this will be arranged by Oncology (2) Pulmonary embolism: CTA chest on 04/30 showed "extensive right-sided pulmonary emboli, including emboli within the distal right pulmonary artery. Multiple segmental left pulmonary emboli. No CT evidence of right heart strain. Suspected 2.5 cm right lower lobe pulmonary infarct." Also with bilateral DVTs on ultrasound on 05/01. - Monitoring for any cardiovascular compromise - None at present. -Was initially treated with a heparin gtt and then converted to Xarelto after port placement and biopsies, endoscopies all completed. -continue Xarelto at 15mg po bid x 21 daysand then go to 20mg daily, indefinitely given underlying malignancy ECHO negative for right heart strain (3) Acute DVT (deep venous thrombosis): as above, bilateral extensive DVTs (4) Microcytic anemia: Anemia with hgb down to 11 with MCV of 77. Iron labs indicate chronic disease but also could be mixed with Fe deficiency given microcytosis and known chronic blood loss from hemorrhoids - with elevated ferritin which could be from acute phase reactant/inflammation - Given 2 doses of IV iron this admission - Monitor CBC as outpt (5) Hyponatremia: Na 130 on admission. Likely secondary to dehydration given poor p.o. intake vs. SIADH from pulmonary involvement. - Received 2 L normal saline and improved to 134 but now down again to 132 - stable, asymptomatic No urine studies were done and no need to do currently as is improved -follow BMP as outpt, encouraged po hydration (6) HTN (hypertension): Patient was previously on lisinopril and amlodipine, but had not seen a doctor in 2 years BPs elevated could be secondary to pain, anxiety but now improved No need for meds (7) Gout: Was previously being treated with allopurinol. Uric acid normal. -no meds (8) Pleural effusion, bilateral: likely malignant effusions but could be secondary to PEs, pulm infarction? -not hypoxic -follow clinically (9) Pulmonary nodules: as above, mets (10) Adrenal nodule: seen on CT on left adrenal gland, 1.9 cm could be a met (11) Rectal bleeding: secondary to hemorrhoids EGD and colonoscopy otherwise normal -started docusate, can also use Miralax --> changed to daily (12) Situational anxiety: -started clonazepam 0.5mg po qday and continue ativan to 1mg q6h prn breakthrough -may eventually need SSRI-defer to PCP (13) Cancer related pain: -on methadone as above -will f/u with Palliative Care medicine (14) Transaminitis: secondary to liver cancer -follow periodically (15) DVT prophylaxis: heparin gtt , Xarelto Dispo-stable for dc Total Time Total Time Spent Total Time Spent (In Minutes): >30 min Total Time Includes: Examination of the Patient, Discharge Planning and Medication Reconciliation Discharge Plan Discharge Items Patient Disposition: Home - Self-Care Reason For Visit: PE,HEPATIC AND RECTAL MASS,PULMONARY NODULES Discharge Diagnosis: DVT/PE, liver tumor with metastases, abdominal pain Condition on Discharge: Fair Activity: As commented below Lifting: Gradually increase as tolerated Bathing: Keep incision dry Bathing Comment: See below Non-emergency contact: Primary Care Provider and Oncologist Call non-emergency contact if: you have any medication questions, your symptoms worsen, your pain is not controlled, your pain is worsening, your pain is unusual for you, your pain is concerning for you, you have a fever, your temperature is above 101, your wound has increased redness, your wound has increased drainage and your wound pain has increased Follow-up/Referrals: Gomez He DO [Physician] - (Dr. He's office should be contacting you with an appointment date/time. If you have not heard from his office by Friday, please call to inquire. *Dr. He's office is located in the rear of this hospital building. You will need to park BEHIND the hospital in [address] and enter via [facility]. If you have any questions, call the office at [phone]. ) Gail Figueroa PA-C [Nurse Practitioner] - 05/12/19 1:45 pm (Please, follow up at [facility] [place] Office with Gail Figueroa PA-C on FridayMay 12 at 1:45 pm. *The office is located next to [address]. If you need to change this appointment, call the office at [phone]. YOU CAN LET THEM KNOW THAT YOUR MA APPLICATION IS PENDING. THEY MAY MAIL YOU A BILL, BUT JUST GIVE THEM THE MA ID # WHEN YOU GET APPROVED.) Sarah Cotto MD [Physician] - (Please call for a follow up appointment in [address] Cotto is with Palliative Care Medicine and will prescribe your methadone.) Diet: Regular Addtl Attending Provider Instructions: You were admitted and found to have blood clots in your legs and lungs. This will be treated with a blood thinner called Xarelto. Please take this as prescribed at 15mg twice daily x 21 days and then 20mg daily after that. If you have any severe bleeding in your stool, you're vomiting blood, have blood in your urine, or nose bleeds, please return to the hospital. You were also found to have cancer in your liver that has spread to other parts of your body unfortunately. You will need to follow up with the Oncologist, Dr. He, to start treatment for this. You were started on methadone for pain with morphine as needed for breakthrough pain. Please continue this. You were also started on clonazepam for anxiety with lorazepam for breakthrough anxiety. Please follow up with Dr. Cotto of Palliative Care Medicine for further management of your pain medicine. Please also follow up with your new PCP as scheduled for you. Addtl [employer] Instrument [employer]r Provider Instructions: Surgical discharge instructions: - no heavy lifting over 10 pounds with left arm for 1 week. - no repetitive movements of left arm for 1 week. - Keep dressing on for 3 days and then remove. - You may shower 24 hours after your procedure. - No submerging incision underwater for 2 weeks (no bathing, swimming, or hot tubs) Pending Studies at Discharge: Yes (Final pathology from biopsy) Stand-Alone Forms: Call Back Authorization, [facility], Opioid Pain Management, Smoking Cessation Medications and DC Order Prescriptions: New Xarelto 15 mg (42)- 20 mg (9) tablets,dose pack 1 ea PO BID Qty: 51 RF: 0 clonazepam 0.5 mg Tablet 0.5 mg PO DAILY Qty: 30 RF: 0 lorazepam 1 mg Tablet 1 mg PO Q6H PRN (Reason: breakthrough anxiety) Qty: 28 RF: 0 methadone 5 mg Tablet 5 mg PO TID Qty: 90 RF: 0 morphine 15 mg Tablet 15 mg PO Q3H PRN (Reason: breakthrough pain, severe) Qty: 56 RF: 0 docusate sodium 100 mg Capsule 100 mg PO BID Qty: 60 RF: 0 ondansetron HCl [Zofran] 4 mg tablet 4 mg PO DAILY PRN (Reason: nausea and vomiting) Qty: 14 RF: 0 polyethylene glycol 3350 [Miralax] 17 gram Powder In Packet 17 g PO DAILY Qty: 30 RF: 0 No Action No Known Home Medications RF: 0 Discharge Orders: Discharge Order (Routine); Ordered 05/07/19 Ordered By: Brynn Black Admission Data Admit Date/Time: 04/30/19 16:17 Attending Provider: Brynn Black Admit Provider: Erik Villarreal Primary Care Provider: Paul Soto Other Providers: Darnell Banuelos Brian D. ; Romario Turner ; Gomez He V ; Sarah Cotto ; Francisco Huerta Other Interventions: Discharge Summary Assessment (RN) Last Done: 05/03/19 17:00
[2019-05-07 13:40] VITALS: BP 149/89; PULSE 93
--- NOTE | 2019-05-07 17:03 | Med Student Discharge Summary ---
Date of Service Admission: April 30, 2019 Discharge: May 07, 2019 Admission HPI Per Admitting Provider Mr. Quesada is a 38-year-old male with a history of hypertension and gout. He came to the ED on Friday after approximately 2 weeks of lower right quadrant pain upon sitting and laying down. He has has general malaise and pain for 'years.' He states he came to the ED because he was getting 'winded' with walking even short distances and describes this as shortness of breath as well as a narrowing of his visual field. He also has had bright red blood per rectum approximately 3 times per week for the last 2-3 years which was believed to be hemorrhoids. While he describes this as generally some red blood on the toilet paper or in the bowl after passing stool, he noticed in the past 3-4 weeks that there were dark red clots in the toilet up to the size of a quarter. He endorses chills, nights sweats, insomnia, and fatigue. He does not endorse nausea, vomiting, fevers, or loss of weight. He takes 'at least' 800 mg of ibuprofen or 600 mg of naproxen every day to help with these symptoms as well as 400 mg of Advil PM before bed approximately 4 times per week. Abdominal CT in the ED revealed a 13 cm left lobe hepatic mass, bilateral pleural masses with associated pleural effusions, pathologic adenopathy including a 39 mm seven hepatis lymph node, peritoneal metastasis including a 24 mm central mesenteric mass, and 17 mm right perirectal mass, and 19 mm left adrenal nodule. The CTA chest showed extensive right-sided pulmonary emboli and multiple segmental left pulmonary emboli.Suspected 2.5 cm right lower lobe pulmonary infarct. Small bilateral pleural effusions and innumerable small pulmonary and pleural nodules as well as enlarged thoracic lymph nodes. He was evaluated by GI yesterday, 05/02, who determined that he was stable enough to undergo a colonoscopy today to check for the source of blood per rectum. He underwent a U/S-guided biopsy of nodules surrounding the liver in the peritoneum this morning, 05/03. The patient continues to endorse lower right quadrant pain today. He states he has not passed any bright red stool this morning. He states that he is very anxious to obtain the results of the testing but feels 'validated' that something has been found that explains his symptoms. He is currently remains NPO awaiting colonoscopy later today, 05/03, but states that he is hungry. Discharge HPI Mr. Quesada is a 38-year-old male with a history of hypertension and gout. He came to the ED on Friday after approximately 2 weeks of lower right quadrant pain upon sitting and laying down but has a 2-3 year history of general malaise, pain, and bright red blood per rectum. Abdominal CT in the ED revealed a 13 cm left lobe hepatic mass, as well as nodules in the lungs, and adrenal gland. The CTA chest showed pulmonary emboli bilaterally, a suspected 2.5 cm right lower lobe pulmonary infarct and innumerable small pulmonary and pleural nodules as well as enlarged thoracic lymph nodes. Today, he is s/p port placement. He was NPO and heparin was held from 00:00 last night. Patient states his pain is in his lower right quadrant, right shoulder, and left thorax/neck in the distribution of the port. He states the pain overall is currently a 4 out of 10 and feels 'manageable.' He feels that this is largely due to the addition of the methadone and states that he was not needing to take the breakthrough morphine sulfate as regularly, often waiting 4-5 hours between doses. In addition, his anxiety has decreased significantly with the addition of clonazepam. He states that he still needs the lorazepam every 6 hours but the anxiety is much more manageable given the combination of these two medication. He states that he was somnolent last night, sleeping for 6-7 hours even while he had company in his room but that he feels this sleep was restorative and feeling as drowsy today. He ate 100% of his dinner last night and his breakfast this morning after the procedure and is no longer endorsing anorexia. He states that he had one incident of nausea last night when he was in the shower. He states that he felt lightheaded and was dry heaving at this time. He took ondansetron at this time and has not had any incidence of nausea or vomiting outside of this. He has not moved his bowels since Friday evening but does not endorse any bloating or abdominal discomfort. Admission Exam (Per Admitting) Constitutional Admission Physical Exam: GENERAL: Awake, alert, well-appearing, in no distress HENT: NC/AT, Oropharynx with dry mucous membranes and otherwise unremarkable. EYES: Normal conjunctiva. Sclera non-icteric. EOMI. No nystamgus. PEARRL. NECK: Supple. No nuchal rigidity. FROM. No JVD. RESPIRATORY: CTAB. CARDIAC: Regular rate, normal rhythm. Extremities warm and well perfused. Pulses equal. ABDOMEN: Soft, non-distended. Generalized abdominal discomfort without discrete tenderness to palpation. No rebound or guarding. No masses. RECTAL: Deferred. MUSCULOSKELETAL: Chest examination reveals no tenderness. The back is symmetrical on inspection without obvious abnormality. There is no CVA tenderness to palpation. No joint edema. LOWER EXTREMITIES: Calves are equal size bilaterally and non-tender. No edema. No discoloration. NEURO: Normal sensorium. No sensory or motor deficits noted. SKIN: No rash or jaundice noted. Discharge Physical Exam: General Appearance: Patient is in no acute distress and is resting comfortably in bed upon exam. He is friendly, cooperative, and optimistic. Respiratory: Lungs clear bilaterally to auscultation. No wheezes, rhonci, or rales. Patient is not short of breath at rest and does not seem to have increased work of breathing. Cardiovascular: Regular rate and rhythm. No rubs, murmurs, or gallops. No lower extremity edema. Pedal pulses appreciated. Gastrointestinal: Tender to palpation in the upper and lower right quadrants. No organomegaly appreciated. Bowel sounds were normoactive. Neurological: Patient awake and oriented x 3. No focal neurologic deficits appreciated. Psychiatric: Thought pattern was logical and organized. States his mood to be improved today given pain and anxiety control. Affect was consistent with stated mood. Lymphatic: Right-sided anterior cervical lymphadenopathy appreciated. Discharge Data Consultations 04/30/19 18:35 Consult Gastroenterology Routine - Determine source of rectal bleeding; rule out a colon cancer primary. 05/01/19 11:58 Consult Anesthesiology Routine - In preparation for EGD/Colonoscopy. 05/03/19 15:52 Consult Oncology Routine - Patient was determined to have 13 cm mass in liver as well as metastases to the lymph nodes, lungs, and adrenal gland. 05/05/19 11:07 Consult Palliative Care Routine - Patient's pain was not being managed by morphine and oxycodone. 05/05/19 16:03 Consult General Surgery Routine - To place port in preparation for chemotherapy. Procedures Performed Operation Date: 05/03/19 08:55 Actual Procedures p Esophagogastroduodenoscopy - Godwin Corral s Colonoscopy - Godwin Corral Operation Date: 05/07/19 07:00 Actual Procedures p Infusaport Insertion Left Subclavian Vein(Left) - Francisco Huerta MD Discharge Plan Discharge Items Patient Disposition: Home - Self-Care Reason For Visit: PE,HEPATIC AND RECTAL MASS,PULMONARY NODULES Discharge Diagnosis: DVT/PE, liver tumor with metastases, abdominal pain Condition on Discharge: Fair Activity: As commented below Lifting: Gradually increase as tolerated Bathing: Keep incision dry Bathing Comment: See below Non-emergency contact: Primary Care Provider and Oncologist Call non-emergency contact if: you have any medication questions, your symptoms worsen, your pain is not controlled, your pain is worsening, your pain is unusual for you, your pain is concerning for you, you have a fever, your temperature is above 101, your wound has increased redness, your wound has increased drainage and your wound pain has increased Follow-up/Referrals: Gomez He DO [Physician] - (Dr. He's office should be contacting you with an appointment date/time. If you have not heard from his office by Friday, please call to inquire. *Dr. He's office is located in the rear of this hospital building. You will need to park BEHIND the hospital in [address] and enter via [facility]. If you have any questions, call the office at [phone]. ) Gail Figueroa PA-C [Nurse Practitioner] - 05/12/19 1:45 pm (Please, follow up at [facility] [place] Office with Gail Figueroa PA-C on FridayMay 12 at 1:45 pm. *The office is located next to [employer]. If you need to change this appointment, call the office at [phone]. YOU CAN LET THEM KNOW THAT YOUR MA APPLICATION IS PENDING. THEY MAY MAIL YOU A BILL, BUT JUST GIVE THEM THE MA ID # WHEN YOU GET APPROVED.) Sarah Cotto MD [Physician] - 05/24/19 1:00 pm (Please, follow up at [facility] with Dr. Cotto on FridayMay 24 at 1:00 pm. She is with Palliative Care Medicine and will prescribe your methadone. *Her office is located behind the hospital in [facility]. Park BEHIND the hospital in [address]. If you have any questions, call her office at [phone].) Diet: Regular Addtl Attending Provider Instructions: You were admitted and found to have blood clots in your legs and lungs. This will be treated with a blood thinner called Xarelto. Please take this as prescribed at 15mg twice daily x 21 days and then 20mg daily after that. If you have any severe bleeding in your stool, you're vomiting blood, have blood in your urine, or nose bleeds, please return to the hospital. You were also found to have cancer in your liver that has spread to other parts of your body unfortunately. You will need to follow up with the Oncologist, Dr. He, to start treatment for this. You were started on methadone for pain with morphine as needed for breakthrough pain. Please continue this. You were also started on clonazepam for anxiety with lorazepam for breakthrough anxiety. Please follow up with Dr. Cotto of Palliative Care Medicine for further management of your pain medicine. Please also follow up with your new PCP as scheduled for you. Addtl Display Coordinator Provider Instructions: Surgical discharge instructions: - no heavy lifting over 10 pounds with left arm for 1 week. - no repetitive movements of left arm for 1 week. - Keep dressing on for 3 days and then remove. - You may shower 24 hours after your procedure. - No submerging incision underwater for 2 weeks (no bathing, swimming, or hot tubs) Pending Studies at Discharge: Yes (Final pathology from biopsy) Stand-Alone Forms: Call Back Authorization, [facility], Opioid Pain Management, Smoking Cessation Medications and DC Order Prescriptions: New clonazepam 0.5 mg Tablet 0.5 mg PO DAILY Qty: 30 RF: 0 lorazepam 1 mg Tablet 1 mg PO Q6H PRN (Reason: breakthrough anxiety) Qty: 28 RF: 0 morphine 15 mg Tablet 15 mg PO Q3H PRN (Reason: breakthrough pain, severe) Qty: 56 RF: 0 docusate sodium 100 mg Capsule 100 mg PO BID Qty: 60 RF: 0 ondansetron HCl [Zofran] 4 mg tablet 4 mg PO DAILY PRN (Reason: nausea and vomiting) Qty: 14 RF: 0 polyethylene glycol 3350 [Miralax] 17 gram Powder In Packet 17 g PO DAILY Qty: 30 RF: 0 methadone 10 mg tablet 5 mg PO TID Qty: 45 RF: 0 Xarelto 15 mg tablet 15 mg PO BID 21 Days Qty: 42 RF: 0 No Action No Known Home Medications RF: 0 Discharge Orders: Discharge Order (Routine); Ordered 05/07/19 Ordered By: Brynn Black Admission Data Admit Date/Time: 04/30/19 16:17 Attending Provider: Brynn Black Admit Provider: Erik Villarreal Primary Care Provider: Paul Soto Other Providers: Darnell Banuelos ; Darrell Garcia ; Romario Turner ; Gomez He V ; Sarah Cotto ; Francisco Huerta Other Interventions: Discharge Summary Assessment (RN) Last Done: 05/07/19 13:53 DC Date/Time DO NOT enter until pt leaves facility: 05/07/19 14:53 Course Vital Signs Temperature 36.5 C 04/30/19 11:17 Pulse Rate 96 H 04/30/19 11:17 Respiratory Rate 16 04/30/19 11:17 Blood Pressure 178/103 H 04/30/19 11:17 Pulse Oximetry 96 04/30/19 11:17 Temperature 36.9 C 05/07/19 13:53 Pulse Rate 93 H 05/07/19 13:53 Respiratory Rate 16 05/07/19 13:53 Blood Pressure 149/89 H 05/07/19 13:53 Pulse Oximetry 95 05/07/19 13:53 Hospital Course * Patient presented to the Emergency Department on 04/30 after approximately 2 weeks of lower right quadrant pain upon sitting and laying down but has a 2-3 year history of general malaise, pain, and bright red blood per rectum. * He was found to have a 13 cm left lobe hepatic mass, bilateral pleural masses with associated pleural effusions, as well as pathologic adenopathy and metastases to the peritoneum and left adrenal gland on abdominal CT. The CTA chest showed extensive right-sided pulmonary emboli and multiple segmental left pulmonary emboli, a suspected 2.5 cm right lower lobe pulmonary infarct and innumerable small pulmonary and pleural nodules as well as enlarged thoracic lymph nodes. * Patient was admitted to the inpatient service. * Patient was started on IV heparin in order to prevent further VTE, morphine and oxycodone to control his pain, and lorazepam to alleviate his anxiety. * He underwent FNA x3 and core biopsy x1 of a peritoneal mass adjacent to his liver - preliminary diagnosis cholangiocarcinoma. * Patient underwent an EGD/colonoscopy to determine source of rectal bleeding/rule out primary colorectal cancer - no mass visualized; bleeding source found to be internal hemorrhoids. * Palliative care adjusted patient to baseline morphine with a breakthrough MS contin regimen. * Patient was transitioned from IV heparin to rivaroxaban to prepare for discharge. * Palliative care adjusted patient to baseline methadone with a breakthrough morphine regimen. * Patient was started on baseline clonazepam with breakthrough lorazepam to better control anxiety. * Patient determined that he would like to undergo chemotherapy. * Patient was transitioned from rivaroxaban to IV heparin in order to undergo surgery. * General surgery inserted a port such that patient could undergo chemotherapy. * Patient was restarted on rivaroxaban for discharge. * At discharge, patient's pain and anxiety were well managed on above mentioned medications. Administered Medications Discontinued Medications Acetaminophen (Tylenol) 650 mg PO Q6 PRN PRN Reason: Pain Stop: 05/30/19 18:34 Last Admin: 05/04/19 14:46 Dose: 650 mg Documented by: [id number] Admin: 05/04/19 05:03 Dose: 650 mg Documented by: [id number] Admin: 05/01/19 20:53 Dose: 650 mg Documented by: [id number] Admin: 04/30/19 22:50 Dose: 650 mg Documented by: [id number] Clonazepam (Klonopin) 0.5 mg PO DAILY ERUM Stop: 06/05/19 17:14 Last Admin: 05/07/19 09:55 Dose: 0.5 mg Documented by: [id number] Admin: 05/06/19 17:44 Dose: 0.5 mg Documented by: [id number] Diphenhydramine HCl (Benadryl) 25 mg IV NOW ONE Stop: 04/30/19 22:26 Last Admin: 04/30/19 22:51 Dose: 25 mg Documented by: [id number] Docusate Sodium (Colace) 100 mg PO BID ERUM Stop: 06/03/19 20:59 Last Admin: 05/07/19 09:52 Dose: 100 mg Documented by: [id number] Admin: 05/06/19 20:42 Dose: 100 mg Documented by: [id number] Admin: 05/06/19 08:06 Dose: 100 mg Documented by: [id number] Admin: 05/05/19 20:14 Dose: 100 mg Documented by: [id number] Admin: 05/05/19 08:21 Dose: 100 mg Documented by: [id number] Admin: 05/04/19 21:04 Dose: Not Given Documented by: [id number] Fentanyl Citrate (Fentanyl Citrate) Confirm Administered Dose 100 mcg .ROUTE .STK-MED ONE Stop: 05/03/19 15:50 Last Admin: 05/06/19 16:15 Dose: Not Given Documented by: [id number] Heparin Sodium (Porcine) (Heparin Iv Bolus) Confirm Administered Dose 10,000 units .ROUTE .STK-MED ONE Stop: 04/30/19 15:28 Last Admin: 04/30/19 15:33 Dose: 7,000 units Documented by: [id number] Cosigned by: [id number] Heparin Sodium (Porcine) (Heparin Sod 100 Unit/Ml Flush) Confirm Administered Dose 25 ml .ROUTE .STK-MED ONE Stop: 05/07/19 06:41 Last Admin: 05/07/19 07:34 Dose: 25 ml Documented by: [id number] Heparin Sodium/Dextrose () 1 ea IV NOW STA; Protocol Stop: 04/30/19 15:12 Last Admin: 04/30/19 15:33 Dose: Not Given Documented by: [id number] Hydralazine HCl (Hydralazine Hcl) 10 mg IV Q6H PRN PRN Reason: SBP > 180 or DBP > 100 Stop: 05/30/19 18:34 Last Admin: 04/30/19 20:50 Dose: 10 mg Documented by: [id number] Sodium Chloride (Nss 1000ml) 2,000 mls @ 999 mls/hr IV .Q2H1M ONE Stop: 04/30/19 13:41 Last Infusion: 04/30/19 14:03 Dose: 0 mls/hr Documented by: [id number] Admin: 04/30/19 12:00 Dose: 999 mls/hr Documented by: [id number] Heparin Sodium/Dextrose (Heparin Sodium/Dextrose) 25,000 units in 500 mls @ 42 mls/hr IV .[id number] [facility]; Protocol Stop: 05/04/19 21:00 Last Titration: 05/04/19 21:15 Dose: 0 units/hr, 0 mls/hr Documented by: [id number] Cosigned by: [id number] Admin: 05/04/19 11:15 Dose: 2,100 units/hr, 42 mls/hr Documented by: [id number] Cosigned by: [id number] Titration: 05/04/19 11:12 Dose: 2,100 units/hr, 42 mls/hr Documented by: [id number] Cosigned by: [id number] Titration: 05/04/19 07:12 Dose: 2,100 units/hr, 42 mls/hr Documented by: [id number] Cosigned by: [id number] Admin: 05/03/19 23:17 Dose: 2,100 units/hr, 42 mls/hr Documented by: [id number] Cosigned by: [id number] Titration: 05/03/19 12:53 Dose: 0 units/hr, 0 mls/hr Documented by: [id number] Cosigned by: [id number] Titration: 05/03/19 02:10 Dose: 0 units/hr, 0 mls/hr Documented by: [id number] Cosigned by: [id number] Admin: 05/02/19 16:57 Dose: 2,100 units/hr, 42 mls/hr Documented by: [id number] Cosigned by: [id number] Titration: 05/02/19 16:32 Dose: 2,100 units/hr, 42 mls/hr Documented by: [id number] Cosigned by: [id number] Titration: 05/02/19 12:53 Dose: 2,100 units/hr, 42 mls/hr Documented by: [id number] Cosigned by: [id number] Titration: 05/02/19 07:14 Dose: 2,200 units/hr, 44 mls/hr Documented by: [id number] Cosigned by: [id number] Titration: 05/02/19 06:46 Dose: 2,200 units/hr, 44 mls/hr Documented by: [id number] Cosigned by: [id number] Admin: 05/02/19 04:49 Dose: 2,000 units/hr, 40 mls/hr Documented by: [id number] Cosigned by: [id number] Titration: 05/02/19 04:49 Dose: 2,000 units/hr, 40 mls/hr Documented by: [id number] Cosigned by: [id number] Titration: 05/01/19 19:15 Dose: 2,000 units/hr, 40 mls/hr Documented by: [id number] Cosigned by: [id number] Admin: 05/01/19 17:27 Dose: 2,000 units/hr, 40 mls/hr Documented by: [id number] Cosigned by: [id number] Titration: 05/01/19 17:27 Dose: 2,000 units/hr, 40 mls/hr Documented by: [id number] Cosigned by: [id number] Titration: 05/01/19 06:50 Dose: 2,000 units/hr, 40 mls/hr Documented by: [id number] Cosigned by: [id number] Titration: 05/01/19 06:07 Dose: 2,000 units/hr, 40 mls/hr Documented by: [id number] Cosigned by: [id number] Admin: 05/01/19 05:08 Dose: 2,000 units/hr, 40 mls/hr Documented by: [id number] Cosigned by: [id number] Titration: 05/01/19 05:08 Dose: 2,000 units/hr, 40 mls/hr Documented by: [id number] Cosigned by: [id number] Titration: 04/30/19 22:00 Dose: 2,000 units/hr, 40 mls/hr Documented by: [id number] Cosigned by: [id number] Titration: 04/30/19 19:15 Dose: 1,650 units/hr, 33 mls/hr Documented by: [id number] Cosigned by: [id number] Admin: 04/30/19 15:33 Dose: 1,650 units/hr, 33 mls/hr Documented by: [id number] Cosigned by: [id number] Lactated Ringer's (Lr) 1,000 mls @ 75 mls/hr IV .[id number] ERUM Stop: 05/30/19 18:34 Last Infusion: 05/01/19 10:10 Dose: 0 mls/hr Documented by: [id number] Admin: 05/01/19 03:15 Dose: 125 mls/hr Documented by: [id number] Infusion: 05/01/19 02:53 Dose: 125 mls/hr Documented by: [id number] Admin: 04/30/19 18:53 Dose: 125 mls/hr Documented by: [id number] Heparin Sodium (Porcine) 7,000 (units/ Syringe) 7 mls @ 10 mls/min IV ONE ONE Stop: 04/30/19 22:00 Last Admin: 04/30/19 22:26 Dose: 10 mls/min Documented by: [id number] Cosigned by: [id number] Heparin Sodium (Porcine) 4,000 (units/ Syringe) 4 mls @ 10 mls/min IV ONE ONE Stop: 05/02/19 06:52 Last Admin: 05/02/19 07:19 Dose: 10 mls/min Documented by: [id number] Cosigned by: [id number] Iron Sucrose 100 mg/ Sodium (Chloride) 105 mls @ 420 mls/hr IV TODAY@1030 [facility] Stop: 05/02/19 10:44 Last Infusion: 05/02/19 11:20 Dose: 0 mls/hr Documented by: [id number] Admin: 05/02/19 10:46 Dose: 420 mls/hr Documented by: [id number] Sodium Chloride (Nss 1000ml) 1,000 mls @ 15 mls/hr IV .Q24H [facility] Stop: 05/04/19 15:44 Last Admin: 05/03/19 17:54 Dose: Not Given Documented by: [id number] Iron Sucrose 100 mg/ Sodium (Chloride) 105 mls @ 420 mls/hr IV TODAY@1730 ONE Stop: 05/03/19 17:44 Last Infusion: 05/03/19 18:01 Dose: 0 mls/hr Documented by: [id number] Admin: 05/03/19 17:40 Dose: 420 mls/hr Documented by: [id number] Heparin Sodium/Dextrose (Heparin Sodium/Dextrose) 25,000 units in 500 mls @ 39 mls/hr IV .[id number] [facility]; Protocol Stop: 06/04/19 17:14 Last Admin: 05/07/19 00:55 Dose: Not Given Documented by: [id number] Titration: 05/07/19 00:50 Dose: 0 units/hr, 0 mls/hr Documented by: [id number] Cosigned by: [id number] Titration: 05/06/19 23:06 Dose: 1,950 units/hr, 39 mls/hr Documented by: [id number] Cosigned by: [id number] Titration: 05/06/19 15:21 Dose: 1,950 units/hr, 39 mls/hr Documented by: [id number] Cosigned by: [id number] Admin: 05/06/19 10:31 Dose: 1,950 units/hr, 39 mls/hr Documented by: [id number] Cosigned by: [id number] Titration: 05/06/19 09:15 Dose: 1,950 units/hr, 39 mls/hr Documented by: [id number] Cosigned by: [id number] Titration: 05/06/19 07:12 Dose: 1,950 units/hr, 39 mls/hr Documented by: [id number] Cosigned by: [id number] Titration: 05/06/19 04:03 Dose: 1,950 units/hr, 39 mls/hr Documented by: [id number] Cosigned by: [id number] Titration: 05/05/19 21:12 Dose: 1,950 units/hr, 39 mls/hr Documented by: [id number] Cosigned by: [id number] Admin: 05/05/19 20:15 Dose: 1,600 units/hr, 32 mls/hr Documented by: [id number] Cosigned by: [id number] Heparin Sodium (Porcine) 7,000 (units/ Syringe) 7 mls @ 10 mls/min IV ONE ONE Stop: 05/05/19 21:11 Last Admin: 05/05/19 21:12 Dose: 10 mls/min Documented by: [id number] Cosigned by: [id number] Cefazolin Sodium (Ancef 2000mg) 2,000 mg in 15 mls @ 3.75 mls/min IV NOW STA Stop: 05/07/19 07:35 Last Admin: 05/07/19 07:22 Dose: 3.75 mls/min Documented by: [id number] Ioversol (Optiray 320 100ml) 94 ml IV ONCE PRN PRN Reason: Interaction Checking Stop: 05/04/19 12:55 Last Admin: 04/30/19 12:57 Dose: 94 ml Documented by: [id number] Ioversol (Optiray 320 125ml) 120 ml IV ONCE PRN PRN Reason: Interaction Checking Stop: 05/04/19 14:17 Last Admin: 04/30/19 14:19 Dose: 120 ml Documented by: [id number] Lidocaine HCl (Xylocaine 2%) Confirm Administered Dose 4 ml INFIL .STK-MED ONE Stop: 05/03/19 16:27 Last Admin: 05/06/19 16:14 Dose: Not Given Documented by: [id number] Lidocaine HCl (Xylocaine 1% (Local)) Confirm Administered Dose 40 ml .ROUTE .STK-MED ONE Stop: 05/07/19 06:41 Last Admin: 05/07/19 07:34 Dose: 40 ml Documented by: [id number] Lorazepam (Ativan) 1 mg PO BID PRN PRN Reason: Anxiety/Agitation Stop: 05/31/19 08:53 Last Admin: 05/04/19 05:04 Dose: 1 mg Documented by: [id number] Admin: 05/03/19 20:16 Dose: 1 mg Documented by: [id number] Admin: 05/02/19 23:16 Dose: 1 mg Documented by: [id number] Admin: 05/02/19 12:13 Dose: 1 mg Documented by: [id number] Admin: 05/01/19 22:39 Dose: 1 mg Documented by: [id number] Admin: 05/01/19 12:18 Dose: 1 mg Documented by: [id number] Lorazepam (Ativan) 1 mg PO Q8H PRN PRN Reason: Anxiety/Agitation Stop: 05/31/19 08:53 Last Admin: 05/05/19 11:30 Dose: 1 mg Documented by: [id number] Admin: 05/05/19 02:27 Dose: 1 mg Documented by: [id number] Admin: 05/04/19 18:18 Dose: 1 mg Documented by: [id number] Lorazepam (Ativan) 1 mg PO Q6H PRN PRN Reason: Anxiety/Agitation Stop: 06/03/19 17:15 Last Admin: 05/07/19 12:58 Dose: 1 mg Documented by: [id number] Admin: 05/07/19 02:55 Dose: 1 mg Documented by: [id number] Admin: 05/06/19 20:42 Dose: 1 mg Documented by: [id number] Admin: 05/06/19 14:22 Dose: 1 mg Documented by: [id number] Admin: 05/06/19 08:06 Dose: 1 mg Documented by: [id number] Admin: 05/06/19 00:25 Dose: 1 mg Documented by: [id number] Admin: 05/05/19 16:59 Dose: 1 mg Documented by: [id number] Admin: 05/05/19 11:31 Dose: 1 mg Documented by: [id number] Methadone HCl (Dolophine) 5 mg PO TID ERUM Stop: 05/20/19 20:59 Last Admin: 05/07/19 13:41 Dose: 5 mg Documented by: [id number] Admin: 05/07/19 09:55 Dose: 5 mg Documented by: [id number] Admin: 05/06/19 20:41 Dose: 5 mg Documented by: [id number] Morphine Sulfate (Morphine Sulfate) 1 mg IV Q3H PRN PRN Reason: Pain Stop: 05/03/19 00:06 Last Admin: 05/02/19 23:16 Dose: 1 mg Documented by: [id number] Admin: 05/02/19 20:14 Dose: 1 mg Documented by: [id number] Admin: 05/02/19 16:55 Dose: 1 mg Documented by: [id number] Admin: 05/02/19 12:52 Dose: 1 mg Documented by: [id number] Admin: 05/02/19 09:29 Dose: 1 mg Documented by: [id number] Admin: 05/02/19 05:15 Dose: 1 mg Documented by: [id number] Morphine Sulfate (Morphine Sulfate) 2 mg IV Q3H PRN PRN Reason: Pain Stop: 05/16/19 05:00 Last Admin: 05/03/19 11:32 Dose: 2 mg Documented by: [id number] Admin: 05/03/19 08:28 Dose: 2 mg Documented by: [id number] Admin: 05/03/19 02:20 Dose: 2 mg Documented by: [id number] Morphine Sulfate (Morphine Sulfate) 4 mg IV Q3H PRN PRN Reason: Pain Stop: 05/16/19 05:00 Last Admin: 05/05/19 10:51 Dose: 4 mg Documented by: [id number] Admin: 05/05/19 05:54 Dose: 4 mg Documented by: [id number] Admin: 05/05/19 02:28 Dose: 4 mg Documented by: [id number] Admin: 05/04/19 23:09 Dose: 4 mg Documented by: [id number] Admin: 05/04/19 19:38 Dose: 4 mg Documented by: [id number] Admin: 05/04/19 13:08 Dose: 4 mg Documented by: [id number] Admin: 05/04/19 08:36 Dose: 4 mg Documented by: [id number] Admin: 05/04/19 04:01 Dose: 4 mg Documented by: [id number] Admin: 05/03/19 22:31 Dose: 4 mg Documented by: [id number] Admin: 05/03/19 18:04 Dose: 4 mg Documented by: [id number] Admin: 05/03/19 13:25 Dose: 4 mg Documented by: [id number] Morphine Sulfate (Morphine Sulfate) Confirm Administered Dose 4 mg .ROUTE .STK- MED ONE Stop: 05/03/19 13:13 Last Admin: 05/03/19 14:20 Dose: Not Given Documented by: [id number] Morphine Sulfate (Ms Contin) 30 mg PO Q12H ERUM Stop: 05/19/19 12:14 Last Admin: 05/06/19 00:25 Dose: 30 mg Documented by: [id number] Admin: 05/05/19 12:41 Dose: 30 mg Documented by: [id number] Morphine Sulfate (Morphine Sulfate) 4 mg IV Q4H PRN PRN Reason: Pain Stop: 05/17/19 14:59 Last Admin: 05/05/19 15:36 Dose: 4 mg Documented by: [id number] Morphine Sulfate (Morphine Sulfate) 4 mg IV Q2HWA PRN PRN Reason: Pain Stop: 05/19/19 16:59 Last Admin: 05/06/19 13:13 Dose: 4 mg Documented by: [id number] Admin: 05/06/19 08:05 Dose: 4 mg Documented by: [id number] Admin: 05/06/19 05:53 Dose: 4 mg Documented by: [id number] Admin: 05/06/19 02:33 Dose: 4 mg Documented by: [id number] Admin: 05/06/19 00:26 Dose: 4 mg Documented by: [id number] Admin: 05/05/19 21:37 Dose: 4 mg Documented by: [id number] Admin: 05/05/19 19:25 Dose: 4 mg Documented by: [id number] Admin: 05/05/19 17:25 Dose: 4 mg Documented by: [id number] Morphine Sulfate (Ms Contin) 30 mg PO BID ERUM Stop: 05/20/19 08:59 Last Admin: 05/06/19 10:37 Dose: 30 mg Documented by: [id number] Morphine Sulfate (Morphine Sulfate Ir) 15 mg PO Q3H PRN PRN Reason: Pain Stop: 05/20/19 14:44 Last Admin: 05/07/19 10:50 Dose: 15 mg Documented by: [id number] Admin: 05/07/19 02:56 Dose: 15 mg Documented by: [id number] Admin: 05/06/19 23:37 Dose: 15 mg Documented by: [id number] Admin: 05/06/19 20:15 Dose: 15 mg Documented by: [id number] Admin: 05/06/19 16:13 Dose: 15 mg Documented by: [id number] Ondansetron HCl (Zofran) 4 mg IV Q6H PRN PRN Reason: Nausea Stop: 05/30/19 18:34 Last Admin: 05/07/19 00:50 Dose: 4 mg Documented by: [id number] Admin: 05/03/19 18:10 Dose: 4 mg Documented by: [id number] Admin: 05/03/19 08:27 Dose: 4 mg Documented by: [id number] Admin: 05/03/19 02:20 Dose: 4 mg Documented by: [id number] Admin: 05/02/19 20:15 Dose: 4 mg Documented by: [id number] Admin: 05/02/19 04:57 Dose: 4 mg Documented by: [id number] Ondansetron HCl (Zofran) 4 mg IV NOW STA Stop: 05/07/19 02:13 Last Admin: 05/07/19 02:21 Dose: 4 mg Documented by: [id number] Ondansetron HCl (Zofran) 4 mg IV NOW STA Stop: 05/07/19 02:16 Last Admin: 05/07/19 02:19 Dose: Not Given Documented by: [id number] Oxycodone HCl (Roxicodone Immediate Rel) 5 mg PO Q4 PRN PRN Reason: Pain Stop: 05/18/19 07:34 Last Admin: 05/04/19 15:36 Dose: 5 mg Documented by: [id number] Admin: 05/04/19 11:39 Dose: 5 mg Documented by: [id number] Oxycodone HCl (Roxicodone Immediate Rel) 5 mg PO NOW STA Stop: 05/04/19 17:11 Last Admin: 05/04/19 17:33 Dose: 5 mg Documented by: [id number] Oxycodone HCl (Roxicodone Immediate Rel) 10 mg PO Q4H PRN PRN Reason: Pain Stop: 05/18/19 17:10 Last Admin: 05/05/19 08:24 Dose: 10 mg Documented by: [id number] Admin: 05/05/19 04:32 Dose: 10 mg Documented by: [id number] Admin: 05/04/19 21:16 Dose: 10 mg Documented by: [id number] Polyethylene Glycol (Miralax) 238 gm PO TODAY@1430 [facility] Stop: 05/03/19 06:00 Last Admin: 05/02/19 16:55 Dose: 238 gm Documented by: [id number] Polyethylene Glycol (Miralax Powder Packet) 17 gm PO DAILY [facility] Stop: 05/30/19 18:34 Last Admin: 05/07/19 09:56 Dose: Not Given Documented by: [id number] Propofol (Diprivan) Confirm Administered Dose 600 mg IV .STK-MED ONE Stop: 05/03/19 16:27 Last Admin: 05/06/19 16:15 Dose: Not Given Documented by: [id number] Rivaroxaban (Xarelto) 15 mg PO BID [facility] Stop: 05/26/19 21:01 Last Admin: 05/07/19 09:52 Dose: 15 mg Documented by: [id number] Admin: 05/05/19 08:22 Dose: 15 mg Documented by: [id number] Admin: 05/04/19 21:05 Dose: 15 mg Documented by: [id number]
== END 2019-05-07 14:53 | disposition home or self-care (01) | DRG 435 ==
LOC: ED 11:10 → 2E 16:17 → SUATTDRO 16:17 → 2E 17:56 → 2N 05-02 10:39 → 4W 05-02 22:46

== ENCOUNTER 2019-05-28 15:52 | Inpatient (IN) ==
[2019-05-28] MEDS ORDERED: SODIUM CHLORIDE 0.9% 1000ML 2,000 ML IV ONE (16:29)
[2019-05-28 17:03] LABS: Basophils # (auto) 0.01 K/uL (0-0.2); Basophils % (auto) 0.1 %; Eosinophils # (auto) 0.92 K/uL (0-0.5); Eosinophils % (auto) 7.9 %; Hematocrit (blood only) 32.5 % (42-52); Hemoglobin 10.6 g/dL (14.0-18.0); Immature Granulocytes # (auto) 0.07 K/uL (0.00-0.02); Immature Granulocytes % (auto) 0.6 %; Lymphocytes # (auto) 0.66 K/uL (1.2-3.4); Lymphocytes % (auto) 5.7 %; Mean Corpuscular Hemoglobin 24.4 pg (25-34); Mean Corpuscular Hgb Conc 32.6 g/dL (32-36); Mean Corpuscular Volume 74.9 fL (80-100); Mean Platelet Volume 10.3 fL (7.4-10.4); Monocytes # (auto) 0.17 K/uL (0.11-0.59); Monocytes % (auto) 1.5 %; Neutrophils # (auto) 9.84 K/uL (1.4-6.5); Neutrophils % (auto) 84.2 %; Platelet Count 116 K/uL (130-400); RDW Standard Deviation 40.5 fL (36.4-46.3); Red Blood Count 4.34 M/uL (4.7-6.1); White Blood Count 11.67 K/uL (4.8-10.8)
--- NOTE | 2019-05-28 17:10 | XRay Report ---
XR chest 1V portable HISTORY: Sepsis COMPARISON: Chest 05/07/2019. FINDINGS: Left subclavian portacatheter is in the SVC. The heart is top normal in size. This remains unchanged. No pneumothorax. Small to moderate left pleural effusion has increased in size. There is a lso a new small right pleural effusion. Interstitial and vascular thickening has progressed. This sug gests mild pulmonary edema. Left basilar densities favor compressive atelectasis from the pleural eff usion. IMPRESSION: 1. Interval progression of the mild pulmonary edema and bilateral pleural effusions. 2. Left basilar densities are nonspecific but favor compressive atelectasis from the pleural effusion . Electronically signed by: Sohail Pickett M.D. 05/28/2019 5:09 PM
[2019-05-28 17:15] LABS: INR 1.5 (0.9-1.1); Partial Thromboplastin Ratio 1.2; Partial Thromboplastin Time 33.1 Seconds (21.0-31.0); Prothrombin Time 14.6 Seconds (9.0-12.0)
[2019-05-28] MEDS ORDERED: MoRPHine SULFATE 10 MG/ML CARP/VIAL IV STA (17:16)
[2019-05-28] MEDS ORDERED: MoRPHine SULFATE 2 MG/ML CARP ONE (17:23)
[2019-05-28] MEDS ORDERED: MoRPHine SULFATE 4 MG/ML 1 ML CARP\\VIAL ONE (17:24)
[2019-05-28 17:26] LABS: Albumin Level 2.6 gm/dl (3.4-5.0); BUN Creatinine Ratio 18.1 (10-20); Calcium 8.8 mg/dl (8.5-10.1); Creatinine Clr Calc Pharmacy 118.6 ml/min; Est GFR (African American) 101.2; Est GFR (Non-African American) 87.4; Potassium 4.5 mmol/L (3.5-5.1)
[2019-05-28 17:35] LABS: RBC Morphology Unremarkable
[2019-05-28 17:47] LABS: Appearance Urine Clear (Clear); Bilirubin Urine Negative (Negative); Blood Urine Negative (Negative); Color Urine Dark Yellow; Glucose Urine UA Negative (Negative); Ketones Urine Negative (Negative); Leukocyte Esterase Urine Negative (Negative); Nitrite Urine Negative (Negative); Protein Urine Negative (Negative); Specific Gravity Urine 1.013 (1.000-1.030); Urobilinogen Urine Positive (Negative); pH Urine 5.5 (4.5-7.5)
[2019-05-28 17:49] LABS: Albumin Globulin Ratio 0.6 (0.9-2); Bilirubin,Total 1.4 mg/dl (0.2-1); Globulin 4.2 gm/dl (2.5-4.0); Total Protein 6.8 gm/dl (6.4-8.2)
--- NOTE | 2019-05-28 18:19 | Ultrasound Report ---
US venous doppler LE LT CLINICAL HISTORY: Left lower extremity swelling COMPARISON STUDY: 05/01/2019 FINDINGS: Real-time and color flow Doppler imaging were performed. Flow was seen within the femoral, popliteal and calf veins with no intraluminal thrombus demonstrated. The saphenous vein is patent. Th ere is a superficial thrombus within The left popliteal fossa. The thrombus extends over a length of 24 mm, and extends to within 3 cm of the popliteal vein confluence. There is a complex left popliteal cyst measuring 2.4 x 6.4 x 0.9 cm. IMPRESSION: 1. No evidence of left lower extremity DVT 2. Superficial thrombus within the left popliteal fossa extending to within 3 cm the popliteal vein. 3. Complex left popliteal cyst Electronically signed by: Gregory Miramontes M.D. 05/28/2019 6:18 PM
[2019-05-28] MEDS ORDERED: CEFEPIME 2,000 MG/20 ML VIAL IV STA (18:20)
[2019-05-28 18:30] LABS: iSTAT Creatinine 1.1 mg/dl (0.6-1.3); iSTAT Hemoglobin 10.5 g/dl (14.0-18.0); iSTAT Ionized Calcium 1.14 mmol/l (1.12-1.32); iSTAT Potassium 4.5 mEq/L (3.3-5.0)
[2019-05-28] MEDS ORDERED: IOVERSOL 100ml IV PRN (19:05)
--- NOTE | 2019-05-28 19:25 | CT Scan Report ---
CT abd pelvis IV con only CLINICAL HISTORY: Fever, elevated LFTs. COMPARISON STUDY: 04/30/2019 TECHNIQUE: The patient was scanned in a dynamic helical fashion during intravenous administration of 92 cc of Optiray 320. A dose lowering technique was utilized adhering to the principles of ALARA. CT DOSE: FINDINGS: Lower chest: There is a moderate left pleural effusion and small right pleural effusion. There are de pendent atelectatic changes. Liver: There is a 16 cm infiltrative hepatic mass involving both the left and right lobes. There is t ransscapular and transthoracic diaphragmatic extension. There are multiple perihepatic nodules and th ere is pathologic adenopathy in the cardiophrenic angle fat. Gallbladder: Unremarkable. There is a small peritoneal soft tissue nodule adjacent to the gallbladder consistent with a metastasis. Spleen: There is a persistent 18 mm hypodense lesion within the medial spleen. Anteriorly, there is a 43 mm hypodense lesion. Pancreas: Unremarkable. Adrenal glands: There is a persistent 23 mm right adrenal gland nodule. Kidneys: There is symmetric renal cortical enhancement. The kidneys are normal in size without hydron ephrosis. Bowel: There are no transition zones to indicate bowel obstruction. There is no acute diverticulitis. There are no findings to indicate acute appendicitis. Peritoneum: There is a small amount of pelvic ascites. There is no free intraperitoneal air. There is a 25 mm peritoneal nodule consistent with a metastatic deposit. There is a 29 mm perirectal nodule c onsistent with a peritoneal metastasis Vasculature: The abdominal aorta is normal in course and caliber. Adenopathy: There is a persistent enlarged seven hepatis lymph node measuring 5 cm. Pelvic viscera: The bladder, and pelvic viscera are unremarkable. Skeletal structures: No destructive osseous lesions are seen. IMPRESSION: 1. Increasing moderate left pleural effusion and small right pleural effusion 2. Large hepatic mass with transcapsular transdiaphragmatic extension. 3. Pathologic adenopathy and evidence for peritoneal metastasis 4. Left adrenal mass 5. Increasing low volume ascites 6. Interval development of a 43 mm splenic hypodense lesion. Metastatic deposit versus infarct 7. Evidence for disease progression since the prior study performed 4 weeks earlier. Electronically signed by: Gregory Miramontes M.D. 05/28/2019 7:23 PM
--- NOTE | 2019-05-28 19:36 | CT Scan Report ---
CT OF THE CHEST WITH IV CONTRAST CLINICAL HISTORY: Fever. Abnormal chest x-ray. COMPARISON STUDY: Chest x-ray dated 05/28/2019, chest CT dated 04/30/2019 TECHNIQUE: Following the IV administration of 92 mL of Optiray-320, CT of the thorax was performed f rom the thoracic inlet to the lung bases. Images are reviewed in the axial, sagittal, and coronal enmanuel michele. IV contrast was administered without complication. A dose lowering technique was utilized adher ing to the principles of ALARA. CT DOSE: 1352.44 mGy.cm FINDINGS: Thyroid: Imaged portions of the thyroid gland are normal in appearance. Thoracic aorta: The thoracic aorta is normal in course and caliber, noting standard 3-vessel arch dominik mariel. No aneurysm or dissection is seen. Pulmonary vasculature: Although less well demonstrated on the prior CT angiogram, pulmonary bullae ar e suspected. HEART: The heart is normal in size and configuration, without pericardial effusion. Lungs and pleural spaces: There is an enlarging moderate left pleural effusion. There is a small righ t pleural effusion. There are lower lobe airspace opacities likely representing compressive atelectat ic change. There are innumerable bilateral pulmonary nodules suspicious for metastatic disease. Mediastinum: There is progressive pathologic mediastinal lymphadenopathy. Rajwinder: There is bilateral hilar adenopathy Axilla: There is no evidence of pathologic axillary lymphadenopathy Upper abdomen: There is a large hepatic mass with transcapsular transdiaphragmatic extension. There are enlarged lymph nodes within the pericardial fat. There is suspected pleural nodularity. Skeletal structures: There are no lytic or blastic osseous lesions. IMPRESSION: 1. Progressive metastatic disease with interval increase in the size and number of the multiple bilat eral pulmonary nodules 2. Progressive mediastinal and hilar lymphadenopathy 3. Although less well demonstrated, residual pulmonary emboli are suspected 4. Increasing moderate left pleural effusion and persistent small right pleural effusion. Lower lung zone airspace opacities likely representing compressive atelectasis 5. Large hepatic mass with transcapsular transdiaphragmatic extension. Electronically signed by: Gregory Miramontes M.D. 05/28/2019 7:34 PM
[2019-05-28] MEDS ORDERED: ONDANSETRON INJ 2 MG/ML 2 ML VIAL IV PRN (22:09)
[2019-05-28] MEDS ORDERED: PIPERACILLIN/TAZOBACTAM 4.5 GM in DEXTROSE 5% 100 ML IV STA (22:09)
[2019-05-28] MEDS ORDERED: ONDANSETRON 4 MG TAB PO PRN (22:09)
[2019-05-28] MEDS ORDERED: ALUMINUM/MAGNESIUM SUSP 30 ML UDC PO PRN (22:09)
[2019-05-28] MEDS ORDERED: ZOLPIDEM TARTRATE 5 MG TAB PO PRN (22:09)
[2019-05-28] MEDS ORDERED: PROCHLORPERAZINE MALEATE 10 MG TAB PO PRN (22:09)
[2019-05-28] MEDS ORDERED: MAGNESIUM HYDROXIDE SUSP 30 ML UDC PO PRN (22:09)
[2019-05-28] MEDS ORDERED: VANCOMYCIN HCL 1,000 MG in SODIUM CHLORIDE 0.9% 250 ML IV SCH (22:09)
[2019-05-28] MEDS ORDERED: VANCOMYCIN CONSULT ACTIVE PRN (22:09)
[2019-05-28] MEDS ORDERED: MoRPHine SULFATE IR 15 MG TAB (IMMEDIATE RELEASE) PO PRN (22:09)
[2019-05-28] MEDS ORDERED: PIPERACILL/TAZOBAC CONSULT ACTIVE PRN (22:09)
[2019-05-28] MEDS ORDERED: PIPERACILLIN/TAZOBACTAM 3.375 GM in DEXTROSE 5% 100 ML IV ONE (22:30)
[2019-05-28] MEDS: guaiFENesin 600 MG TABCR PO SCH (22:56)
[2019-05-28] MEDS: DOCUSATE SODIUM 100 MG CAP PO SCH (22:57)
[2019-05-28] MEDS: RIVAROXABAN 15 MG TAB PO SCH (22:58)
[2019-05-28] MEDS ORDERED: VANCOMYCIN HCL 2,500 MG in SODIUM CHLORIDE 0.9% 500 ML IV SCH (23:00)
--- NOTE | 2019-05-28 23:21 | Emergency Department Note ---
Entered by Lori Moreno acting as a scribe for William Hernandez DO History of Present Illness General Chief complaint: Fever Stated complaint: FEVER, DIFFICULTY BREATHING- CHEMO PT Source: patient and friends History of Present Illness Onset (ago): hour(s) (today) Location: chest Pain Consistency: + constant Associated symptoms: + denies other symptoms (rhinorrhea, congestion, throat pain, dysuria), + shortness of breath and + other (fever, chest tightness, abd pain, bilateral leg swelling); no chest pain and no cough The patient is a 38 year old male who presents to the Emergency Room with complaints of fever. 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 Thus far he reports that he underwent 2 rounds of chemotherapy. His last treatment was 2 days ago and he follows up with Dr. Phelps, [facility]. He reports that he has been experiencing shortness of breath all day today associated with fever. The patient states that he is unsure when his fever began today but he reports a Tmax of 101.5. He took Tylenol at 3:30PM with some relief. The patient also reports bilateral leg swelling that began this week. Additionally he notes that he is usually baseline short of breath but today is worsened. He also reports baseline cancer related pain in his abdomen which he takes Morphine for. However, he states that he did not take any Morphine today. The patient also takes Xarelto in the morning and states that he has not missed any doses. Of note he also has a port located in his left upper chest that has been present for a few weeks. He denies cough, rhinorrhea, congestion, chest pain, throat pain, dysuria, history of blood clots in his lungs and legs, and previous swelling associated with blood clots. The patient offers no additional complaints at this time. Home Medications Home Medications Medication Instructions Recorded Confirmed Type polyethylene glycol 3350 [Miralax] 17 g PO DAILY #30 ea 05/07/19 05/28/19 Rx docusate sodium 100 mg capsule 100 mg PO BID #60 cap 05/12/19 05/28/19 Rx clonazepam 1 mg PO TID 05/28/19 05/28/19 History methadone See Rx Instructions .ROUTE .COMPLEX 05/28/19 05/28/19 History morphine 15 mg PO Q3H PRN 05/28/19 05/28/19 History ondansetron HCl 4 mg PO TID PRN 05/28/19 05/28/19 History prochlorperazine maleate 10 mg PO DIRECTED PRN 05/28/19 05/28/19 History [Compazine] rivaroxaban [Xarelto] 15 mg PO BID 05/28/19 05/28/19 History Allergies Allergy/AdvReac Type Severity Reaction Status Date / Time aprepitant [From Emend] Allergy Severe Anaphylaxis Verified 05/28/19 20:19 fosaprepitant [From Emend] Allergy Severe Anaphylaxis Verified 05/28/19 20:19 Past Med/Surg History Medical History Acute DVT (deep venous thrombosis) Adrenal nodule Cancer related pain Cholangiocarcinoma of liver HTN (hypertension) Hyponatremia Metastatic disease Microcytic anemia Pleural effusion, bilateral Pulmonary emboli Pulmonary nodules Rectal bleeding Situational anxiety Transaminitis Surgical History H/O colonoscopy egd/colonoscopy 05/03/2019. no issues with MAC. History of esophagogastroduodenoscopy (EGD) Family History Aunt Breast cancer Colorectal cancer Uncle Colorectal cancer Other No significant active problems Social History Preferred Language: Maltese Communication Ability: Effective Visual Impairment: No Limitations Hearing Ability: Normal [employer] Frames Required: No Beliefs That Will Affect Care: None marital status: Single Current Living Situation: Other Current Living Situation Comment: lives with friends current occupational status: employed current occupation: [employer] Safe at Home: Yes Smoking Status: Former smoker Tobacco Type: cigarettes ; Cigarettes Per Day: 20 ; Hx Alcohol Use: No Hx Substance Use: Yes substance use type: marijuana caffeine: No Dental Care, Regularly: No Physical Activity Frequency: Does not Exercise Seatbelt Use: always Sunscreen Use: No Do you think of yourself as: lesbian/todd/homosexual Sexual Activity: has been sexually active, but not for at least 12 months Review of Systems See HPI for pertinent positives & negatives. and A total of 10 systems reviewed and were otherwise negative Physical Exam Vital Signs Vital Signs - 24 hr 05/28/19 16:01 05/28/19 17:01 05/28/19 19:16 Temperature 37.1 C Temperature Source Oral Pulse Rate 127 H 112 H Pulse Rate [Apical] 113 H 100 H Pulse Rate from SpO2 Sensor 113 H Pulse Rhythm Regular Pulse Strength Normal Respiratory Rate 20 23 24 Respiratory Effort / Characteristics Non-Labored Spontaneous Respiratory Depth Normal Respiratory Pattern Regular Blood Pressure 151/102 H 149/96 H Blood Pressure [Left Arm] 151/96 H Blood Pressure [Right Arm] 149/96 H Blood Pressure Mean 118 104 Blood Pressure Mean [Left Arm] 114 Blood Pressure Mean [Right Arm] 113 Blood Pressure Position Sitting Pulse Oximetry 95 95 97 Oxygen Delivery Method Room Air Room Air Room Air Sepsis Recent Fever Within 48 Hours Yes Sepsis Action Taken by Nursing No Action Required 05/28/19 19:30 05/28/19 20:00 Temperature Temperature Source Pulse Rate 100 H 104 H Pulse Rate [Apical] Pulse Rate from SpO2 Sensor 99 H 104 H Pulse Rhythm Pulse Strength Respiratory Rate 22 18 Respiratory Effort / Characteristics Respiratory Depth Respiratory Pattern Blood Pressure 152/101 H 146/94 H Blood Pressure [Left Arm] Blood Pressure [Right Arm] Blood Pressure Mean 118 98 Blood Pressure Mean [Left Arm] Blood Pressure Mean [Right Arm] Blood Pressure Position Pulse Oximetry 97 95 Oxygen Delivery Method Room Air Room Air Sepsis Recent Fever Within 48 Hours Sepsis Action Taken by Nursing GENERAL: alert, sitting up in bed, chronically ill-appearing, wearing hospital gown, slightly diaphoretic, no distress, non-toxic EYE EXAM: normal conjunctiva, PERRL and EOM's grossly intact OROPHARYNX: no exudate, no erythema, lips, buccal mucosa, and tongue normal and mucous membranes are moist NECK: supple, no nuchal rigidity, no adenopathy, non-tender LUNGS: Clear to auscultation. Normal chest wall mechanics HEART: tachycardic, S1 normal and S2 normal ABDOMEN: abdomen soft, non-tender, normo-active bowel sounds, no masses, no rebound or guarding. BACK: Back is symmetrical on inspection and there is no deformity, no midline tenderness, no CVA tenderness. SKIN: no rashes and no bruising UPPER EXTREMITIES: upper extremities are grossly normal. LOWER EXTREMITIES: No pitting edema. NEURO EXAM: Normal sensorium, cranial nerves II-XII grossly intact, normal speech, no gross weakness of arms, no gross weakness of legs. Course Course 1621: Past medical records reviewed. The patient was evaluated in room B10. A complete history and physical exam was performed. 1815: The patient was re-evaluated and was updated on CT results. 2039: Spoke to Dr. Arroyo, [facility] who accepts the patient for admission. The patient verbally expressed understanding and agreement of the treatment plan. The patient will be evaluated for further treatment. Administered Medications Docusate Sodium (Colace) 100 mg PO BID ERUM Stop: 06/27/19 22:08 Last Admin: 05/28/19 22:57 Dose: 100 mg Documented by: [id number] Guaifenesin (Mucinex) 600 mg PO Q12 ERUM Stop: 06/27/19 22:08 Last Admin: 05/28/19 22:56 Dose: 600 mg Documented by: [id number] Ioversol (Optiray 320 100ml) 92 ml IV ONCE PRN PRN Reason: Interaction Checking Stop: 06/01/19 19:04 Last Admin: 05/28/19 19:05 Dose: 92 ml Documented by: [id number] Rivaroxaban (Xarelto) 15 mg PO BID ERUM Stop: 06/27/19 22:08 Last Admin: 05/28/19 22:58 Dose: 15 mg Documented by: [id number] Zolpidem Tartrate (Ambien) 5 mg PO HS PRN PRN Reason: Sleep Stop: 06/27/19 22:08 Last Admin: 05/28/19 22:56 Dose: 5 mg Documented by: [id number] Discontinued Medications Sodium Chloride (Nss 1000ml) 2,000 mls @ 999 mls/hr IV .Q2H1M ONE Stop: 05/28/19 18:29 Last Infusion: 05/28/19 18:59 Dose: 0 mls/hr Documented by: [id number] Admin: 05/28/19 16:58 Dose: 999 mls/hr Documented by: [id number] Cefepime HCl (Maxipime) 2,000 mg in 20 mls @ 5 mls/min IV NOW STA Stop: 05/28/19 18:23 Last Admin: 05/28/19 19:40 Dose: 5 mls/min Documented by: [id number] Morphine Sulfate (Morphine Sulfate) 6 mg IV NOW STA Stop: 05/28/19 17:17 Last Admin: 05/28/19 17:30 Dose: Not Given Documented by: [id number] Morphine Sulfate (Morphine Sulfate) Confirm Administered Dose 2 mg .ROUTE .STK- MED ONE Stop: 05/28/19 17:24 Last Admin: 05/28/19 17:30 Dose: 2 mg Documented by: [id number] Morphine Sulfate (Morphine Sulfate) Confirm Administered Dose 4 mg .ROUTE .STK- MED ONE Stop: 05/28/19 17:25 Last Admin: 05/28/19 17:30 Dose: 4 mg Documented by: [id number] Impression & Plan SIRS (systemic inflammatory response syndrome), Metastatic cancer, Transaminitis, Pleural effusion, SOB (shortness of breath), Leukocytosis Discharge Plan Visit Data *Final* Discharge Date/Time: 05/28/19 21:57 Chief Complaint: Fever Stated Complaint: FEVER, DIFFICULTY BREATHING- CHEMO PT ED Provider: William Hernandez Discharge Problem: SIRS (systemic inflammatory response syndrome), Metastatic cancer, Transaminitis, Pleural effusion, SOB (shortness of breath), Leukocytosis Patient Disposition: Admitted As Inpatient Discharge Instructions Interventions: ED Discharge Assessment Last Done: 05/28/19 21:57 Medical Decision Making Differential Diagnosis Differential diagnosis includes but is not limited to etiologies such as sepsis, UTI, pneumonia, metabolic, electrolyte abnormalities, cardiac sources, intracerebral event, toxicologic, neurologic, as well as others were entertained. Medical Records Attestation: I reviewed the patient's medical records. Home Medications Current Medication List: was personally reviewed by me Laboratory Data Attestation: I reviewed the patient's lab results. Result diagrams: 05/28/19 16:48 05/28/19 16:48 Lab Results 05/28/19 05/28/19 05/28/19 Range/Units 16:48 16:48 16:48 WBC 11.67 H (4.8-10.8) K/uL RBC 4.34 L (4.7-6.1) M/uL Hgb 10.6 L (14.0-18.0) g/dL POC Hgb (14.0-18.0) g/dl Hct 32.5 L (42-52) % POC Hct (42-52) % MCV 74.9 L (80-100) fL MCH 24.4 L (25-34) pg MCHC 32.6 (32-36) g/dL RDW Std Deviation 40.5 (36.4-46.3) fL RDW Coeff of Jaclyn 15.0 H (11.5-14.5) % Plt Count 116 L (130-400) K/uL MPV 10.3 (7.4-10.4) fL Immature Gran % (Auto) 0.6 % Neut % (Auto) 84.2 % Lymph % (Auto) 5.7 % [place] % (Auto) 1.5 % Eos % (Auto) 7.9 % Baso % (Auto) 0.1 % Immature Gran # (Auto) 0.07 H (0.00-0.02) K/uL Neut # (Auto) 9.84 H (1.4-6.5) K/uL Lymph # (Auto) 0.66 L (1.2-3.4) K/uL [place] # (Auto) 0.17 (0.11-0.59) K/uL Eos # (Auto) 0.92 H (0-0.5) K/uL Baso # (Auto) 0.01 (0-0.2) K/uL RBC Morphology Unremarkable PT 14.6 H (9.0-12.0) Seconds INR 1.5 H (0.9-1.1) APTT 33.1 H (21.0-31.0) Seconds PTT Ratio 1.2 POC Sodium (135-144) mEq/L Sodium 131 L (136-145) mmol/L POC Potassium (3.3-5.0) mEq/L Potassium 4.5 (3.5-5.1) mmol/L POC Chloride (101-112) mEq/L Chloride 100 (98-107) mmol/L Carbon Dioxide 24 (21-32) mmol/L POC Total CO2 (24-31) mEq/l Anion Gap 7.0 (3-11) POC Anion Gap (16-25) mmol/L POC BUN (7-18) mg/dl BUN 19 H (7-18) mg/dl Creatinine 1.06 (0.6-1.4) mg/dl POC Creatinine (0.6-1.3) mg/dl Est Cr Clr Drug Dosing 118.6 ml/min Est GFR ( Amer) 101.2 Est GFR (Non-Af Amer) 87.4 BUN/Creatinine Ratio 18.1 (10-20) Glucose 93 (70-99) mg/dl POC Glucose (other) (70-99) mg/dl Lactate (0.4-2.0) mmol/L Calcium 8.8 (8.5-10.1) mg/dl POC Ioniz Calcium Gonzalez (1.12-1.32) mmol/l Total Bilirubin 1.4 H (0.2-1) mg/dl AST 101 H (15-37) U/L ALT 228 H (12-78) U/L Alkaline Phosphatase 338 H (45-117) U/L Total Protein 6.8 (6.4-8.2) gm/dl Albumin 2.6 L (3.4-5.0) gm/dl Globulin 4.2 H (2.5-4.0) gm/dl Albumin/Globulin Ratio 0.6 L (0.9-2) Urine Color Urine Appearance (Clear) Urine pH (4.5-7.5) Ur Specific [place] (1.000-1.030) Urine Protein (Negative) Urine Glucose (UA) (Negative) Urine Ketones (Negative) Urine Blood (Negative) Urine Nitrite (Negative) Urine Bilirubin (Negative) Urine Urobilinogen (Negative) Ur Leukocyte Esterase (Negative) 05/28/19 05/28/19 05/28/19 Range/Units 16:48 16:55 17:28 WBC (4.8-10.8) K/uL RBC (4.7-6.1) M/uL Hgb (14.0-18.0) g/dL POC Hgb 10.5 L (14.0-18.0) g/dl Hct (42-52) % POC Hct 31 L (42-52) % MCV (80-100) fL MCH (25-34) pg MCHC (32-36) g/dL RDW Std Deviation (36.4-46.3) fL RDW Coeff of Jaclyn (11.5-14.5) % Plt Count (130-400) K/uL MPV (7.4-10.4) fL Immature Gran % (Auto) % Neut % (Auto) % Lymph % (Auto) % [place] % (Auto) % Eos % (Auto) % Baso % (Auto) % Immature Gran # (Auto) (0.00-0.02) K/uL Neut # (Auto) (1.4-6.5) K/uL Lymph # (Auto) (1.2-3.4) K/uL [place] # (Auto) (0.11-0.59) K/uL Eos # (Auto) (0-0.5) K/uL Baso # (Auto) (0-0.2) K/uL RBC Morphology PT (9.0-12.0) Seconds INR (0.9-1.1) APTT (21.0-31.0) Seconds PTT Ratio POC Sodium 130 L (135-144) mEq/L Sodium (136-145) mmol/L POC Potassium 4.5 (3.3-5.0) mEq/L Potassium (3.5-5.1) mmol/L POC Chloride 98 L (101-112) mEq/L Chloride (98-107) mmol/L Carbon Dioxide (21-32) mmol/L POC Total CO2 21 L (24-31) mEq/l Anion Gap (3-11) POC Anion Gap 16.0 (16-25) mmol/L POC BUN 18 (7-18) mg/dl BUN (7-18) mg/dl Creatinine (0.6-1.4) mg/dl POC Creatinine 1.1 (0.6-1.3) mg/dl Est Cr Clr Drug Dosing ml/min Est GFR ( Amer) Est GFR (Non-Af Amer) BUN/Creatinine Ratio (10-20) Glucose (70-99) mg/dl POC Glucose (other) 95 (70-99) mg/dl Lactate 1.1 (0.4-2.0) mmol/L Calcium (8.5-10.1) mg/dl POC Ioniz Calcium Gonzalez 1.14 (1.12-1.32) mmol/l Total Bilirubin (0.2-1) mg/dl AST (15-37) U/L ALT (12-78) U/L Alkaline Phosphatase (45-117) U/L Total Protein (6.4-8.2) gm/dl Albumin (3.4-5.0) gm/dl Globulin (2.5-4.0) gm/dl Albumin/Globulin Ratio (0.9-2) Urine Color Dark Yellow Urine Appearance Clear (Clear) Urine pH 5.5 (4.5-7.5) Ur Specific [place] 1.013 (1.000-1.030) Urine Protein Negative (Negative) Urine Glucose (UA) Negative (Negative) Urine Ketones Negative (Negative) Urine Blood Negative (Negative) Urine Nitrite Negative (Negative) Urine Bilirubin Negative (Negative) Urine Urobilinogen Positive H (Negative) Ur Leukocyte Esterase Negative (Negative) Imaging Data Radiologist's Impression: Radiology results as stated below per my review and the radiologist's interpretation: US venous doppler LE LT CLINICAL HISTORY: Left lower extremity swelling COMPARISON STUDY: 05/01/2019 FINDINGS: Real-time and color flow Doppler imaging were performed. Flow was seen within the femoral, popliteal and calf veins with no intraluminal thrombus demonstrated. The saphenous vein is patent. There is a superficial thrombus within The left popliteal fossa. The thrombus extends over a length of 24 mm, and extends to within 3 cm of the popliteal vein confluence. There is a complex left popliteal cyst measuring 2.4 x 6.4 x 0.9 cm. IMPRESSION: 1. No evidence of left lower extremity DVT 2. Superficial thrombus within the left popliteal fossa extending to within 3 cm the popliteal vein. 3. Complex left popliteal cyst Electronically signed by: Gregoyr Miramontes M.D. 05/28/2019 6:18 PM XR chest 1V portable HISTORY: Sepsis COMPARISON: Chest 05/07/2019. FINDINGS: Left subclavian portacatheter is in the SVC. The heart is top normal in size. This remains unchanged. No pneumothorax. Small to moderate left pleural effusion has increased in size. There is also a new small right pleural eff usion. Interstitial and vascular thickening has progressed. This suggests mild pulmonary edema. Left basilar densities favor compressive atelectasis from the pleural effusion. IMPRESSION: 1. Interval progression of the mild pulmonary edema and bilateral pleural effusions. 2. Left basilar densities are nonspecific but favor compressive atelectasis from the pleural effusion. Electronically signed by: Sohail Pickett M.D. 05/28/2019 5:[address] abd pelvis IV con only CLINICAL HISTORY: Fever, elevated LFTs. COMPARISON STUDY: 04/30/2019 TECHNIQUE: The patient was scanned in a dynamic helical fashion during intravenous administration of 92 cc of Optiray 320. A dose lowering technique was utilized adhering to the principles of ALARA. CT DOSE: FINDINGS: Lower chest: There is a moderate left pleural effusion and small right pleural effusion. There are dependent atelectatic changes. Liver: There is a 16 cm infiltrative hepatic mass involving both the left and right lobes. There is transscapular and transthoracic diaphragmatic extension. There are multiple perihepatic nodules and there is pathologic adenopathy in the cardiophrenic angle fat. Gallbladder: Unremarkable. There is a small peritoneal soft tissue nodule adjacent to the gallbladder consistent with a metastasis. Spleen: There is a persistent 18 mm hypodense lesion within the medial spleen. Anteriorly, there is a 43 mm hypodense lesion. Pancreas: Unremarkable. Adrenal glands: There is a persistent 23 mm right adrenal gland nodule. Kidneys: There is symmetric renal cortical enhancement. The kidneys are normal in size without hydronephrosis. Bowel: There are no transition zones to indicate bowel obstruction. There is no acute diverticulitis. There are no findings to indicate acute appendicitis. Peritoneum: There is a small amount of pelvic ascites. There is no free intraperitoneal air. There is a 25 mm peritoneal nodule consistent with a metastatic deposit. There is a 29 mm perirectal nodule consistent with a peritoneal metastasis Vasculature: The abdominal aorta is normal in course and caliber. Adenopathy: There is a persistent enlarged seven hepatis lymph node measuring 5 cm. Pelvic viscera: The bladder, and pelvic viscera are unremarkable. Skeletal structures: No destructive osseous lesions are seen. IMPRESSION: 1. Increasing moderate left pleural effusion and small right pleural effusion 2. Large hepatic mass with transcapsular transdiaphragmatic extension. 3. Pathologic adenopathy and evidence for peritoneal metastasis 4. Left adrenal mass 5. Increasing low volume ascites 6. Interval development of a 43 mm splenic hypodense lesion. Metastatic deposit versus infarct 7. Evidence for disease progression since the prior study performed 4 weeks earlier. Electronically signed by: Gregory Miramontes M.D. 05/28/2019 7:[address] OF THE CHEST WITH IV CONTRAST CLINICAL HISTORY: Fever. Abnormal chest x-ray. COMPARISON STUDY: Chest x-ray dated 05/28/2019, chest CT dated 04/30/2019 TECHNIQUE: Following the IV administration of 92 mL of Optiray-320, CT of the thorax was performed from the thoracic inlet to the lung bases. Images are reviewed in the axial, sagittal, and coronal planes. IV contrast was administered without complication. A dose lowering technique was utilized adhering to the principles of ALARA. CT DOSE: 1352.44 mGy.cm FINDINGS: Thyroid: Imaged portions of the thyroid gland are normal in appearance. Thoracic aorta: The thoracic aorta is normal in course and caliber, noting standard 3-vessel arch anatomy. No aneurysm or dissection is seen. Pulmonary vasculature: Although less well demonstrated on the prior CT angiogram, pulmonary bullae are suspected. HEART: The heart is normal in size and configuration, without pericardial effusion. Lungs and pleural spaces: There is an enlarging moderate left pleural effusion. There is a small right pleural effusion. There are lower lobe airspace opacities likely representing compressive atelectatic change. There are innumerable bilateral pulmonary nodules suspicious for metastatic disease. Mediastinum: There is progressive pathologic mediastinal lymphadenopathy. Rajwinder: There is bilateral hilar adenopathy Axilla: There is no evidence of pathologic axillary lymphadenopathy Upper abdomen: There is a large hepatic mass with transcapsular transdiaphragmatic extension. There are enlarged lymph nodes within the pericardial fat. There is suspected pleural nodularity. Skeletal structures: There are no lytic or blastic osseous lesions. IMPRESSION: 1. Progressive metastatic disease with interval increase in the size and number of the multiple bilateral pulmonary nodules 2. Progressive mediastinal and hilar lymphadenopathy 3. Although less well demonstrated, residual pulmonary emboli are suspected 4. Increasing moderate left pleural effusion and persistent small right pleural effusion. Lower lung zone airspace opacities likely representing compressive atelectasis 5. Large hepatic mass with transcapsular transdiaphragmatic extension. Electronically signed by: Gregory Miramontes M.D. 05/28/2019 7:34 PM ECG Data Attestation: I personally reviewed and interpreted this ECG as follows: Indication: + other (fever) Rate (beats per minute): 114 Rhythm: + sinus tachycardia ECG Intervals/blocks: + Normal QT ECG Atkinson: + Normal ECG Findings: + Other (TWI in lead III); no PVCs Blood Pressure Blood Pressure Findings: Elevated blood pressure Blood Pressure Disposition: elevated BP felt to be situational MDM Narrative Patient is a 38-year-old male with a past medical history of metastatic cholangiocarcinoma that presents the ER for shortness of breath, weakness and a fever of 101.5. IV established blood work was obtained and showed a leukocytosis of 11.6 thousand. Mild anemia 10.6. INR was 1.5. BMP with mild hyponatremia. LFTs with a transaminitis of 228 and 21 of AST. T bili was slightly elevated at 1.4. This is new from previous labs. UA was negative. Chest x-ray with left lower lobe pleural effusion. With his fevers I did CT the chest and abdomen as there is new transaminitis. There were persistent effusions. Patient was given IV fluids and covered with IV cefepime 2 g. He was updated at bedside and discussed with hospitalist for observation. At this time I do not have a clear source for the infection. Discharge Problem: Leukocytosis Qualifiers: Leukocytosis type: unspecified Qualified Code(s): D72.829 - Elevated white blood cell count, unspecified The scribe's documentation has been prepared under my direction and personally reviewed by me in its entirety. I confirm that the note above accurately reflects all work, treatment, procedures, and medical decision making performed by me.
--- NOTE | 2019-05-28 23:21 | History & Physical Report ---
Date of Service May 28, 2019 Assessment & Plan (1) Pleural effusion: Question parapneumonic effusion, along with bronchitis and hypoxia. Placed on vancomycin IV and Zosyn IV. Duonebs every 4 hours while awake and every 2 hours when necessary.. Guaifenesin extended release 600 mg p.o. twice daily. Present on Admission?: Yes (2) SIRS (systemic inflammatory response syndrome): Secondary to pulmonary process Present on Admission?: Yes (3) Bronchitis: See above Present on Admission?: Yes (4) Metastatic cancer: Consulting Dr. Raza his oncologist Present on Admission?: Yes (5) Transaminitis: Following serially. Present on Admission?: Yes (6) Cholangiocarcinoma of liver: Consult his oncologist Dr. Raza Present on Admission?: Yes (7) Cancer related pain: Presently on methadone 10 mg in the a.m. and 15 mg in the p.m., for now increase to 15 mg twice daily. Continue morphine sulfate 15 mg p.o. every 3 hours as needed breakthrough pain. Add morphine sulfate 4 mg IV every 3 hours as needed severe pain. Present on Admission?: Yes (8) Pulmonary emboli: Continue with Xarelto 15 mg p.o. twice daily Present on Admission?: Yes History of Present Illness Chief Complaint: The patient presents to the emergency department with a fever, shortness of breath, chest tightness, abdominal discomfort and bilateral leg swelling. Primary Care Provider: Miracle Angelo DO The patient is a 38-year-old male with a past medical history including metastatic cholangiocarcinoma of the liver, DVT and PE, who presents to the emergency department with the above symptoms. He has not had any recent travels or sick exposures. Allergies Allergy/AdvReac Type Severity Reaction Status Date / Time aprepitant [From Emend] Allergy Severe Anaphylaxis Verified 05/28/19 20:19 fosaprepitant [From Emend] Allergy Severe Anaphylaxis Verified 05/28/19 20:19 Home Medications Home Medications Medication Instructions Recorded Confirmed Type polyethylene glycol 3350 [Miralax] 17 g PO DAILY #30 ea 05/07/19 05/28/19 Rx docusate sodium 100 mg capsule 100 mg PO BID #60 cap 05/12/19 05/28/19 Rx clonazepam 1 mg PO TID 05/28/19 05/28/19 History methadone See Rx Instructions .ROUTE .COMPLEX 05/28/19 05/28/19 History morphine 15 mg PO Q3H PRN 05/28/19 05/28/19 History ondansetron HCl 4 mg PO TID PRN 05/28/19 05/28/19 History prochlorperazine maleate 10 mg PO DIRECTED PRN 05/28/19 05/28/19 History [Compazine] rivaroxaban [Xarelto] 15 mg PO BID 05/28/19 05/28/19 History Past Med/Surg History Medical History Acute DVT (deep venous thrombosis) Adrenal nodule Cancer related pain Cholangiocarcinoma of liver HTN (hypertension) Hyponatremia Metastatic disease Microcytic anemia Pleural effusion, bilateral Pulmonary emboli Pulmonary nodules Rectal bleeding Situational anxiety Transaminitis Surgical History H/O colonoscopy egd/colonoscopy 05/03/2019. no issues with MAC. 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 Feels Safe at Home: Yes Smoking Status: Former smoker Tobacco Type: cigarettes ; Cigarettes Per Day: 20 ; Hx Alcohol Use: No Hx Substance Use: Yes substance use type: marijuana caffeine: No Dental Care, Regularly: No Physical Activity Frequency: Does not Exercise Seatbelt Use: always Sunscreen Use: No Do you think of yourself as: lesbian/todd/homosexual Sexual Activity: has been sexually active, but not for at least 12 months Review of Systems Review of Systems: The patient denies palpitations, vomiting, diarrhea , constipation, blood in urine or stool, dysuria, urinary frequency or urgency, lightheadedness, dizziness, headache, memory loss, loss of consciousness, rash, abnormal bruising or bleeding, imbalance, focal weakness, numbness or tingling in arms or legs, back or neck pain, or night sweats. The review of systems is otherwise negative other than for that already noted above, and at least 10 systems have been reviewed. Physical Exam Physical Exam: The patient is awake, alert and oriented 3, normocephalic and atraumatic, lying in bed and in no acute distress. HEENT--PERRL, EOMI, mucous membranes and oropharynx normal. Neck--supple. No JVD. No bruits. Thyroid normal, trachea midline, no adenopathy. Heart--normal S1 and S2. No murmurs, rubs or gallops. Lungs--few coarse breath sounds with wheezes throughout, decreased at left base. Abdomen--normal bowel sounds and soft. Nontender. Nondistended. Extremities--no cyanosis or clubbing. Trace bilateral pretibial pitting edema. Dermatologic--normal skin turgor, normal color, no abnormal lymph nodes, no rash. Neurologic--cranial nerves II through XII grossly intact. Rheumatologic--normal range of motion. Psychiatric--normal affect. Results & Data Vital Signs (Past 12 Hours) Vital Signs Temp Pulse Pulse Resp BP BP BP 05/28/19 23:12 100.2 F H 114 H 22 155/103 H 05/28/19 21:28 99.3 F 113 H 22 157/110 H 05/28/19 20:00 104 H 18 146/94 H 05/28/19 19:30 100 H 22 152/101 H 05/28/19 19:16 100 H 24 151/96 H 05/28/19 17:01 112 H 113 H 23 149/96 H 149/96 H 05/28/19 16:01 98.8 F 127 H 20 151/102 H Pulse Ox 05/28/19 23:12 94 05/28/19 21:28 99 05/28/19 20:00 95 05/28/19 19:30 97 05/28/19 19:16 97 05/28/19 17:01 95 05/28/19 16:01 95 Laboratory Results Laboratory Results WBC 11.67 K/uL (4.8-10.8) H 05/28/19 16:48 RBC 4.34 M/uL (4.7-6.1) L 05/28/19 16:48 Hgb 10.6 g/dL (14.0-18.0) L 05/28/19 16:48 POC Hgb 10.5 g/dl (14.0-18.0) L 05/28/19 16:55 Hct 32.5 % (42-52) L 05/28/19 16:48 POC Hct 31 % (42-52) L 05/28/19 16:55 MCV 74.9 fL (80-100) L 05/28/19 16:48 MCH 24.4 pg (25-34) L 05/28/19 16:48 MCHC 32.6 g/dL (32-36) 05/28/19 16:48 RDW Std Deviation 40.5 fL (36.4-46.3) 05/28/19 16:48 RDW Coeff of Jaclyn 15.0 % (11.5-14.5) H 05/28/19 16:48 Plt Count 116 K/uL (130-400) L 05/28/19 16:48 MPV 10.3 fL (7.4-10.4) 05/28/19 16:48 Immature Gran % (Auto) 0.6 % 05/28/19 16:48 Neut % (Auto) 84.2 % 05/28/19 16:48 Lymph % (Auto) 5.7 % 05/28/19 16:48 [place] % (Auto) 1.5 % 05/28/19 16:48 Eos % (Auto) 7.9 % 05/28/19 16:48 Baso % (Auto) 0.1 % 05/28/19 16:48 Immature Gran # (Auto) 0.07 K/uL (0.00-0.02) H 05/28/19 16:48 Neut # (Auto) 9.84 K/uL (1.4-6.5) H 05/28/19 16:48 Lymph # (Auto) 0.66 K/uL (1.2-3.4) L 05/28/19 16:48 [place] # (Auto) 0.17 K/uL (0.11-0.59) 05/28/19 16:48 Eos # (Auto) 0.92 K/uL (0-0.5) H 05/28/19 16:48 Baso # (Auto) 0.01 K/uL (0-0.2) 05/28/19 16:48 RBC Morphology Unremarkable 05/28/19 16:48 PT 14.6 Seconds (9.0-12.0) H 05/28/19 16:48 INR 1.5 (0.9-1.1) H 05/28/19 16:48 APTT 33.1 Seconds (21.0-31.0) H 05/28/19 16:48 PTT Ratio 1.2 05/28/19 16:48 POC Sodium 130 mEq/L (135-144) L 05/28/19 16:55 Sodium 131 mmol/L (136-145) L 05/28/19 16:48 POC Potassium 4.5 mEq/L (3.3-5.0) 05/28/19 16:55 Potassium 4.5 mmol/L (3.5-5.1) 05/28/19 16:48 POC Chloride 98 mEq/L (101-112) L 05/28/19 16:55 Chloride 100 mmol/L (98-107) 05/28/19 16:48 Carbon Dioxide 24 mmol/L (21-32) 05/28/19 16:48 POC Total CO2 21 mEq/l (24-31) L 05/28/19 16:55 Anion Gap 7.0 (3-11) 05/28/19 16:48 POC Anion Gap 16.0 mmol/L (16-25) 05/28/19 16:55 POC BUN 18 mg/dl (7-18) 05/28/19 16:55 BUN 19 mg/dl (7-18) H 05/28/19 16:48 Creatinine 1.06 mg/dl (0.6-1.4) 05/28/19 16:48 POC Creatinine 1.1 mg/dl (0.6-1.3) 05/28/19 16:55 Est Cr Clr Drug Dosing 118.6 ml/min 05/28/19 16:48 Est GFR ( Amer) 101.2 05/28/19 16:48 Est GFR (Non-Af Amer) 87.4 05/28/19 16:48 BUN/Creatinine Ratio 18.1 (10-20) 05/28/19 16:48 Glucose 93 mg/dl (70-99) 05/28/19 16:48 POC Glucose (other) 95 mg/dl (70-99) 05/28/19 16:55 Lactate 1.1 mmol/L (0.4-2.0) 05/28/19 16:48 Calcium 8.8 mg/dl (8.5-10.1) 05/28/19 16:48 POC Ioniz Calcium Gonzalez 1.14 mmol/l (1.12-1.32) 05/28/19 16:55 Total Bilirubin 1.4 mg/dl (0.2-1) H 05/28/19 16:48 AST 101 U/L (15-37) H 05/28/19 16:48 ALT 228 U/L (12-78) H 05/28/19 16:48 Alkaline Phosphatase 338 U/L (45-117) H 05/28/19 16:48 Total Protein 6.8 gm/dl (6.4-8.2) 05/28/19 16:48 Albumin 2.6 gm/dl (3.4-5.0) L 05/28/19 16:48 Globulin 4.2 gm/dl (2.5-4.0) H 05/28/19 16:48 Albumin/Globulin Ratio 0.6 (0.9-2) L 05/28/19 16:48 Urine Color Dark Yellow 05/28/19 17:28 Urine Appearance Clear (Clear) 05/28/19 17:28 Urine pH 5.5 (4.5-7.5) 05/28/19 17:28 Ur Specific [place] 1.013 (1.000-1.030) 05/28/19 17:28 Urine Protein Negative (Negative) 05/28/19 17:28 Urine Glucose (UA) Negative (Negative) 05/28/19 17:28 Urine Ketones Negative (Negative) 05/28/19 17:28 Urine Blood Negative (Negative) 05/28/19 17:28 Urine Nitrite Negative (Negative) 05/28/19 17:28 Urine Bilirubin Negative (Negative) 05/28/19 17:28 Urine Urobilinogen Positive (Negative) H 05/28/19 17:28 Ur Leukocyte Esterase Negative (Negative) 05/28/19 17:28 Diagnostic Findings [facility] [place] [phone] Ultrasound Report Patient: REE FIGUEROAanita Date: 05/28/19 MR#: [id number]: 68 [facility] Acct ID:[id number]: [address] Date: 1980 Zip: [place] [id number] Age: 38Location: ED Sex: M Room/Bed: Att Phy:Diagnosis: FEVER, DIFFICULTY BREATHING- CHEMO PT Destiny Phy: Miracle Angelo, DOService Date: 05/28/19 Fam Phy: Miracle Angelo, DOInterpreting Phy: Gregory Miramontes MD Admit Phy: Ordering Phy: William Hernandez, cc: ~ US venous doppler LE LT CLINICAL HISTORY: Left lower extremity swelling COMPARISON STUDY: 05/01/2019 FINDINGS: Real-time and color flow Doppler imaging were performed. Flow was seen within the femoral, popliteal and calf veins with no intraluminal thrombus demonstrated. The saphenous vein is patent. There is a superficial thrombus within The left popliteal fossa. The thrombus extends over a length of 24 mm, and extends to within 3 cm of the popliteal vein confluence. There is a complex left popliteal cyst measuring 2.4 x 6.4 x 0.9 cm. IMPRESSION: 1. No evidence of left lower extremity DVT 2. Superficial thrombus within the left popliteal fossa extending to within 3 cm the popliteal vein. 3. Complex left popliteal cyst Electronically signed by: Gregory Miramontes M.D. 05/28/2019 6:18 PM Dictated: 05/28/191814 Transcribed: 05/28/191814 [place], [place] [phone] XRay Report Patient: REE FIGUEROA Date: 05/28/19 MR#: [id number]: 68 [facility] Acct ID:[id number]: [address] Date: 1980 Zip: [place] [address] Age: 38Location: ED Sex: M Room/Bed: Att Phy:Diagnosis: FEVER, DIFFICULTY BREATHING- CHEMO PT Destiny Phy: Miracle Angelo, DOService Date: 05/28/19 Fam Phy:Interpreting Phy: Sohail Pickett MD Admit Phy: Ordering Phy: William Hernandez, DO cc: ~ XR chest 1V portable HISTORY: Sepsis COMPARISON: Chest 05/07/2019. FINDINGS: Left subclavian portacatheter is in the SVC. The heart is top normal in size. This remains unchanged. No pneumothorax. Small to moderate left pleural effusion has increased in size. There is also a new small right pleural effusion. Interstitial and vascular thickening has progressed. This suggests mild pulmonary edema. Left basilar densities favor compressive atelectasis from the pleural effusion. IMPRESSION: 1. Interval progression of the mild pulmonary edema and bilateral pleural effusions. 2. Left basilar densities are nonspecific but favor compressive atelectasis from the pleural effusion. Electronically signed by: Sohail Pickett M.D. 05/28/2019 5:09 PM Dictated: 05/28/191706 Transcribed: 05/28/191706 [place], [place] [phone] CT Scan Report Patient: REE FIGUEROA Date: 05/28/19 MR#: [id number]: [address] [place] [address] Acct ID:[id number]: [address] Date: 1980[facility] Zip: [place] [address] Age: 38Location: ED Sex: M Room/Bed: Att Phy:Diagnosis: FEVER, DIFFICULTY BREATHING- CHEMO PT Destiny Phy: Miracle Angelo, DOService Date: 05/28/19 Fam Phy: Miracle Angelo, DOInterpreting Phy: Gregory Miramontes MD Admit Phy: Ordering Phy: William Hernandez DO cc: ~ CT abd pelvis IV con only CLINICAL HISTORY: Fever, elevated LFTs. COMPARISON STUDY: 04/30/2019 TECHNIQUE: The patient was scanned in a dynamic helical fashion during in travenous administration of 92 cc of Optiray 320. A dose lowering technique was utilized adhering to the principles of ALARA. CT DOSE: FINDINGS: Lower chest: There is a moderate left pleural effusion and small right pleural effusion. There are dependent atelectatic changes. Liver: There is a 16 cm infiltrative hepatic mass involving both the left and right lobes. There is transscapular and transthoracic diaphragmatic extension. There are multiple perihepatic nodules and there is pathologic adenopathy in the cardiophrenic angle fat. Gallbladder: Unremarkable. There is a small peritoneal soft tissue nodule adjacent to the gallbladder consistent with a metastasis. Spleen: There is a persistent 18 mm hypodense lesion within the medial spleen. Anteriorly, there is a 43 mm hypodense lesion. Pancreas: Unremarkable. Adrenal glands: There is a persistent 23 mm right adrenal gland nodule. Kidneys: There is symmetric renal cortical enhancement. The kidneys are normal in size without hydronephrosis. Bowel: There are no transition zones to indicate bowel obstruction. There is no acute diverticulitis. There are no findings to indicate acute appendicitis. Peritoneum: There is a small amount of pelvic ascites. There is no free intraperitoneal air. There is a 25 mm peritoneal nodule consistent with a metastatic deposit. There is a 29 mm perirectal nodule consistent with a peritoneal metastasis Vasculature: The abdominal aorta is normal in course and caliber. Adenopathy: There is a persistent enlarged seven hepatis lymph node measuring 5 cm. Pelvic viscera: The bladder, and pelvic viscera are unremarkable. Skeletal structures: No destructive osseous lesions are seen. IMPRESSION: 1. Increasing moderate left pleural effusion and small right pleural effusion 2. Large hepatic mass with transcapsular transdiaphragmatic extension. 3. Pathologic adenopathy and evidence for peritoneal metastasis 4. Left adrenal mass 5. Increasing low volume ascites 6. Interval development of a 43 mm splenic hypodense lesion. Metastatic deposit versus infarct 7. Evidence for disease progression since the prior study performed 4 weeks earlier. Electronically signed by: Gregory Miramontes M.D. 05/28/2019 7:23 PM Dictated: 05/28/191913 Transcribed: 05/28/191913 [place], [place] [phone] CT Scan Report Patient: REE FIGUEROA TAdanita Date: 05/28/19 MR#: [id number]: [address] [place] [address] Acct ID:[id number]: [address] Date: 1980[facility] Zip: [place] [address] Age: 38Location: ED Sex: M Room/Bed: Att Phy:Diagnosis: FEVER, DIFFICULTY BREATHING- CHEMO PT Destiny Phy: Miracle Angelo, DOService Date: 05/28/19 Fam Phy: Miracle Angelo, DOInterpreting Phy: Gregory Miramontes MD Admit Phy: Ordering Phy: William Hernandez, DO cc: ~ CT OF THE CHEST WITH IV CONTRAST CLINICAL HISTORY: Fever. Abnormal chest x-ray. COMPARISON STUDY: Chest x-ray dated 05/28/2019, chest CT dated 04/30/2019 TECHNIQUE: Following the IV administration of 92 mL of Optiray-320, CT of the thorax was performed from the thoracic inlet to the lung bases. Images are reviewed in the axial, sagittal, and coronal planes. IV contrast was admin istered without complication. A dose lowering technique was utilized adhering to the principles of ALARA. CT DOSE: 1352.44 mGy.cm FINDINGS: Thyroid: Imaged portions of the thyroid gland are normal in appearance. Thoracic aorta: The thoracic aorta is normal in course and caliber, noting standard 3-vessel arch anatomy. No aneurysm or dissection is seen. Pulmonary vasculature: Although less well demonstrated on the prior CT angiogram, pulmonary bullae are suspected. HEART: The heart is normal in size and configuration, without pericardial effusion. Lungs and pleural spaces: There is an enlarging moderate left pleural effusion. There is a small right pleural effusion. There are lower lobe airspace opacities likely representing compressive atelectatic change. There are innumerable bila teral pulmonary nodules suspicious for metastatic disease. Mediastinum: There is progressive pathologic mediastinal lymphadenopathy. Rajwinder: There is bilateral hilar adenopathy Axilla: There is no evidence of pathologic axillary lymphadenopathy Upper abdomen: There is a large hepatic mass with transcapsular transdiaphragmatic extension. There are enlarged lymph nodes within the pericardial fat. There is suspected pleural nodularity. Skeletal structures: There are no lytic or blastic osseous lesions. IMPRESSION: 1. Progressive metastatic disease with interval increase in the size and number of the multiple bilateral pulmonary nodules 2. Progressive mediastinal and hilar lymphadenopathy 3. Although less well demonstrated, residual pulmonary emboli are suspected 4. Increasing moderate left pleural effusion and persistent small right pleural effusion. Lower lung zone airspace opacities likely representing compressive atelectasis 5. Large hepatic mass with transcapsular transdiaphragmatic extension. Electronically signed by: Gregory Miramontes M.D. 05/28/2019 7:34 PM Dictated: 05/28/191927 Transcribed: 05/28/191927 Code Status & VTE Plan Code Status Full code VTE Prophylaxis Plan VTE Prophylaxis will be ordered: Yes PG Care Time/CCT Total # of Minutes Spent Total Time Spent with Patient: Total time spent is greater than 50% in coordination of care (as documented) at patient's floor/unit and/or counseling patient: (1) Pulmonary emboli Acute cor pulmonale presence: without acute cor pulmonale Chronicity: acute Pulmonary embolism type: unspecified Qualified Code(s): I26.99 - Other pulmonary embolism without acute cor pulmonale
[2019-05-28] MEDS: METHADONE HCL 5 MG TAB PO SCH (23:25)
[2019-05-28] MEDS: clonazePAM 1 MG TAB PO SCH (23:26)
[2019-05-29] MEDS ORDERED: PIPERACILLIN/TAZOBACTAM 3.375 GM in DEXTROSE 5% 100 ML IV SCH
[2019-05-29] MEDS ORDERED: HEPARIN 100 UNIT/ML 5ML FLUSH FLUSH PRN (00:19)
[2019-05-29] MEDS: MoRPHine SULFATE 4 MG/ML 1 ML CARP\\VIAL IV PRN ×3 (03:00→08:38)
[2019-05-29] MEDS: ALBUT/IPRATROP 3MG/0.5MG NEB 3 ML VIAL NEB SCH ×2 (07:11→11:24)
[2019-05-29] MEDS ORDERED: VANCOMYCIN HCL 1,250 MG in SODIUM CHLORIDE 0.9% 250 ML IV SCH (08:00)
[2019-05-29] MEDS: guaiFENesin 600 MG TABCR PO SCH (08:20)
[2019-05-29] MEDS: DOCUSATE SODIUM 100 MG CAP PO SCH (08:20)
[2019-05-29] MEDS: RIVAROXABAN 15 MG TAB PO SCH (08:20)
[2019-05-29] MEDS: METHADONE HCL 5 MG TAB PO SCH (08:33)
[2019-05-29] MEDS: clonazePAM 1 MG TAB PO SCH (08:33)
[2019-05-29] MEDS ORDERED: POLYETHYLENE (MIRALAX) 17 GM PACK PO SCH (09:00)
[2019-05-29] MEDS ORDERED: LORazepam 0.25 MG/0.5 ML VIAL IV PRN (10:22)
--- NOTE | 2019-05-29 10:37 | Pharmacy Report ---
Pharmacy Abx Initial Consult - Date of Service May 29, 2019 - Pharmacy Dosing Scope Date of Consult: 05/29/19 Consultation requested by: Dr. Arroyo Pharmacy is consulted to initiate Vancomycin and Zosyn IV dosing therapy, order appropriate labs and adjust drug dose/frequency. - Subjective The patient is a 38 year old M admitted on 05/28/19 20:51. - Objective Height: 6 ft 2 in Weight: 103.2 kg Vital Signs (Past 12hrs): Vital Signs Temp Pulse Pulse Resp BP Pulse Ox 05/29/19 07:21 95 H 16 95 05/29/19 07:16 36.9 C 91 H 18 139/88 93 05/29/19 04:00 37.1 C 84 18 122/81 94 05/28/19 23:12 37.9 C H 114 H 22 155/103 H 94 Lab Results (24hrs): Laboratory Tests (24 Hours) 05/28/19 05/28/19 16:48 16:48 WBC 11.67 H Neut # (Auto) 9.84 H Creatinine 1.06 Est Cr Clr Drug Dosing 118.6 Micro Results: 05/28/19 16:50 Aerobic Blood Culture - Pending Blood Anaerobic Blood Culture - Pending 05/28/19 16:48 Aerobic Blood Culture - Pending Blood Anaerobic Blood Culture - Pending - Risk Factors for Resistance * No risk factors for resistance - Assessment & Plan Assessment 38 year old M admitted to [facility] on 05/28/19 with fever and shortness of breath - PMHx significant for metastatic cholangiocarcinoma with poor prognosis, no chemo/immunotherapy - Chest CT shows metastatic disease along with L and R pleural effusions - Upon admission, WBCs 12,000, febrile at 37.9 C, and lactate of 1.1 - Blood cultures are pending Plan Vancomycin and Zosyn for treatment of pneumonia Vancomycin IV * Estimated PK Parameters: Vd 0.6 L/kg, Vitaly 0.103 hr-1, t1/2 7 hr * Loading dose: 2500 mg (24 mg/kg) * Maintenance dose: 1250 mg IV (12 mg/kg) every 8 hours * Goal trough level for pneumonia : 15 to 20 mcg/mL Piperacillin/tazobactam * 3.375 g bolus administered over 30 minutes, then 3.375 g IV extended infusion every 8 hours for CrCl greater than 20 mL/min Pharmacy will continue to follow and will adjust dose/frequency as necessary. Thank you.
--- NOTE | 2019-05-29 12:17 | Discharge Summary ---
Date of Service May 29, 2019 Admission HPI Per Admitting Provider The patient is a 38-year-old male with a past medical history including metastatic cholangiocarcinoma of the liver, DVT and PE, who presents to the emergency department with the above symptoms. He has not had any recent travels or sick exposures. Principal Diagnosis Pleural effusion Discharge Exam Constitutional WD/WN, vitals as above Respiratory normal respiratory effort, lungs clear to auscultation Cardiovascular RRR, no murmur, no edema Gastrointestinal (Abdomen) Inspection/Auscultation: abdomen normal to inspection and normal bowel sounds; abdomen not distended Percussion/Palpation: abdomen soft; abdomen nontender Musculoskeletal no cyanosis or clubbing, extremities motor strength 5/5 Skin no rashes, warm and dry Neurologic moves all extremities and awake Psychiatric A+Ox3, euthymic affect Discharge Data Allergies Allergy/AdvReac Type Severity Reaction Status Date / Time aprepitant [From Emend] Allergy Severe Anaphylaxis Verified 05/28/19 20:19 fosaprepitant [From Emend] Allergy Severe Anaphylaxis Verified 05/28/19 20:19 Consultations 05/28/19 19:43 ED Decision to Admit Stat 05/28/19 22:09 Consult Case Management - Discharge Planning Routine Consult Hematology Routine 05/29/19 11:49 Consult [facility] manager cosmetic Routine Ordered Studies 05/28/19 16:26 US venous doppler LE LT Stat 05/28/19 18:20 CT abd pelvis IV con only Stat CT chest w con Stat Hospital Course (1) Pleural effusion: CT showed moderate left pleural effusion and persistent small right pleural effusion. Lower lung zone airspace opacities likely representing compressive atelectasis Placed on vancomycin IV and Zosyn IV and duonebs while inpatient Guaifenesin extended release 600 mg p.o. twice daily. Will discharge with Augmentin and doxycycline x 1 week - should reevaluate early this week with his pcp Today Mr. Quesada is less short of breath. He very much wants to go home. He understands that given his extensive cancer that his life expectancy and time is limited and he wishes to spend as much time at home as possible. We discussed risks of discharging today over further monitoring and he accepts this risk and would like to return home. I did discuss the possibility of pleuracentesis with Dr. Alamo from pulmonology. Mr. Quesada's Xeralto will need to be held for 24 hours in order to have this procedure. Mr. Quesada and I discussed risks and benefits of having the procedure tomorrow vs outpatient this week. He would like to opt for outpatient this week. Pulmonology will call him with an appointment. (2) SIRS (systemic inflammatory response syndrome): Secondary to pulmonary process - no longer tachycardic, afebrile (3) Bronchitis: (4) Metastatic cancer: Will need close follow up with Dr. He (5) Transaminitis: AST and ALT are increasing and platelets have been decreasing as well Follow with oncology at appointment this week (6) Cholangiocarcinoma of liver: Close follow up with oncology this week CT abdomen showed progressive disease with metastasis in multiple areas (7) Cancer related pain: Presently on methadone 10 mg in the a.m. and 15 mg in the p.m. Continue morphine sulfate 15 mg p.o. every 3 hours as needed breakthrough pain. Add morphine sulfate 4 mg IV every 3 hours as needed severe pain. Follow up with Dr. Cotto this week (8) Pulmonary emboli: Continue with Xarelto 15 mg p.o. twice daily Total Time Total Time Spent Total Time Spent (In Minutes): greater than 30 minutes Discharge Plan Discharge Items Patient Disposition: Home - Self-Care Reason For Visit: BRONCHITIS WITH HYPOXIA Discharge Diagnosis: Pleural effusion Activity: Resume your previous activity Activity Comment: gradually as tolerated Non-emergency contact: Primary Care Provider and Oncologist Call non-emergency contact if: you have any medication questions, your symptoms worsen and you have a fever Follow-up/Referrals: Miracle Angelo, [Primary Care Provider] - Diet: Regular Addtl Attending Provider Instructions: You will continue with antibiotics for a week. Please see your primary care provider within that time. Please also see your oncologist next week and Dr. Cotto from palliative care for pain control. The nurse navigator should call you on Friday or Friday with an appointment. Please call the office directly if you do not hear from her. You will also be set up with an appointment for pleuracentesis (draining of fluid around the lung) next week. The pulmonology office will call you to set that up on Friday. Please return to the emergency department immediately if you have increased shortness of breath or if you begin to run fevers again. Pending Studies at Discharge: Yes Studies:: blood culture Stand-Alone Forms: My [facility], Smoking Cessation Medications and DC Order Prescriptions: New amoxicillin-pot clavulanate [Augmentin] 875-125 mg tablet 1 tab PO BID Qty: 14 RF: 0 doxycycline hyclate 100 mg tablet,delayed release (DR/EC) 100 mg PO BID Qty: 14 RF: 0 Continued docusate sodium 100 mg capsule 100 mg PO BID Qty: 60 RF: 0 clonazepam 1 mg Tablet 1 mg PO TID RF: 0 prochlorperazine maleate [Compazine] 10 mg Tablet 10 mg PO DIRECTED PRN (Reason: Nausea) RF: 0 methadone 5 mg tablet See Rx Instructions .ROUTE .COMPLEX RF: 0 Xarelto 15 mg Tablet 15 mg PO BID RF: 0 ondansetron HCl 4 mg tablet 4 mg PO TID PRN (Reason: Nausea And Vomiting) RF: 0 morphine 15 mg tablet 15 mg PO Q3H PRN (Reason: Breakthrough Pain, Severe) RF: 0 polyethylene glycol 3350 [Miralax] 17 gram Powder In Packet 17 g PO DAILY Qty: 30 RF: 0 Discharge Orders: Discharge Order (Routine); Ordered 05/29/19 Ordered By: Nighat Mckenna Admission Data Admit Date/Time: 05/28/19 20:51 Attending Provider: Erik Villarreal Admit Provider: Addy Arroyo Primary Care Provider: Miracle Angelo Other Providers: Erik Villarreal Other Interventions: Discharge Summary Assessment (RN) Last Done: 05/29/19 11:59 DC Date/Time DO NOT enter until pt leaves facility: 05/29/19 13:16 Supervising Physician Co-Signing Physician Notes I supervised Nighat Mckenna NP on this patient's care. I examined the patient today independently of her. I discussed the plan of care with her with the plan being as written in her note except for any following changes/exceptions: None. Tired, but otherwise ok. Respiratory status stable. Will follow up with pulm regarding his possible thoracentesis. Will cont abx until then.
[2019-05-29] MEDS ORDERED: VANCOMYCIN TROUGH ONE (23:30)
[2019-05-30] MEDS ORDERED: VANCOMYCIN TROUGH SCH (07:30)
== END 2019-05-29 13:16 | disposition home or self-care (01) | DRG 186 ==
LOC: ED 15:52 → 4W 20:51 → SUATTDRO 20:51 → 4W 21:57

== ENCOUNTER 2019-09-15 18:50 | Inpatient (IN) ==
[2019-09-15] MEDS ORDERED: SODIUM CHLORIDE 0.9% 500 ML IV ONE (19:21)
[2019-09-15 20:01] LABS: INR 1.9 (0.9-1.1); Prothrombin Time 18.7 Seconds (9.0-12.0)
[2019-09-15 20:09] LABS: Albumin Level 2.2 gm/dl (3.4-5.0); BUN Creatinine Ratio 11.2 (10-20); Calcium 8.1 mg/dl (8.5-10.1); Creatinine Clr Calc Pharmacy 83.7 ml/min; Est GFR (African American) 75.7; Est GFR (Non-African American) 65.3; Magnesium 1.2 mg/dl (1.8-2.4)
[2019-09-15 20:12] LABS: Albumin Globulin Ratio 0.6 (0.9-2); Bilirubin Direct 0.8 mg/dl (0-0.2); Bilirubin,Total 1.2 mg/dl (0.2-1); Globulin 3.5 gm/dl (2.5-4.0); Phosphorus 2.9 mg/dl (2.5-4.9); Total Protein 5.7 gm/dl (6.4-8.2)
[2019-09-15 20:34] LABS: ANC (manual) 8.45 K/uL (1.4-6.5); Basophils # (manual) 0.11 K/uL (0-0.2); Basophils % (manual) 0.9 %; Eosinophils # (manual) 1.48 K/uL (0-0.5); Eosinophils % (manual) 12.3 %; Hematocrit (blood only) 23.6 % (42-52); Hemoglobin 7.7 g/dL (14.0-18.0); Lymphocytes # (manual) 1.06 K/uL (1.2-3.4); Lymphocytes % (manual) 8.8 %; Mean Corpuscular Hemoglobin 29.1 pg (25-34); Mean Corpuscular Hgb Conc 32.6 g/dL (32-36); Mean Corpuscular Volume 89.1 fL (80-100); Monocytes # (manual) 0.74 K/uL (0.11-0.59); Monocytes % (manual) 6.1 %; Myelocytes # (manual) 0.22 K/uL (0-0); Myelocytes % (manual) 1.8 %; Neutrophils # (manual) 8.45 K/uL (1.4-6.5); Neutrophils % (manual) 70.1 %; Nucleated RBC # (auto) 0.02 K/uL (0-0); Nucleated RBC % (auto) 0.1 %; Ovalocytes 1+; Platelet Count 6 K/uL (130-400); Platelet Estimate SIGNIFIC DECREASED (Normal); RDW Coefficient of Variation 18.1 % (11.5-14.5); RDW Standard Deviation 59.2 fL (36.4-46.3); Red Blood Count 2.65 M/uL (4.7-6.1); Tear Drop Cells 1+; White Blood Count 12.06 K/uL (4.8-10.8)
[2019-09-15] MEDS ORDERED: IOVERSOL 100ml IV PRN (20:38)
--- NOTE | 2019-09-15 20:54 | CT Scan Report ---
ABDOMEN AND PELVIS CT WITH IV CONTRAST CT DOSE: 731.61 mGy.cm HISTORY: Generalized abdominal pain, swelling, metastatic cancer TECHNIQUE: Multiaxial CT images of the abdomen and pelvis were performed following the use of intrave nous contrast. A dose lowering technique was utilized adhering to the principles of ALARA. COMPARISON STUDY: Abdomen and pelvis CT 08/31/2019. FINDINGS: Diffuse pleural nodularity as well as multiple pulmonary nodules consistent with metastatic disease. Small bilateral pleural effusions and a small pericardial effusion persists. Interstitial t hickening within the base of the right lower lobe may represent lymphangitic spread of tumor. No pneu moperitoneum. No pneumatosis. No suspicious lytic are blastic osseous lesions. Necrotic anterior diap hragmatic implants are again noted. Multiple hepatic masses consistent with metastatic disease. There is also subcapsular and perihepatic metastatic implants. The dominant hepatic lesion measures 16 cm. This is similar to the prior study. Small amount of sludge within the gallbladder. Geographic hypode nse areas within the spleen likely represent splenic infarcts. This is similar to the prior study. Th e spleen remains mildly enlarged. The right kidney enhances normally. There are 2 hypodense foci with in the left kidney which are new from the prior study and favor renal infarcts. Necrotic periportal l ymphadenopathy persists. Small amount of ascites has progressed. The bladder is unremarkable. A few s cattered omental and peritoneal metastatic implants are again noted. This is similar to the prior deyvi dy. Dominant metastatic deposit along the right deep pelvis measures 2.4 cm. There is also a metastat ic focus deep to the umbilicus. There is diffuse moderate body wall edema which has progressed. The m ain portal vein is patent. The aorta, IVC, and iliac vessels are also patent. No bowel wall thickenin g or obstruction. IMPRESSION: 1. Redemonstration of extensive metastatic disease seen within the chest, abdomen, pelvis as describe d above. This is similar to the prior study. 2. 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 3. There are 2 new hypodense foci within the left kidney consistent with renal infarcts. 4. Stable small bilateral pleural effusions and a small pericardial effusion. 5. Interval progression of the moderate body wall edema and small amount of ascites. ACT 112: Negative or not required by law. Electronically signed by: Sohail Pickett M.D. 09/15/2019 8:53 PM
[2019-09-15] MEDS: MAGNESIUM SULFATE / D5W 1 GM/100 ML BAG IV SCH ×2 (21:49→22:52)
[2019-09-15] MEDS ORDERED: MoRPHine SULFATE 10 MG/ML CARP/VIAL IV STA (21:50)
--- NOTE | 2019-09-15 21:57 | Emergency Department Note ---
Entered by Ruthy Velásquez acting as a scribe for History of Present Illness General Chief complaint: Dental/Oral Stated complaint: GUMS BLEEDING, CEMO, COUGH LOW COUNT Time Seen by Provider: 09/15/19 19:06 History of Present Illness Provider complaint: gum bleeding Onset (ago): day(s) 1 Location: mouth Pain Consistency: + other (episode) Maximum Pain Intensity: 4 Relieved By: + none Associated symptoms: + denies other symptoms (difficulty breathing, diarrhea) and + other (possibly broke tooth and swallowed it, metastatic gallbladder cancer, abdominal bloating, pneumonia a few weeks ago, fluid in lungs present but drained); no fever/chills and no nausea/vomiting The patient is a 39 year old male who presents to the ED with complaints of an episode of gum bleeding that started 1 day ago. The patient states that he thinks a piece of his molar broke off and he accidentally swallowed it. The patient states that nothing is helping to stop the bleeding. The patient notes that he is on 10 mg of Xarelto twice per day. The patient states that he has gallbladder cancer, and his abdomen has felt bloated ever since he started chemotherapy 4 months ago. The patient notes that he has abdominal pain and a worsening cough. The patient states that he had pneumonia a few weeks ago. The patient notes that he had a CT done last month which showed fluid in his lungs and that his cancer is metastasizing. The patient states that he had some of the fluid in his lungs drained. The patient denies fever, nausea, vomiting, difficulty breathing and diarrhea. Home Medications Home Medications Medication Instructions Recorded Confirmed Type methadone 20 mg PO BID 05/28/19 09/15/19 History ondansetron HCl 4 mg PO TID PRN 05/28/19 09/15/19 History prochlorperazine maleate 10 mg PO DIRECTED PRN 05/28/19 09/15/19 History [Compazine] Medical Marijuana 1 dose PO DIRECTED 06/09/19 09/15/19 History docusate sodium [Colace] 100 mg PO BID 06/09/19 09/15/19 History mirtazapine 15 mg PO HS PRN 07/11/19 09/15/19 History morphine 15 mg PO Q4H PRN 07/11/19 09/15/19 History clonazepam 1 mg tablet 1 mg PO TID #90 tab 09/03/19 09/15/19 Rx methylphenidate HCl [Ritalin] 2.5 mg PO BID 09/15/19 09/15/19 History polyethylene glycol 3350 [Miralax] 17 g PO DAILY PRN 09/15/19 09/15/19 History rivaroxaban [Xarelto] 10 mg PO BID 09/15/19 09/15/19 History Allergies Allergy/AdvReac Type Severity Reaction Status Date / Time aprepitant [From Emend] Allergy Severe Anaphylaxis Verified 09/15/19 20:06 fosaprepitant [From Emend] Allergy Severe Anaphylaxis Verified 09/15/19 20:06 Past Med/Surg History Medical History Acute DVT (deep venous thrombosis) (Resolved) Adrenal nodule Cancer of gallbladder Cancer related pain Cholangiocarcinoma of liver (Acute) DVT (deep venous thrombosis) Hemorrhoid History of DVT (deep vein thrombosis) History of pulmonary embolism HTN (hypertension) Microcytic anemia Pleural effusion, bilateral Pulmonary emboli (Resolved) Pulmonary nodules Rectal bleeding (Resolved) Situational anxiety Surgical History H/O colonoscopy egd/colonoscopy 05/03/2019. no issues with MAC. History of esophagogastroduodenoscopy (EGD) Family History Aunt Breast cancer Uncle Cancer Aunt Colorectal cancer Uncle Cancer Grandmother (Paternal) Throat cancer Mother Family history of cervical cancer Other No significant active problems Denies family history of Ovarian cancer Prostate cancer Myocardial infarction Social History Preferred Language: Egyptian Communication Ability: Effective Visual Impairment: No Limitations Hearing Ability: Normal Neonatal Nurse Practitioner Required: No Beliefs That Will Affect Care: None marital status: Single Current Living Situation: Parent Current Living Situation Comment: Lives with parent(s) current occupational status: employed 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 Feels Safe at Home: Yes Smoking Status: Current every day smoker Tobacco Type: cigarettes ; Cigarettes Per Day: 20 ; Second Hand Exposure: No ; Tobacco Cessation Education Requested by Patient: No Hx Alcohol Use: No Hx Substance Use: No Childhood Exposure to Second-Hand Smoke: Yes Diet Comment: regular caffeine: No during the past year weight has: decreased > 10 lbs Dental Care, Regularly: No Physical Activity Frequency: Does not Exercise Seatbelt Use: always Sunscreen Use: No Do you think of yourself as: lesbian/todd/homosexual Sexual Activity: has been sexually active, but not for at least 12 months Review of Systems See HPI for pertinent positives & negatives. and A total of 10 systems reviewed and were otherwise negative Physical Exam Vital Signs Vital Signs - 24 hr 09/15/19 18:54 09/15/19 21:10 09/15/19 21:34 Temperature 36.5 C Temperature Source Oral Pulse Rate 117 H 96 H Pulse Rate [Apical] 91 H Pulse Rate from SpO2 Sensor 98 H Pulse Rhythm Pulse Rhythm [Apical] Regular Pulse Strength [Apical] Normal Respiratory Rate 20 16 17 Respiratory Effort / Characteristics Non-Labored Spontaneous Non-Labored Respiratory Depth Normal Normal Respiratory Pattern Regular Regular Blood Pressure 144/91 H 145/92 H Blood Pressure [Right Arm] 137/84 Blood Pressure Mean 108 102 Blood Pressure Mean [Right Arm] 101 Blood Pressure Position Sitting Pulse Oximetry 98 97 95 Oxygen Delivery Method Room Air Room Air Room Air Sepsis Recent Fever Within 48 Hours No Sepsis New/Unexplained Change in Mental Status No Sepsis Action Taken by Nursing No Action Required 09/15/19 21:35 09/15/19 22:00 09/15/19 22:30 Temperature Temperature Source Pulse Rate 103 H 91 H 92 H Pulse Rate [Apical] Pulse Rate from SpO2 Sensor 93 H 92 H Pulse Rhythm Regular Pulse Rhythm [Apical] Pulse Strength [Apical] Respiratory Rate 16 14 19 Respiratory Effort / Characteristics Respiratory Depth Respiratory Pattern Blood Pressure 143/86 H 136/91 Blood Pressure [Right Arm] Blood Pressure Mean 95 101 Blood Pressure Mean [Right Arm] Blood Pressure Position Pulse Oximetry 97 97 98 Oxygen Delivery Method Room Air Room Air Room Air Sepsis Recent Fever Within 48 Hours Sepsis New/Unexplained Change in Mental Status Sepsis Action Taken by Nursing 09/15/19 23:00 Temperature Temperature Source Pulse Rate 92 H Pulse Rate [Apical] Pulse Rate from SpO2 Sensor Pulse Rhythm Pulse Rhythm [Apical] Pulse Strength [Apical] Respiratory Rate 19 Respiratory Effort / Characteristics Respiratory Depth Respiratory Pattern Blood Pressure 133/80 Blood Pressure [Right Arm] Blood Pressure Mean 87 Blood Pressure Mean [Right Arm] Blood Pressure Position Pulse Oximetry 97 Oxygen Delivery Method Sepsis Recent Fever Within 48 Hours Sepsis New/Unexplained Change in Mental Status Sepsis Action Taken by Nursing GENERAL: Awake, alert, chronically ill-appearing, in no distress HENT: Normocephalic, atraumatic. Oropharynx unremarkable. Mucous membranes dry. Left lower gingival area with remains of possible fractured tooth with stable clot, no active bleeding. EYES: Normal conjunctiva. Sclera non-icteric. NECK: Supple. No nuchal rigidity. FROM. No JVD. RESPIRATORY: Clear to auscultation bilaterally. CARDIAC: Regular rate, normal rhythm. Extremities warm and well perfused. Pulses equal. ABDOMEN: Mild abdominal distension, not tense, with generalized discomfort, no discrete tenderness. No rebound or guarding. No masses. RECTAL: Deferred. MUSCULOSKELETAL: Chest examination reveals no tenderness. The back is symmetrical on inspection without obvious abnormality. There is no CVA tenderness to palpation. No joint edema. LOWER EXTREMITIES: Calves are equal size bilaterally and non-tender. 2+ BLE edema. No discoloration. NEURO: Normal sensorium. No sensory or motor deficits noted. SKIN: No rash or jaundice noted. Course Course 1909: Past medical records reviewed. The patient was evaluated in room B08. A complete history and physical exam was performed. 2055: I discussed the patient's case with Dr. Robert Corbin. He states that he is cone machine operator for Dr. He. He told me he will get into contact with Dr. He who will call me back in regard to the patient. 2104: I discussed the patient's case with Dr. Singh Corbin. He agrees with the platelet transfusion and plan for admission. 2108: Qliq sent to Dr. Lieberman [facility] Hospitalist. 2212: I discussed the patient's case with Dr. Lieberman [facility], Hospitalist. He will evaluate the patient for further management. Consultations Consultation #1: I discussed the patient's case with Dr. Robert Corbin. He states that he is cone machine operator for Dr. He. He told me he will get into contact with Dr. He who will call me back in regard to the patient. Time: 20:56 Consultation #2: I discussed the patient's case with Dr. Singh Corbin. He agrees with the platelet transfusion and plan for admission. Time: 22:13 Consultation #3: I discussed the patient's case with Dr. Arroyo- [facility], Hospitalist. He will evaluate the patient for further management. Administered Medications Docusate Sodium (Colace) 100 mg PO BID ERUM Stop: 10/16/19 00:16 Last Admin: 09/16/19 01:35 Dose: 100 mg Documented by: [id number] Levofloxacin/Dextrose (Levaquin/D5w) 500 mg in 100 mls @ 100 mls/hr IV Q24H ERUM Stop: 09/23/19 00:59 Last Admin: 09/16/19 02:20 Dose: 100 mls/hr Documented by: [id number] Albumin Human (Albumin 25%) 50 mls @ 50 mls/hr IV Q4H ERUM Stop: 09/16/19 09:29 Last Infusion: 09/16/19 02:45 Dose: 0 mls/hr Documented by: [id number] Admin: 09/16/19 01:36 Dose: 50 mls/hr Documented by: [id number] Ioversol (Optiray 320 100ml) 93 ml IV ONCE PRN PRN Reason: Interaction Checking Stop: 09/19/19 20:37 Last Admin: 09/15/19 20:38 Dose: 93 ml Documented by: [id number] Methadone HCl (Dolophine) 20 mg PO BID ERUM Stop: 09/30/19 00:16 Last Admin: 09/16/19 01:13 Dose: Not Given Documented by: [id number] Morphine Sulfate (Morphine Sulfate Ir) 15 mg PO Q4H PRN PRN Reason: Pain Stop: 09/30/19 00:16 Last Admin: 09/16/19 03:44 Dose: 15 mg Documented by: [id number] Morphine Sulfate (Morphine Sulfate) 4 mg IV Q3HWA PRN PRN Reason: Pain Stop: 09/30/19 00:37 Last Admin: 09/16/19 01:10 Dose: 4 mg Documented by: [id number] Discontinued Medications Clonazepam (Klonopin) 1 mg PO NOW STA Stop: 09/16/19 01:23 Last Admin: 09/16/19 01:35 Dose: 1 mg Documented by: [id number] Sodium Chloride (Nss) 500 mls @ 999 mls/hr IV .Q31M ONE Stop: 09/15/19 19:51 Last Infusion: 09/15/19 20:16 Dose: 0 mls/hr Documented by: [id number] Admin: 09/15/19 19:44 Dose: 999 mls/hr Documented by: [id number] Magnesium Sulfate/Dextrose (Magnesium Sulfate / D5w) 1 gm in 100 mls @ 100 mls/hr IV Q1H ERUM Stop: 09/15/19 23:14 Last Infusion: 09/15/19 23:52 Dose: 0 mls/hr Documented by: [id number] Admin: 09/15/19 22:52 Dose: 100 mls/hr Documented by: [id number] Infusion: 09/15/19 22:52 Dose: 0 mls/hr Documented by: [id number] Admin: 09/15/19 21:49 Dose: 100 mls/hr Documented by: [id number] Magnesium Sulfate/Dextrose (Magnesium Sulfate / D5w) 1 gm in 100 mls @ 100 mls/hr IV Q1H ERUM Stop: 09/16/19 02:16 Last Admin: 09/16/19 03:26 Dose: 100 mls/hr Documented by: [id number] Infusion: 09/16/19 02:29 Dose: 0 mls/hr Documented by: [id number] Admin: 09/16/19 01:13 Dose: 100 mls/hr Documented by: [id number] Morphine Sulfate (Morphine Sulfate) 8 mg IV NOW STA Stop: 09/15/19 21:51 Last Admin: 09/15/19 22:23 Dose: 8 mg Documented by: [id number] Critical Care Time Critical Care Time: Yes Total Critical Care Time: 45 I have personally spent greater than 45 minutes of critical care time in the direct management of this patient. This includes bedside care, interpretation of diagnostic studies, and testing, discussion with consultants, patient, and family members, and other required patient management activities. This 45 minutes is in excess of all separately billable procedures. Medical Decision Making Differential Diagnosis Differential diagnosis: Etiologies such as metabolic, infection, hypo/hyperglycemia, electrolyte abnormalities, cardiac sources, intracerebral event, toxicologic, neurologic, as well as others were entertained. Medical Records Attestation: I reviewed the patient's medical records. Home Medications Current Medication List: was personally reviewed by me Laboratory Data Attestation: I reviewed the patient's lab results. Result diagrams: 09/15/19 19:41 09/15/19 19:41 Lab Results 09/15/19 09/15/19 09/15/19 Range/Units 19:41 19:41 19:41 WBC 12.06 H (4.8-10.8) K/uL RBC 2.65 L (4.7-6.1) M/uL Hgb 7.7 L (14.0-18.0) g/dL Hct 23.6 L (42-52) % MCV 89.1 (80-100) fL MCH 29.1 (25-34) pg MCHC 32.6 (32-36) g/dL RDW Std Deviation 59.2 H (36.4-46.3) fL RDW Coeff of Jaclyn 18.1 H (11.5-14.5) % Plt Count 6 L* (130-400) K/uL Absolute Nucleated RBC 0.02 H (0-0) K/uL Nucleated RBC % (auto) 0.1 % Neutrophils % (Manual) 70.1 % Lymphocytes % (Manual) 8.8 % Monocytes % (Manual) 6.1 % Eosinophils % (Manual) 12.3 % Basophils % (Manual) 0.9 % Myelocytes % (Man) 1.8 % Neutrophils # (Manual) 8.45 H (1.4-6.5) K/uL Total Absolute Neuts 8.45 H (1.4-6.5) K/uL Lymphocytes # (Manual) 1.06 L (1.2-3.4) K/uL Monocytes # (Manual) 0.74 H (0.11-0.59) K/uL Eosinophils # (Manual) 1.48 H (0-0.5) K/uL Basophils # (Manual) 0.11 (0-0.2) K/uL Myelocytes # (Manual) 0.22 H (0-0) K/uL Platelet Estimate SIGNIFIC DECREASED (Normal) Tear Drop Cells 1+ Ovalocytes 1+ PT 18.7 H (9.0-12.0) Seconds INR 1.9 H (0.9-1.1) Fibrinogen (184-400) mg/dl Fibrin Degrad Products (<10) mcg/ml D-Dimer (0-500) ug/L FEU Sodium 131 L (136-145) mmol/L Potassium 4.0 (3.5-5.1) mmol/L Chloride 100 (98-107) mmol/L Carbon Dioxide 24 (21-32) mmol/L Anion Gap 7.0 (3-11) BUN 15 (7-18) mg/dl Creatinine 1.34 (0.6-1.4) mg/dl Est Cr Clr Drug Dosing 83.7 ml/min Est GFR ( Amer) 75.7 Est GFR (Non-Af Amer) 65.3 BUN/Creatinine Ratio 11.2 (10-20) Glucose 92 (70-99) mg/dl Lactate (0.4-2.0) mmol/L Calcium 8.1 L (8.5-10.1) mg/dl Phosphorus 2.9 (2.5-4.9) mg/dl Magnesium 1.2 L (1.8-2.4) mg/dl Total Bilirubin 1.2 H (0.2-1) mg/dl Direct Bilirubin 0.8 H (0-0.2) mg/dl AST 34 (15-37) U/L ALT 21 (12-78) U/L Alkaline Phosphatase 340 H (45-117) U/L Lactate Dehydrogenase (87-241) U/L Total Protein 5.7 L (6.4-8.2) gm/dl Albumin 2.2 L (3.4-5.0) gm/dl Globulin 3.5 (2.5-4.0) gm/dl Albumin/Globulin Ratio 0.6 L (0.9-2) Lipase 28 L (73-393) U/L Blood Type Blood Type Recheck Antibody Screen 09/15/19 09/15/19 09/15/19 Range/Units 21:27 21:27 21:27 WBC (4.8-10.8) K/uL RBC (4.7-6.1) M/uL Hgb (14.0-18.0) g/dL Hct (42-52) % MCV (80-100) fL MCH (25-34) pg MCHC (32-36) g/dL RDW Std Deviation (36.4-46.3) fL RDW Coeff of Jaclyn (11.5-14.5) % Plt Count (130-400) K/uL Absolute Nucleated RBC (0-0) K/uL Nucleated RBC % (auto) % Neutrophils % (Manual) % Lymphocytes % (Manual) % Monocytes % (Manual) % Eosinophils % (Manual) % Basophils % (Manual) % Myelocytes % (Man) % Neutrophils # (Manual) (1.4-6.5) K/uL Total Absolute Neuts (1.4-6.5) K/uL Lymphocytes # (Manual) (1.2-3.4) K/uL Monocytes # (Manual) (0.11-0.59) K/uL Eosinophils # (Manual) (0-0.5) K/uL Basophils # (Manual) (0-0.2) K/uL Myelocytes # (Manual) (0-0) K/uL Platelet Estimate (Normal) Tear Drop Cells Ovalocytes PT (9.0-12.0) Seconds INR (0.9-1.1) Fibrinogen 309 (184-400) mg/dl Fibrin Degrad Products 10-40 H (<10) mcg/ml D-Dimer > 57061 H* (0-500) ug/L FEU Sodium (136-145) mmol/L Potassium (3.5-5.1) mmol/L Chloride (98-107) mmol/L Carbon Dioxide (21-32) mmol/L Anion Gap (3-11) BUN (7-18) mg/dl Creatinine (0.6-1.4) mg/dl Est Cr Clr Drug Dosing ml/min Est GFR ( Amer) Est GFR (Non-Af Amer) BUN/Creatinine Ratio (10-20) Glucose (70-99) mg/dl Lactate (0.4-2.0) mmol/L Calcium (8.5-10.1) mg/dl Phosphorus (2.5-4.9) mg/dl Magnesium (1.8-2.4) mg/dl Total Bilirubin (0.2-1) mg/dl Direct Bilirubin (0-0.2) mg/dl AST (15-37) U/L ALT (12-78) U/L Alkaline Phosphatase (45-117) U/L Lactate Dehydrogenase (87-241) U/L Total Protein (6.4-8.2) gm/dl Albumin (3.4-5.0) gm/dl Globulin (2.5-4.0) gm/dl Albumin/Globulin Ratio (0.9-2) Lipase (73-393) U/L Blood Type A Negative Blood Type Recheck Antibody Screen NEGATIVE 09/15/19 09/15/19 09/15/19 Range/Units 21:27 21:27 21:39 WBC (4.8-10.8) K/uL RBC (4.7-6.1) M/uL Hgb (14.0-18.0) g/dL Hct (42-52) % MCV (80-100) fL MCH (25-34) pg MCHC (32-36) g/dL RDW Std Deviation (36.4-46.3) fL RDW Coeff of Jaclyn (11.5-14.5) % Plt Count (130-400) K/uL Absolute Nucleated RBC (0-0) K/uL Nucleated RBC % (auto) % Neutrophils % (Manual) % Lymphocytes % (Manual) % Monocytes % (Manual) % Eosinophils % (Manual) % Basophils % (Manual) % Myelocytes % (Man) % Neutrophils # (Manual) (1.4-6.5) K/uL Total Absolute Neuts (1.4-6.5) K/uL Lymphocytes # (Manual) (1.2-3.4) K/uL Monocytes # (Manual) (0.11-0.59) K/uL Eosinophils # (Manual) (0-0.5) K/uL Basophils # (Manual) (0-0.2) K/uL Myelocytes # (Manual) (0-0) K/uL Platelet Estimate (Normal) Tear Drop Cells Ovalocytes PT (9.0-12.0) Seconds INR (0.9-1.1) Fibrinogen (184-400) mg/dl Fibrin Degrad Products (<10) mcg/ml D-Dimer (0-500) ug/L FEU Sodium (136-145) mmol/L Potassium (3.5-5.1) mmol/L Chloride (98-107) mmol/L Carbon Dioxide (21-32) mmol/L Anion Gap (3-11) BUN (7-18) mg/dl Creatinine (0.6-1.4) mg/dl Est Cr Clr Drug Dosing ml/min Est GFR ( Amer) Est GFR (Non-Af Amer) BUN/Creatinine Ratio (10-20) Glucose (70-99) mg/dl Lactate 1.1 (0.4-2.0) mmol/L Calcium (8.5-10.1) mg/dl Phosphorus (2.5-4.9) mg/dl Magnesium (1.8-2.4) mg/dl Total Bilirubin (0.2-1) mg/dl Direct Bilirubin (0-0.2) mg/dl AST (15-37) U/L ALT (12-78) U/L Alkaline Phosphatase (45-117) U/L Lactate Dehydrogenase 372 H (87-241) U/L Total Protein (6.4-8.2) gm/dl Albumin (3.4-5.0) gm/dl Globulin (2.5-4.0) gm/dl Albumin/Globulin Ratio (0.9-2) Lipase (73-393) U/L Blood Type Blood Type Recheck A Negative Antibody Screen Imaging Data Radiologist's Impression: Radiology results as stated below per my review and the radiologist's interpretation: ABDOMEN AND PELVIS CT WITH IV CONTRAST CT DOSE: 731.61 mGy.cm HISTORY: Generalized abdominal pain, swelling, metastatic cancer TECHNIQUE: Multiaxial CT images of the abdomen and pelvis were performed following the use of intravenous contrast. A dose lowering technique was utilized adhering to the principles of ALARA. COMPARISON STUDY: Abdomen and pelvis CT 08/31/2019. FINDINGS: Diffuse pleural nodularity as well as multiple pulmonary nodules consistent with metastatic disease. Small bilateral pleural effusions and a small pericardial effusion persists. Interstitial thickening within the base of the right lower lobe may represent lymphangitic spread of tumor. No pneumoperitoneum. No pneumatosis. No suspicious lytic are blastic osseous lesions. Necrotic anterior diaphragmatic implants are again noted. Multiple hepatic masses consistent with metastatic disease. There is also subcapsular and perihepatic metastatic implants. The dominant hepatic lesion measures 16 cm. This is similar to the prior study. Small amount of sludge within the gallbladder. Geographic hypodense areas within the spleen likely represent splenic infarcts. This is similar to the prior study. The spleen remains mildly enlarged. The right kidney enhances normally. There are 2 hypodense foci within the left kidney which are new from the prior study and favor renal infarcts. Necrotic periportal lymphadenopathy persists. Small amount of ascites has progressed. The bladder is unremarkable. A few scattered omental and peritoneal metastatic implants are again noted. This is similar to the prior study. Dominant metastatic deposit along the right deep pelvis measures 2.4 cm. There is also a metastatic focus deep to the umbilicus. There is diffuse moderate body wall edema which has progressed. The main portal vein is patent. The aorta, IVC, and iliac vessels are also patent. No bowel wall thickening or obstruction. IMPRESSION: 1. Redemonstration of extensive metastatic disease seen within the chest, abdomen, pelvis as described above. This is similar to the prior study. 2. 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 3. There are 2 new hypodense foci within the left kidney consistent with renal infarcts. 4. Stable small bilateral pleural effusions and a small pericardial effusion. 5. Interval progression of the moderate body wall edema and small amount of ascites. ACT 112: Negative or not required by law. Electronically signed by: Sohail Pickett M.D. 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 Patient does have a history of thrombocytopenia. On arrival the patient is chronically ill- appearing but no acute distress, afebrile stable vital signs. On exam the patient does have a stable clot overlying the gingiva where he may have fractured his left lower posterior molar. He has generalized abdominal discomfort without discrete tenderness with mild distention but soft. WBC 12, decreased from prior. H/H 7.7/23.6 decreased from recent all the similar to values in the past 6 months. Platelets are newly increasingly low at 6K where he was 110s 2 weeks ago. INR 1.9 in the setting of being on Xarelto. Of note he reports he has been on 10 mg twice daily although pharmacy inquiry shows 15 mg twice daily prescribed. Chemistry without acidosis. Magnesium 1.2 with patient provided. Total bilirubin 1.2 and LFTs otherwise unremarkable. CT abdomen pelvis demonstrates the patient's known metastatic disease without any significant progression from last month. Redemonstrated are stable splenic infarcts but new renal infarcts. There is also progression of ascites. Case was discussed with Dr. He, the patient's oncologist, who agrees with plan for admission and platelet transfusion as well as with evaluation to exclude DIC. He will be available for inpatient team consultation and to see the patient in the morning. Patient was consented for blood transfusion and ordered for 4 unit s of platelets with plan to transfuse 2 immediately. Case was discussed with Dr. Arroyo, [facility] [place] hospitalist, who will evaluate the patient for admission. Fibrinogen wnl and so DIC unlikely. Impression & Plan Metastatic disease, Thrombocytopenia, Anemia, Ascites, On palliative antineoplastic chemotherapy Discharge Plan Visit Data *Final* Discharge Date/Time: 09/15/19 23:58 Chief Complaint: Dental/Oral Stated Complaint: GUMS BLEEDING, CEMO, COUGH LOW COUNT ED Provider: Lex James Discharge Problem: Metastatic disease, Thrombocytopenia, Anemia, Ascites, On palliative antineoplastic chemotherapy Patient Disposition: Admitted As Inpatient Discharge Instructions Interventions: ED Discharge Assessment Last Done: 09/15/19 23:58 Discharge Problem: Anemia Qualifiers: Anemia type: unspecified type Qualified Code(s): D64.9 - Anemia, unspecified Ascites Qualifiers: Ascites type: other type Qualified Code(s): R18.8 - Other ascites The scribe's documentation has been prepared under my direction and personally reviewed by me in its entirety. I confirm that the note above accurately reflects all work, treatment, procedures, and medical decision making performed by me.
[2019-09-15 22:47] LABS: Fibrinogen 309 mg/dl (184-400)
[2019-09-15 22:55] LABS: D Dimer > 35200 ug/L FEU (0-500)
--- NOTE | 2019-09-15 23:17 | History & Physical Report ---
Date of Service September 15, 2019 Assessment & Plan (1) Bleeding gums: Secondary to thrombocytopenia. We will be getting transfusions for both weight loss and PRBCs. For now continue Xarelto, as bleeding has stopped at this time in ED. If bleeding resumes, may need to hold and / or reverse Xarelto Present on Admission?: Yes (2) Thrombocytopenia: Platelet count 6 upon admission, with range 33-274. Platelet transfusion written by ED after discussion with Dr. He Present on Admission?: Yes (3) Anemia: Hemoglobin 7.7 upon admission, with range 7.5-9.3. We will be transfusing platelets first, and will then transfuse 1 unit PRBCs Present on Admission?: Yes (4) Cholangiocarcinoma of liver: Metastatic cholangiocarcinoma of liver, on palliative antineoplastic chemotherapy. Consult his oncologist Dr. He Present on Admission?: Yes (5) Metastatic disease: See above Present on Admission?: Yes (6) On palliative antineoplastic chemotherapy: See above Present on Admission?: Yes (7) Anasarca: Patient with worsening edema. Blood pressure is borderline in the 80s to 90s. We will give albumin 25 g IV every 4 hours x3 doses. Does not look like he would tolerate Lasix IV. Present on Admission?: Yes (8) Pleural effusion, bilateral: See above Present on Admission?: Yes (9) Ascites: See above Present on Admission?: Yes (10) History of pulmonary embolism: History of pulmonary emboli and DVT- On Xarelto twice daily dosing. Present on Admission?: Yes (11) History of DVT (deep vein thrombosis): See above Present on Admission?: Yes (12) Upper respiratory infection: Placed on Levaquin IV. Present on Admission?: Yes (13) Hypomagnesemia: Magnesium level 1.2 upon admission. We will get 4 g of mag sulfate IV total, and then repeat labs in the a.m. Present on Admission?: Yes History of Present Illness Chief Complaint: The patient presents to the emergency department with complaint of persistent gum bleeding that began 1 day ago. Primary Care Provider: Miracle Angelo DO The patient is a 39-year-old male with a past medical history including gallbladder cancer, history of PE and DVT, cholangiocarcinoma of liver, situational anxiety, pulmonary nodules, bilateral pleural effusion, gout, hypertension, ascites, on palliative antineoplastic chemotherapy. The patient presents with 1 day history of gum bleeding, and laboratory work-up in the ED revealed a platelet count of 6 and hemoglobin of 7.7. Patient will be admitted for transfusions and assessment by oncology. Patient also does report some chest congestion along with shortness of breath. He reports that it is difficult to cough any secretions up. Allergies Allergy/AdvReac Type Severity Reaction Status Date / Time aprepitant [From Emend] Allergy Severe Anaphylaxis Verified 09/15/19 20:06 fosaprepitant [From Emend] Allergy Severe Anaphylaxis Verified 09/15/19 20:06 Home Medications Home Medications Medication Instructions Recorded Confirmed Type methadone 20 mg PO BID 05/28/19 09/15/19 History ondansetron HCl 4 mg PO TID PRN 05/28/19 09/15/19 History prochlorperazine maleate 10 mg PO DIRECTED PRN 05/28/19 09/15/19 History [Compazine] Medical Marijuana 1 dose PO DIRECTED 06/09/19 09/15/19 History docusate sodium [Colace] 100 mg PO BID 06/09/19 09/15/19 History mirtazapine 15 mg PO HS PRN 07/11/19 09/15/19 History morphine 15 mg PO Q4H PRN 07/11/19 09/15/19 History clonazepam 1 mg tablet 1 mg PO TID #90 tab 09/03/19 09/15/19 Rx methylphenidate HCl [Ritalin] 2.5 mg PO BID 09/15/19 09/15/19 History polyethylene glycol 3350 [Miralax] 17 g PO DAILY PRN 09/15/19 09/15/19 History rivaroxaban [Xarelto] 10 mg PO BID 09/15/19 09/15/19 History Past Med/Surg History Social History Preferred Language: Bhutanese Communication Ability: Effective Visual Impairment: No Limitations Hearing Ability: Normal Auto Electrical Technician Required: No Beliefs That Will Affect Care: None marital status: Single Current Living Situation: Parent Current Living Situation Comment: Lives with parent(s) current occupational status: employed 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 Feels Safe at Home: Yes Smoking Status: Current every day smoker Tobacco Type: cigarettes ; Cigarettes Per Day: 20 ; Second Hand Exposure: No ; Tobacco Cessation Education Requested by Patient: No Hx Alcohol Use: No Hx Substance Use: No Childhood Exposure to Second-Hand Smoke: Yes Diet Comment: regular caffeine: No during the past year weight has: decreased > 10 lbs Dental Care, Regularly: No Physical Activity Frequency: Does not Exercise Seatbelt Use: always Sunscreen Use: No Do you think of yourself as: lesbian/todd/homosexual Sexual Activity: has been sexually active, but not for at least 12 months Review of Systems Review of Systems: The patient denies chest pain, palpitations, lower extremity swelling, sore throat, fevers, chills, sweats, nausea, vomiting, diarrhea , constipation, abdominal pain, pelvic pain, blood in urine or stool, dysuria, urinary frequency or urgency, lightheadedness, dizziness, headache, memory loss, loss of consciousness, rash, imbalance, focal weakness, numbness or tingling in arms or legs, generalized arthralgias or myalgias, back or neck pain, or night sweats. The review of systems is otherwise negative other than for that already noted above, and at least 10 systems have been reviewed. Physical Exam Physical Exam: The patient is awake, alert and oriented 3, looks pale and fatigued, normocephalic and atraumatic, lying in bed and in no acute distress. HEENT--PERRL, EOMI, mucous membranes and oropharynx dry. Neck--supple. No JVD. No bruits. Thyroid normal, trachea midline, no adeno phi. Heart--normal S1 and S2. No murmurs, rubs or gallops. Lungs--coarse breath sounds with wheezes bilaterally. No respiratory distress, no accessory muscle use. Abdomen--normal bowel sounds and soft. Nontender. Nondistended. Extremities--no cyanosis or clubbing. No edema. Dermatologic--looks pale. Neurologic--cranial nerves II through XII grossly intact. Rheumatologic--normal range of motion. Psychiatric--normal affect. Results & Data Vital Signs (Past 12 Hours) Vital Signs Temp Pulse Pulse Resp BP BP Pulse Ox 09/15/19 23:00 92 H 19 133/80 97 09/15/19 22:30 92 H 19 136/91 98 09/15/19 22:00 91 H 14 143/86 H 97 09/15/19 21:35 103 H 16 97 09/15/19 21:34 96 H 17 145/92 H 95 09/15/19 21:10 91 H 16 137/84 97 09/15/19 18:54 97.7 F 117 H 20 144/91 H 98 Laboratory Results Laboratory Results WBC 12.06 K/uL (4.8-10.8) H 09/15/19 19:41 RBC 2.65 M/uL (4.7-6.1) L 09/15/19 19:41 Hgb 7.7 g/dL (14.0-18.0) L 09/15/19 19:41 Hct 23.6 % (42-52) L 09/15/19 19:41 MCV 89.1 fL (80-100) 09/15/19 19:41 MCH 29.1 pg (25-34) 09/15/19 19:41 MCHC 32.6 g/dL (32-36) 09/15/19 19:41 RDW Std Deviation 59.2 fL (36.4-46.3) H 09/15/19 19:41 RDW Coeff of Jaclyn 18.1 % (11.5-14.5) H 09/15/19 19:41 Plt Count 6 K/uL (130-400) L* 09/15/19 19:41 Absolute Nucleated RBC 0.02 K/uL (0-0) H 09/15/19 19:41 Nucleated RBC % (auto) 0.1 % 09/15/19 19:41 Neutrophils % (Manual) 70.1 % 09/15/19 19:41 Lymphocytes % (Manual) 8.8 % 09/15/19 19:41 Monocytes % (Manual) 6.1 % 09/15/19 19:41 Eosinophils % (Manual) 12.3 % 09/15/19 19:41 Basophils % (Manual) 0.9 % 09/15/19 19:41 Myelocytes % (Man) 1.8 % 09/15/19 19:41 Neutrophils # (Manual) 8.45 K/uL (1.4-6.5) H 09/15/19 19:41 Total Absolute Neuts 8.45 K/uL (1.4-6.5) H 09/15/19 19:41 Lymphocytes # (Manual) 1.06 K/uL (1.2-3.4) L 09/15/19 19:41 Monocytes # (Manual) 0.74 K/uL (0.11-0.59) H 09/15/19 19:41 Eosinophils # (Manual) 1.48 K/uL (0-0.5) H 09/15/19 19:41 Basophils # (Manual) 0.11 K/uL (0-0.2) 09/15/19 19:41 Myelocytes # (Manual) 0.22 K/uL (0-0) H 09/15/19 19:41 Platelet Estimate SIGNIFIC DECREASED (Normal) 09/15/19 19:41 Tear Drop Cells 1+ 09/15/19 19:41 Ovalocytes 1+ 09/15/19 19:41 PT 18.7 Seconds (9.0-12.0) H 09/15/19 19:41 INR 1.9 (0.9-1.1) H 09/15/19 19:41 Fibrinogen 309 mg/dl (184-400) 09/15/19 21:27 Fibrin Degrad Products 10-40 mcg/ml (<10) H 09/15/19 21:27 D-Dimer > 28456 ug/L FEU (0-500) H* 09/15/19 21:27 Sodium 131 mmol/L (136-145) L 09/15/19 19:41 Potassium 4.0 mmol/L (3.5-5.1) 09/15/19 19:41 Chloride 100 mmol/L (98-107) 09/15/19 19:41 Carbon Dioxide 24 mmol/L (21-32) 09/15/19 19:41 Anion Gap 7.0 (3-11) 09/15/19 19:41 BUN 15 mg/dl (7-18) 09/15/19 19:41 Creatinine 1.34 mg/dl (0.6-1.4) 09/15/19 19:41 Est Cr Clr Drug Dosing 83.7 ml/min 09/15/19 19:41 Est GFR ( Amer) 75.7 09/15/19 19:41 Est GFR (Non-Af Amer) 65.3 09/15/19 19:41 BUN/Creatinine Ratio 11.2 (10-20) 09/15/19 19:41 Glucose 92 mg/dl (70-99) 09/15/19 19:41 Lactate 1.1 mmol/L (0.4-2.0) 09/15/19 21:27 Calcium 8.1 mg/dl (8.5-10.1) L 09/15/19 19:41 Phosphorus 2.9 mg/dl (2.5-4.9) 09/15/19 19:41 Magnesium 1.2 mg/dl (1.8-2.4) L 09/15/19 19:41 Total Bilirubin 1.2 mg/dl (0.2-1) H 09/15/19 19:41 Direct Bilirubin 0.8 mg/dl (0-0.2) H 09/15/19 19:41 AST 34 U/L (15-37) 09/15/19 19:41 ALT 21 U/L (12-78) 09/15/19 19:41 Alkaline Phosphatase 340 U/L (45-117) H 09/15/19 19:41 Lactate Dehydrogenase 372 U/L (87-241) H 09/15/19 21:27 Total Protein 5.7 gm/dl (6.4-8.2) L 09/15/19 19:41 Albumin 2.2 gm/dl (3.4-5.0) L 09/15/19 19:41 Globulin 3.5 gm/dl (2.5-4.0) 09/15/19 19:41 Albumin/Globulin Ratio 0.6 (0.9-2) L 09/15/19 19:41 Lipase 28 U/L (73-393) L 09/15/19 19:41 Blood Type A Negative 09/15/19 21:27 Blood Type Recheck A Negative 09/15/19 21:39 Antibody Screen NEGATIVE 09/15/19 21:27 Diagnostic Findings [facility], [place] [phone] CT Scan Report Patient: REE FIGUEROA Date: 09/15/19 MR#: [id number]: 68 [facility] Acct ID:[id number]: [address] [facility] 1980[facility] [place] [address] Age: 39Location: ED Sex: M Room/Bed: Att Phy:Diagnosis: GUMS BLEEDING, CEMO, COUGH LOW COUNT PLATELET Destiny Phy: Miracle Angelo, DOService Date: 09/15/19 Fam Phy:Interpreting Phy: Sohail Pickett MD Admit Phy: Ordering Phy: Lex James M.D. cc: ~ ABDOMEN AND PELVIS CT WITH IV CONTRAST CT DOSE: 731.61 mGy.cm HISTORY: Generalized abdominal pain, swelling, metastatic cancer TECHNIQUE: Multiaxial CT images of the abdomen and pelvis were performed following the use of intravenous contrast. A dose lowering technique was utilized adhering to the principles of ALARA. COMPARISON STUDY: Abdomen and pelvis CT 08/31/2019. FINDINGS: Diffuse pleural nodularity as well as multiple pulmonary nodules consistent with metastatic disease. Small bilateral pleural effusions and a small pericardial effusion persists. Interstitial thickening within the base of the right lower lobe may represent lymphangitic spread of tumor. No pneumoperitoneum. No pneumatosis. No suspicious lytic are blastic osseous lesions. Necrotic anterior diaphragmatic implants are again noted. Multiple hepatic masses consistent with metastatic disease. There is also subcapsular and perihepatic metastatic implants. The dominant hepatic lesion measures 16 cm. This is similar to the prior study. Small amount of sludge within the gallbladde r. Geographic hypodense areas within the spleen likely represent splenic infarcts. This is similar to the prior study. The spleen remains mildly enlarged. The right kidney enhances normally. There are 2 hypodense foci within the left kidney which are new from the prior study and favor renal infarcts. Necrotic periportal lymphadenopathy persists. Small amount of ascites has progressed. The bladder is unremarkable. A few scattered omental and peritoneal metastatic implants are again noted. This is similar to the prior study. Dominant metastatic deposit along the right deep pelvis measures 2.4 cm. There is also a metastatic focus deep to the umbilicus. There is diffuse moderate body wall edema which has progressed. The main portal vein is patent. The aorta, IVC, and iliac vessels are also patent. No bowel wall thickening or obstruction. IMPRESSION: 1. Redemonstration of extensive metastatic disease seen within the chest, abdomen, pelvis as described above. This is similar to the prior study. 2. 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 3. There are 2 new hypodense foci within the left kidney consistent with renal infarcts. 4. Stable small bilateral pleural effusions and a small pericardial effusion. 5. Interval progression of the moderate body wall edema and small amount of ascites. ACT 112: Negative or not required by law. Electronically signed by: Sohail Pickett M.D. 09/15/2019 8:53 PM Dictated: 09/15/192044 Transcribed: 09/15/192044 Code Status & VTE Plan Code Status Full code VTE Prophylaxis Plan VTE Prophylaxis will be ordered: Yes PG Care Time/CCT Total # of Minutes Spent Total Time Spent with Patient: Total time spent is greater than 50% in coordination of care (as documented) at patient's floor/unit and/or counseling patient: Coding Level of Care Code 40268 Initial Inpt Care Lvl 3 Diagnoses Bleeding gums K06.8 Thrombocytopenia D69.6 Anemia D64.9 Anemia type: unspecified type Cholangiocarcinoma of liver C22.1 Metastatic disease C79.9 On palliative antineoplastic chemotherapy Z79.899 Anasarca R60.1 Pleural effusion, bilateral J90 Ascites R18.8 Ascites type: other type History of pulmonary embolism Z86.711 History of DVT (deep vein thrombosis) Z86.718 Upper respiratory infection J06.9 Hypomagnesemia E83.42 (1) Ascites Ascites type: other type Qualified Code(s): R18.8 - Other ascites (2) Anemia Anemia type: unspecified type Qualified Code(s): D64.9 - Anemia, unspecified
[2019-09-16] MEDS ORDERED: ALBUT/IPRATROP 3MG/0.5MG NEB 3 ML VIAL NEB PRN (00:17)
[2019-09-16] MEDS ORDERED: PROCHLORPERAZINE MALEATE 10 MG TAB PO PRN (00:17)
[2019-09-16] MEDS ORDERED: MoRPHine SULFATE IR 15 MG TAB (IMMEDIATE RELEASE) PO PRN (00:17)
[2019-09-16] MEDS ORDERED: MAGNESIUM HYDROXIDE SUSP 30 ML UDC PO PRN (00:17)
[2019-09-16] MEDS ORDERED: MIRTAZAPINE TAB 15 MG TAB PO PRN (00:17)
[2019-09-16] MEDS ORDERED: ONDANSETRON INJ 2 MG/ML 2 ML VIAL IV PRN (00:17)
[2019-09-16] MEDS ORDERED: ACETAMINOPHEN 325 MG TAB PO PRN (00:17)
[2019-09-16] MEDS ORDERED: POLYETHYLENE (MIRALAX) 17 GM PACK PO PRN (00:17)
[2019-09-16] MEDS ORDERED: ALUMINUM/MAGNESIUM SUSP 30 ML UDC PO PRN (00:17)
[2019-09-16] MEDS ORDERED: MoRPHine SULFATE 4 MG/ML 1 ML CARP\\VIAL IV PRN (00:38)
[2019-09-16] MEDS ORDERED: MEDICAL MARIJUANA PO PRN (00:56)
[2019-09-16] MEDS ORDERED: ONDANSETRON 4 MG OD TAB PO PRN (00:57)
[2019-09-16] MEDS ORDERED: LEVOFLOXACIN/D5W 500 MG/100 ML BAG IV SCH (01:00)
[2019-09-16] MEDS: MoRPHine SULFATE 4 MG/ML 1 ML CARP\\VIAL IV PRN ×4 (01:10→11:22)
[2019-09-16] MEDS: MAGNESIUM SULFATE / D5W 1 GM/100 ML BAG IV SCH ×2 (01:13→03:26)
[2019-09-16] MEDS: METHADONE HCL 5 MG TAB PO SCH ×2 (01:13→08:03)
[2019-09-16] MEDS ORDERED: clonazePAM 1 MG TAB PO STA (01:22)
[2019-09-16] MEDS: DOCUSATE SODIUM 100 MG CAP PO SCH ×2 (01:35→08:04)
[2019-09-16] MEDS: ALBUMIN 25% 50 ML IV SCH ×3 (01:36→08:09)
[2019-09-16] MEDS ORDERED: SODIUM CHLORIDE 0.9% 250 ML IV PRN ×2 (01:53→07:33)
[2019-09-16 06:37] LABS: INR 1.6 (0.9-1.1); Prothrombin Time 16.1 Seconds (9.0-12.0)
[2019-09-16 06:47] LABS: Hematocrit (blood only) 20.1 % (42-52); Hemoglobin 6.4 g/dL (14.0-18.0); Mean Corpuscular Hemoglobin 28.3 pg (25-34); Mean Corpuscular Hgb Conc 31.8 g/dL (32-36); Mean Corpuscular Volume 88.9 fL (80-100); Platelet Count 38 K/uL (130-400); RDW Coefficient of Variation 18.2 % (11.5-14.5); Red Blood Count 2.26 M/uL (4.7-6.1); White Blood Count 9.09 K/uL (4.8-10.8)
[2019-09-16 06:48] LABS: ANC (manual) 7.83 K/uL (1.4-6.5); Eosinophils # (manual) 0.55 K/uL (0-0.5); Eosinophils % (manual) 6.1 %; Lymphocytes # (manual) 0.32 K/uL (1.2-3.4); Lymphocytes % (manual) 3.5 %; Monocytes # (manual) 0.39 K/uL (0.11-0.59); Monocytes % (manual) 4.3 %; Neutrophils # (manual) 7.83 K/uL (1.4-6.5); Neutrophils % (manual) 86.1 %; Platelet Estimate SIGNIFIC DECREASED (Normal)
[2019-09-16 07:00] LABS: Appearance Urine Clear (Clear); Bilirubin Urine Negative (Negative); Blood Urine Negative (Negative); Color Urine Dark Yellow; Glucose Urine UA Negative (Negative); Ketones Urine Negative (Negative); Leukocyte Esterase Urine Negative (Negative); Nitrite Urine Negative (Negative); Protein Urine Negative (Negative); Specific Gravity Urine 1.033 (1.000-1.030); Urobilinogen Urine Negative (Negative); pH Urine 5.5 (4.5-7.5)
[2019-09-16 07:06] LABS: Albumin Level 2.3 gm/dl (3.4-5.0); BUN Creatinine Ratio 10.3 (10-20); Calcium 7.9 mg/dl (8.5-10.1); Creatinine Clr Calc Pharmacy 99.3 ml/min; Est GFR (African American) 93.1; Est GFR (Non-African American) 80.3; Potassium 3.8 mmol/L (3.5-5.1)
[2019-09-16 07:07] LABS: Phosphorus 2.9 mg/dl (2.5-4.9)
[2019-09-16] MEDS ORDERED: ONDANSETRON INJ 2 MG/ML 2 ML VIAL IV STA (07:57)
[2019-09-16] MEDS ORDERED: RIVAROXABAN 10 MG TABLET PO SCH (09:00)
[2019-09-16] MEDS ORDERED: METHYLPHENIDATE HCL 5 MG TABLET PO SCH (09:00)
[2019-09-16] MEDS: clonazePAM 1 MG TAB PO SCH ×2 (09:08→13:00)
[2019-09-16] MEDS ORDERED: HEPARIN 100 UNIT/ML 5ML FLUSH FLUSH PRN (11:53)
--- NOTE | 2019-09-16 12:40 | Consultation Report ---
DATE OF CONSULTATION: 09/16/2019 REASON FOR CONSULTATION: Severe anemia/thrombocytopenia in a 39-year-old gentleman with metastatic cholangiocarcinoma. HISTORY OF PRESENT ILLNESS: Mr. Quesada is a 39-year-old gentleman well known to [facility] currently under my care for metastatic cholangiocarcinoma. He had presented to the Emergency Room last night after complaining of gingival bleeding. Apparently had fractured a tooth which resulted in profound hemorrhage. On admission, his platelet count measured 6000, hemoglobin 7.7 grams per deciliter. This very unfortunate gentleman was diagnosed with metastatic cholangiocarcinoma in 04/2019 via formal biopsy of the liver. He was subsequently started on combination cisplatin and gemcitabine for which he continues today. His last dose of chemotherapy was administered on 09/08/2019 and due for his next cycle on 09/22/2019. Overall, the patient has been holding his own despite admitting poor appetite and global abdominal pain. He now follows with Dr. Cotto, utilizes morphine and methadone for pain control. CT scan of the abdomen and pelvis done on admission reveals redemonstration of extensive metastatic disease within the chest, abdomen and pelvis, similar to prior study done in mid-August. There are 2 new hypodense foci within the left kidney consistent with renal infarcts. Interval progression of moderate body wall edema and a small amount of ascites. Besides the anemia and thrombocytopenia Edmariangel's main complaint is increased abdominal girth and fullness. We will have the hospitalist service look into ultrasound and possible paracentesis before discharge. He reports no fever or chills. PAST MEDICAL HISTORY: Metastatic cholangiocarcinoma, pulmonary embolism, electrolyte dysfunction, pleural effusion and anasarca. Cytopenias attributable to chemotherapy. MEDICATIONS: Methadone 20 mg p.o. b.i.d., Zofran 4 mg p.o. t.i.d. p.r.n. medical marijuana, Colace 100 mg p.o. b.i.d., mirtazapine 15 mg p.o. at bedtime p.r.n., morphine 15 mg p.o. q. 4 hours p.r.n., clonazepam 1 mg p.o. t.i.d., Ritalin 2.5 mg p.o. b.i.d., MiraLax 17 grams p.o. as needed, Xarelto 10 mg p.o. b.i.d. SOCIAL HISTORY: The patient lives with his parents. 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 Current every day smoker, 20 per day. Negative for alcohol or illicit drugs. FAMILY HISTORY: Noncontributory. REVIEW OF SYSTEMS: Most notably for anorexia, abdominal fullness. GENERAL: Negative for fevers, chills or sweats. SKIN: No rashes or lesions. No history of dermatoses. HEENT: Denies headaches, lightheadedness or dizziness. No acute visual or hearing deficits. No sinus symptoms, sore throat or dysphagia. LYMPH: No history of lymphoproliferative disease. CARDIAC: No history of angina or palpitations. PULMONARY: Negative for COPD, previous history of pleural effusion. He is not acutely short of breath or dyspneic on exertion. GASTROINTESTINAL: Positive for intermittent constipation. Positive for increased abdominal fullness and discomfort, intrahepatic cholangiocarcinoma. GENITOURINARY: No hematuria, dysuria, urinary incontinence. PSYCHIATRIC: Positive for anxiety (situational). ENDOCRINE: Negative for diabetes or thyroid disease. MUSCULOSKELETAL: No arthralgias or myalgias. No focal muscle weakness. ENDOCRINE: Negative for diabetes or thyroid disease. NEUROLOGIC: Negative for seizure, stroke, or migraine headache. HEMATOLOGIC: Positive for severe anemia, thrombocytopenia attributable to chemotherapy. PHYSICAL EXAMINATION: GENERAL: A very pleasant unfortunate 39-year-old gentleman, awake, alert and appropriate, in no acute distress. VITAL SIGNS: Temperature 36.6, pulse 94, respiratory rate 16, blood pressure 135/89. SKIN: Warm, dry, noncyanotic without petechia, rash or ecchymosis. HEENT: Head is atraumatic, normocephalic. Eyes: PERRLA, EOMI. Sclerae nonicteric. No conjunctival injection. Nares are patent without rhinorrhea or discharge. Throat is clear. Tongue is midline. Mucous membranes are moist. NECK: Supple without JVD or thyromegaly. LYMPHATICS: No cervical or supraclavicular palpable nodes. HEART: Regular rate and rhythm. No clicks, rubs, murmurs or gallops. LUNGS: Clear to auscultation bilaterally. ABDOMEN: Mildly distended, non-tympanic. No rigidity or guarding. Bowel sounds hypoactive. EXTREMITIES: Trace peripheral edema bilateral lower extremities. Pulses and strength are equal in all 4 quadrants. NEUROLOGICALLY: He is awake, alert and oriented x3. Cranial nerves are grossly intact. LABORATORY DATA: WBC count 9090, hemoglobin 6.4, platelet count 38,000. PT 16.1 seconds, INR 1.6. D-dimer increased 35,200. Sodium 131, potassium 3.8, chloride 100, carbon dioxide 24, creatinine 1.13, BUN 12, total bilirubin 1.2, direct bilirubin 0.8, alkaline phosphatase 340, LDH 372, albumin 2.3. IMPRESSION: 1. Severe thrombocytopenia. 2. Severe anemia, both attributable to chemotherapy. 3. Metastatic cholangiocarcinoma. 4. Abdominal fullness/ascites. 5. Hypoalbuminemia. 6. Coagulopathy. 7. Intractable pain attributable to metastatic disease. PLAN: Mr. Quesada is a very pleasant unfortunate 39-year-old gentleman diagnosed with metastatic cholangiocarcinoma in April of 2019. He has continued combination gemcitabine and cisplatin, last given on 09/08/2019. Apparently broke a tooth off which resulted in significant bleed prompting a visit to the Emergency Room. I was contacted by the Emergency Room doctor and recommended admission for transfusion of platelets. The patient's hemoglobin is quite low as well and receiving 2 units of packed RBCs this morning. He has also been given IV albumin for which I agree. I asked the hospitalist service to perhaps check an ultrasound of the abdomen to see if there is any fluid that could be removed strictly for palliation at this point. I suspect, however radiology will defer because of his coagulopathy and low platelets. The patient follows with Dr. Cotto for pain control, specifically recently started on methadone in addition to morphine. Overall, his pain seems to be reasonably well controlled. Unfortunately, his nutritional status is not the best and really not sure if we can do anything other than what has already been done to improve his appetite. His prognosis is exceedingly poor. However, CT scan of the abdomen and pelvis done on admission reveals relatively stable disease; however, he is almost done with his full complement of chemotherapy and I suspect his disease will progress rapidly thereafter. Mr. Quesada is aware of his prognosis and has accepted the terminality of his disease. Will continue to follow periodically, but I anticipate he will be discharged within the next 24-48 hours if medically stable.
[2019-09-16 14:54] LABS: Hematocrit (blood only) 25.6 % (42-52); Hemoglobin 8.5 g/dL (14.0-18.0)
[2019-09-16 15:53] VITALS: BP 145/85; TEMP 97.3; O2SAT 95
[2019-09-16 15:56] VITALS: PULSE 91
--- NOTE | 2019-09-16 16:34 | Discharge Summary ---
Date of Service September 16, 2019 Admission HPI Per Admitting Provider The patient is a 39-year-old male with a past medical history including gallbladder cancer, history of PE and DVT, cholangiocarcinoma of liver, situational anxiety, pulmonary nodules, bilateral pleural effusion, gout, hy pertension, ascites, on palliative antineoplastic chemotherapy. The patient presents with 1 day history of gum bleeding, and laboratory work-up in the ED revealed a platelet count of 6 and hemoglobin of 7.7. Patient will be admitted for transfusions and assessment by oncology. Patient also does report some chest congestion along with shortness of breath. He reports that it is difficult to cough any secretions up. Principal Diagnosis Severe thrombocytopenia Discharge Exam Constitutional well developed, + ill appearing, + frail appearing and comfortable; no acute distress Eyes PERRL, conjunctivae normal, anicteric sclerae ENMT external ear and nose normal, oropharynx normal Neck trachea midline, no thyromegaly Respiratory normal respiratory effort, lungs clear to auscultation Cardiovascular RRR, no murmur, no edema Gastrointestinal (Abdomen) Inspection/Auscultation: + abdomen distended and normal bowel sounds Percussion/Palpation: abdomen soft, + hepatomegaly, + ascites and + fluid wave; abdomen nontender Musculoskeletal no cyanosis or clubbing, extremities motor strength 5/5 Skin no rashes, warm and dry Neurologic patellar DTR's 2+ bilat, sensation intact and PERRL, EOMI, accommodation nl, no face palsy, no dysarthria Psychiatric Orientation: alert and oriented x 3 Affect: + depressed affect Lymphatic no cervical or axillary lymphadenopathy Discharge Data Allergies Allergy/AdvReac Type Severity Reaction Status Date / Time aprepitant [From Emend] Allergy Severe Anaphylaxis Verified 09/15/19 20:06 fosaprepitant [From Emend] Allergy Severe Anaphylaxis Verified 09/15/19 20:06 Consultations 09/15/19 21:09 ED Decision to Admit Stat 09/16/19 00:17 Consult Hematology Routine Ordered Studies 09/15/19 19:26 CT abd pelvis IV con only Stat Hospital Course (1) Bleeding gums: Secondary to thrombocytopenia which was most likely related to chemotherapy severely low on admission, now up to 38 after transfusion no further bleeding he will monitor for any further bleeding at home (2) Thrombocytopenia: Platelet count 6 upon admission, up to 38 after three units of platelets no further bleeding repeat CBC on 09/[address] He (3) Anemia: Hemoglobin 7.7 upon admission, dropped to 6.6 in the morning transfused two units of PRBC, Hb up to > 8 on discharge, he feels well, no light headedness CBC on Tuesday 09/19 (4) Cholangiocarcinoma of liver: Metastatic cholangiocarcinoma of liver, on palliative antineoplastic chemotherapy. he is scheduled for further chemotherapy on 09/21 he will get CBC prior to treatment and will follow up with Dr. He discussed with Dr. He, his disease is advanced, has been slowed by chemotherap y but the chemo is effecting his quality of life (5) Metastatic disease: See above (6) On palliative antineoplastic chemotherapy: See above (7) Anasarca: Patient with worsening edema. Blood pressure always low normal given albumin 25 g IV every 4 hours x3 doses on admission (8) Pleural effusion, bilateral: See above (9) Ascites: some discomfort associated with fluid Dr. He recommends therapeutic paracentesis d/w radiology, cannot perform paracentesis with platelets < 50k also, his last dose of Xarelto was < 48 hours prior so that also rules out paracentesis this admission discussed stay another day in hospital but patient not interested, pain is not that bad he says plan to try to arrange for paracentesis on 09/21 will check CBC prior to make sure platelets > 50k will instruct patient to hold Xarelto after evening dose on 09/18 (10) History of pulmonary embolism: History of pulmonary emboli and DVT- On Xarelto twice daily Xarelto was held on admission due to bleeding gums and thrombocytopenia can resume on 09/17 if there is no bleeding, should then hold after evening dose on 09/18 in anticipation of possible paracentesis on 09/21 (11) History of DVT (deep vein thrombosis): See above (12) Upper respiratory infection: Placed on Levaquin IV. (13) Hypomagnesemia: Magnesium level 1.2 upon admission. We will get 4 g of mag sulfate IV total, and then repeat labs in the a.m. Total Time Total Time Spent Total Time Spent (In Minutes): 38 minutes Total Time Includes: Examination of the Patient, Discharge Planning, Medication Reconciliation, Communication With Other Providers (Dr. He, Dr. Pickett in radiology) and Other (coordinating paracentesis, discussing with nurse navigator) Discharge Plan Discharge Items Patient Disposition: Home - Self-Care Reason For Visit: THROMBOCYTOPENIA POST CHEMO, GUM BLEEDING Discharge Diagnosis: Thrombocytopenia Anemia Cholangiocarcinoma Condition on Discharge: Fair Goals: follow up CBC on Tuesday 09/19 follow up for paracentesis on 09/21, will arrange Activity: Resume your previous activity Non-emergency contact: Primary Care Provider and Oncologist Call non-emergency contact if: you have any medication questions, your symptoms worsen and you have a fever Follow-up/Referrals: Miracle Angelo DO [Primary Care Provider] - 09/23/19 1:40 pm (Follow up with TONY Kaiser) Diet: Regular Addtl Attending Provider Instructions: Medications: - LEVOFLOXACIN: for suspected upper respiratory infection, complete 4 more days - XARELTO: please continue to hold today and tomorrow, if no bleeding gums then resume on Friday plan to take and Friday but then recommend that you hold starting Friday morning in anticipation of getting paracentesis on 09/21 Thrombocytopenia and anemia due to chemotherapy platelets up to 38 and hemoglobin up to 8.5 after transfusions will give you script for labs on Friday, can be drawn at [facility] site results will go to Dr. He Ascites due to malignancy platelets too low for tap and radiology would want you off of Xarelto for two days will plan to coordinate tap next Thursday 09/21 my nurse navigator will work on arranging this, we will call you once it can be scheduled will call you with specific instructions Pending Studies at Discharge: No Stand-Alone Forms: [facility], Smoking Cessation Medications and DC Order Prescriptions: Continued clonazepam [Klonopin] 1 mg tablet 1 mg PO TID Qty: 90 RF: 0 prochlorperazine maleate [Compazine] 10 mg Tablet 10 mg PO DIRECTED PRN (Reason: Nausea) RF: 0 methadone 5 mg tablet 20 mg PO BID RF: 0 ondansetron HCl 4 mg tablet 4 mg PO TID PRN (Reason: Nausea And Vomiting) RF: 0 methylphenidate HCl [Ritalin] 5 mg tablet 2.5 mg PO BID RF: 0 Xarelto 10 mg Tablet 10 mg PO BID RF: 0 polyethylene glycol 3350 [Miralax] 17 gram powder in packet 17 g PO DAILY PRN (Reason: Constipation) RF: 0 docusate sodium [Colace] 100 mg capsule 100 mg PO BID RF: 0 Medical Marijuana 1 dose PO DIRECTED RF: 0 mirtazapine 15 mg tablet 15 mg PO HS PRN (Reason: Sleep) RF: 0 morphine 15 mg tablet 15 mg PO Q4H PRN (Reason: Pain) RF: 0 Discharge Orders: Discharge Order (Routine); Ordered 09/16/19 Ordered By: Romario Hoffman Admission Data Admit Date/Time: 09/15/19 23:02 Attending Provider: Romario Hoffman Admit Provider: Addy Arroyo Primary Care Provider: Miracle Angelo Other Providers: Addy Arroyo ; Gomez He V. Other Interventions: Discharge Summary Assessment (RN) Last Done: 09/16/19 15:54 DC Date/Time DO NOT enter until pt leaves facility: 09/16/19 16:44 Coding Level of Care Code D/C Day Management >30 mins Diagnoses Bleeding gums K06.8 Thrombocytopenia D69.6 Anemia D64.9 Anemia type: unspecified type Cholangiocarcinoma of liver C22.1 Metastatic disease C79.9 On palliative antineoplastic chemotherapy Z79.899 Anasarca R60.1 Pleural effusion, bilateral J90 Ascites R18.8 Ascites type: other type History of pulmonary embolism Z86.711 History of DVT (deep vein thrombosis) Z86.718 Upper respiratory infection J06.9 Hypomagnesemia E83.42
[2019-09-16] MEDS ORDERED: levoFLOXacin 500 MG TAB PO SCH (21:00)
== END 2019-09-16 16:44 | disposition home or self-care (01) | DRG 813 ==
LOC: ED 18:50 → 2N 23:02 → SUATTDRO 23:02 → 2N 23:58

== ENCOUNTER 2019-09-26 08:42 | Observation (INO) ==
[2019-09-26] MEDS ORDERED: OR MISCELLANEOUS MED ONE (09:24)
[2019-09-26] MEDS ORDERED: ONDANSETRON INJ 2 MG/ML 2 ML VIAL IV STA (09:24)
--- NOTE | 2019-09-26 09:31 | Emergency Department Note ---
History of Present Illness General Chief complaint: Illness Stated complaint: SOB, COUGH, VOMITING- CANCER PT Time Seen by Provider: 09/26/19 09:13 Source: patient Mode of arrival: wheelchair Limitations: physical limitation History of Present Illness Maximum Pain Intensity: 5 This is a 39-year-old male who presents to the ED with a chief complaint of chronic nausea and 3 acute episodes of vomiting this morning. He states that his symptoms started around 6:15 AM. He states that he tried some Zofran for the symptoms. The patient also complains of a cough that he has had for a few weeks. He is completed a course of Levaquin less than a week ago. The patient is on Xarelto chronically for a history of PE that was diagnosed back in April when he was also diagnosed with gallbladder cancer with mets. The patient states that he seems to be okay at rest but has shortness of breath and exhaustion with activity. He feels this is secondary to increased ascites and fluid overload. He is unable to have a paracentesis because his platelet count has been low. He did have a blood transfusion and platelets a week ago. The patient symptoms are mild to moderate. He denies any fevers or recent illness. Home Medications Home Medications Medication Instructions Recorded Confirmed Type methadone 20 mg PO BID 05/28/19 09/26/19 History ondansetron HCl 4 mg PO TID PRN 05/28/19 09/26/19 History prochlorperazine maleate 10 mg PO DIRECTED PRN 05/28/19 09/26/19 History [Compazine] Medical Marijuana 1 dose PO DIRECTED 06/09/19 09/26/19 History docusate sodium [Colace] 100 mg PO BID 06/09/19 09/26/19 History mirtazapine 15 mg PO HS PRN 07/11/19 09/26/19 History morphine 15 mg PO Q4H PRN 07/11/19 09/26/19 History clonazepam 1 mg tablet 1 mg PO TID #90 tab 09/03/19 09/26/19 Rx Xarelto 10 mg PO BID 09/15/19 09/26/19 History methylphenidate HCl [Ritalin] 2.5 mg PO BID 09/15/19 09/26/19 History polyethylene glycol 3350 [Miralax] 17 g PO DAILY PRN 09/15/19 09/26/19 History Allergies Allergy/AdvReac Type Severity Reaction Status Date / Time aprepitant [From Emend] Allergy Severe Anaphylaxis Verified 09/26/19 09:48 fosaprepitant [From Emend] Allergy Severe Anaphylaxis Verified 09/26/19 09:48 Past Med/Surg History Medical History Acute DVT (deep venous thrombosis) (Resolved) Adrenal nodule Cancer of gallbladder Cancer related pain Cholangiocarcinoma of liver (Acute) DVT (deep venous thrombosis) Hemorrhoid History of DVT (deep vein thrombosis) History of pulmonary embolism HTN (hypertension) Microcytic anemia Pleural effusion, bilateral Pulmonary emboli (Resolved) Pulmonary nodules Rectal bleeding (Resolved) Situational anxiety Surgical History H/O colonoscopy egd/colonoscopy 05/03/2019. no issues with MAC. History of esophagogastroduodenoscopy (EGD) Family History Aunt Breast cancer Uncle Cancer Aunt Colorectal cancer Uncle Cancer Grandmother (Paternal) Throat cancer Mother Family history of cervical cancer Other No significant active problems Denies family history of Ovarian cancer Prostate cancer Myocardial infarction Social History Preferred Language: [place] Communication Ability: Effective Visual Impairment: No Limitations Hearing Ability: Normal Utility Porter Required: No Beliefs That Will Affect Care: None marital status: Single Current Living Situation: Parent Current Living Situation Comment: Lives with parent(s) current occupational status: 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 Feels Safe at Home: Yes Smoking Status: Current every day smoker Tobacco Type: cigarettes ; Cigarettes Per Day: 20 ; Second Hand Exposure: No ; Hx Alcohol Use: No Hx Substance Use: No Childhood Exposure to Second-Hand Smoke: Yes Diet Comment: regular caffeine: No during the past year weight has: decreased > 10 lbs Dental Care, Regularly: No Physical Activity Frequency: Does not Exercise Seatbelt Use: always Sunscreen Use: No Do you think of yourself as: lesbian/todd/homosexual Sexual Activity: has been sexually active, but not for at least 12 months Review of Systems A total of 10 systems reviewed and were otherwise negative Physical Exam Vital Signs Vital Signs - 24 hr 09/26/19 08:52 Temperature 37.0 C Temperature Source Oral Pulse Rate 68 Respiratory Rate 20 Respiratory Effort / Characteristics Non-Labored Spontaneous Respiratory Depth Normal Respiratory Pattern Regular Blood Pressure 114/73 Blood Pressure Mean 86 Pulse Oximetry 97 Oxygen Delivery Method Room Air Sepsis Recent Fever Within 48 Hours No Sepsis Action Taken by Nursing No Action Required CONSTITUTIONAL/VITAL SIGNS: Reviewed / noted above. GENERAL: Non-toxic in appearance. INTEGUMENTARY: Warm, dry, and [place]. HEAD: Normocephalic. EYES: without scleral icterus or trauma. ENT/OROPHARYNX: clear and moist. LYMPHADENOPATHY/NECK: Is supple without lymphadenopathy or meningismus. RESPIRATORY: Lungs clear and equal. Diminished in the bases. No increased work of breathing or respiratory distress. CARDIOVASCULAR: Regular rate and rhythm. GI/ABDOMEN: Soft and nontender. No organomegaly or pulsatile mass. No rebound or guarding. Normal bowel sounds. Abdomen is slightly distended. EXTREMITIES: Warm and well perfused. Positive pedal edema. BACK: No CVA tenderness. NEUROLOGICAL: Intact without focal deficits. PSYCHIATRIC: normal affect. MUSCULOSKELETAL: Normally developed with good muscle tone. TRIAGE NURSING DOCUMENTATION REVIEWED. Course Administered Medications Discontinued Medications Ondansetron HCl (Zofran) 4 mg IV NOW STA Stop: 09/26/19 09:25 Last Admin: 09/26/19 10:29 Dose: 4 mg Documented by: [id number] Medical Decision Making Differential Diagnosis Differential includes acute coronary syndrome, myocardial infarction, CVA, TIA, anemia, infection, pneumonia, UTI, pyelonephritis, poor nutrition, dehydration, electrolyte disturbance,hypoglycemia. Medical Records Attestation: I reviewed the patient's medical records. Home Medications Current Medication List: was personally reviewed by me Laboratory Data Attestation: I reviewed the patient's lab results. Result diagrams: 09/26/19 09:55 09/26/19 09:55 Lab Results 09/26/19 09/26/19 09/26/19 Range/Units 09:55 09:55 09:55 WBC 17.39 H (4.8-10.8) K/uL RBC 3.03 L (4.7-6.1) M/uL Hgb 9.2 L (14.0-18.0) g/dL Hct 28.4 L (42-52) % MCV 93.7 (80-100) fL MCH 30.4 (25-34) pg MCHC 32.4 (32-36) g/dL RDW Std Deviation 67.2 H (36.4-46.3) fL RDW Coeff of Jaclyn 20.0 H (11.5-14.5) % Plt Count 31 L (130-400) K/uL Neutrophils % (Manual) 74.9 % Lymphocytes % (Manual) 6.9 % Prolymphocyte % 0.0 % Monocytes % (Manual) 5.2 % Eosinophils % (Manual) 7.8 % Metamyelocytes % (Man) 0.9 % Myelocytes % (Man) 4.3 % Plasma Cell % (Manual) 0.0 % Neutrophils # (Manual) 13.03 H (1.4-6.5) K/uL Total Absolute Neuts 13.03 H (1.4-6.5) K/uL Lymphocytes # (Manual) 1.20 (1.2-3.4) K/uL Total Abs Lymphocytes 1.20 (1.2-3.4) K/uL Monocytes # (Manual) 0.90 H (0.11-0.59) K/uL Eosinophils # (Manual) 1.36 H (0-0.5) K/uL Metamyelocytes # (Man) 0.16 H (0-0) K/uL Myelocytes # (Manual) 0.75 H (0-0) K/uL PT 22.8 H (9.0-12.0) Seconds INR 2.3 H (0.9-1.1) Sodium 129 L (136-145) mmol/L Potassium 4.3 (3.5-5.1) mmol/L Chloride 99 (98-107) mmol/L Carbon Dioxide 24 (21-32) mmol/L Anion Gap 6.0 (3-11) BUN 17 (7-18) mg/dl Creatinine 1.29 (0.6-1.4) mg/dl Est Cr Clr Drug Dosing 85.2 ml/min Est GFR ( Amer) 79.3 Est GFR (Non-Af Amer) 68.4 BUN/Creatinine Ratio 13.0 (10-20) Glucose 97 (70-99) mg/dl Calcium 7.8 L (8.5-10.1) mg/dl Total Bilirubin 1.2 H (0.2-1) mg/dl AST 30 (15-37) U/L ALT 13 (12-78) U/L Alkaline Phosphatase 253 H (45-117) U/L Total Creatine Kinase 26 L (39-308) U/L Troponin I 0.046 H* (0-0.045) ng/ml Total Protein 5.4 L (6.4-8.2) gm/dl Albumin 2.0 L (3.4-5.0) gm/dl Globulin 3.4 (2.5-4.0) gm/dl Albumin/Globulin Ratio 0.6 L (0.9-2) Imaging Data Radiologist's Impression: XR chest 1V portable CLINICAL HISTORY: weakness COMPARISON STUDY: 08/31/2019 FINDINGS: The heart is at the upper limits of normal in size. There is a left subclavian A-Port catheter present. There are small bilateral pleural effusions. There are ill-defined bilateral pulmonary opacities. The findings are consistent with the patient's known metastatic disease. An element of superimposed mild pulmonary vascular congestion is suspected.[ IMPRESSION: 1. Persistent bilateral pleural effusions 2. Ill-defined bilateral pulmonary opacities consistent with the patient's known metastatic disease 3. Suspected mild superimposed pulmonary vascular congestion ECG Data Attestation: I personally reviewed and interpreted this ECG as follows: Indication: + SOB/dyspnea Rate (beats per minute): 103 Rhythm: + sinus tachycardia ECG Intervals/blocks: + Normal QT and + Normal QT-c ECG ST segments: no ST elevation ECG Findings: no PACs Blood Pressure Blood Pressure Findings: Normal blood pressure MDM Narrative This is a 39-year-old male who presents to the ED with a chief complaint of chronic nausea and 3 acute episodes of vomiting this morning. He states that his symptoms started around 6:15 AM. He states that he tried some Zofran for the symptoms. The patient also complains of a cough that he has had for a few weeks. He is completed a course of Levaquin less than a week ago. The patient is on Xarelto chronically for a history of PE that was diagnosed back in April when he was also diagnosed with gallbladder cancer with mets. The patient states that he seems to be okay at rest but has shortness of breath and exhaustion with activity. He feels this is secondary to increased ascites and fluid overload. He is unable to have a paracentesis because his platelet count has been low. He did have a blood transfusion and platelets a week ago. The patient symptoms are mild to moderate. He denies any fevers or recent illness. The patient's exam reveals some mild abdominal distention. Pedal edema is also noted. Diminished breath sounds are noted in the bases. Exam is otherwise unremarkable. He is in no distress. Vital signs are normal. The patient's white blood cell count is 17, platelet count 31, hemoglobin is 9.2. INR is 2.3. The patient is on Eliquis and not Coumadin. Sodium is 129. Troponin is elevated at 0.046. Calcium is low at 7.8 albumin is also low. Most of these laboratory abnormalities are chronic except for the troponin. The patient did have a chest x-ray that suggest some congestive heart failure. He was given an IV dose of Lasix here. He was also given an IV dose of morphine for chronic pain. The patient was told the results of the test. He will be seen by the hospitalist for further evaluation and care. Impression & Plan Exertional dyspnea, Metastatic cancer, Non-ST elevation (NSTEMI) myocardial infarction, CHF exacerbation Discharge Plan Visit Data Chief Complaint: Illness Stated Complaint: SOB, COUGH, VOMITING- CANCER PT ED Provider: Nabil Cuellar Discharge Problem: Exertional dyspnea, Metastatic cancer, Non-ST elevation (NSTEMI) myocardial infarction, CHF exacerbation Patient Disposition: Being Evaluated by Hospitalist Forms Stand Alone Forms: [facility] Prescriptions Prescriptions: No Action clonazepam [Klonopin] 1 mg tablet 1 mg PO TID Qty: 90 RF: 0 prochlorperazine maleate [Compazine] 10 mg Tablet 10 mg PO DIRECTED PRN (Reason: Nausea) RF: 0 methadone 5 mg tablet 20 mg PO BID RF: 0 ondansetron HCl 4 mg tablet 4 mg PO TID PRN (Reason: Nausea And Vomiting) RF: 0 methylphenidate HCl [Ritalin] 5 mg tablet 2.5 mg PO BID RF: 0 Xarelto 10 mg Tablet 10 mg PO BID RF: 0 polyethylene glycol 3350 [Miralax] 17 gram powder in packet 17 g PO DAILY PRN (Reason: Constipation) RF: 0 docusate sodium [Colace] 100 mg capsule 100 mg PO BID RF: 0 Medical Marijuana 1 dose PO DIRECTED RF: 0 mirtazapine 15 mg tablet 15 mg PO HS PRN (Reason: Sleep) RF: 0 morphine 15 mg tablet 15 mg PO Q4H PRN (Reason: Pain) RF: 0 Referrals Referrals: Miracle Angelo DO [Primary Care Provider] -
--- NOTE | 2019-09-26 09:50 | XRay Report ---
XR chest 1V portable CLINICAL HISTORY: weakness COMPARISON STUDY: 08/31/2019 FINDINGS: The heart is at the upper limits of normal in size. There is a left subclavian A-Port deyanira ter present. There are small bilateral pleural effusions. There are ill-defined bilateral pulmonary o pacities. The findings are consistent with the patient's known metastatic disease. An element of supe rimposed mild pulmonary vascular congestion is suspected.[ IMPRESSION: 1. Persistent bilateral pleural effusions 2. Ill-defined bilateral pulmonary opacities consistent with the patient's known metastatic disease 3. Suspected mild superimposed pulmonary vascular congestion ACT 112: Negative or not required by law. Electronically signed by: Gregory Miramontes M.D. 09/26/2019 9:49 AM
[2019-09-26 10:24] LABS: Mean Corpuscular Hgb Conc 32.4 g/dL (32-36)
[2019-09-26 10:32] LABS: INR 2.3 (0.9-1.1); Prothrombin Time 22.8 Seconds (9.0-12.0)
[2019-09-26 10:40] LABS: Calcium 7.8 mg/dl (8.5-10.1); Creatinine Clr Calc Pharmacy 85.2 ml/min; Est GFR (African American) 79.3; Est GFR (Non-African American) 68.4; Potassium 4.3 mmol/L (3.5-5.1)
[2019-09-26 10:49] LABS: Hematocrit (blood only) 28.4 % (42-52); Hemoglobin 9.2 g/dL (14.0-18.0); Mean Corpuscular Hemoglobin 30.4 pg (25-34); Mean Corpuscular Volume 93.7 fL (80-100); Platelet Count 31 K/uL (130-400); RDW Standard Deviation 67.2 fL (36.4-46.3); Red Blood Count 3.03 M/uL (4.7-6.1); White Blood Count 17.39 K/uL (4.8-10.8)
[2019-09-26 10:58] LABS: Albumin Globulin Ratio 0.6 (0.9-2); Bilirubin,Total 1.2 mg/dl (0.2-1); Globulin 3.4 gm/dl (2.5-4.0); Total Protein 5.4 gm/dl (6.4-8.2); Troponin I 0.046 ng/ml (0-0.045)
[2019-09-26 11:08] LABS: ANC (manual) 13.03 K/uL (1.4-6.5); Eosinophils # (manual) 1.36 K/uL (0-0.5); Eosinophils % (manual) 7.8 %; Lymphocytes % (manual) 6.9 %; Metamyelocytes # (manual) 0.16 K/uL (0-0); Metamyelocytes % (manual) 0.9 %; Monocytes % (manual) 5.2 %; Myelocytes # (manual) 0.75 K/uL (0-0); Myelocytes % (manual) 4.3 %; Neutrophils # (manual) 13.03 K/uL (1.4-6.5); Neutrophils % (manual) 74.9 %
[2019-09-26] MEDS ORDERED: FUROSEMIDE 40 MG/4 ML VIAL IV STA (11:18)
[2019-09-26] MEDS ORDERED: MoRPHine SULFATE 4 MG/ML 1 ML CARP\\VIAL IV STA (11:20)
--- NOTE | 2019-09-26 11:59 | History & Physical Report ---
Date of Service September 26, 2019 Assessment & Plan (1) Exertional dyspnea: Patient's mild worsening exertional dyspnea is likely multifactorial. Most concerning is significant third spacing of fluid with subsequent ascites, which I suspect may be responsible for most of his symptoms. Patient also has small pleural effusions, and previous CT scan showed innumerable pulmonary nodules that were concerning for metastasis. More remote CT scan 04/2019 showed extensive right-sided PE for which patient is being treated. (2) Ascites: Patient may do with paracentesis but platelet count remains low. Consideration of performing this procedure either in the hospital as an outpatient, possibly off of Xarelto with concomitant platelet transfusion lindsay- procedure.Will consult hematology to discuss possible options with thrombocytopenia. Patient was given 40 mg IV of Lasix emergency room, will continue to 20 mg every 12 hours although I suspect it may be of limited value with malignant ascites and very significant lower extremity edema. (3) History of pulmonary embolism: Patient is on Xarelto which we will continue for now. Will need to be off this 48 hours before any paracentesis. (4) Nausea & vomiting: Likely secondary to worsening of his metastatic disease. Will treat with IV Zofran and Compazine and start clear liquid diet, advance slowly as tolerate d. 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 Hematology consult as noted above. As patient continues to worsen, would consider palliative care consultation as the patient's prognosis is exceedingly poor. I did briefly discuss CODE STATUS, it sounds as if the patient is not been asked this before but asked to be full code which will be documented. (6) Troponin level elevated: This is likely cardiac strain secondary to multiple diagnoses as noted above. Continue to trend. Will hold off on any further treatment at this but if he does have an upward trend, will consider cardiology evaluation. History of Present Illness Primary Care Provider: Miracle Angelo DO This is a 39-year-old male with past medical history of widely metastatic cholangiocarcinoma, DVT/PE, recurrent ascites that presents today complaining of shortness of breath. Patient is noted by family and is good historian. Of note, patient was recently admitted here from with pancytopenia and worsening ascites. Patient was discharged after his a laboratory work improved. At the time he had shortness of breath and had been treated with 7 days of L evaquin for potential infection. Patient tells me that he finished Levaquin but did not feel much better. He is not short of breath at rest but notes dyspnea on exertion which seems to be worsening. He also notices worsening lower extremity edema along with increased abdominal girth. He has been afebrile and does not exhibit cough or sputum production. He does have some vague abdominal soreness which is chronic and no worse but denies any chest pain. Patient decided to come to the hospital today when he had worsening nausea with vomiting. He tells me that the nausea is chronic and he uses Compazine and Zofran with good results. However, he vomited 3 times earlier this morning which prompted his emergency room visit. He tells me the last meal he had was yesterday when he did see much that he was able to down. Patient recognizes that he likely needs paracentesis as this is helped the symptoms in the past. He has been limited from have been regularly secondary to a chronically low platelet count. He tells me his last paracentesis was on 23 May 2019. Today's platelet count is 31. Interventional radiology has noted previously that they concerned about paracentesis with a currently count below 50. Also of concern, patient is on Xarelto with recent diagnosis of PE in May 2019. Family evaluation, the patient does not appear to be in any acute cardiopulmonary distress. Vitals are stable with him on room air and O2 sat 98%. Allergies Allergy/AdvReac Type Severity Reaction Status Date / Time aprepitant [From Emend] Allergy Severe Anaphylaxis Verified 09/26/19 09:48 fosaprepitant [From Emend] Allergy Severe Anaphylaxis Verified 09/26/19 09:48 Home Medications Home Medications Medication Instructions Recorded Confirmed Type methadone 20 mg PO BID 05/28/19 09/26/19 History ondansetron HCl 4 mg PO TID PRN 05/28/19 09/26/19 History prochlorperazine maleate 10 mg PO DIRECTED PRN 05/28/19 09/26/19 History [Compazine] Medical Marijuana 1 dose PO DIRECTED 06/09/19 09/26/19 History docusate sodium [Colace] 100 mg PO BID 06/09/19 09/26/19 History mirtazapine 15 mg PO HS PRN 07/11/19 09/26/19 History morphine 15 mg PO Q4H PRN 07/11/19 09/26/19 History clonazepam 1 mg tablet 1 mg PO TID #90 tab 09/03/19 09/26/19 Rx Xarelto 10 mg PO BID 09/15/19 09/26/19 History methylphenidate HCl [Ritalin] 2.5 mg PO BID 09/15/19 09/26/19 History polyethylene glycol 3350 [Miralax] 17 g PO DAILY PRN 09/15/19 09/26/19 History Past Med/Surg History Medical History Acute DVT (deep venous thrombosis) (Resolved) Adrenal nodule Cancer of gallbladder Cancer related pain Cholangiocarcinoma of liver (Acute) DVT (deep venous thrombosis) Hemorrhoid History of DVT (deep vein thrombosis) History of pulmonary embolism HTN (hypertension) Microcytic anemia Pleural effusion, bilateral Pulmonary emboli (Resolved) Pulmonary nodules Rectal bleeding (Resolved) Situational anxiety Surgical History H/O colonoscopy egd/colonoscopy 05/03/2019. no issues with MAC. History of esophagogastroduodenoscopy (EGD) Family History Aunt Breast cancer Uncle Cancer Aunt Colorectal cancer Uncle Cancer Grandmother (Paternal) Throat cancer Mother Family history of cervical cancer Other No significant active problems Denies family history of Ovarian cancer Prostate cancer Myocardial infarction Social History Preferred Language: American Communication Ability: Effective Visual Impairment: No Limitations Hearing Ability: Normal General Ii Farmworker Required: No Beliefs That Will Affect Care: None marital status: Single Current Living Situation: Parent Current Living Situation Comment: Lives with parent(s) current occupational status: employed 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 Other Information That Helps Us Care for You: No Feels Safe at Home: Yes Safety Concerns: Feels Safe At This Time Smoking Status: Current every day smoker Tobacco Type: cigarettes ; Cigarettes Per Day: 20 ; Second Hand Exposure: No ; Hx Alcohol Use: No Hx Substance Use: No Childhood Exposure to Second-Hand Smoke: Yes Diet Comment: regular caffeine: No during the past year weight has: decreased > 10 lbs Dental Care, Regularly: No Physical Activity Frequency: Does not Exercise Seatbelt Use: always Sunscreen Use: No Do you think of yourself as: lesbian/todd/homosexual Sexual Activity: has been sexually active, but not for at least 12 months Review of Systems Constitutional: + weakness and + weight loss; no fever, no chills and no weight gain Eyes: as per Subjective / HPI Respiratory: + dyspnea on exertion; no cough, no chest congestion, no change in sputum, no dyspnea and no sputum production Cardiovascular: no chest pain, no orthopnea, no palpitations, no lightheadedness and no edema Gastrointestinal: + nausea and + vomiting; no abdominal pain, no hematemesis, no constipation and no diarrhea/loose stools Genitourinary: no dysuria, no difficulty urinating, no urinary frequency and no urinary hesitancy Musculoskeletal: no back pain, no neck pain, no joint pain, no stiffness and no myalgia Integumentary: no rash Neurologic: no gait abnormality, no unsteadiness, no falls and no generalized weakness Physical Exam Constitutional: cooperative and comfortable; no acute distress Eyes: + anicteric sclerae Neck: trachea midline, no thyromegaly Respiratory: normal respiratory effort Auscultation: lungs clear to auscultation bilaterally and + crackles (Faint crackles at the left base, no dullness to percussion); no rales, no rhonchi and no wheezes Cardiovascular: Rate/Rhythm: regular rate and regular rhythm Heart Sounds: normal S1 and normal S2 Extremities: + edema (3+ bilaterally) Gastrointestinal (Abdomen): Inspection/Auscultation: abdomen normal to inspection Percussion/Palpation: + abdomen tender (Mild diffuse tenderness with palpation), abdomen soft and + ascites (Mild); no guarding, abdomen not rigid and no hepatosplenomegaly Skin: no rashes, warm and dry no jaundice Neurologic: PERRL, EOMI, accommodation nl, no face palsy, no dysarthria Results & Data Vital Signs (Past 12 Hours) Vital Signs Temp Pulse Pulse Resp BP BP Pulse Ox 09/26/19 11:30 82 18 131/82 98 09/26/19 08:52 37.0 C 68 20 114/73 97 Laboratory Results White count 17.3, hemoglobin 9.2, hematocrit 28.4, platelets of 31. INR is 2.3. Sodium 129, potassium 4.3, chloride 99, CO2 of 24, BUN 17 with creatinine 1. 29. Glucose 97. Calcium 7.8. Total bilirubin is 1.2. Alk phos is 253. Total protein is 5.4 with an albumin of 2. Troponin is 0.046. Previous 2D echo from 04/2019 shows an EF of 60 to 65% and was otherwise normal. Diagnostic Findings XR chest 1V portable CLINICAL HISTORY: weakness COMPARISON STUDY: 08/31/2019 FINDINGS: The heart is at the upper limits of normal in size. There is a left subclavian A-Port catheter present. There are small bilateral pleural effusions. There are ill-defined bilateral pulmonary opacities. The findings are co nsistent with the patient's known metastatic disease. An element of superimposed mild pulmonary vascular congestion is suspected.[ IMPRESSION: 1. Persistent bilateral pleural effusions 2. Ill-defined bilateral pulmonary opacities consistent with the patient's known metastatic disease 3. Suspected mild superimposed pulmonary vascular congestion PG Care Time/CCT Total # of Minutes Spent Total Time Spent with Patient: Total time spent is greater than 50% in coordination of care (as documented) at patient's floor/unit and/or counseling patient: Coding Level of Care Code 72666 Initial Inpt Care Lvl 3 Diagnoses Exertional dyspnea R06.09 Ascites R18.8 Ascites type: other type History of pulmonary embolism Z86.711 Nausea & vomiting R11.2 Cholangiocarcinoma of liver C22.1 Troponin level elevated R79.89 (1) Ascites Ascites type: other type Qualified Code(s): R18.8 - Other ascites :
[2019-09-26] MEDS ORDERED: POLYETHYLENE (MIRALAX) 17 GM PACK PO PRN (13:28)
[2019-09-26] MEDS ORDERED: FUROSEMIDE 40 MG/4 ML VIAL IV SCH (13:28)
[2019-09-26] MEDS ORDERED: ACETAMINOPHEN 325 MG TAB PO PRN (13:28)
[2019-09-26] MEDS ORDERED: MIRTAZAPINE TAB 15 MG TAB PO PRN (13:28)
[2019-09-26] MEDS ORDERED: ZOLPIDEM TARTRATE 5 MG TAB PO PRN (13:28)
[2019-09-26] MEDS ORDERED: ONDANSETRON INJ 2 MG/ML 2 ML VIAL IV PRN (13:28)
[2019-09-26] MEDS ORDERED: METHADONE HCL 10 MG TAB PO SCH (14:00)
[2019-09-26] MEDS: METHADONE HCL 10 MG TAB PO SCH (14:19)
[2019-09-26] MEDS: clonazePAM 1 MG TAB PO SCH ×2 (14:19→20:56)
[2019-09-26] MEDS: FUROSEMIDE 20 MG in SYRINGE 0 ML IV SCH (17:31)
[2019-09-26] MEDS: RIVAROXABAN 20 MG TAB PO SCH (18:11)
[2019-09-26] MEDS: DOCUSATE SODIUM 100 MG CAP PO SCH (20:56)
[2019-09-26] MEDS ORDERED: METHYLPHENIDATE HCL 5 MG TABLET PO SCH (21:00)
[2019-09-26] MEDS: HEPARIN 100 UNIT/ML 5ML FLUSH FLUSH PRN (21:33)
[2019-09-27] MEDS: HEPARIN 100 UNIT/ML 5ML FLUSH FLUSH PRN ×3 (06:12→17:16)
[2019-09-27 06:45] LABS: Platelet Count 23 K/uL (130-400)
[2019-09-27] MEDS: PROCHLORPERAZINE 10 MG in SYRINGE 8 ML IV PRN (06:55)
[2019-09-27 07:07] LABS: BUN Creatinine Ratio 12.3 (10-20); Calcium 7.8 mg/dl (8.5-10.1); Creatinine Clr Calc Pharmacy 70.9 ml/min; Est GFR (African American) 63.5; Est GFR (Non-African American) 54.8; Magnesium 1.4 mg/dl (1.8-2.4); Potassium 4.3 mmol/L (3.5-5.1)
[2019-09-27 07:08] LABS: Hemoglobin 8.4 g/dL (14.0-18.0); Mean Corpuscular Hemoglobin 30.3 pg (25-34); Mean Corpuscular Hgb Conc 32.3 g/dL (32-36); Mean Corpuscular Volume 93.9 fL (80-100); RDW Coefficient of Variation 20.1 % (11.5-14.5); RDW Standard Deviation 67.1 fL (36.4-46.3); Red Blood Count 2.77 M/uL (4.7-6.1); White Blood Count 16.03 K/uL (4.8-10.8)
[2019-09-27 07:11] LABS: Anisocytosis Present; Basophils # (auto) 0.03 K/uL (0-0.2); Basophils % (auto) 0.2 %; Immature Granulocytes # (auto) 0.14 K/uL (0.00-0.02); Immature Granulocytes % (auto) 0.9 %; Lymphocytes # (auto) 0.77 K/uL (1.2-3.4); Lymphocytes % (auto) 4.8 %; Monocytes # (auto) 2.29 K/uL (0.11-0.59); Monocytes % (auto) 14.3 %; Neutrophils % (auto) 79.8 %; Platelet Estimate SIGNIFIC DECREASED (Normal)
[2019-09-27] MEDS: METHADONE HCL 10 MG TAB PO SCH (07:50)
[2019-09-27] MEDS: DOCUSATE SODIUM 100 MG CAP PO SCH ×2 (07:50→20:22)
[2019-09-27] MEDS: FUROSEMIDE 20 MG in SYRINGE 0 ML IV SCH ×2 (07:50→17:14)
[2019-09-27] MEDS: MoRPHine SULFATE IR 15 MG TAB (IMMEDIATE RELEASE) PO PRN ×2 (07:50→23:21)
[2019-09-27] MEDS: clonazePAM 1 MG TAB PO SCH ×3 (07:50→20:22)
--- NOTE | 2019-09-27 16:26 | Palliative Care Consultation ---
Date of Consultation September 27, 2019 Assessment & Plan (1) Palliative care encounter: Patient is well-known to me from his prior admission in April as well as 3 follow-up visits in palliative clinic. Patient is a 39-year-old male who presented in April with right lower quadrant pain for approximately 2 weeks duration-CT scan showed a 13 cm liver mass, bilateral pulmonary masses with pleural effusion and adenopathy. He was also noted to have a right pulmonary embolism at the time of diagnosis. Patient was started on MS Contin for pain- his causes sedation, prior to discharge she was started on methadone 5 mg 3 times daily and followed up in outpatient clinic. Patient's methadone was titrated up to 20 mg twice daily over the last 3 months. Patient states his pain is a 23/. Patient presented to the emergency room yesterday with increased nausea and vomiting that did not respond to Zofran. Patient reports his post chemo nausea and vomiting has been well controlled with Zofran and Zyprexa 2.5 mg daily. Patient was not taking Zyprexa at home as he only takes this after his chemo. Patient's last scan was on 08/31 that showed new. To new metastases but stable liver and some splenic disease. Patient has missed 3 sessions of chemo in a row due to low platelets-his next dose is due on 09/28. Patient is responding well to PRN Compazine, however this is very sedated. In clinic patient was started on PRN Ritalin for chemo/cancer related fatigue-this can be held while inpatient. Patient also with a history for anxiety-this has been very well controlled on Klonopin 3 times daily. He also has a past medical history of hypertension and gout. Patient's CODE STATUS is full code-he wishes to remain a full code, he named his father as his POA. He did state that he would not want to be maintained in a vegetative state. (2) Nausea & vomiting: Patient reports his chemo related nausea and vomiting are well controlled with Zofran and Zyprexa 2.5 mg daily-would start Zyprexa, can give first dose now and then start 2.5 mg daily. Continue PRN Compazine (3) Cancer of gallbladder: Last scan showed new peritoneal mets, stable liver and spleen disease- patient has missed 3 rounds of chemo in a row-we will likely miss his next chemo on 09/28 due to thrombocytopenia (4) Metastatic disease: Further scans per heme-onc (5) Cancer related pain: Well-controlled on current dose of methadone and PRN morphine (6) Thrombocytopenia: Further chemo as per heme-onc History of Present Illness Requesting Physician: Jeane Trejo PA-C Attending Physician: Romario Hoffman DO History of Present Illness Patient is well-known to me from his prior admission in April as well as 3 follow-up visits in palliative clinic. Patient is a 39-year-old male who presented in April with right lower quadrant pain for approximately 2 weeks duration-CT scan showed a 13 cm liver mass, bilateral pulmonary masses with pleural effusion and adenopathy. He was also noted to have a right pulmonary embolism at the time of diagnosis. Patient was started on MS Contin for pain- his causes sedation, prior to discharge she was started on methadone 5 mg 3 times daily and followed up in outpatient clinic. Patient's methadone was titrated up to 20 mg twice daily over the last 3 months. Patient states his pain is a 23/10. Patient presented to the emergency room yesterday with increased nausea and vomiting that did not respond to Zofran. Patient reports his post chemo nausea and vomiting has been well controlled with Zofran and Zyprexa 2.5 mg daily. Patient was not taking Zyprexa at home as he only takes this after his chemo. Patient's last scan was on 08/31 that showed new. To new metastases but stable liver and some splenic disease. Patient has missed 3 sessions of chemo in a row due to low platelets-his next dose is due on 09/28. Patient is responding well to PRN Compazine, however this is very sedated. In clinic patient was started on PRN Ritalin for chemo/cancer related fatigue-this can be held while inpatient. Patient also with a history for anxiety-this has been very well controlled on Klonopin 3 times daily. He also has a past medical history of hypertension and gout. Patient's CODE STATUS is full code-he wishes to remain a full code, he named his father as his POA. He did state that he would not want to be maintained in a vegetative state. Allergies Allergy/AdvReac Type Severity Reaction Status Date / Time aprepitant [From Emend] Allergy Severe Anaphylaxis Verified 09/26/19 09:48 fosaprepitant [From Emend] Allergy Severe Anaphylaxis Verified 09/26/19 09:48 Home Medications Home Medications Medication Instructions Recorded Confirmed Type methadone 20 mg PO BID 05/28/19 09/26/19 History ondansetron HCl 4 mg PO TID PRN 05/28/19 09/26/19 History prochlorperazine maleate 10 mg PO DIRECTED PRN 05/28/19 09/26/19 History [Compazine] Medical Marijuana 1 dose PO DIRECTED 06/09/19 09/26/19 History docusate sodium [Colace] 100 mg PO BID 06/09/19 09/26/19 History mirtazapine 15 mg PO HS PRN 07/11/19 09/26/19 History morphine 15 mg PO Q4H PRN 07/11/19 09/26/19 History clonazepam 1 mg tablet 1 mg PO TID #90 tab 09/03/19 09/26/19 Rx Xarelto 10 mg PO BID 09/15/19 09/26/19 History methylphenidate HCl [Ritalin] 2.5 mg PO BID 09/15/19 09/26/19 History polyethylene glycol 3350 [Miralax] 17 g PO DAILY PRN 09/15/19 09/26/19 History Patient History Medical History Acute DVT (deep venous thrombosis) (Resolved) Adrenal nodule Cancer of gallbladder Cancer related pain Cholangiocarcinoma of liver (Acute) DVT (deep venous thrombosis) Hemorrhoid History of DVT (deep vein thrombosis) History of pulmonary embolism HTN (hypertension) Microcytic anemia Pleural effusion, bilateral Pulmonary emboli (Resolved) Pulmonary nodules Rectal bleeding (Resolved) Situational anxiety Surgical History H/O colonoscopy egd/colonoscopy 05/03/2019. no issues with MAC. History of esophagogastroduodenoscopy (EGD) Family History Aunt Breast cancer Uncle Cancer Aunt Colorectal cancer Uncle Cancer Grandmother (Paternal) Throat cancer Mother Family history of cervical cancer Other No significant active problems Denies family history of Ovarian cancer Prostate cancer Myocardial infarction Social History Preferred Language: Maltese Communication Ability: Effective Visual Impairment: No Limitations Hearing Ability: Normal Care Rep Required: No Beliefs That Will Affect Care: None marital status: Single Current Living Situation: Parent Current Living Situation Comment: Lives with parent(s) current occupational 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: 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 Other Information That Helps Us Care for You: No Feels Safe at Home: Yes Safety Concerns: Feels Safe At This Time Smoking Status: Current every day smoker Tobacco Type: cigarettes ; Cigarettes Per Day: 20 ; Second Hand Exposure: No ; Hx Alcohol Use: No Hx Substance Use: No Childhood Exposure to Second-Hand Smoke: Yes Diet Comment: regular caffeine: No during the past year weight has: decreased > 10 lbs Dental Care, Regularly: No Physical Activity Frequency: Does not Exercise Seatbelt Use: always Sunscreen Use: No Do you think of yourself as: lesbian/todd/homosexual Sexual Activity: has been sexually active, but not for at least 12 months Review of Systems Review of Systems: Negative for fever, chills, increased edema Positive for cough, increased abdominal pain due to vomiting Patient reports his weight has been stable Physical Exam Physical Exam: PE: Patient awake and alert, only slightly drowsy HEENT: EOMI, hearing within normal limits Respirations: Unlabored, crackles left base, diminished both bases CV: Regular rate, 1+ edema left greater than right-below the knee-unchanged from prior exams Abdomen: Distended, tender over liver and spleen areas to palpation Extremities: Full range of motion Skin: Increased pallor Neuro: Alert and oriented x4 Results & Data Vital Signs (Past 12 Hours) Vital Signs Temp Pulse Pulse Resp BP BP Pulse Ox 09/27/19 15:54 97.9 F 80 16 117/76 93 09/27/19 11:12 97.3 F L 80 16 113/73 96 09/27/19 10:32 84 09/27/19 07:01 98.2 F 80 20 120/78 95 PG Care Time/CCT Total # of Minutes Spent Total Time Spent with Patient: Total time spent 70 minutes with greater than 50% of the time at bedside assessing patient's nausea, vomiting as well as pain control. Also provided support to patient. Coding Level of Care Code 27080 Inpt Consult Level 3 Diagnoses Palliative care encounter Z51.5 Nausea & vomiting R11.2 Cancer of gallbladder C23 Metastatic disease C79.9 Cancer related pain G89.3 Thrombocytopenia D69.6 Time Spent (min) 70
--- NOTE | 2019-09-27 17:10 | Hospitalist Progress Note ---
Date of Service September 27, 2019 Assessment & Plan (1) Exertional dyspnea: - Likely multifactorial - likely from metastatic disease; maybe pleural effusions however this was read as small - does have pulmonary nodules; maybe from bloating of abdomen? generalized deconditioning? - Saturations are appropriate on RA; no other respiratory symptoms reported - Appears he had a thoracentesis recently - only remove 350 cc (2) Ascites: - Attempts at outpatient paracentesis were made but unable to do related to thrombocytopenia - platelets currently at 23 - Also will need to be off Xarelto x 48 hours - Lasix given - mild rise in Cr - therefore will hold further doses until AM labs obtained - consideration for repeat imaging/ or US to assess ascites level - Lower extremity edema - possibly related to hypoalbuminemia maybe some from venous compression given ascites/metastatic disease? (3) History of pulmonary embolism: - Diagnosed in April 2019 - supposed to have done 15 mg BID x 21 days then converted to 20 mg daily - uncertain with ultimate plan for this as currently is still on that BID dosing -- Is about 5 months into treatment but given his cancer would be at risk for re-occurrence - will discuss with patient for going to just the 20 mg daily given completion of the BID dosing as even if this was prophylactic dosing would likely not dose at 15 mg BID - Pending ability to perform paracentesis would need to hold this (4) Nausea & vomiting: - Likely related to metastatic disease; He utilizes Zyprexa 2.5 mg daily during his chemo and can trial this as he reports the Compazine dose make him groggy - Does not appear like a gastroenteritis; no constipation or diarrhea - abdominal pain is stable/chronic - consideration for repeat imaging - Advance to full liquids and pending tolerance can advance further tomorrow - Quick review appears cholangiocarcinoma of liver rarely has brain metastasis - but if ongoing could consider MRI brain (5) 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 Raza - Has missed a couple sessions due to lab abnormalities - Oncology and Palliative Care consulted - discussed with Dr. Espinoza today (6) Troponin level elevated: - Possibly cardiac strain/demand ischemia - trops were 0.046, 0.046, and 0.035 - No further intervention necessary at this time - monitor for any CP or ACS symptoms Disposition: Await clinical improvement and Oncology input Admission and Anticipated Discharge Date Admission Date: September 26, 2019 Subjective Reports no more vomiting but intermittent nausea. He takes Zyprexa to help with chemo-induced nausea and can trial this. Platelets remain low at 23 however no active signs of bleeding. Tolerated clear liquids and would like to trial some full liquids at this time and will monitor. He continues to have mild intermittent abominal pain but medication is helping. He is moving his bowels with last BM yesterday. No constipation or diarrhea. Review of Systems Constitutional: + fatigue; no fever and no chills Ear, Nose, Mouth, Throat: no sore throat Respiratory: + dyspnea on exertion; no cough and no dyspnea Cardiovascular: + edema (b/l lower extremities); no chest pain, no palpitations and no lightheadedness Gastrointestinal: + abdominal pain, + bloating and + nausea; no vomiting, no constipation and no diarrhea/loose stools Genitourinary: no dysuria Integumentary: no rash Physical Exam Constitutional: + frail appearing; no acute distress Eyes: + anicteric sclerae ENMT: Ears: no hearing impairment Neck: trachea midline Respiratory: normal respiratory effort, lungs clear to auscultation Cardiovascular: Rate/Rhythm: regular rate and regular rhythm Extremities: + edema (1+ b/l lower extremities) Gastrointestinal (Abdomen): Inspection/Auscultation: normal bowel sounds Percussion/Palpation: + abdomen tender and abdomen soft Musculoskeletal: Head/Neck/Chest: normocephalic and head atraumatic Skin: no rashes, warm and dry + pallor Neurologic: moves all extremities Psychiatric: A+Ox3, euthymic affect (a little drowsy) Results & Data ([facility]) Vital Signs (Past 12 Hours) Vital Signs Temp Pulse Pulse Resp BP BP Pulse Ox 09/27/19 16:46 79 09/27/19 15:54 36.6 C 80 16 117/76 93 09/27/19 11:12 36.3 C L 80 16 113/73 96 09/27/19 10:32 84 09/27/19 07:01 36.8 C 80 20 120/78 95 PG Care Time/CCT Total # of Minutes Spent Total Time Spent with Patient: Total time spent is greater than 50% in coordination of care (as documented) at patient's floor/unit and/or counseling patient: Coding Level of Care Code 20912 Subseq Hosp Care Lvl 2 Diagnoses Exertional dyspnea R06.09 Ascites R18.8 Ascites type: other type History of pulmonary embolism Z86.711 Nausea & vomiting R11.2 Cholangiocarcinoma of liver C22.1 Troponin level elevated R79.89 (1) Ascites Ascites type: other type Qualified Code(s): R18.8 - Other ascites
[2019-09-27] MEDS: RIVAROXABAN 20 MG TAB PO SCH (17:13)
[2019-09-27] MEDS: OLANZAPINE ZYDIS 5 MG ORALLY DIS. TAB PO SCH (17:27)
--- NOTE | 2019-09-27 22:34 | Electrocardiogram Report ---
Test Reason : Blood Pressure : / mmHG Vent. Rate : 103 BPM Atrial Rate : 103 BPM P-R Int : 148 ms QRS Dur : 094 ms QT Int : 350 ms P-R-T Axes : 052 019 001 degrees QTc Int : 458 ms Sinus tachycardia Cannot rule out Anterior infarct , age undetermined Nonspecific T wave abnormality Abnormal ECG When compared with ECG of 28-MAY-2019 16:40, Nonspecific T wave abnormality now evident in Anterior leads Confirmed by Riki Dickson ([id number]) on 09/27/2019 10:34:36 PM Referred By: REFERRED SELF Confirmed By:Riki Dickson
[2019-09-28] MEDS: MAGNESIUM SULFATE / D5W 1 GM/100 ML BAG IV SCH ×3 (01:33→03:23)
[2019-09-28] MEDS: HEPARIN 100 UNIT/ML 5ML FLUSH FLUSH PRN ×2 (06:00→08:47)
--- NOTE | 2019-09-28 06:16 | Electrocardiogram Report ---
Test Reason : Blood Pressure : / mmHG Vent. Rate : 082 BPM Atrial Rate : 082 BPM P-R Int : 146 ms QRS Dur : 106 ms QT Int : 384 ms P-R-T Axes : 044 027 033 degrees QTc Int : 448 ms Normal sinus rhythm Normal ECG When compared with ECG of 26-SEP-2019 09:38, Nonspecific T wave abnormality no longer evident in Anterior leads Confirmed by Riki Dickson ([id number]) on 09/28/2019 6:16:09 AM Referred By: REFERRED SELF Confirmed By:Riki Dickson
[2019-09-28 06:56] LABS: Mean Corpuscular Hgb Conc 33.2 g/dL (32-36); Platelet Count 20 K/uL (130-400)
[2019-09-28 06:58] LABS: Hematocrit (blood only) 27.1 % (42-52); Mean Corpuscular Hemoglobin 30.9 pg (25-34); Mean Corpuscular Volume 93.1 fL (80-100); RDW Coefficient of Variation 20.4 % (11.5-14.5); RDW Standard Deviation 67.8 fL (36.4-46.3); Red Blood Count 2.91 M/uL (4.7-6.1); White Blood Count 19.12 K/uL (4.8-10.8)
[2019-09-28 07:00] LABS: BUN Creatinine Ratio 12.2 (10-20); Calcium 7.7 mg/dl (8.5-10.1); Creatinine Clr Calc Pharmacy 69.1 ml/min; Est GFR (African American) 61.6; Est GFR (Non-African American) 53.1; Potassium 4.1 mmol/L (3.5-5.1)
[2019-09-28] MEDS: METHADONE HCL 10 MG TAB PO SCH ×2 (08:19→20:33)
[2019-09-28] MEDS: clonazePAM 1 MG TAB PO SCH ×3 (08:19→20:35)
[2019-09-28] MEDS: DOCUSATE SODIUM 100 MG CAP PO SCH ×2 (08:19→20:35)
[2019-09-28] MEDS: MoRPHine SULFATE IR 15 MG TAB (IMMEDIATE RELEASE) PO PRN (08:19)
[2019-09-28] MEDS: OLANZAPINE ZYDIS 5 MG ORALLY DIS. TAB PO SCH (08:20)
[2019-09-28] MEDS: PROCHLORPERAZINE 10 MG in SYRINGE 8 ML IV PRN (08:47)
[2019-09-28] MEDS ORDERED: METHADONE HCL 10 MG TAB PO SCH (09:00)
[2019-09-28] MEDS ORDERED: PANTOprazole 40 MG in SYRINGE 0 ML IV SCH (13:05)
[2019-09-28] MEDS: FAMOTIDINE 20 MG in SYRINGE 3 ML IV SCH ×2 (13:38→20:35)
--- NOTE | 2019-09-28 14:19 | CT Scan Report ---
ABDOMEN AND PELVIS CT WITHOUT CONTRAST CT DOSE: HISTORY: Generalized abdominal pain. Assess for ascites. TECHNIQUE: Multiaxial CT images of the abdomen and pelvis were performed without contrast. A dose lo wering technique was utilized adhering to the principles of ALARA. COMPARISON STUDY: None. FINDINGS: Diffuse pleural nodularity as well as multiple pulmonary nodules consistent with metastatic disease. Small bilateral pleural effusions and a small pericardial effusion have slightly progressed . Interstitial thickening within the base of the right lower lobe may represent lymphangitic spread o f tumor. Additional areas of interstitial thickening favor mild interstitial pulmonary edema. No pneu moperitoneum. No pneumatosis. No suspicious lytic are blastic osseous lesions. Necrotic anterior diap hragmatic implants are again noted. Multiple hepatic masses consistent with metastatic disease. There is also subcapsular and perihepatic metastatic implants. The dominant hepatic lesion measures 16 cm. This is similar to the prior study. Small amount of sludge within the gallbladder. Geographic hypode nse areas within the spleen likely represent splenic infarcts. This is similar to the prior study. Th e spleen remains enlarged. The right kidney enhances normally. Necrotic periportal lymphadenopathy pe rsists. Small amount of ascites has progressed. The bladder is unremarkable. A few scattered omental and peritoneal metastatic implants are again noted. This is similar to the prior study. Dominant meta static deposit along the right deep pelvis measures 2.4 cm. There is also a metastatic focus deep to the umbilicus. There is diffuse moderate body wall edema which has progressed. The main portal vein i s patent. The aorta, IVC, and iliac vessels are also patent. No bowel wall thickening or obstruction. IMPRESSION: 1. Redemonstration of extensive metastatic disease seen within the chest, abdomen, pelvis as describe d above. This is similar to the prior study. 2. 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 3. Mild interstitial pulmonary edema has progressed. 4. Slight increase in size in the small bilateral pleural effusions and a small pericardial effusion. 5. Interval progression of the moderate body wall edema and small amount of ascites. ACT 112: Negative or not required by law. Electronically signed by: Sohail Pickett M.D. 09/28/2019 2:17 PM
--- NOTE | 2019-09-28 14:34 | CT Scan Report ---
CT OF THE CHEST WITHOUT IV CONTRAST CLINICAL HISTORY: Pleural Effusions; Consolidations. Cholangiocarcinoma. COMPARISON STUDY: Chest CT August 09, 2019. Chest radiograph September 26, 2019. CT DOSE: 1161.83 mGy.cm TECHNIQUE: Axial images of the chest were obtained without IV contrast. Images were reviewed in the axial, sagittal, and coronal planes. IV contrast was not administered for this examination. Automat ed exposure control was utilized for the study. A dose lowering technique was utilized adhering to t he principles of ALARA. FINDINGS: Please note that the abdomen and pelvis will be reported separately. Small bilateral pleur al effusions have increased since CT of August 09, 2019. There is no pneumothorax. A small pericardi al effusion has increased since prior exam. Innumerable pulmonary nodules have increased in size and number since exam of August 09, 2019. Mediastinal and hilar lymphadenopathy has moderately progresse d. Index right paratracheal lymph node image 22 measures 2.2 cm in short axis diameter. Index AP wind ow node on image 24 measures 1.7 cm. Numerous pleural-based nodules have also increased. A few lytic skeletal lesions are noted, including a lesion within the left humeral head. The abdomen and pelvis w ill be reported separate. IMPRESSION: 1. Moderate progression of extensive metastatic disease since chest CT of August 09, 2019, including pleural, pulmonary, kya and skeletal metastases with small bilateral pleural effusions. 2. No consolidation to suggest pneumonia. ACT 112: Negative or not required by law. Electronically signed by: Pepito Lyn M.D. 09/28/2019 2:33 PM
--- NOTE | 2019-09-28 15:11 | Palliative Care Progress Note ---
Date of Service September 28, 2019 Assessment & Plan (1) Palliative care encounter: Patient is well-known to me from his prior admission in April as well as 3 follow-up visits in palliative clinic. Patient is a 39-year-old male who presented in April with right lower quadrant pain for approximately 2 weeks duration-CT scan showed a 13 cm liver mass, bilateral pulmonary masses with pleural effusion and adenopathy. He was also noted to have a right pulmonary embolism at the time of diagnosis. Patient was started on MS Contin for pain- his causes sedation, prior to discharge she was started on methadone 5 mg 3 times daily and followed up in outpatient clinic. Patient's methadone was titrated up to 20 mg twice daily over the last 3 months. Patient states his pain is a 23/10. Patient reports his pain has not changed since admission. Patient presented to the emergency room yesterday with increased nausea and vomiting that did not respond to Zofran. Patient reports his post chemo nausea and vomiting has been well controlled with Zofran and Zyprexa 2.5 mg daily. Patient was not taking Zyprexa at home as he only takes this after his chemo. Patient started on low-dose Zyprexa, did have nausea and vomiting this a.m., would consider increasing to 5 mg daily. Patient's last scan was on 08/31 that showed new. To new metastases but stable liver and some splenic disease. Patient has missed 3 sessions of chemo in a row due to low platelets-his next dose is due on 09/28. Repeat CT scan of chest and pelvis may be helpful in further discussions regarding goals of care and to assess disease progression given multiple missed chemo treatments. Patient agreeable, also can be helpful in evaluating ascites as well as pleural effusions. Patient also with a history for anxiety-this has been very well controlled on Klonopin 3 times daily-no increased anxiety per patient. Patient's CODE STATUS is full code-he wishes to remain a full code, he named his father as his POA. He did state that he would not want to be maintained in a vegetative state. 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 No acute distress. Patient reports Vomiting this a.m. Discuss CODE STATUS again with patient-wishes to remain a full code at this time . Patient feels that some of his increased shortness of breath may be due to increased abdominal ascites or pleural effusions-spoke with attending team regarding obtaining a CT scan to see if any further fluid is amenable to tap, as well as assessing disease given patient has missed 4 courses of chemo on arrival. Information will also be helpful in further discussions regarding patient's goals of care. Have spoken to the patient in the past regarding hospice and end-of-life issues, awaiting oncology input regarding patient's current prognosis. Review of Systems Review of Systems: Positive for nausea/vomiting Pain unchanged-controlled on current meds per patient Negative for fever, chills increased shortness of breath or worsening abdominal pain Physical Exam Physical Exam: PE: Awake and alert, no acute distress HEENT: EOMI, hearing within normal limits Respirations: Unlabored CV: regular rate, edema unchanged Abdomen: Distended, tender over liver and spleen to light palpation Neuro: Alert and oriented x4 Results & Data Vital Signs (Past 12 Hours) Vital Signs Temp Pulse Resp BP BP Pulse Ox 09/28/19 11:23 97.9 F 90 16 130/80 93 09/28/19 07:03 98.4 F 86 20 130/76 92 09/28/19 03:21 98.8 F 87 20 127/73 92 PG Care Time/CCT Total # of Minutes Spent Total Time Spent with Patient: Total time spent 35 minutes with greater than 50% of time at bedside discussing patient's current symptom management as well as goals of care Coding Level of Care Code 29719 Subseq Hosp Care Lvl 3 Diagnoses Palliative care encounter Z51.5 Nausea & vomiting R11.2 Cancer of gallbladder C23 Metastatic disease C79.9 Cancer related pain G89.3 Thrombocytopenia D69.6 Time Spent (min) 35
[2019-09-28] MEDS: RIVAROXABAN 20 MG TAB PO SCH (17:02)
--- NOTE | 2019-09-28 17:57 | Hospitalist Progress Note ---
Date of Service September 28, 2019 Assessment & Plan (1) Exertional dyspnea: - Likely multifactorial - likely from metastatic disease; maybe pleural effusions however this was read as small - does have pulmonary nodules which are progressed; maybe from bloating of abdomen? generalized deconditioning? - Saturations are appropriate on RA; no other respiratory symptoms reported - Appears he had a thoracentesis recently - only remove 350 cc (2) Ascites: - Attempts at outpatient paracentesis were made but unable to do related to thrombocytopenia - platelets currently at 23 - Also will need to be off Xarelto x 48 hours if able but unlikely this will be helpful - Lasix given - mild rise in Cr - therefore will hold further doses uand assess labs in AM - Lower extremity edema - possibly related to hypoalbuminemia maybe some from venous compression given ascites/metastatic disease? - CT Chest/Abd - no acute findings but did find some progression of lung nodules (size/amount), some mild increase of pleural effusions which are small and pericardial effusion however no signs of tamponade (3) History of pulmonary embolism: - Diagnosed in April 2019 - supposed to have done 15 mg BID x 21 days then converted to 20 mg daily - uncertain with ultimate plan for this as currently is still on that BID dosing -- Is about 5 months into treatment but given his cancer would be at risk for re-occurrence - discussed with patient for going to just the 20 mg daily given completion of the BID dosing as even if this was prophylactic dosing would likely not dose at 15 mg BID; will recheck INR as he may need to come off this as he is self anti-coagulated given recent INR check - Pending ability to perform paracentesis would need to hold this - again uncertain if it is needed (4) Nausea & vomiting: - Likely related to metastatic disease; He utilizes Zyprexa 2.5 mg daily during his chemo and can trial this as he reports the Compazine does make him groggy - consider increase to 5 mg - Does not appear like a gastroenteritis; no constipation or diarrhea - abdominal pain is stable/chronic - Advance to full liquids and pending tolerance can advance further tomorrow - Start Pepcid BID - maybe some gastritis - Quick review appears cholangiocarcinoma of liver rarely has brain metastasis - but if ongoing could consider MRI brain (5) 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 Raza - Has missed a couple sessions due to lab abnormalities - Oncology and Palliative Care consulted - discussed with Dr. Espinoza today (6) Troponin level elevated: - Possibly cardiac strain/demand ischemia - trops were 0.046, 0.046, and 0.035 - No further intervention necessary at this time - monitor for any CP or ACS symptoms Disposition: Await clinical improvement and Oncology input Admission and Anticipated Discharge Date Admission Date: September 26, 2019 Subjective Had episode of emesis this AM. States it started after eating and the vomited his pills. States he did have a slight burning sensation in his stomach before vomiting. He reports his breathing is stable but continues with chronic dyspnea on exertion. Pain is intermittent but his medications seem to help. Platelets remain low at 20. Review of Systems Constitutional: + fatigue; no fever and no chills Respiratory: + dyspnea on exertion; no cough and no dyspnea Cardiovascular: + edema (b/l lower extremities); no chest pain, no palpitations and no lightheadedness Gastrointestinal: + abdominal pain, + bloating, + nausea and + vomiting; no constipation and no diarrhea/loose stools Genitourinary: no dysuria Integumentary: no rash Physical Exam Constitutional: + frail appearing; no acute distress Eyes: + anicteric sclerae ENMT: Ears: no hearing impairment no abnormal findings of the mouth - no plaques/white patches Neck: trachea midline Respiratory: normal respiratory effort, lungs clear to auscultation Cardiovascular: Rate/Rhythm: regular rate and regular rhythm Extremities: + edema (1+ b/l lower extremities) Gastrointestinal (Abdomen): Inspection/Auscultation: normal bowel sounds Percussion/Palpation: + abdomen tender and abdomen soft Emesis in container largely clear with some white material - likely medications Musculoskeletal: Head/Neck/Chest: normocephalic and head atraumatic Skin: no rashes, warm and dry + pallor Neurologic: moves all extremities Psychiatric: A+Ox3, euthymic affect Results & Data ([facility]) Vital Signs (Past 12 Hours) Vital Signs Temp Pulse Pulse Resp BP BP Pulse Ox 09/28/19 17:13 75 09/28/19 16:07 36.6 C 84 18 123/78 94 09/28/19 11:23 36.6 C 90 16 130/80 93 09/28/19 07:03 36.9 C 86 20 130/76 92 PG Care Time/CCT Total # of Minutes Spent Total Time Spent with Patient: Total time spent is greater than 50% in coordination of care (as documented) at patient's floor/unit and/or counseling patient: Coding Level of Care Code 33321 Subseq Hosp Care Lvl 2 Diagnoses Exertional dyspnea R06.09 Ascites R18.8 Ascites type: other type History of pulmonary embolism Z86.711 Nausea & vomiting R11.2 Cholangiocarcinoma of liver C22.1 Troponin level elevated R79.89 (1) Ascites Ascites type: other type Qualified Code(s): R18.8 - Other ascites
[2019-09-28] MEDS ORDERED: ALUMINUM/MAGNESIUM SUSP 30 ML UDC PO STA (18:23)
--- NOTE | 2019-09-28 19:33 | Hospitalist Progress Note ---
Date of Service September 28, 2019 Assessment & Plan (1) Exertional dyspnea: - Likely multifactorial - likely from metastatic disease; maybe pleural effusions however this was read as small - does have pulmonary nodules which are progressed; maybe from bloating of abdomen? generalized deconditioning? - Saturations are appropriate on RA; no other respiratory symptoms reported - Appears he had a thoracentesis recently - only remove 350 cc (2) Ascites: - Attempts at outpatient paracentesis were made but unable to do related to thrombocytopenia - platelets currently at 23 - Also will need to be off Xarelto x 48 hours if able but unlikely this will be helpful - Lasix given - mild rise in Cr - therefore will hold further doses uand assess labs in AM - Lower extremity edema - possibly related to hypoalbuminemia maybe some from venous compression given ascites/metastatic disease? - CT Chest/Abd - no acute findings but did find some progression of lung nodules (size/amount), some mild increase of pleural effusions which are small and pericardial effusion however no signs of tamponade (3) History of pulmonary embolism: - Diagnosed in April 2019 - supposed to have done 15 mg BID x 21 days then converted to 20 mg daily - uncertain with ultimate plan for this as currently is still on that BID dosing -- Is about 5 months into treatment but given his cancer would be at risk for re-occurrence - discussed with patient for going to just the 20 mg daily given completion of the BID dosing as even if this was prophylactic dosing would likely not dose at 15 mg BID; will recheck INR as he may need to come off this as he is self anti-coagulated given recent INR check - Pending ability to perform paracentesis would need to hold this - again uncertain if it is needed (4) Nausea & vomiting: - Likely related to metastatic disease; He utilizes Zyprexa 2.5 mg daily during his chemo and can trial this as he reports the Compazine does make him groggy - consider increase to 5 mg - Does not appear like a gastroenteritis; no constipation or diarrhea - abdominal pain is stable/chronic - Advance to full liquids and pending tolerance can advance further tomorrow - Start Pepcid BID - maybe some gastritis - Quick review appears cholangiocarcinoma of liver rarely has brain metastasis - but if ongoing could consider MRI brain (5) 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 Raza - Has missed a couple sessions due to lab abnormalities - Oncology and Palliative Care consulted - discussed with Dr. Espinoza today (6) Troponin level elevated: - Possibly cardiac strain/demand ischemia - trops were 0.046, 0.046, and 0.035 - No further intervention necessary at this time - monitor for any CP or ACS symptoms Disposition: Await clinical improvement and Oncology input Admission and Anticipated Discharge Date Admission Date: September 26, 2019 Review of Systems Constitutional: + fatigue; no fever and no chills Eyes: as per Subjective / HPI Respiratory: + dyspnea on exertion; no cough and no dyspnea Cardiovascular: + edema (b/l lower extremities); no chest pain, no palpitations and no lightheadedness Gastrointestinal: + abdominal pain, + bloating, + nausea and + vomiting; no constipation and no diarrhea/loose stools Physical Exam Constitutional: + frail appearing; no acute distress Eyes: + anicteric sclerae ENMT: Ears: no hearing impairment Neck: trachea midline Respiratory: normal respiratory effort, lungs clear to auscultation Cardiovascular: Rate/Rhythm: regular rate and regular rhythm Extremities: + edema (1+ b/l lower extremities) Gastrointestinal (Abdomen): Inspection/Auscultation: normal bowel sounds Percussion/Palpation: + abdomen tender and abdomen soft Musculoskeletal: Head/Neck/Chest: normocephalic and head atraumatic Skin: no rashes, warm and dry + pallor Neurologic: moves all extremities Psychiatric: A+Ox3, euthymic affect Results & Data ([facility]) Vital Signs (Past 12 Hours) Vital Signs Temp Pulse Pulse Resp BP Pulse Ox 09/28/19 17:13 75 09/28/19 16:07 36.6 C 84 18 123/78 94 09/28/19 11:23 36.6 C 90 16 130/80 93 PG Care Time/CCT Total # of Minutes Spent Total Time Spent with Patient: Total time spent is greater than 50% in coordination of care (as documented) at patient's floor/unit and/or counseling patient: Coding Diagnoses Exertional dyspnea R06.09 Ascites R18.8 Ascites type: other type History of pulmonary embolism Z86.711 Nausea & vomiting R11.2 Cholangiocarcinoma of liver C22.1 Troponin level elevated R79.89 (1) Ascites Ascites type: other type Qualified Code(s): R18.8 - Other ascites
[2019-09-29] MEDS: HEPARIN 100 UNIT/ML 5ML FLUSH FLUSH PRN ×3 (06:19→18:01)
[2019-09-29 06:46] LABS: INR 1.8 (0.9-1.1); Prothrombin Time 18.4 Seconds (9.0-12.0)
[2019-09-29 07:01] LABS: BUN Creatinine Ratio 13.7 (10-20); Calcium 7.5 mg/dl (8.5-10.1); Creatinine Clr Calc Pharmacy 77.9 ml/min; Est GFR (African American) 71.2; Est GFR (Non-African American) 61.4; Potassium 4.3 mmol/L (3.5-5.1)
[2019-09-29 07:25] LABS: Hematocrit (blood only) 26.8 % (42-52); Hemoglobin 8.7 g/dL (14.0-18.0); Mean Corpuscular Hemoglobin 30.5 pg (25-34); Mean Corpuscular Hgb Conc 32.5 g/dL (32-36); Platelet Count 12 K/uL (130-400); Platelet Estimate SIGNIFIC DECREASED (Normal); RDW Coefficient of Variation 20.1 % (11.5-14.5); RDW Standard Deviation 67.4 fL (36.4-46.3); Red Blood Count 2.85 M/uL (4.7-6.1); White Blood Count 21.41 K/uL (4.8-10.8)
[2019-09-29] MEDS: OLANZAPINE ZYDIS 5 MG ORALLY DIS. TAB PO SCH (08:06)
[2019-09-29] MEDS: DOCUSATE SODIUM 100 MG CAP PO SCH (08:08)
[2019-09-29] MEDS: clonazePAM 1 MG TAB PO SCH ×2 (08:12→14:08)
[2019-09-29] MEDS: METHADONE HCL 10 MG TAB PO SCH (08:12)
[2019-09-29] MEDS: FAMOTIDINE 20 MG in SYRINGE 3 ML IV SCH (08:13)
[2019-09-29] MEDS: MoRPHine SULFATE IR 15 MG TAB (IMMEDIATE RELEASE) PO PRN ×2 (08:21→15:12)
[2019-09-29] MEDS ORDERED: BENZONATATE 100 MG CAPSULE PO PRN (14:12)
[2019-09-29] MEDS ORDERED: ALUMINUM/MAGNESIUM SUSP 30 ML UDC PO SCH (14:20)
[2019-09-29] MEDS: RIVAROXABAN 20 MG TAB PO SCH (17:46)
--- NOTE | 2019-09-29 19:11 | Discharge Summary ---
Date of Service September 29, 2019 Admission HPI Per Admitting Provider This is a 39-year-old male with past medical history of widely metastatic cholangiocarcinoma, DVT/PE, recurrent ascites that presents today complaining of shortness of breath. Patient is noted by family and is good historian. Of note, patient was recently admitted here from with pancytopenia and worsening ascites. Patient was discharged after his a laboratory work improved. At the time he had shortness of breath and had been treated with 7 days of Levaquin for potential infection. Patient tells me that he finished Levaquin but did not feel much better. He is not short of breath at rest but notes dy spnea on exertion which seems to be worsening. He also notices worsening lower extremity edema along with increased abdominal girth. He has been afebrile and does not exhibit cough or sputum production. He does have some vague abdominal soreness which is chronic and no worse but denies any chest pain. Patient decided to come to the hospital today when he had worsening nausea with vomiting. He tells me that the nausea is chronic and he uses Compazine and Zofran with good results. However, he vomited 3 times earlier this morning which prompted his emergency room visit. He tells me the last meal he had was yesterday when he did see much that he was able to down. Patient recognizes that he likely needs paracentesis as this is helped the symptoms in the past. He has been limited from have been regularly secondary to a chronically low platelet count. He tells me his last paracentesis was on 23 May 2019. Today's platelet count is 31. Interventional radiology has noted previously that they concerned about paracentesis with a currently count below 50. Also of concern, patient is on Xarelto with recent diagnosis of PE in May 2019. Family evaluation, the patient does not appear to be in any acute cardiopulmonary distress. Vitals are stable with him on room air and O2 sat 98%. Principal Diagnosis Possible Gastritis Discharge Exam Constitutional + frail appearing; no acute distress Eyes + anicteric sclerae ENMT Ears: no hearing impairment Neck trachea midline Respiratory normal respiratory effort, lungs clear to auscultation Cardiovascular Rate/Rhythm: regular rate and regular rhythm Heart Sounds: no murmur Gastrointestinal (Abdomen) Inspection/Auscultation: normal bowel sounds Percussion/Palpation: + abdomen tender and abdomen soft Musculoskeletal Head/Neck/Chest: normocephalic and head atraumatic Extremities: no cyanosis Skin no rashes, warm and dry Psychiatric Orientation: alert and oriented x 3 Affect: + flat affect (but does smile occ and joking a little more today) Discharge Data Allergies Allergy/AdvReac Type Severity Reaction Status Date / Time aprepitant [From Emend] Allergy Severe Anaphylaxis Verified 09/26/19 09:48 fosaprepitant [From Emend] Allergy Severe Anaphylaxis Verified 09/26/19 09:48 Consultations 09/26/19 11:21 ED Decision to Admit Stat 09/26/19 13:28 Consult Hematology Routine 09/27/19 15:34 Consult Palliative Care Routine Ordered Studies 09/28/19 14:00 CT abd pelvis wo con Routine CT chest wo con Routine Hospital Course (1) Exertional dyspnea: - Likely multifactorial -- likely from metastatic disease as this did show progression on imaging - size and number of nodules -- Performed bedside ultrasound to assess pleural effusions which really only revealed 3-5 mL areas that would not be enough to tap -- U/S did reveal atelectasis and did practice incentive spirometry with patient which induced some coughing and advised on continuing this to help open those airways -- This could be some from increased body wall edema - again looked with U/S and not a good pocket of fluid to consider tappping -- Some could be from generalized deconditioning - Saturations remain appropriate on room air - Appears he had a thoracentesis recently - only remove 350 cc (2) Ascites: - Attempts at outpatient paracentesis were made but unable to do related to thrombocytopenia - but as discussed above - Lasix given - mild rise in Cr - with this and therefore will stop this as this would likely have limited benefit but more risk of renal issues/dehydration - Lower extremity edema - possibly related to hypoalbuminemia maybe some from venous compression given metastatic disease? - CT Chest/Abd - no acute findings but did find some progression of lung nodules (size/amount) (3) History of pulmonary embolism: - Diagnosed in April 2019 - supposed to have done 15 mg BID x 21 days then converted to 20 mg daily - uncertain with ultimate plan for this as currently is still on that BID dosing -- Is about 5 months into treatment but given his cancer would be at risk for re-occurrence - discussed with patient for going to just the 20 mg daily given completion of the BID dosing as even if this was prophylactic dosing would likely not dose at 15 mg BIDck - Rx given for Xarelto 20 mg daily - can discuss with Dr. He on whether life- long anticoagulation should be used (4) Nausea & vomiting: - Likely related to metastatic disease; He utilizes Zyprexa 2.5 mg daily during his chemo and can trial this as he reports the Compazine does make him groggy - consider increase to 5 mg and discussed this with him - Does not appear like a gastroenteritis; no constipation or diarrhea - abdominal pain is stable/chronic - Is tolerating regular food - Had a long discussion with this as he thinks sometimes it may be some gagging more than anything and maybe having regurgitation more than vomiting which is possible. We discussed utilizing Maalox as he states this seemed to soothe some symptoms so maybe some gastritis and advised OTC use and to space this from medications to prevent issues with absorption. He states he has Nexium at home as well and this might be reasonable to use daily x 2 weeks to see if this improves his symptoms - Quick review appears cholangiocarcinoma of liver rarely has brain metastasis - but if ongoing could consider MRI brain (5) 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 Raza - Has missed a couple sessions due to lab abnormalities - Oncology and Palliative Care consulted - appreciated their input - did discuss with Dr. Kruse today who did see the patient at beginning of admission (6) Troponin level elevated: - Possibly cardiac strain/demand ischemia - trops were 0.046, 0.046, and 0.035 - No further intervention necessary at this time - monitor for any CP or ACS symptoms (7) Thrombocytopenia: - Ongoing issue - has not been able to complete chemotherapy x 4 sessions due to this - No signs of bleeding at this time - no nose/gums, brusing/purpura, no black colored stools - Was given transfusion on last admission just 2 weeks ago and already trending down; given no bleeding will give Rx for recheck in 1 week with results to PCP and Dr. Raza - maybe can get MTU platelet transfusions if needed - advised patient verbally and in writing things to look for to get checked out sooner - He continues to have an elevated WBC count however no direct source of infection at this time - afebrile - his symptoms of pain are chronic - will monitor on CBC lab Total Time Total Time Spent Total Time Spent (In Minutes): Greater than 30 minutes Discharge Plan Discharge Items Patient Disposition: Home - Self-Care Reason For Visit: GRANDA Discharge Diagnosis: Possible Gastritis/Maybe Reflux Activity: Resume your previous activity Non-emergency contact: Primary Care Provider Call non-emergency contact if: you have any medication questions, your symptoms worsen and you have a fever Follow-up/Referrals: Miracle Angelo DO [Primary Care Provider] - (1-2 weeks if able) Gomez He DO [Family Provider] - (1-2 weeks if possible) Diet: Regular Ambulatory Orders: Complete Blood Count no Diff (Routine) Timeframe: 1 Week Location: Determined by Patient Ordered By: Jeane Trejo Complete Blood Count no Diff (Routine) Timeframe: 1 Week Location: Determined by Patient Ordered By: Jeane Trejo Addtl Attending Provider Instructions: Nausea/Vomiting: - Looking at things this could be a couple things. One maybe you have some gastritis (inflammation of the stomach) especially when you have a lot of medications to take this can irritate the stomach - Recommend to get some Maalox over the counter. This helps coat the stomach and can be soothing. Recommend to space this about an hour away from medications as you don't want it to interfere with the absorption of your medications. This could also be some reflux. Not everyone gets typical heartburn symptoms but can get some esophageal spasm or what we call dysmotility. Sometimes using a heartburn medicine like Nexium once daily for the next 2 weeks and see if this helps. -- As well, if this is some regurgitation recommend to try and eat smaller meals more frequently and soft easy to swallow foods - We took a look with a CAT scan and the ultrasound and really we dont have a lot of fluid to actually drain out right now. YOu do have more fluid in your soft tissues like legs/abdomen which this can be caused some from needing to increase your protein stores. This is tough and takes some time but if you like boost drinks or protein drinks sometimes this helps. Peanut butter and divehi yogurt have some protein which are some good options in addition to meats. - You can continue to use your Zyprexa that you use for chemo-induced nausea/vomiting. This can be safely used at 5 mg if the 2.5 mg is not enough. Shortness of Breath with Movement: - This could be a couple things as well. Unfortunately we know that the cancer has left some nodules in the lungs which can impede on how your lungs move. - With the ultrasound today we also saw that you have some atelectasis. This can be improved by using that plastic machine a few times a day. Taking those deep breaths in and trying to keep that yellow ball at that line that is marked will help pop open those little airways (be mindful it will likely make you cough). As you do it more the coughing will lessen - We took a look with the ultrasound and this shows only about 3-5 mL of fluid which is not a lot to drain out so likely wouldn't help much in this regards History of Blood Clot in Lung: - You are on Xarelto for this. Normally this is treated with 15 mg twice a day for the first 21 days then move down to 20 mg daily until you finish treatment. You are at increased risk for blood clots because of cancer so some may argue life-long anticoagulation is needed. This can be further discussed with Dr. He as well as he is a blood doctor as well. - We would recommend this not be continued at 15 mg twice daily to not increase your risk of bleeding. We will send a prescription for you. You can disregard the 15 mg prescription you got Cancer: - You will need to follow up with Dr. He. Unfortunately those stubborn platelets will hold further chemotherapy up. - We will give you a lab slip to have these drawn and checked. Right now there is no signs of bleeding which is good. If you get nose bleeds/gum bleeds/a lot of bruising please get evaluated. - You may benefit from periodic platelet transfusions if needed and sometimes this can be done at the cancer center/medical treatment unit as an outpatient - Dr. Espinoza will continue to prescribe your pain medications. Please call her if you need any refills or any changes with your medications. Pending Studies at Discharge: No Stand-Alone Forms: My [employer], Smoking Cessation Medications and DC Order Prescriptions: New benzonatate [Tessalon Perles] 100 mg Capsule 100 mg PO TID PRN (Reason: cough) 14 Days Qty: 42 RF: 0 Xarelto 20 mg Tablet 20 mg PO DAILY@1700 30 Days Qty: 30 RF: 0 Continued clonazepam [Klonopin] 1 mg tablet 1 mg PO TID Qty: 90 RF: 0 prochlorperazine maleate [Compazine] 10 mg Tablet 10 mg PO DIRECTED PRN (Reason: Nausea) RF: 0 methadone 5 mg tablet 20 mg PO BID RF: 0 ondansetron HCl 4 mg tablet 4 mg PO TID PRN (Reason: Nausea And Vomiting) RF: 0 methylphenidate HCl [Ritalin] 5 mg tablet 2.5 mg PO BID RF: 0 polyethylene glycol 3350 [Miralax] 17 gram powder in packet 17 g PO DAILY PRN (Reason: Constipation) RF: 0 docusate sodium [Colace] 100 mg capsule 100 mg PO BID RF: 0 Medical Marijuana 1 dose PO DIRECTED RF: 0 mirtazapine 15 mg tablet 15 mg PO HS PRN (Reason: Sleep) RF: 0 morphine 15 mg tablet 15 mg PO Q4H PRN (Reason: Pain) RF: 0 Discontinued Xarelto 10 mg Tablet 10 mg PO BID RF: 0 Discharge Orders: Discharge Order (Routine); Ordered 09/29/19 Ordered By: Jeane Trejo Admission Data Admit Date/Time: 09/26/19 12:17 Attending Provider: Romario Hoffman Admit Provider: Satya Joseph Primary Care Provider: Miracle Angelo Other Providers: Satya Joseph ; Gomez He V. ; Sarah Cotto Other Interventions: Discharge Summary Assessment (RN) Last Done: 09/29/19 17:50 DC Date/Time DO NOT enter until pt leaves facility: 09/29/19 19:34 Supervising Physician Co-Signing Physician Notes Attending note: patient seen and examined with Jeane Trejo PA-C. I agree with her discharge summary. I personally reviewed the labs and imaging findings. patient wanting to go home, his breathing is better, abdomen is stable discussed his poor prognosis recommend that he follows up with Dr. He and Dr. Cotto explained that Dr. He is not recommending any further treatment Dr. Cotto met with patient, palliative care discussed, patient naturally is having a difficult time coming to terms with this - Metastatic cholangiocarcinoma repeat CT this admission shows worsening lung mets, pleural effusions his liver is filled with metastatic disease and he has malignant ascites he cannot get therapeutic paracentesis or thoracentesis because his platelets are always < 20 Dr. He contacted, he can offer no further treatment for the patient initial discussions held regarding palliative care, he needs to follow up with Dr. Cotto, can also follow up with Dr. He he did not want to wait another day in the hospital, certainly with his limited time it is okay for him to go home Coding Level of Care Code D/C Day Management >30 mins Diagnoses Exertional dyspnea R06.09 Ascites R18.8 Ascites type: other type History of pulmonary embolism Z86.711 Nausea & vomiting R11.2 Cholangiocarcinoma of liver C22.1 Troponin level elevated R79.89 Thrombocytopenia D69.6
== END 2019-09-29 19:34 | disposition home or self-care (01) ==
LOC: ED 08:42 → 2W 12:17 → INTOOBSV 12:17 → SUATTDRO 12:17 → 2W 13:10

== ENCOUNTER 2019-10-07 07:31 | Observation (INO) ==
--- NOTE | 2019-10-07 08:07 | Emergency Department Note ---
History of Present Illness General Chief complaint: Shortness of Breath/Dyspnea Stated complaint: cough, sob Time Seen by Provider: 10/07/19 07:47 Source: patient, RN notes reviewed and old records reviewed Mode of arrival: ambulatory Limitations: no limitations History of Present Illness Provider complaint: Shortness of breath Onset (ago): week(s) 2 Location: chest Radiation: non-radiation Severity: similar to prior episodes Maximum Pain Intensity: 4 Current Pain Intensity: 0 Relieved By: + none Exacerbated By: + none Associated symptoms: + denies other symptoms Treatments prior to arrival: none This is a 39-year-old male cancer patient is being treated for cholangiocarcinoma who arrives to the emergency department complaining of shortness of breath. The patient had a appointment with his cancer doctor yesterday which he did not go to. The patient is concerned that he is unsure of what exactly is going on. He is unsure if this "is the end". He is currently on Xarelto. Home Medications Home Medications Medication Instructions Recorded Confirmed Type methadone 20 mg PO BID 05/28/19 10/07/19 History ondansetron HCl 4 mg PO TID PRN 05/28/19 10/07/19 History prochlorperazine maleate 10 mg PO TID PRN 05/28/19 10/07/19 History [Compazine] Medical Marijuana 1 dose PO DIRECTED 06/09/19 10/07/19 History docusate sodium [Colace] 100 mg PO BID 06/09/19 10/07/19 History mirtazapine 15 mg PO HS PRN 07/11/19 10/07/19 History morphine 15 mg PO Q4H PRN 07/11/19 10/07/19 History clonazepam 1 mg tablet 1 mg PO TID #90 tab 09/03/19 10/07/19 Rx polyethylene glycol 3350 [Miralax] 17 g PO DAILY PRN 09/15/19 10/07/19 History benzonatate [Tessalon Perles] 100 mg PO TID PRN 14 Days #42 cap 09/29/19 10/07/19 Rx rivaroxaban [Xarelto] 20 mg PO DAILY@1700 30 Days #30 tab 09/29/19 10/07/19 Rx Allergies Allergy/AdvReac Type Severity Reaction Status Date / Time aprepitant [From Emend] Allergy Severe Anaphylaxis Verified 10/07/19 08:05 fosaprepitant [From Emend] Allergy Severe Anaphylaxis Verified 10/07/19 08:05 Past Med/Surg History Medical History Acute DVT (deep venous thrombosis) (Resolved) Adrenal nodule Cancer of gallbladder Cancer related pain Cholangiocarcinoma of liver (Acute) DVT (deep venous thrombosis) Hemorrhoid History of DVT (deep vein thrombosis) History of pulmonary embolism HTN (hypertension) Microcytic anemia Pleural effusion, bilateral Pulmonary emboli (Resolved) Pulmonary nodules Rectal bleeding (Resolved) Situational anxiety Surgical History H/O colonoscopy egd/colonoscopy 05/03/2019. no issues with MAC. History of esophagogastroduodenoscopy (EGD) Family History Aunt Breast cancer Uncle Cancer Aunt Colorectal cancer Uncle Cancer Grandmother (Paternal) Throat cancer Mother Family history of cervical cancer Other No significant active problems Denies family history of Ovarian cancer Prostate cancer Myocardial infarction Social History Preferred Language: [place] Islander Communication Ability: Effective Visual Impairment: No Limitations Hearing Ability: Normal Customer Engagement Analyst Required: No Beliefs That Will Affect Care: None marital status: Single Current Living Situation: Parent Current Living Situation Comment: Lives with parent(s) current occupational status: employed 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 Feels Safe at Home: Yes Safety Concerns: Feels Safe At This Time Smoking Status: Current every day smoker Tobacco Type: cigarettes ; Cigarettes Per Day: 20 ; Second Hand Exposure: No ; Hx Alcohol Use: No Hx Substance Use: No Childhood Exposure to Second-Hand Smoke: Yes Diet Comment: regular caffeine: No during the past year weight has: decreased > 10 lbs Dental Care, Regularly: No Physical Activity Frequency: Does not Exercise Seatbelt Use: always Sunscreen Use: No Do you think of yourself as: lesbian/todd/homosexual Sexual Activity: has been sexually active, but not for at least 12 months Review of Systems A total of 10 systems reviewed and were otherwise negative Physical Exam Vital Signs Vital Signs - 24 hr 10/07/19 07:37 10/07/19 08:19 10/07/19 08:21 Temperature 36.7 C Temperature Source Oral Pulse Rate 125 H 114 H Pulse Rate [Left Finger] Pulse Rhythm Regular Pulse Rhythm [Left Finger] Pulse Strength [Left Finger] Respiratory Rate 20 Respiratory Effort / Characteristics Non-Labored Short of Breath SOB on Exertion Respiratory Depth Normal Respiratory Pattern Blood Pressure 128/82 Blood Pressure [Right Arm] Blood Pressure Mean 97 Blood Pressure Mean [Right Arm] Blood Pressure Position Sitting Blood Pressure Position [Right Arm] Pulse Oximetry 98 94 Oxygen Delivery Method Room Air Room Air Room Air Oxygen Flow Rate Sepsis Recent Fever Within 48 Hours No Sepsis New/Unexplained Change in Mental Status No Sepsis Action Taken by Nursing No Action Required Oxygen Flow Rate - Titration 10/07/19 08:30 10/07/19 09:00 10/07/19 10:10 Temperature Temperature Source Pulse Rate Pulse Rate [Left Finger] 109 H 110 H Pulse Rhythm Pulse Rhythm [Left Finger] Regular Pulse Strength [Left Finger] Normal Respiratory Rate 14 18 Respiratory Effort / Characteristics Non-Labored Spontaneous Respiratory Depth Normal Respiratory Pattern Regular Blood Pressure Blood Pressure [Right Arm] 124/83 127/79 Blood Pressure Mean Blood Pressure Mean [Right Arm] 96 95 Blood Pressure Position Blood Pressure Position [Right Arm] Lying Pulse Oximetry 98 98 100 Oxygen Delivery Method Nasal Cannula Nasal Cannula Oxygen Flow Rate 1.5 Sepsis Recent Fever Within 48 Hours Sepsis New/Unexplained Change in Mental Status Sepsis Action Taken by Nursing Oxygen Flow Rate - Titration 1.5 GENERAL: Patient is a pale-appearing cachectic male HEAD: Normocephalic atraumatic EYES: Ocular movements intact pupils equal and react to light OROPHARYNX mucous membranes are moist no exudates present no erythema or edema present NECK: Supple no nuchal rigidity CHEST: Good equal expansion LUNGS: Clear and equal to auscultation CARDIAC: Normal S1 and S2 ABDOMEN: Soft nontender no guarding BACK: No CVA tenderness EXTREMITIES: No pain upon palpation normal muscle strength in all groups no clubbing cyanosis +2 edema to knees NEURO: Patient is following commands is answering questions appropriately. Alert and oriented x3 Cranial Nerves 2-12 grossly intact Course Administered Medications Morphine Sulfate (Morphine Sulfate Ir) 15 mg PO Q4H PRN PRN Reason: Pain Stop: 10/21/19 11:50 Last Admin: 10/07/19 12:17 Dose: 15 mg Documented by: [id number] Medical Decision Making Differential Diagnosis Reactive airway disease, pneumonia, pneumothorax, COPD, CHF, infections, cardiac ischemia, pulmonary embolism, musculoskeletal, gastrointestinal, as well as other pathologies. Medical Records Attestation: I reviewed the patient's medical records. Home Medications Current Medication List: was personally reviewed by me Laboratory Data Attestation: I reviewed the patient's lab results. Result diagrams: 10/07/19 08:40 10/07/19 08:40 Lab Results 10/07/19 10/07/19 10/07/19 Range/Units 08:40 08:40 08:40 WBC 35.15 H* (4.8-10.8) K/uL RBC 3.07 L (4.7-6.1) M/uL Hgb 9.4 L (14.0-18.0) g/dL Hct 28.6 L (42-52) % MCV 93.2 (80-100) fL MCH 30.6 (25-34) pg MCHC 32.9 (32-36) g/dL RDW Std Deviation 66.3 H (36.4-46.3) fL RDW Coeff of Jaclyn 19.8 H (11.5-14.5) % Plt Count 1 L* (130-400) K/uL Neutrophils % (Manual) 86.2 % Lymphocytes % (Manual) 1.7 % Monocytes % (Manual) 2.6 % Eosinophils % (Manual) 7.8 % Myelocytes % (Man) 1.7 % Neutrophils # (Manual) 30.30 H (1.4-6.5) K/uL Total Absolute Neuts 30.30 H (1.4-6.5) K/uL Lymphocytes # (Manual) 0.60 L (1.2-3.4) K/uL Total Abs Lymphocytes 0.60 L (1.2-3.4) K/uL Monocytes # (Manual) 0.91 H (0.11-0.59) K/uL Eosinophils # (Manual) 2.74 H (0-0.5) K/uL Myelocytes # (Manual) 0.60 H (0-0) K/uL Toxic Vacuolation 1+ Platelet Estimate SIGNIFIC DECREASED (Normal) Anisocytosis Present PT 37.7 H (9.0-12.0) Seconds INR 3.8 H (0.9-1.1) APTT 52.3 H* (21.0-31.0) Seconds PTT Ratio 1.9 Sodium 125 L (136-145) mmol/L Potassium 4.8 (3.5-5.1) mmol/L Chloride 94 L (98-107) mmol/L Carbon Dioxide 23 (21-32) mmol/L Anion Gap 8.0 (3-11) BUN 40 H (7-18) mg/dl Creatinine 2.48 H (0.6-1.4) mg/dl Est Cr Clr Drug Dosing 45.6 ml/min Est GFR ( Amer) 36.0 Est GFR (Non-Af Amer) 31.0 BUN/Creatinine Ratio 16.0 (10-20) Glucose 103 H (70-99) mg/dl Calcium 8.2 L (8.5-10.1) mg/dl Total Bilirubin 4.4 H (0.2-1) mg/dl AST 41 H (15-37) U/L ALT 11 L (12-78) U/L Alkaline Phosphatase 302 H (45-117) U/L Total Creatine Kinase 37 L (39-308) U/L CK-MB (CK-2) 2.0 (0.5-3.6) ng/ml CK/CKMB % Calc 5.4 H (0-3.0) Troponin I 0.091 H* (0-0.045) ng/ml NT-Pro-B Natriuret Pep 6602 H (0-450) pg/ml Total Protein 5.7 L (6.4-8.2) gm/dl Albumin 1.9 L (3.4-5.0) gm/dl Globulin 3.8 (2.5-4.0) gm/dl Albumin/Globulin Ratio 0.5 L (0.9-2) Lipase 58 L (73-393) U/L Blood Type Antibody Screen 10/07/19 Range/Units 10:10 WBC (4.8-10.8) K/uL RBC (4.7-6.1) M/uL Hgb (14.0-18.0) g/dL Hct (42-52) % MCV (80-100) fL MCH (25-34) pg MCHC (32-36) g/dL RDW Std Deviation (36.4-46.3) fL RDW Coeff of Jaclyn (11.5-14.5) % Plt Count (130-400) K/uL Neutrophils % (Manual) % Lymphocytes % (Manual) % Monocytes % (Manual) % Eosinophils % (Manual) % Myelocytes % (Man) % Neutrophils # (Manual) (1.4-6.5) K/uL Total Absolute Neuts (1.4-6.5) K/uL Lymphocytes # (Manual) (1.2-3.4) K/uL Total Abs Lymphocytes (1.2-3.4) K/uL Monocytes # (Manual) (0.11-0.59) K/uL Eosinophils # (Manual) (0-0.5) K/uL Myelocytes # (Manual) (0-0) K/uL Toxic Vacuolation Platelet Estimate (Normal) Anisocytosis PT (9.0-12.0) Seconds INR (0.9-1.1) APTT (21.0-31.0) Seconds PTT Ratio Sodium (136-145) mmol/L Potassium (3.5-5.1) mmol/L Chloride (98-107) mmol/L Carbon Dioxide (21-32) mmol/L Anion Gap (3-11) BUN (7-18) mg/dl Creatinine (0.6-1.4) mg/dl Est Cr Clr Drug Dosing ml/min Est GFR ( Amer) Est GFR (Non-Af Amer) BUN/Creatinine Ratio (10-20) Glucose (70-99) mg/dl Calcium (8.5-10.1) mg/dl Total Bilirubin (0.2-1) mg/dl AST (15-37) U/L ALT (12-78) U/L Alkaline Phosphatase (45-117) U/L Total Creatine Kinase (39-308) U/L CK-MB (CK-2) (0.5-3.6) ng/ml CK/CKMB % Calc (0-3.0) Troponin I (0-0.045) ng/ml NT-Pro-B Natriuret Pep (0-450) pg/ml Total Protein (6.4-8.2) gm/dl Albumin (3.4-5.0) gm/dl Globulin (2.5-4.0) gm/dl Albumin/Globulin Ratio (0.9-2) Lipase (73-393) U/L Blood Type A Negative Antibody Screen NEGATIVE Imaging Data Radiologist's Impression: Patient: REE FIGUEROA Admit Date: 10/07/19 MR#: [id number] Address1: [place] [facility] Acct ID:[id number] Address2: [address] Date: 1980 [facility] Zip: [id number] Age: 39 Location: ED Sex: M Room/Bed: Att Phy: Diagnosis: cough, sob Destiny Phy: Miracle Angelo DO Service Date: 10/07/19 Fam Phy: Interpreting Phy: Thomas Melo MD Admit Phy: Ordering Phy: Nabil Perez MD cc: ~ SINGLE VIEW CHEST CLINICAL HISTORY: Atypical chest pain. FINDINGS: An AP, portable, upright chest radiograph is compared to study dated 09/26/2019 and correlated with chest CT dated 09/28/2019. The examination is degraded by portable technique and patient rotation. A left subclavian central venous infusion port is unchanged in position. The cardiomediastinal silhouette is unremarkable. There are small pleural effusions with bibasilar atelectasis. Foci of scarring/atelectasis are scattered throughout both lungs, greatest at the left lung base. There are numerous pulmonary nodules consistent with the known history of metastatic disease. No pneumothorax is seen. The bony thorax is grossly intact. IMPRESSION: 1. There has been no significant change from 09/26/2019. 2. Numerous pulmonary nodules are consistent with multifocal metastatic disease. 3. Small pleural effusions. ACT 112: Negative or not required by law. Electronically signed by: Thomas Melo M.D. 10/07/2019 8:26 AM Dictated: 10/07/19823 Transcribed: 10/07/19823 ECG Data Attestation: I personally reviewed and interpreted this ECG as follows: Indication: + SOB/dyspnea Rate (beats per minute): 117 Rhythm: + sinus tachycardia ECG Intervals/blocks: + Normal QT-c (404) ECG [place]: + Normal ECG ST segments: no ST depression and no ST elevation Comparison ECG Date: from (09/27/2019) Change: no significant change MDM Narrative This is a 39-year-old male who presents emergency department complaining of shortness of breath. The patient did not keep his oncology appointment yesterday. I reviewed the patient's laboratory work including the fact that his creatinine is bumped and his troponin is also elevated. The patient is unsure of what he wants to do therefore after discussing the case with case management we decided to discuss the case with the hospitalist service and get palliative care involved. Impression & Plan Pleural effusion, bilateral, Cholangiocarcinoma of liver, SOB (shortness of breath), Troponin level elevated, Elevated serum creatinine Discharge Plan Visit Data *Final* Discharge Date/Time: 10/07/19 11:40 Chief Complaint: Shortness of Breath/Dyspnea Stated Complaint: cough, sob ED Provider: Nabil Perez Discharge Problem: Pleural effusion, bilateral, Cholangiocarcinoma of liver, SOB (shortness of breath), Troponin level elevated, Elevated serum creatinine Patient Disposition: Admitted As Inpatient Discharge Instructions Interventions: ED Discharge Assessment Last Done: 10/07/19 11:40
--- NOTE | 2019-10-07 08:27 | XRay Report ---
SINGLE VIEW CHEST CLINICAL HISTORY: Atypical chest pain. FINDINGS: An AP, portable, upright chest radiograph is compared to study dated 09/26/2019 and correlat ed with chest CT dated 09/28/2019. The examination is degraded by portable technique and patient rotat ion. A left subclavian central venous infusion port is unchanged in position. The cardiomediastinal silhouette is unremarkable. There are small pleural effusions with bibasilar atelectasis. Foci of sc arring/atelectasis are scattered throughout both lungs, greatest at the left lung base. There are num erous pulmonary nodules consistent with the known history of metastatic disease. No pneumothorax is s een. The bony thorax is grossly intact. IMPRESSION: 1. There has been no significant change from 09/26/2019. 2. Numerous pulmonary nodules are consistent with multifocal metastatic disease. 3. Small pleural effusions. ACT 112: Negative or not required by law. Electronically signed by: Thomas Melo M.D. 10/07/2019 8:26 AM
[2019-10-07 09:16] LABS: Albumin Level 1.9 gm/dl (3.4-5.0); Calcium 8.2 mg/dl (8.5-10.1); Creatinine Clr Calc Pharmacy 45.6 ml/min; Potassium 4.8 mmol/L (3.5-5.1)
[2019-10-07 09:22] LABS: INR 3.8 (0.9-1.1); Partial Thromboplastin Ratio 1.9; Prothrombin Time 37.7 Seconds (9.0-12.0)
[2019-10-07 09:29] LABS: Partial Thromboplastin Time 52.3 Seconds (21.0-31.0)
[2019-10-07 09:35] LABS: Albumin Globulin Ratio 0.5 (0.9-2); Bilirubin,Total 4.4 mg/dl (0.2-1); Globulin 3.8 gm/dl (2.5-4.0); Total Protein 5.7 gm/dl (6.4-8.2); Troponin I 0.091 ng/ml (0-0.045)
[2019-10-07 09:47] LABS: Hematocrit (blood only) 28.6 % (42-52); Hemoglobin 9.4 g/dL (14.0-18.0); Mean Corpuscular Hemoglobin 30.6 pg (25-34); Mean Corpuscular Hgb Conc 32.9 g/dL (32-36); Mean Corpuscular Volume 93.2 fL (80-100); Platelet Count 1 K/uL (130-400); RDW Coefficient of Variation 19.8 % (11.5-14.5); RDW Standard Deviation 66.3 fL (36.4-46.3); Red Blood Count 3.07 M/uL (4.7-6.1); White Blood Count 35.15 K/uL (4.8-10.8)
[2019-10-07 09:48] LABS: Anisocytosis Present; Eosinophils # (manual) 2.74 K/uL (0-0.5); Eosinophils % (manual) 7.8 %; Lymphocytes % (manual) 1.7 %; Monocytes # (manual) 0.91 K/uL (0.11-0.59); Monocytes % (manual) 2.6 %; Myelocytes % (manual) 1.7 %; Neutrophils % (manual) 86.2 %; Platelet Estimate SIGNIFIC DECREASED (Normal); Toxic Vacuolation 1+
--- NOTE | 2019-10-07 10:48 | History & Physical Report ---
Date of Service October 07, 2019 Assessment & Plan (1) Cholangiocarcinoma of liver: (2) Metastatic cancer: (3) Cancer related pain: 39 yo male with metastatic cholangiocarcinoma with worsening SOB and pain. Patient will be admitted to med/surg for pain and supportive management. Will avoid any invasive measures at this time awaiting oncology and palliative care consultations. He will continue morphine, methadone, and medical marijuana as per outpatient for pain. Continue supportive O2 PRN. (4) Thrombocytopenia: (5) Anemia: Chronic pancytopenia in light of metastatic disease. Palliative chemotherapy currently on hold. Recheck CBC and CMP in AM. (6) History of pulmonary embolism: (7) History of DVT (deep vein thrombosis): Hx of PE in April 2019. Currently on Xarelto. Will continue. (8) Elevated serum creatinine: Cr has risen to 2.48 from 1.41 on last admission on 09/29/19. Will avoid IVF at this time as he appears to be fluid overloaded with +3 pitting edema of the BLE today. Repeat CMP tomorrow. (9) Troponin level elevated: Troponin elevated at 0.091. T wave inversion noted on ECG with tachyc ardia. Will trend troponin x 2 today. Code status- Discussed with patient this morning. Patient is currently a FULL CODE, but is considering transitioning to palliative care at this time pending consultations with oncology and palliative care. Disposition- Patient admitted from home. Prognosis poor. Possibly home on hospice. History of Present Illness Chief Complaint: Shortness of breath Primary Care Provider: Miracle Angelo DO 39 yo male with a hx of metastatic cholangiocarcinoma of liver presents today with c/o worsening SOB. The patient was recently admitted on 09/25 and discharged on 09/28 from hospitalist service for SOB as well. Past medical history includes a history of situational anxiety, pulmonary nodules, bilateral pleural effusion, gout, hypertension, ascites, and on palliative antineoplastic chemotherapy which she has not received for 1 month due to thrombocytopenia. Patient has a hx of PE in April 2019 for which he is on Xarelto. Patient reports body aches and n/v. He denies fevers. His appetite is poor, and he has only been able to drink liquids for the past 2 days. He reports he vomits if he eats solid foods. Patient noted to have rising Cr of 2.48 and elevated troponin of 0.091 on admission. ECG shows sinus tachycardia with inverted T waves. Allergies Allergy/AdvReac Type Severity Reaction Status Date / Time aprepitant [From Emend] Allergy Severe Anaphylaxis Verified 10/12/19 14:48 fosaprepitant [From Emend] Allergy Severe Anaphylaxis Verified 10/12/19 14:48 Home Medications Home Medications Medication Instructions Recorded Confirmed Type methadone 20 mg PO BID 05/28/19 10/12/19 History ondansetron HCl 4 mg PO TID PRN 05/28/19 10/12/19 History prochlorperazine maleate 10 mg PO TID PRN 05/28/19 10/12/19 History [Compazine] Medical Marijuana 1 dose PO DIRECTED 06/09/19 10/12/19 History docusate sodium [Colace] 100 mg PO BID 06/09/19 10/12/19 History clonazepam 1 mg tablet 1 mg PO TID #90 tab 09/03/19 10/12/19 Rx acetaminophen 650 mg WA UD 10/12/19 10/12/19 History benzonatate 100 mg PO TID PRN 10/12/19 10/12/19 History haloperidol lactate 0 mg PO UD 10/12/19 10/12/19 History morphine concentrate 0 mg PO UD 10/12/19 10/12/19 History rivaroxaban [Xarelto] 20 mg PO DAILY@1700 10/12/19 10/12/19 History Past Med/Surg History Medical History Acute DVT (deep venous thrombosis) (Resolved) Adrenal nodule Cancer of gallbladder Cancer related pain Cholangiocarcinoma of liver (Acute) DVT (deep venous thrombosis) Hemorrhoid History of DVT (deep vein thrombosis) History of pulmonary embolism HTN (hypertension) Microcytic anemia Pleural effusion, bilateral (Acute) Pulmonary emboli (Resolved) Pulmonary nodules Rectal bleeding (Resolved) Situational anxiety Surgical History H/O colonoscopy egd/colonoscopy 05/03/2019. no issues with MAC. History of esophagogastroduodenoscopy (EGD) Family History Aunt Breast cancer Uncle Cancer Aunt Colorectal cancer Uncle Cancer Grandmother (Paternal) Throat cancer Mother Family history of cervical cancer Other No significant active problems Denies family history of Ovarian cancer Prostate cancer Myocardial infarction Social History Preferred Language: Ghanaian Communication Ability: Effective Visual Impairment: No Limitations Hearing Ability: Normal Sales Floor Team Member Required: No Beliefs That Will Affect Care: None marital status: Single Current Living Situation: Parent Current Living Situation Comment: Lives with parent(s) current occupational status: employed 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 Other Information That Helps Us Care for You: No Feels Safe at Home: Yes Safety Concerns: Feels Safe At This Time Smoking Status: Current every day smoker Tobacco Type: cigarettes ; Cigarettes Per Day: 20 ; Second Hand Exposure: No ; Hx Alcohol Use: No Hx Substance Use: No Childhood Exposure to Second-Hand Smoke: Yes Diet Comment: regular caffeine: No during the past year weight has: decreased > 10 lbs Dental Care, Regularly: No Physical Activity Frequency: Does not Exercise Seatbelt Use: always Sunscreen Use: No Do you think of yourself as: lesbian/todd/homosexual Sexual Activity: has been sexually active, but not for at least 12 months Review of Systems Constitutional: + body aches and + weakness; no fever and no chills Eyes: no worsening vision Ear, Nose, Mouth, Throat: no dizziness Respiratory: + dyspnea Cardiovascular: + chest pain (with activity ) Gastrointestinal: + abdominal pain, + nausea and + vomiting Psychiatric: no anxiety and no confusion Physical Exam Physical Exam: Temp Pulse Resp BP Pulse Ox 36.7 C 110 H 18 127/79 100 10/07/19 07:37 10/07/19 10:10 10/07/19 10:10 10/07/19 10:10 10/07/19 10:10 Patient is afebrile. He is tachycardic at 110. Constitutional: + ill appearing and average body habitus; no acute distress Eyes: normal visual porter by confrontation ENMT: Ears: no hearing impairment Neck: normal visual inspection Respiratory: normal respiratory effort, lungs clear to auscultation Cardiovascular: Rate/Rhythm: regular rhythm and + tachycardic Gastrointestinal (Abdomen): Inspection/Auscultation: + abdomen distended; + abnormal bowel sounds (bowel sounds diminished ) Percussion/Palpation: abdomen soft; abdomen nontender Musculoskeletal: Head/Neck/Chest: + head abnormal to inspection and normocephalic Extremities: + extremities abnormal to inspection (+3 pitting edema BLE ) Skin: no rashes, warm and dry Psychiatric: A+Ox3, euthymic affect Results & Data Results & Data ([facility]) Vital Signs (Past 12 Hours) Vital Signs Temp Pulse Pulse Resp BP BP Pulse Ox 10/07/19 10:10 110 H 18 127/79 100 10/07/19 09:00 109 H 14 124/83 98 10/07/19 08:30 98 10/07/19 08:19 114 H 94 10/07/19 07:37 36.7 C 125 H 20 128/82 98 ECG Additional Comments: EKG showing tachycardia and T wave inversion. 07-OCT-2019 08:17:24 [facility] [place]-EDSTAT ROUTINE RETRIEVAL Sinus tachycardia Cannot rule out Inferior infarct , age undetermined Cannot rule out Anterior infarct , age undetermined Abnormal ECG When compared with ECG of 27-SEP-2019 15:29, Minimal criteria for Inferior infarct are now Present Inverted T waves have replaced nonspecific T wave abnormality in Inferior leads Nonspecific T wave abnormality now evident in Anterolateral leads 25mm/s 10mm/mV 150Hz 9.0.9 12SL 241 KIRIT: 13 Referred by: REFERRED SELF Unconfirmed Vent. rate 117 BPM WA interval 150 ms QRS duration 94 ms QT/QTc 290/404 ms P-R-T axes 96 16 -21 Code Status & VTE Plan VTE Prophylaxis Plan VTE Prophylaxis will be ordered: Yes Supervising Physician Co-Signing Physician Notes During my face to face encounter, I performed a physical examination and obtained a clinical history. Agree with above history and physical examination. I agree with above plan. In addition to the above plan, will add the following: Patient will be admitted under OBS. Will have patient's father accompany patient as we discuss end of life options. Patient is very sick and has a poor prognosis due to cholangiocarcinoma. May be discharged to home hospice. Will consult palliative care. PG Care Time/CCT Total # of Minutes Spent Total Time Spent with Patient: Total time spent is greater than 50% in coordination of care (as documented) at patient's floor/unit and/or counseling patient: Coding Level of Care Code 81928 OBS Care - Level 3 Diagnoses Cholangiocarcinoma of liver C22.1 Metastatic cancer C79.9 Cancer related pain G89.3 Thrombocytopenia D69.6 Anemia D64.9 Anemia type: unspecified type History of pulmonary embolism Z86.711 History of DVT (deep vein thrombosis) Z86.718 Elevated serum creatinine R79.89 Troponin level elevated R79.89 (1) Anemia Anemia type: unspecified type Qualified Code(s): D64.9 - Anemia, unspecified
[2019-10-07] MEDS ORDERED: MoRPHine SULFATE IR 15 MG TAB (IMMEDIATE RELEASE) PO PRN (11:51)
[2019-10-07] MEDS ORDERED: POLYETHYLENE (MIRALAX) 17 GM PACK PO PRN (11:51)
[2019-10-07] MEDS ORDERED: MIRTAZAPINE TAB 15 MG TAB PO PRN (11:51)
[2019-10-07] MEDS ORDERED: BENZONATATE 100 MG CAPSULE PO PRN (11:51)
[2019-10-07] MEDS ORDERED: PROCHLORPERAZINE MALEATE 10 MG TAB PO PRN (11:51)
[2019-10-07] MEDS ORDERED: MEDICAL MARIJUANA INH PRN (12:08)
[2019-10-07] MEDS ORDERED: ONDANSETRON 4 MG OD TAB PO PRN (12:10)
[2019-10-07] MEDS: clonazePAM 1 MG TAB PO SCH ×2 (13:38→19:51)
[2019-10-07] MEDS ORDERED: DOCUSATE SODIUM 100 MG CAP PO ONE (13:43)
[2019-10-07] MEDS ORDERED: MORPHINE SULFATE PCA 30 MG/30 ML IV SCH (13:45)
[2019-10-07] MEDS ORDERED: MORPHINE SULFATE PCA 30 MG/30 ML IV PRN (13:52)
[2019-10-07] MEDS ORDERED: NALOXONE HCL 0.4 MG/1 ML VIAL/CARP IV PRN (13:52)
[2019-10-07] MEDS ORDERED: SODIUM CHLORIDE 0.9% 1000ML 1,000 ML IV SCH (14:00)
[2019-10-07] MEDS ORDERED: METHADONE HCL 10 MG TAB PO SCH (15:00)
--- NOTE | 2019-10-07 15:02 | Palliative Care Consultation ---
Date of Consultation October 07, 2019 Assessment & Plan (1) Palliative care encounter: Patient is well-known to me from prior admissions, last hospitalization was earlier this month for uncontrolled nausea and vomiting. Patient presented to the emergency room today for increased shortness of breath. Patient reports he gets short of breath with minimal exertion, is comfortable at rest. Patient is a 39-year-old male who presented in April with right lower quadrant pain for approximately 2 weeks duration-CT scan showed a 13 cm liver mass, bilateral pulmonary masses with pleural effusion and adenopathy. Biopsy positive for cholangiocarcinoma, he was also noted to have a right pulmonary embolism at the time of diagnosis. Patient was doing well on chemo, however has missed his last 4 chemo treatments due to thrombocytopenia. Patient was started on methadone for cancer related pain at the abdomen-primarily over the liver and spleen, patient's methadone was titrated up to 20 mg twice daily with adequate control. Patient now requiring PRN morphine at 15 mg 4-5 times a day. In the ER patient's white count was noted to be 35.15, hemoglobin 9.4 and platelets 1K. Patient does note small amounts of blood with coughing. Patient's father also at bedside, patient has named his father has his healthcare surrogate. Both tearful during visit. Patient concerned about his rapid decline and feels he is nearing end-of-life. Patient does not want to in the hospital-after discussion with patient and father-we will have case management make referral for hospice services and try to get patient home tomorrow. In anticipation of increased pain and dyspnea-we will start a morp zahra EVP STRATEGY -starting settings based on his PRN morphine use. He can continue methadone as it can be crushed or chewed, morphine EVP STRATEGY can be titrated as needed as he declines. Patient has a port that is currently accessed-will start morphine EVP STRATEGY at a rate of 0.5 mg/h with a bolus of 2 mg every 15 minutes as needed pain/shortness of breath. Patient at high risk of bleeding out, would suggest stopping his Xarelto. It would be imperative to control cough and vomiting as these may precipitate hemorrhage. Discussed with patient using popsicles as his only p.o. intake- patient has had vomiting even with sips. Patient with history of [id number] on Klonopin 3 times daily, patient reports Klonopin more effective than Ativan. Collaborated with attending medical team as well as case management regarding hospice referral and home EVP STRATEGY orders. -Goals of care-patient wants to return home as soon as equipment can be delivered, will give EVP STRATEGY orders to case management to fax to hospice pharmacy -Exertional dyspnea-we will order O2 PRN, discussed limiting ambulation activity, patient with numerous pulmonary and pleural nodules -Nausea and vomiting-discussed taking popsicles only to minimize vomiting, patient has been treated with Zofran and Zyprexa in the past with good results -Cholangiocarcinoma-patient with disease progression while on chemo, has missed his last 4 chemo treatments due to thrombocytopenia -Metastatic disease-multiple pulmonary and pleural nodules, infarcts seen in spleen on CT scan -Cancer related pain-we will continue methadone at 20 mg twice daily, will cover his oral morphine use with morphine EVP STRATEGY pump via his already accessed port- anticipating rapid decline to where he will no longer be able to take p.o. meds. -Thrombocytopenia-platelet count 1K, -father counseled regarding having a supply of dark towels available at home. (2) Exertional dyspnea: (3) Nausea & vomiting: (4) Cholangiocarcinoma of liver: (5) Metastatic disease: (6) Cancer related pain: (7) Thrombocytopenia: History of Present Illness Reason for Consultation: Address goals of care Requesting Physician: [facility] Attending Physician: Kye Pickens History of Present Illness c Allergies Allergy/AdvReac Type Severity Reaction Status Date / Time aprepitant [From Emend] Allergy Severe Anaphylaxis Verified 10/07/19 08:05 fosaprepitant [From Emend] Allergy Severe Anaphylaxis Verified 10/07/19 08:05 Home Medications Home Medications Medication Instructions Recorded Confirmed Type methadone 20 mg PO BID 05/28/19 10/07/19 History ondansetron HCl 4 mg PO TID PRN 05/28/19 10/07/19 History prochlorperazine maleate 10 mg PO TID PRN 05/28/19 10/07/19 History [Compazine] Medical Marijuana 1 dose PO DIRECTED 06/09/19 10/07/19 History docusate sodium [Colace] 100 mg PO BID 06/09/19 10/07/19 History mirtazapine 15 mg PO HS PRN 07/11/19 10/07/19 History morphine 15 mg PO Q4H PRN 07/11/19 10/07/19 History clonazepam 1 mg tablet 1 mg PO TID #90 tab 09/03/19 10/07/19 Rx polyethylene glycol 3350 [Miralax] 17 g PO DAILY PRN 09/15/19 10/07/19 History benzonatate [Tessalon Perles] 100 mg PO TID PRN 14 Days #42 cap 09/29/19 10/07/19 Rx rivaroxaban [Xarelto] 20 mg PO DAILY@1700 30 Days #30 tab 09/29/19 10/07/19 Rx Patient History Medical History Acute DVT (deep venous thrombosis) (Resolved) Adrenal nodule Cancer of gallbladder Cancer related pain Cholangiocarcinoma of liver (Acute) DVT (deep venous thrombosis) Hemorrhoid History of DVT (deep vein thrombosis) History of pulmonary embolism HTN (hypertension) Microcytic anemia Pleural effusion, bilateral (Acute) Pulmonary emboli (Resolved) Pulmonary nodules Rectal bleeding (Resolved) Situational anxiety Surgical History H/O colonoscopy egd/colonoscopy 05/03/2019. no issues with MAC. History of esophagogastroduodenoscopy (EGD) Family History Aunt Breast cancer Uncle Cancer Aunt Colorectal cancer Uncle Cancer Grandmother (Paternal) Throat cancer Mother Family history of cervical cancer Other No significant active problems Denies family history of Ovarian cancer Prostate cancer Myocardial infarction Social History Preferred Language: Belarusian Communication Ability: Effective Visual Impairment: No Limitations Hearing Ability: Normal Websphere Consultant Required: No Beliefs That Will Affect Care: None marital status: Single Current Living Situation: Parent Current Living Situation Comment: Lives with parent(s) current occupational status: employed 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 Feels Safe at Home: Yes Safety Concerns: Feels Safe At This Time Smoking Status: Current every day smoker Tobacco Type: cigarettes ; Cigarettes Per Day: 20 ; Second Hand Exposure: No ; Hx Alcohol Use: No Hx Substance Use: No Childhood Exposure to Second-Hand Smoke: Yes Diet Comment: regular caffeine: No during the past year weight has: decreased > 10 lbs Dental Care, Regularly: No Physical Activity Frequency: Does not Exercise Seatbelt Use: always Sunscreen Use: No Do you think of yourself as: lesbian/todd/homosexual Sexual Activity: has been sexually active, but not for at least 12 months Review of Systems Review of Systems: Patient denies fever, chills or chest pain Positive for shortness of breath with minimal exertion, positive for abdominal pain Physical Exam Physical Exam: PE: Patient awake and alert, comfortable at rest HEENT: EOMI, hearing within normal limits, scant dried blood and oral pharynx Respirations: Unlabored at rest CV: Tachycardic, 3+ pitting lower extremity edema-unchanged from prior exams Abdomen: Distended, tender across liver spleen and right lower quadrant Extremities: 3+ pitting edema Neuro: Alert and oriented x4 Results & Data Vital Signs (Past 12 Hours) Vital Signs Temp Pulse Pulse Resp BP BP Pulse Ox 10/07/19 11:45 97.7 F 109 H 18 123/83 95 10/07/19 11:40 111 H 20 136/82 99 10/07/19 10:10 110 H 18 127/79 100 10/07/19 09:00 109 H 14 124/83 98 10/07/19 08:30 98 10/07/19 08:19 114 H 94 10/07/19 07:37 98.1 F 125 H 20 128/82 98 Laboratory Results 10/07/19 10/07/19 10/07/19 Range/Units 10:10 08:40 08:40 WBC (4.8-10.8) K/uL RBC (4.7-6.1) M/uL Hgb (14.0-18.0) g/dL Hct (42-52) % MCV (80-100) fL MCH (25-34) pg MCHC (32-36) g/dL RDW Std Deviation (36.4-46.3) fL RDW Coeff of Jaclyn (11.5-14.5) % Plt Count (130-400) K/uL Neutrophils % (Manual) % Lymphocytes % (Manual) % Monocytes % (Manual) % Eosinophils % (Manual) % Myelocytes % (Man) % Neutrophils # (Manual) (1.4-6.5) K/uL Total Absolute Neuts (1.4-6.5) K/uL Lymphocytes # (Manual) (1.2-3.4) K/uL Total Abs Lymphocytes (1.2-3.4) K/uL Monocytes # (Manual) (0.11-0.59) K/uL Eosinophils # (Manual) (0-0.5) K/uL Myelocytes # (Manual) (0-0) K/uL Toxic Vacuolation Platelet Estimate (Normal) Anisocytosis PT (9.0-12.0) Seconds INR (0.9-1.1) APTT (21.0-31.0) Seconds PTT Ratio Sodium 125 L (136-145) mmol/L Potassium 4.8 (3.5-5.1) mmol/L Chloride 94 L (98-107) mmol/L Carbon Dioxide 23 (21-32) mmol/L Anion Gap 8.0 (3-11) BUN 40 H (7-18) mg/dl Creatinine 2.48 H (0.6-1.4) mg/dl Est Cr Clr Drug Dosing 45.6 ml/min Est GFR ( Amer) 36.0 Est GFR (Non-Af Amer) 31.0 BUN/Creatinine Ratio 16.0 (10-20) Glucose 103 H (70-99) mg/dl Calcium 8.2 L (8.5-10.1) mg/dl Total Bilirubin 4.4 H (0.2-1) mg/dl AST 41 H (15-37) U/L ALT 11 L (12-78) U/L Alkaline Phosphatase 302 H (45-117) U/L Total Creatine Kinase 37 L (39-308) U/L CK-MB (CK-2) 2.0 (0.5-3.6) ng/ml CK/CKMB % Calc 5.4 H (0-3.0) Troponin I 0.091 H* (0-0.045) ng/ml NT-Pro-B Natriuret Pep 6602 H (0-450) pg/ml Total Protein 5.7 L (6.4-8.2) gm/dl Albumin 1.9 L (3.4-5.0) gm/dl Globulin 3.8 (2.5-4.0) gm/dl Albumin/Globulin Ratio 0.5 L (0.9-2) Lipase 58 L (73-393) U/L Procalcitonin 7.47 H (0-0.5) ng/ml Blood Type A Negative Antibody Screen NEGATIVE 10/07/19 10/07/19 Range/Units 08:40 08:40 WBC 35.15 H* (4.8-10.8) K/uL RBC 3.07 L (4.7-6.1) M/uL Hgb 9.4 L (14.0-18.0) g/dL Hct 28.6 L (42-52) % MCV 93.2 (80-100) fL MCH 30.6 (25-34) pg MCHC 32.9 (32-36) g/dL RDW Std Deviation 66.3 H (36.4-46.3) fL RDW Coeff of Jaclyn 19.8 H (11.5-14.5) % Plt Count 1 L* (130-400) K/uL Neutrophils % (Manual) 86.2 % Lymphocytes % (Manual) 1.7 % Monocytes % (Manual) 2.6 % Eosinophils % (Manual) 7.8 % Myelocytes % (Man) 1.7 % Neutrophils # (Manual) 30.30 H (1.4-6.5) K/uL Total Absolute Neuts 30.30 H (1.4-6.5) K/uL Lymphocytes # (Manual) 0.60 L (1.2-3.4) K/uL Total Abs Lymphocytes 0.60 L (1.2-3.4) K/uL Monocytes # (Manual) 0.91 H (0.11-0.59) K/uL Eosinophils # (Manual) 2.74 H (0-0.5) K/uL Myelocytes # (Manual) 0.60 H (0-0) K/uL Toxic Vacuolation 1+ Platelet Estimate SIGNIFIC DECREASED (Normal) Anisocytosis Present PT 37.7 H (9.0-12.0) Seconds INR 3.8 H (0.9-1.1) APTT 52.3 H* (21.0-31.0) Seconds PTT Ratio 1.9 Sodium (136-145) mmol/L Potassium (3.5-5.1) mmol/L Chloride (98-107) mmol/L Carbon Dioxide (21-32) mmol/L Anion Gap (3-11) BUN (7-18) mg/dl Creatinine (0.6-1.4) mg/dl Est Cr Clr Drug Dosing ml/min Est GFR ( Amer) Est GFR (Non-Af Amer) BUN/Creatinine Ratio (10-20) Glucose (70-99) mg/dl Calcium (8.5-10.1) mg/dl Total Bilirubin (0.2-1) mg/dl AST (15-37) U/L ALT (12-78) U/L Alkaline Phosphatase (45-117) U/L Total Creatine Kinase (39-308) U/L CK-MB (CK-2) (0.5-3.6) ng/ml CK/CKMB % Calc (0-3.0) Troponin I (0-0.045) ng/ml NT-Pro-B Natriuret Pep (0-450) pg/ml Total Protein (6.4-8.2) gm/dl Albumin (3.4-5.0) gm/dl Globulin (2.5-4.0) gm/dl Albumin/Globulin Ratio (0.9-2) Lipase (73-393) U/L Procalcitonin (0-0.5) ng/ml Blood Type Antibody Screen PG Care Time/CCT Total # of Minutes Spent Total Time Spent with Patient: Total time spent 70 minutes with greater than 50% of the time spent at bedside discussing patient's goals and options, collaborating with attending medical team as well as case management regarding hospice referral. Coding Level of Care Code 09384 Inpt Consult Level 3 Diagnoses Palliative care encounter Z51.5 Exertional dyspnea R06.09 Nausea & vomiting R11.2 Cholangiocarcinoma of liver C22.1 Metastatic disease C79.9 Cancer related pain G89.3 Thrombocytopenia D69.6 Time Spent (min) 70
--- NOTE | 2019-10-07 15:34 | Consultation Report ---
DATE OF CONSULTATION: 10/07/2019 NOTICE TO RECEIVING REPUBLICAN/AGENCY This information is strictly Confidential and protected under [place] law. [place] law prohibits you from making any further disclosure of this information unless further disclosure is expressly permitted by the written consent of the person to whom it pertains or is authorized by law. A general authorization for the release of medical or other information is not sufficient for this purpose. Hospital accepts no responsibility if the information is made available to any other person, INCLUDING THE PATIENT. REASON FOR CONSULTATION: End-stage metastatic cholangiocarcinoma. HISTORY OF PRESENT ILLNESS: Bahman Quesada is a very pleasant but very unfortunate 39-year-old gentleman with history of metastatic cholangiocarcinoma of the liver, presented to [facility] complaining of worsening shortness of breath and dyspnea on exertion. Ed unfortunately has been in rapid clinical decline since completing chemotherapy about a month ago. He was originally diagnosed in 05/2019 and started combination cisplatin and gemcitabine in mid-May. Initially chemotherapy seemed to hold his disease back, but unfortunately towards the end upon completion, Tuan was in disease progression. This gentleman has had multiple complications along the way including persistent abdominal pain, DVT and pulmonary embolism. Tuan understands the terminal nature of his disease and clearly looks much worse than when I saw him earlier this month as outpatient. Last CT of the chest, abdomen and pelvis was performed on 's revealing redemonstration of extensive metastatic disease within the chest, abdomen and pelvis. Multiple splenic infarcts were noted at that time. Mild interstitial pulmonary edema had worsened with small bilateral pleural effusions and a small pericardial effusion. His platelet count is presently 1000 and coagulopathic, which would suggest he is presently in impending hepatic failure. Unfortunately, from an oncologic standpoint, there is nothing further to be done and Tuan has expressed desire to arrange for hospice and was seen by Dr. Cotto prior to my visit today. PAST MEDICAL HISTORY: Significant for metastatic cholangiocarcinoma, DVT, pulmonary embolism, rectal bleeding, anxiety/depression. PAST SURGICAL HISTORY: Colonoscopy, history of EGD. MEDICATIONS: Prior to admission included methadone 20 mg p.o. b.i.d., Zofran 4 mg p.o. t.i.d. p.r.n., Compazine 10 mg p.o. q. 6 hours p.r.n. medical marijuana as directed, Colace 100 mg p.o. b.i.d., mirtazapine 15 mg p.o. at bedtime p.r.n., 15 mg of oral morphine q. 4 hours p.r.n., clonazepam 1 mg p.o. t.i.d., Ritalin 2.5 mg p.o. b.i.d., MiraLax 17 grams p.o. daily, Tessalon Perles 100 mg p.o. t.i.d. p.r.n., Xarelto 20 mg p.o. every day. SOCIAL HISTORY: Currently resides with his parents. The patient is single. He is an everyday smoker. Negative for alcohol or substance abuse. 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 FAMILY HISTORY: Positive for breast cancer (aunt), colorectal cancer (in another aunt), paternal grandmother had throat cancer. Mother has history of cervical cancer. REVIEW OF SYSTEMS: General clinical decline, cachexia, anorexia, jaundiced appearance. SKIN: Again notable for jaundice. No rashes or lesions otherwise. HEENT: Denies headaches, lightheadedness or dizziness per se. No visual or hearing deficits. He is able to swallow, but his appetite has been poor because of persistent nausea. HEART: No history of coronary artery disease, no angina or palpitations. PULMONARY: Positive for bilateral pleural effusions, pericardial effusion, dyspnea on exertion, shortness of breath. History of pulmonary embolism. ABDOMEN: Persistent abdominal pain. Positive for distention and bloating. Positive for rectal bleeding intermittently. MUSCULOSKELETAL: No new arthralgias or myalgias. ENDOCRINE: Negative for diabetes mellitus. NEUROLOGIC: Negative for seizures, strokes or migraine headaches. HEMATOLOGIC: Positive for severe thrombocytopenia, anemia, leukocytosis. PHYSICAL EXAMINATION: Formal physical examination not carried out because of Coronavirus outbreak. VITAL SIGNS: Temperature 36.5, pulse 109, respiratory rate 18, blood pressure 123/80. SKIN: Jaundiced in appearance. Again, deferred the remainder of his examination as he is actively dying. LABORATORY DATA: WBC count 35,150, hemoglobin 9.4, platelet count 1000. PT 37.7 seconds, PTT 52.3 seconds. Sodium 125, potassium 4.8, chloride 94, creatinine 2.48, BUN 40. Alkaline phosphatase 32, total bilirubin 4.4, albumin 1.9. IMPRESSION: 1. End-stage metastatic cholangiocarcinoma. 2. Impending hepatic failure. 3. Coagulopathy. 4. Severe thrombocytopenia. 5. Cancer related pain. 6. History of deep venous thrombosis/pulmonary embolism. PLAN: I was contacted about his admission to the medical floor. This poor unfortunate gentleman was diagnosed with metastatic cholangiocarcinoma in April 2019. Completed a full complement of combination cisplatin and gemcitabine, which unfortunately did not really extend his life to any considerable amount. He has been in rapid clinical decline over the past several weeks. I told him on admission prior to his present admission, there was nothing further to be done from an oncologic standpoint. I agree with Dr. Cotto the prospect of him bleeding out is quite significant and Ed would like to return home as soon as possible with hospice care. Dr. Cotto has already placed him on a morphine drip and the benzodiazepines have been effective in controlling his anxiety. I spent a fair amount of time with Ed discussing end of life issues and assured him that we would do everything in our power to make his impending comfortable and with dignity. At this point, Xarelto can be discontinued as this would only expedite Mr. Quesada's demise. Otherwise, agree with current comfort care. I suspect his survival is measured in a day or two, perhaps a week.
--- NOTE | 2019-10-07 15:46 | Electrocardiogram Report ---
Test Reason : Blood Pressure : / mmHG Vent. Rate : 117 BPM Atrial Rate : 117 BPM P-R Int : 150 ms QRS Dur : 094 ms QT Int : 290 ms P-R-T Axes : 096 016 -21 degrees QTc Int : 404 ms Sinus tachycardia Cannot rule out Inferior infarct , age undetermined Abnormal ECG When compared with ECG of 27-SEP-2019 15:29, Minimal criteria for Inferior infarct are now Present Inverted T waves have replaced nonspecific T wave abnormality in Inferior leads Nonspecific T wave abnormality now evident in Anterolateral leads Confirmed by Meng Viera ([id number]) on 10/07/2019 3:46:13 PM Referred By: REFERRED SELF Confirmed By:Laureano Viera
[2019-10-07] MEDS ORDERED: RIVAROXABAN 20 MG TAB PO SCH (17:00)
[2019-10-07] MEDS ORDERED: HEPARIN 100 UNIT/ML 5ML FLUSH FLUSH PRN (19:54)
[2019-10-07] MEDS ORDERED: METHYLPHENIDATE HCL 5 MG TABLET PO SCH (21:00)
[2019-10-07] MEDS ORDERED: DOCUSATE SODIUM 100 MG CAP PO SCH (21:00)
[2019-10-07] MEDS ORDERED: METHADONE HCL 5 MG TAB PO SCH (21:00)
--- NOTE | 2019-10-12 23:59 | Discharge Summary ---
Date of Service October 07, 2019 Admission HPI Per Admitting Provider 39 yo male with a hx of metastatic cholangiocarcinoma of liver presents today with c/o worsening SOB. The patient was recently admitted on 09/25 and discharged on 09/28 from hospitalist service for SOB as well. Past medical history includes a history of situational anxiety, pulmonary nodules, bilateral pleural effusion, gout, hypertension, ascites, and on palliative antineoplastic chemotherapy which she has not received for 1 month due to thrombocytopenia. Patient has a hx of PE in April 2019 for which he is on Xarelto. Patient reports body aches and n/v. He denies fevers. His appetite is poor, and he has only been able to drink liquids for the past 2 days. He reports he vomits if he eats solid foods. Patient noted to have rising Cr of 2.48 and elevated troponin of 0.091 on admission. ECG shows sinus tachycardia with inverted T waves. Principal Diagnosis cancer related pain Discharge Exam same as admitting exam. Discharge Data Allergies Allergy/AdvReac Type Severity Reaction Status Date / Time aprepitant [From Emend] Allergy Severe Anaphylaxis Verified 10/12/19 14:48 fosaprepitant [From Emend] Allergy Severe Anaphylaxis Verified 10/12/19 14:48 Consultations 10/07/19 10:07 ED Decision to Admit Stat 10/07/19 11:51 Consult Case Management - Discharge Planning Routine Consult Oncology Routine Consult Palliative Care Routine Hospital Course (1) Cholangiocarcinoma of liver: (2) Metastatic cancer: (3) Cancer related pain: 39 yo male with metastatic cholangiocarcinoma with worsening SOB and pain. Patient will be admitted to med/surg for pain and supportive management. Will avoid any invasive measures at this time awaiting oncology and palliative care consultations. He will continue morphine, methadone, and medical marijuana as per outpatient for pain. Continue supportive O2 PRN. Later in day: Seen by palliative care. Pt reassessed after [employer] started, pt minimally drowsy, states he is comfortable Pt agrees to DNR change in code status O2 via NC for comfort - avoid nasal irritants - may ppt nosebleed - pt with plt of 1K Pt may be d/c home when DME and T[employer] delivered. (4) Thrombocytopenia: (5) Anemia: Chronic pancytopenia in light of metastatic disease. Palliative chemotherapy currently on hold. (6) History of pulmonary embolism: (7) History of DVT (deep vein thrombosis): Hx of PE in April 2019. Currently on Xarelto. Will continue. (8) Elevated serum creatinine: Cr has risen to 2.48 from 1.41 on last admission on 09/29/19. Will avoid IVF at this time as he appears to be fluid overloaded with +3 pitting edema of the BLE today. (9) Troponin level elevated: Troponin elevated at 0.091. T wave inversion noted on ECG with tachycardia. Will trend troponin x 2 today. Code status- Discussed with patient this morning. Patient is currently a FULL CODE, but is considering transitioning to palliative care at this time pending consultations with oncology and palliative care. Disposition- home on hospice. Total Time Total Time Spent Total Time Spent (In Minutes): 32 Total Time Includes: Examination of the Patient Discharge Plan Discharge Items Patient Disposition: Hospice - Home Reason For Visit: SOB Discharge Diagnosis: cancer of gallbladder Activity: Resume your previous activity Non-emergency contact: Primary Care Provider Call non-emergency contact if: you have any medication questions Follow-up/Referrals: Miracle Angelo DO [Primary Care Provider] - Diet: Regular Addtl Attending Provider Instructions: Will be discharged on home hospice Pending Studies at Discharge: No Stand-Alone Forms: My [facility] Medications and DC Order Prescriptions: Continued clonazepam [Klonopin] 1 mg tablet 1 mg PO TID Qty: 90 RF: 0 prochlorperazine maleate [Compazine] 10 mg Tablet 10 mg PO TID PRN (Reason: Nausea) RF: 0 methadone 5 mg tablet 20 mg PO BID RF: 0 ondansetron HCl 4 mg tablet 4 mg PO TID PRN (Reason: Nausea And Vomiting) RF: 0 docusate sodium [Colace] 100 mg capsule 100 mg PO BID RF: 0 Medical Marijuana 1 dose PO DIRECTED RF: 0 Discontinued Xarelto 20 mg Tablet 20 mg PO DAILY@1700 30 Days Qty: 30 RF: 0 No Action acetaminophen 650 mg suppository 650 mg ME UD RF: 0 morphine concentrate 100 mg/5 mL (20 mg/mL) solution 0 mg PO UD RF: 0 benzonatate 100 mg capsule 100 mg PO TID PRN (Reason: Cough) RF: 0 haloperidol lactate 2 mg/mL concentrate 0 mg PO UD RF: 0 Xarelto 20 mg tablet 20 mg PO DAILY@1700 RF: 0 Discharge Orders: Discharge Order (Routine); Ordered 10/07/19 Ordered By: Kye Pickens Admission Data Admit Date/Time: 10/07/19 10:44 Attending Provider: Kye Pickens Admit Provider: Kye Pickens Primary Care Provider: Miracle Angelo Other Providers: Kye Pickens ; [facility] ; Sarah Cotto ; [facility] Other Interventions: Discharge Summary Assessment (RN) Last Done: 10/07/19 19:17 DC Date/Time DO NOT enter until pt leaves facility: 10/07/19 20:27 Coding Level of Care Code 76918 OBS Care - Discharge Diagnoses Cholangiocarcinoma of liver C22.1 Metastatic cancer C79.9 Cancer related pain G89.3 Thrombocytopenia D69.6 Anemia D64.9 Anemia type: unspecified type History of pulmonary embolism Z86.711 History of DVT (deep vein thrombosis) Z86.718 Elevated serum creatinine R79.89 Troponin level elevated R79.89
== END 2019-10-07 20:27 | disposition hospice, home (50) | DRG 436 ==
LOC: ED 07:31 → 2N 10:44 → INTOOBSV 10:44 → 2N 11:40

== ENCOUNTER 2019-10-12 14:00 | Inpatient (IN) ==
[2019-10-12] MEDS ORDERED: MoRPHine SULFATE 4 MG/ML 1 ML CARP\\VIAL IV STA (14:31)
[2019-10-12] MEDS ORDERED: ONDANSETRON INJ 2 MG/ML 2 ML VIAL IV STA ×2 (14:31→15:16)
--- NOTE | 2019-10-12 14:37 | Emergency Department Note ---
History of Present Illness General Chief complaint: Shortness of Breath/Dyspnea History of Present Illness Maximum Pain Intensity: 6 This patient is a 39-year-old male that was brought in via ALS for evaluation of shortness of breath and chest pain that has been ongoing for several months. The patient has a history of end-stage cholangiocarcinoma. He is currently at home on hospice care and a morphine pump. The patient requested to come to the emergency department today. The history is limited as the patient is having difficulty speaking. He does not want any further testing or resuscitation. He does feel nauseated, and is requesting medication for nausea. Home Medications Home Medications Medication Instructions Recorded Confirmed Type methadone 20 mg PO BID 05/28/19 10/12/19 History ondansetron HCl 4 mg PO TID PRN 05/28/19 10/12/19 History prochlorperazine maleate 10 mg PO TID PRN 05/28/19 10/12/19 History [Compazine] Medical Marijuana 1 dose PO DIRECTED 06/09/19 10/12/19 History docusate sodium [Colace] 100 mg PO BID 06/09/19 10/12/19 History clonazepam 1 mg tablet 1 mg PO TID #90 tab 09/03/19 10/12/19 Rx acetaminophen 650 mg NE UD 10/12/19 10/12/19 History benzonatate 100 mg PO TID PRN 10/12/19 10/12/19 History haloperidol lactate 0 mg PO UD 10/12/19 10/12/19 History morphine concentrate 0 mg PO UD 10/12/19 10/12/19 History rivaroxaban [Xarelto] 20 mg PO DAILY@1700 10/12/19 10/12/19 History Allergies Allergy/AdvReac Type Severity Reaction Status Date / Time aprepitant [From Emend] Allergy Severe Anaphylaxis Verified 10/12/19 14:48 fosaprepitant [From Emend] Allergy Severe Anaphylaxis Verified 10/12/19 14:48 Past Med/Surg History Medical History Acute DVT (deep venous thrombosis) (Resolved) Adrenal nodule Cancer of gallbladder Cancer related pain Cholangiocarcinoma of liver (Acute) DVT (deep venous thrombosis) Hemorrhoid History of DVT (deep vein thrombosis) History of pulmonary embolism HTN (hypertension) Microcytic anemia Pleural effusion, bilateral (Acute) Pulmonary emboli (Resolved) Pulmonary nodules Rectal bleeding (Resolved) Situational anxiety Surgical History H/O colonoscopy egd/colonoscopy 05/03/2019. no issues with MAC. History of esophagogastroduodenoscopy (EGD) Family History Aunt Breast cancer Uncle Cancer Aunt Colorectal cancer Uncle Cancer Grandmother (Paternal) Throat cancer Mother Family history of cervical cancer Other No significant active problems Denies family history of Ovarian cancer Prostate cancer Myocardial infarction Social History Preferred Language: Jordanian Communication Ability: Effective Visual Impairment: No Limitations Hearing Ability: Normal Plate Sensitizer Required: No Beliefs That Will Affect Care: None marital status: Single Current Living Situation: Parent Current Living Situation Comment: Lives with parent(s) current occupational status: employed 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 Feels Safe at Home: Yes Smoking Status: Never smoker Tobacco Type: cigarettes ; Cigarettes Per Day: 20 ; Second Hand Exposure: No ; Hx Alcohol Use: No Hx Substance Use: No Childhood Exposure to Second-Hand Smoke: Yes Diet Comment: regular caffeine: No during the past year weight has: decreased > 10 lbs Dental Care, Regularly: No Physical Activity Frequency: Does not Exercise Seatbelt Use: always Sunscreen Use: No Do you think of yourself as: lesbian/todd/homosexual Sexual Activity: has been sexually active, but not for at least 12 months Review of Systems A total of 10 systems reviewed and were otherwise negative This was reviewed to the best of my ability given the fact that the patient was having difficulty talking. Physical Exam Vital Signs Vital Signs - 24 hr 10/12/19 14:04 10/12/19 14:07 10/12/19 14:08 Temperature 36.5 C Temperature Source Axillary Pulse Rate 110 H 100 H 110 H Pulse Rate from SpO2 Sensor 110 H Respiratory Rate 21 22 23 Blood Pressure 107/57 L 107/57 L Blood Pressure Mean 78 73 Pulse Oximetry 98 98 98 Oxygen Delivery Method Nasal Cannula Nasal Cannula Nasal Cannula Oxygen Flow Rate 4 4 4 Sepsis Recent Fever Within 48 Hours No Sepsis Action Taken by Nursing No Action Required 10/12/19 14:15 10/12/19 14:30 10/12/19 15:00 Temperature Temperature Source Pulse Rate 110 H 106 H Pulse Rate from SpO2 Sensor 109 H 106 H Respiratory Rate 18 17 Blood Pressure Blood Pressure Mean Pulse Oximetry 98 93 99 Oxygen Delivery Method Nasal Cannula Nasal Cannula Nasal Cannula Oxygen Flow Rate 4 4 4 Sepsis Recent Fever Within 48 Hours Sepsis Action Taken by Nursing 10/12/19 15:05 10/12/19 15:30 10/12/19 16:00 Temperature Temperature Source Pulse Rate 105 H 108 H 109 H Pulse Rate from SpO2 Sensor 105 H 108 H 109 H Respiratory Rate 21 20 21 Blood Pressure 103/66 93/63 L Blood Pressure Mean 76 73 Pulse Oximetry 98 98 99 Oxygen Delivery Method Nasal Cannula Nasal Cannula Nasal Cannula Oxygen Flow Rate 4 4 4 Sepsis Recent Fever Within 48 Hours Sepsis Action Taken by Nursing 10/12/19 16:30 10/12/19 17:00 10/12/19 17:30 Temperature Temperature Source Pulse Rate 107 H 105 H 104 H Pulse Rate from SpO2 Sensor 107 H 106 H 104 H Respiratory Rate 19 19 19 Blood Pressure Blood Pressure Mean Pulse Oximetry 100 100 100 Oxygen Delivery Method Nasal Cannula Nasal Cannula Nasal Cannula Oxygen Flow Rate 4 4 4 Sepsis Recent Fever Within 48 Hours Sepsis Action Taken by Nursing 10/12/19 18:00 Temperature Temperature Source Pulse Rate 103 H Pulse Rate from SpO2 Sensor 103 H Respiratory Rate 17 Blood Pressure Blood Pressure Mean Pulse Oximetry 99 Oxygen Delivery Method Nasal Cannula Oxygen Flow Rate 4 Sepsis Recent Fever Within 48 Hours Sepsis Action Taken by Nursing Constitutional Chronically ill in appearance. Eyes EOM intact bilaterally Sclera icteric bilaterally ENMT external ear and nose normal, oropharynx normal (Oral mucosa dry) Neck trachea midline Respiratory Rhonchorous breath sounds bilaterally. Tachypnea noted. Cardiovascular Rate/Rhythm: + tachycardic Gastrointestinal (Abdomen) Distended. Diffuse mild tenderness to palpation. No guarding or rebound tenderness. Musculoskeletal Overall weakness noted. Slight pitting edema noted in the right lower extremity without any erythema or warmth noted. Skin Jaundice Neurologic Alert and answers most questions appropriately. Lethargy noted. Psychiatric Acting appropriately Course Course The patient was seen and examined. I spoke with his father, Denis, via the patient's cell phone. The patient was ordered Zofran 4 mg IV. I spoke with pharmacy regarding his morphine pump settings. The patient was reevaluated and still complaining of nausea. He was ordered Phenergan 25 mg IV. I spoke with the patient's hospice nurse in addition to Dr. Cotto who personally evaluated the patient at the bedside. Inpatient management was felt to be appropriate. I spoke with the hospitalist service. They kindly agreed to evaluate the patient for likely inpatient management. Consultations Consultation #1: Dr. Cotto Consultation #2: Dr. Singer Administered Medications Discontinued Medications Promethazine HCl (Phenergan) 25 mg in 51 mls @ 204 mls/hr IV NOW STA Stop: 10/12/19 15:51 Last Infusion: 10/12/19 16:10 Dose: 0 mls/hr Documented by: [id number] Admin: 10/12/19 15:55 Dose: 204 mls/hr Documented by: [id number] Morphine Sulfate (Morphine Sulfate) 4 mg IV NOW STA Stop: 10/12/19 14:32 Last Admin: 10/12/19 14:56 Dose: Not Given Documented by: [id number] Ondansetron HCl (Zofran) 4 mg IV NOW STA Stop: 10/12/19 14:32 Last Admin: 10/12/19 14:56 Dose: 4 mg Documented by: [id number] Ondansetron HCl (Zofran) 4 mg IV NOW STA Stop: 10/12/19 15:17 Last Admin: 10/12/19 15:29 Dose: Not Given Documented by: [id number] Medical Decision Making Medical Records Attestation: I reviewed the patient's medical records. Home Medications Current Medication List: was personally reviewed by me MDM Narrative Differential diagnosis: Chronic pain, end-stage cancer, pulmonary embolus, fluid overload, infectious etiology, suicidal ideation, among others This patient is a 39-year-old male with a history of end-stage cholangiocarcinoma the presents to the emergency department with ongoing pain, shortness of breath and vomiting. On exam, the patient was slightly lethargic. He was jaundiced and chronically ill. The patient is currently on a morphine pump at home. I spoke with the hospice team. They believe that possibly the morphine is contributing to his symptoms in addition to his advanced disease. I had a conversation with the patient and the patient's father. They do not want any further testing. They are interested in comfort measures. As the morphine pump at home is not controlling his symptoms, the patient will be evaluated by the hospitalist service for possible inpatient management. Impression & Plan Intractable nausea and vomiting, Intractable abdominal pain, Cholangiocarcinoma Discharge Plan Visit Data *Final* Discharge Date/Time: 10/12/19 19:30 Chief Complaint: Shortness of Breath/Dyspnea ED Provider: Ceasar Segovia ED Midlevel Provider: Dory Colindres Discharge Problem: Intractable nausea and vomiting, Intractable abdominal pain, Cholangiocarcinoma Patient Disposition: Admitted As Inpatient Discharge Instructions Interventions: ED Discharge Assessment Last Done: 10/12/19 19:30
[2019-10-12] MEDS ORDERED: PROMETHAZINE 25 MG/51 ML BAG IV STA (15:37)
--- NOTE | 2019-10-12 18:18 | Palliative Care Consultation ---
Date of Consultation October 12, 2019 Assessment & Plan (1) Palliative care encounter: 39-year-old male with metastatic cholangiocarcinoma on home hospice. Admitted GIP status on comfort measures only for uncontrolled nausea and vomiting - Nausea/vomiting-suggest Phenergan 25 mg IV every 6 hours as needed, can also place a scope patch to help with oral secretions as well as nausea - Cholangiocarcinoma-metastatic disease-last CT scan showed abdominal distention with very little ascites - Pain-has been well controlled on methadone and Morphine WOOL SCOURER-he was on a rate of 1 mg an hour with a bolus of 1 mg every 10 minutes as needed-patient received 38 mg of IV morphine in the past 24 hours. Plan on stopping his methadone as he is no longer able to take p.o. due to severe vomiting-in order to cover his methadone in addition to his morphine WOOL SCOURER recommend a Dilaudid WOOL SCOURER at 0.5 mg an hour with a bolus of 0.5 mg q. 20 minutes as needed pain/ shortness of breath - Thrombocytopenia-platelets at the time of discharge almost a week ago was 1 K- avoid Sutton, NG tube,Or lab draws. WOOL SCOURER can be run through patient's already accessed port - Anxiety-patient has been on Klonopin 3 times daily with good control, will need to use Ativan 1 mg IV every 4 hours as needed for comfort. (2) Nausea & vomiting: (3) Cholangiocarcinoma of liver: (4) Cancer related pain: (5) Situational anxiety: History of Present Illness Reason for Consultation: Hospice GIP admission History of Present Illness K Patient is a 39-year-old male recently discharged from [facility] with hospice care. Patient is diagnosed with metastatic cholangiocarcinoma. Patient was on a home morphine WOOL SCOURER. Patient required 38 mg of IV morphine in the past 24 hours for breakthrough pain as well as shortness of breath. Patient is also on methadone 20 mg twice daily for pain. Patient having increased nausea and vomiting-at the time of discharge his platelet count was 1 K. Patient has been having hematuria as well as hematemesis. Patient requested ER evaluation for uncontrolled nausea and vomiting. Patient has been receiving Haldol every 4 hours for nausea. Patient had stated he did not want to in the hospital during his last admission-however speaking to him in the emergency room he is agreeable to admission to control his symptoms, patient's father is in agreement. Spoke with patient's father, Denis, regarding admission. Due to concerns that morphine WOOL SCOURER may be contributing to his nausea it was recommended by Hospice pharmacy that his WOOL SCOURER be changed to Dilaudid. Converting his current requirements Dilaudid drip at 0.5 mg with 0.5 mg bolus q. 20 minutes as needed pain. Will discontinue his methadone and titrate WOOL SCOURER as needed. Patient has responded well to Phenergan 25 mg IV as needed for nausea, would also recommend starting a scopolamine patch. Patient is being admitted GIP status for hospice for uncontrolled nausea and vomiting, admitted with comfort measures only. CODE STATUS is DNR Allergies Allergy/AdvReac Type Severity Reaction Status Date / Time aprepitant [From Emend] Allergy Severe Anaphylaxis Verified 10/12/19 14:48 fosaprepitant [From Emend] Allergy Severe Anaphylaxis Verified 10/12/19 14:48 Home Medications Home Medications Medication Instructions Recorded Confirmed Type methadone 20 mg PO BID 05/28/19 10/12/19 History ondansetron HCl 4 mg PO TID PRN 05/28/19 10/12/19 History prochlorperazine maleate 10 mg PO TID PRN 05/28/19 10/12/19 History [Compazine] Medical Marijuana 1 dose PO DIRECTED 06/09/19 10/12/19 History docusate sodium [Colace] 100 mg PO BID 06/09/19 10/12/19 History clonazepam 1 mg tablet 1 mg PO TID #90 tab 09/03/19 10/12/19 Rx acetaminophen 650 mg NM UD 10/12/19 10/12/19 History benzonatate 100 mg PO TID PRN 10/12/19 10/12/19 History haloperidol lactate 0 mg PO UD 10/12/19 10/12/19 History morphine concentrate 0 mg PO UD 10/12/19 10/12/19 History rivaroxaban [Xarelto] 20 mg PO DAILY@1700 10/12/19 10/12/19 History Patient History Medical History Acute DVT (deep venous thrombosis) (Resolved) Adrenal nodule Cancer of gallbladder Cancer related pain Cholangiocarcinoma of liver (Acute) DVT (deep venous thrombosis) Hemorrhoid History of DVT (deep vein thrombosis) History of pulmonary embolism HTN (hypertension) Microcytic anemia Pleural effusion, bilateral (Acute) Pulmonary emboli (Resolved) Pulmonary nodules Rectal bleeding (Resolved) Situational anxiety Surgical History H/O colonoscopy egd/colonoscopy 05/03/2019. no issues with MAC. History of esophagogastroduodenoscopy (EGD) Family History Aunt Breast cancer Uncle Cancer Aunt Colorectal cancer Uncle Cancer Grandmother (Paternal) Throat cancer Mother Family history of cervical cancer Other No significant active problems Denies family history of Ovarian cancer Prostate cancer Myocardial infarction Social History Preferred Language: Divehi Communication Ability: Effective Visual Impairment: No Limitations Hearing Ability: Normal Maintenance Manager Required: No Beliefs That Will Affect Care: None marital status: Single Current Living Situation: Parent Current Living Situation Comment: Lives with parent(s) current occupational status: employed 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 Feels Safe at Home: Yes Smoking Status: Never smoker Tobacco Type: cigarettes ; Cigarettes Per Day: 20 ; Second Hand Exposure: No ; Hx Alcohol Use: No Hx Substance Use: No Childhood Exposure to Second-Hand Smoke: Yes Diet Comment: regular caffeine: No during the past year weight has: decreased > 10 lbs Dental Care, Regularly: No Physical Activity Frequency: Does not Exercise Seatbelt Use: always Sunscreen Use: No Do you think of yourself as: lesbian/todd/homosexual Sexual Activity: has been sexually active, but not for at least 12 months Review of Systems Review of Systems: Positive for abdominal pain due to his metastatic cholangiocarcinoma-has pain over both spleen and liver areas. Positive for shortness of breath,ROS limited due to sedation. Physical Exam Physical Exam: PE: Patient appears comfortable after receiving IV Phenergan and a bolus of his morphine WOOL SCOURER HEENT: EOMI, hearing within normal limits Respirations: Unlabored, diminished breath sounds bilateral bases CV: Tachycardic, positive chronic lower extremity edema Abdomen: Distended, tender over the areas of both liver and spleen Skin: Pale, jaundiced (new ) Neuro: Drowsy due to PRN meds Psych: Anxious Results & Data Vital Signs (Past 12 Hours) Vital Signs Temp Pulse Resp BP Pulse Ox 10/12/19 16:00 109 H 21 93/63 L 99 10/12/19 15:30 108 H 20 98 10/12/19 15:05 105 H 21 103/66 98 10/12/19 15:00 106 H 17 99 10/12/19 14:30 110 H 18 93 10/12/19 14:15 98 10/12/19 14:08 110 H 23 98 10/12/19 14:07 97.7 F 100 H 22 107/57 L 98 10/12/19 14:04 110 H 21 107/57 L 98 PG Care Time/CCT Total # of Minutes Spent Total Time Spent with Patient: Total time spent 120 minutes with greater than 50% of the time at bedside assessing patient's comfort, collaborating with admitting team as well as speaking with family by phone.is greater than 50% in coordination of care (as documented) at patient's floor/unit and/or counseling patient: Prolonged Care Time Total Prolonged Care Time: 50 Coding Level of Care Code 62770 Inpt Consult Level 3 Diagnoses Palliative care encounter Z51.5 Nausea & vomiting R11.2 Cholangiocarcinoma of liver C22.1 Cancer related pain G89.3 Situational anxiety F41.8 Time Spent (min) 120 Critical Care Time Prolonged Care Time Total Prolonged Care Time: 50 120
[2019-10-12] MEDS ORDERED: HYDROmorphone PCA 30 MG/30 ML IV PRN (18:55)
[2019-10-12] MEDS ORDERED: NALOXONE HCL 0.4 MG/1 ML VIAL/CARP IV PRN (18:55)
[2019-10-12] MEDS ORDERED: SODIUM CHLORIDE 0.9% 1000ML 1,000 ML IV SCH (19:00)
[2019-10-12] MEDS ORDERED: BENZONATATE 100 MG CAPSULE PO PRN (19:40)
[2019-10-12] MEDS ORDERED: PROCHLORPERAZINE MALEATE 10 MG TAB PO PRN (19:40)
[2019-10-12] MEDS ORDERED: ONDANSETRON INJ 2 MG/ML 2 ML VIAL IV PRN (19:40)
[2019-10-12] MEDS ORDERED: ACETAMINOPHEN 650 MG SUPP PR PRN (19:40)
[2019-10-12] MEDS ORDERED: LORazepam 1 MG/2 ML VIAL IV PRN (19:40)
--- NOTE | 2019-10-12 19:42 | History & Physical Report ---
Date of Service October 12, 2019 Assessment & Plan (1) Nausea & vomiting: phenergan, zofran (2) Metastatic disease: comfort care at this time Pt has requested no further testing to be done Follows with hospice, Dr. Cotto did speak with family via phone (3) Thrombocytopenia: No further labs (4) Cancer of gallbladder: end stage (5) History of DVT (deep vein thrombosis): d/c eliquis (6) Cancer related pain: d/c methadone and morphine pump, transition to dilaudid REAL ESTATE CLOSING COORDINATOR as per Dr. Cotto Scopalamine patch Ativan (7) Situational anxiety: Ativan (8) DVT prophylaxis: None at this time for comfort care History of Present Illness Primary Care Provider: Miracle Angelo, 39 y/o M who was brought to [facility] for c/o intractable n/v and pain control. Pt was recently started on a morphine pump at home for pain management. Pt was seen by Dr. Cotto in the ED and there are concerns that the morphine may be causing his worsening n/v. There are also concerns that this is due to end of life. She requested pt be admitted for IV medications for n/v, as well as to monitor response to changing REAL ESTATE CLOSING COORDINATOR to dilaudid. Pt states he feels SOB and has abd pain. He feels his nausea is not improved and has had ongoing emesis. I was informed by hospice that pt is now comfort care and unable to take anythi ng PO. She did speak with pt's family multiple times via phone as they were not with pt in the ED. All orders were requested by hospice. Allergies Allergy/AdvReac Type Severity Reaction Status Date / Time aprepitant [From Emend] Allergy Severe Anaphylaxis Verified 10/12/19 14:48 fosaprepitant [From Emend] Allergy Severe Anaphylaxis Verified 10/12/19 14:48 Home Medications Home Medications Medication Instructions Recorded Confirmed Type methadone 20 mg PO BID 05/28/19 10/12/19 History ondansetron HCl 4 mg PO TID PRN 05/28/19 10/12/19 History prochlorperazine maleate 10 mg PO TID PRN 05/28/19 10/12/19 History [Compazine] Medical Marijuana 1 dose PO DIRECTED 06/09/19 10/12/19 History docusate sodium [Colace] 100 mg PO BID 06/09/19 10/12/19 History clonazepam 1 mg tablet 1 mg PO TID #90 tab 09/03/19 10/12/19 Rx acetaminophen 650 mg OR UD 10/12/19 10/12/19 History benzonatate 100 mg PO TID PRN 10/12/19 10/12/19 History haloperidol lactate 0 mg PO UD 10/12/19 10/12/19 History morphine concentrate 0 mg PO UD 10/12/19 10/12/19 History rivaroxaban [Xarelto] 20 mg PO DAILY@1700 10/12/19 10/12/19 History Past Med/Surg History Medical History Acute DVT (deep venous thrombosis) (Resolved) Adrenal nodule Cancer of gallbladder Cancer related pain Cholangiocarcinoma of liver (Acute) DVT (deep venous thrombosis) Hemorrhoid History of DVT (deep vein thrombosis) History of pulmonary embolism HTN (hypertension) Microcytic anemia Pleural effusion, bilateral (Acute) Pulmonary emboli (Resolved) Pulmonary nodules Rectal bleeding (Resolved) Situational anxiety Surgical History H/O colonoscopy egd/colonoscopy 05/03/2019. no issues with MAC. History of esophagogastroduodenoscopy (EGD) Family History Aunt Breast cancer Uncle Cancer Aunt Colorectal cancer Uncle Cancer Grandmother (Paternal) Throat cancer Mother Family history of cervical cancer Other No significant active problems Denies family history of Ovarian cancer Prostate cancer Myocardial infarction Social History Preferred Language: Bengali Communication Ability: Effective Visual Impairment: No Limitations Hearing Ability: Normal Studio Operations Engineer In Charge Required: No Beliefs That Will Affect Care: None marital status: Single Current Living Situation: Parent Current Living Situation Comment: Lives with parent(s) current occupational status: employed 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 Feels Safe at Home: Yes Smoking Status: Never smoker Tobacco Type: cigarettes ; Cigarettes Per Day: 20 ; Second Hand Exposure: No ; Hx Alcohol Use: No Hx Substance Use: No Childhood Exposure to Second-Hand Smoke: Yes Diet Comment: regular caffeine: No during the past year weight has: decreased > 10 lbs Dental Care, Regularly: No Physical Activity Frequency: Does not Exercise Seatbelt Use: always Sunscreen Use: No Do you think of yourself as: lesbian/todd/homosexual Sexual Activity: has been sexually active, but not for at least 12 months Review of Systems Review of Systems: Pt answered questions above, however discussion was limited due to pt fatigue Physical Exam Constitutional: + ill appearing and + thin Eyes: normal visual porter by confrontation and + anicteric sclerae Neck: normal visual inspection and trachea midline Respiratory: + labored breathing; no respiratory distress Auscultation: no crackles and no wheezes Cardiovascular: Rate/Rhythm: regular rate and regular rhythm Gastrointestinal (Abdomen): Inspection/Auscultation: + abdomen distended Percussion/Palpation: + abdomen tender (to light palpation) and abdomen soft Musculoskeletal: Head/Neck/Chest: normocephalic and head atraumatic negative for edema, peripheral pulses intact Skin: + jaundice warm and dry Neurologic: awake Speech / Cognition: normal speech answer some questions but then told me I was asking too many questions and he was tired Psychiatric: A+Ox3, euthymic affect Results & Data Results & Data ([facility]) Vital Signs (Past 12 Hours) Vital Signs Temp Pulse Resp BP Pulse Ox 10/12/19 18:00 103 H 17 99 10/12/19 17:30 104 H 19 100 10/12/19 17:00 105 H 19 100 10/12/19 16:30 107 H 19 100 10/12/19 16:00 109 H 21 93/63 L 99 10/12/19 15:30 108 H 20 98 10/12/19 15:05 105 H 21 103/66 98 10/12/19 15:00 106 H 17 99 10/12/19 14:30 110 H 18 93 10/12/19 14:15 98 10/12/19 14:08 110 H 23 98 10/12/19 14:07 36.5 C 100 H 22 107/57 L 98 10/12/19 14:04 110 H 21 107/57 L 98 Code Status & VTE Plan Code Status DNR/DNI VTE Prophylaxis Plan VTE Prophylaxis will be ordered: No PG Care Time/CCT Total # of Minutes Spent Total Time Spent with Patient: Total time spent is greater than 50% in coordination of care (as documented) at patient's floor/unit and/or counseling patient: Coding Level of Care Code 88467 Initial Inpt Care Lvl 3 Diagnoses Nausea & vomiting R11.2 Metastatic disease C79.9 Thrombocytopenia D69.6 Cancer of gallbladder C23 History of DVT (deep vein thrombosis) Z86.718 Cancer related pain G89.3 Situational anxiety F41.8 DVT prophylaxis Z29.9
[2019-10-12] MEDS ORDERED: ONDANSETRON 4 MG OD TAB PO PRN (19:47)
[2019-10-12] MEDS ORDERED: SCOPOLAMINE 1.5 MG TDSY TD SCH (20:00)
[2019-10-12] MEDS ORDERED: MEDICAL MARIJUANA PO PRN (20:00)
[2019-10-12] MEDS ORDERED: HALOPERIDOL 1 MG/0.5 ML UDP PO PRN (20:03)
[2019-10-12] MEDS: clonazePAM 1 MG TAB PO SCH (21:43)
[2019-10-12] MEDS: DOCUSATE SODIUM 100 MG CAP PO SCH (21:43)
[2019-10-12] MEDS: CHECK SCOPOLAMINE PATCH PLACEMENT SCH (22:20)
[2019-10-12] MEDS: PROMETHAZINE HCL 25 MG in SODIUM CHLORIDE 0.9% 50 ML IV PRN (22:20)
[2019-10-13] MEDS ORDERED: Nursing to Pharmacy Communication ONE (00:37)
[2019-10-13] MEDS ORDERED: HALOPERIDOL ORAL SOLN 2 MG/ML PO PRN (01:36)
[2019-10-13] MEDS ORDERED: PROCHLORPERAZINE 10 MG in SYRINGE 8 ML IV PRN (01:45)
[2019-10-13] MEDS: PROMETHAZINE HCL 25 MG in SODIUM CHLORIDE 0.9% 50 ML IV PRN (05:36)
[2019-10-13] MEDS: CHECK SCOPOLAMINE PATCH PLACEMENT SCH (08:15)
[2019-10-13] MEDS: clonazePAM 1 MG TAB PO SCH (08:16)
[2019-10-13] MEDS: DOCUSATE SODIUM 100 MG CAP PO SCH (08:16)
--- NOTE | 2019-10-13 09:54 | Death Pronouncement Note ---
Date of Service October 13, 2019 Pronouncement Note Admission Date Admission Date: October 12, 2019 Date and Time of Date of : 10/13/19 Time of : 09:30 PCOD Preliminary cause of : Cholangiocarcinoma metastatic to lung Contributing Factors (1) Nausea & vomiting: (2) Metastatic disease: (3) Thrombocytopenia: (4) Cancer of gallbladder: (5) History of DVT (deep vein thrombosis): (6) Cancer related pain: (7) Situational anxiety: (8) DVT prophylaxis: Hospital Course Hospital Course: see discharge summary Additional Data Confirmation of : no pulse, no respirations, no heart sounds, pupils fixed and dilated and other Family: contacted (called father Denis on the phone to notify) Attending/PCP notified?: Yes Attending physician: Romario Hoffman, DO Was code activated?: No Autopsy requested?: No rating examiner notified?: No Organ bank notified?: Yes Advance directives: Yes Coding Level of Care Code None Diagnoses Nausea & vomiting R11.2 Metastatic disease C79.9 Thrombocytopenia D69.6 Cancer of gallbladder C23 History of DVT (deep vein thrombosis) Z86.718 Cancer related pain G89.3 Situational anxiety F41.8 DVT prophylaxis Z29.9
[2019-10-13] MEDS ORDERED: HEPARIN 100 UNIT/ML 5ML FLUSH ONE (09:57)
--- NOTE | 2019-10-13 10:01 | Discharge Summary ---
Date of Service October 13, 2019 Admission HPI Per Admitting Provider 39 y/o M who was brought to [facility] for c/o intractable n/v and pain control. Pt was recently started on a morphine pump at home for pain management. Pt was seen by Dr. Cotto in the ED and there are concerns that the morphine may be causing his worsening n/v. There are also concerns that this is due to end of life. She requested pt be admitted for IV medications for n/v, as well as to monitor response to changing [employer] to dilaudid. Pt states he feels SOB and has abd pain. He feels his nausea is not improved and has had ongoing emesis. I was informed by hospice that pt is now comfort care and unable to take anythi ng PO. She did speak with pt's family multiple times via phone as they were not with pt in the ED. All orders were requested by hospice. Principal Diagnosis Metastatic cholangiocarcinoma Discharge Exam no pulse, no heart sounds, not breathing, pupils fixed, not responsive Discharge Data Allergies Allergy/AdvReac Type Severity Reaction Status Date / Time aprepitant [From Emend] Allergy Severe Anaphylaxis Verified 10/12/19 14:48 fosaprepitant [From Emend] Allergy Severe Anaphylaxis Verified 10/12/19 14:48 Consultations 10/12/19 19:08 ED Decision to Admit Stat Hospital Course (1) Metastatic disease: cholangiocarcinoma with metastatic disease to lungs, liver progressive respiratory failure due to effusions, ascites, interstitial lung issues from numerous pulmonary nodules was at home on hospice, admitted here on [facility] hospice for uncontrolled nausea at home on dilaudid [employer] Phenergan for the nausea peacefully at 930 on 10/12/29 notified his father Denis over the phone (2) Nausea & vomiting: phenergan, zofran (3) Thrombocytopenia: No further labs (4) Cancer of gallbladder: end stage (5) History of DVT (deep vein thrombosis): d/c eliquis (6) Cancer related pain: d/c methadone and morphine pump, transition to dilaudid [employer] as per Dr. Cotto Scopalamine patch Ativan (7) Situational anxiety: Ativan (8) DVT prophylaxis: None at this time for comfort care Total Time Total Time Spent Total Time Spent (In Minutes): 15 minutes Total Time Includes: Examination of the Patient and Other (speaking with patient's father over the phone) Discharge Plan Discharge Items Reason For Visit: INTRACTABLE N/V Stand-Alone Forms: My [facility] Medications and DC Order Prescriptions: No Action clonazepam [Klonopin] 1 mg tablet 1 mg PO TID Qty: 90 RF: 0 prochlorperazine maleate [Compazine] 10 mg Tablet 10 mg PO TID PRN (Reason: Nausea) RF: 0 methadone 5 mg tablet 20 mg PO BID RF: 0 ondansetron HCl 4 mg tablet 4 mg PO TID PRN (Reason: Nausea And Vomiting) RF: 0 acetaminophen 650 mg suppository 650 mg [place] UD RF: 0 morphine concentrate 100 mg/5 mL (20 mg/mL) solution 0 mg PO UD RF: 0 benzonatate 100 mg capsule 100 mg PO TID PRN (Reason: Cough) RF: 0 haloperidol lactate 2 mg/mL concentrate 0 mg PO UD RF: 0 Xarelto 20 mg tablet 20 mg PO DAILY@1700 RF: 0 docusate sodium [Colace] 100 mg capsule 100 mg PO BID RF: 0 Medical Marijuana 1 dose PO DIRECTED RF: 0 Admission Data Admit Date/Time: 10/12/19 19:00 Attending Provider: Romario Hoffman Admit Provider: Josi Singer Primary Care Provider: Miracle Angelo Other Providers: Josi Singer Coding Level of Care Code D/C Day Management <30 mins Diagnoses Metastatic disease C79.9 Nausea & vomiting R11.2 Thrombocytopenia D69.6 Cancer of gallbladder C23 History of DVT (deep vein thrombosis) Z86.718 Cancer related pain G89.3 Situational anxiety F41.8 DVT prophylaxis Z29.9
== END 2019-10-13 09:30 | disposition expired | DRG 951 ==
LOC: ED 14:00 → 2N 19:00 → SUATTDRO 19:00 → 2N 19:30